=== PATIENT | male | born 1965 | race African-American/Black ===

== ENCOUNTER 2020-03-25 13:04 | Emergency (ER) | payer OTHER, SELFPAY ==
[2020-03-25 13:59] VITALS: PULSE 74; RESP 16; TEMP 37.2; O2SAT 97; BMI 41.1
--- NOTE | 2020-03-25 18:55 | ED.GENADULT ---
HPI - General Adult General Chief complaint: General Medical Stated complaint: anal discharge Time Seen by Provider: 03/25/20 18:43 Source: patient Mode of arrival: ambulatory Limitations: no limitations History of Present Illness HPI narrative: Patient presents to the ED for rectal discharge for 2 weeks. Patient denies any pain. Patient denies any fever, chills, or swelling at any site area. Patient denies any anal sex or placing any foreign body in his anus. Related Data Previous Rx's Medication Instructions Recorded cephalexin 500 mg PO Q6H #28 cap 03/25/20 doxycycline hyclate 100 mg PO BID #20 cap 03/25/20 Allergies Allergy/AdvReac Type Severity Reaction Status Date / Time pollen extracts [POLLEN] Allergy Mild RUNNY NOSE Unverified 12/13/19 16:21 DUST Allergy Mild SNIFFLES Uncoded 12/13/19 16:21 Review of Systems Review of Systems: Yes all other systems are reviewed and are negative Constitutional: Constitutional: Reports as per HPI and Reports no additional constitutional complaints Eyes: Eyes: Reports as per HPI and Reports no additional eye complaints ENT: Reports system reviewed and no additional complaints, except as documented and Reports as per HPI Cardiovascular: Cardiovascular: Reports as per HPI and Reports no additional cardiovascular complaints Respiratory: Respiratory: Reports as per HPI and Reports no additional respiratory complaints Gastrointestinal: Gastrointestinal: Reports as per HPI and Reports no additional gastrointestinal complaints Comments: Clear/yellow rectal discharge Genitourinary: Genitourinary: Reports no additional male genitourinary complaints and Reports as per HPI Musculoskeletal: Musculoskeletal: Reports no additional musculoskeletal complaints and Reports as per HPI Neurologic: Reports system reviewed and no additional complaints, except as documented and Reports as per HPI Psychiatric: Psychiatric: Reports no additional psychiatric complaints and Reports as per HPI [facility] Past Medical History Medical History Asthma Hypertension Social History Social History Smoking Status: Former smoker Use of substances other than those prescribed or required for medical reasons: No Any prior treatment program specific to substance use: No Advance Directives: No Advance Directives Information Provided: Yes Physical Exam Vital Signs: Vital Signs: Last Vital Signs Temp 98.9 F 03/25/20 13:59 Pulse 74 03/25/20 13:59 Resp 16 03/25/20 13:59 Pulse Ox 97 03/25/20 13:59 Body Mass Index 41.1 Const: General: cooperative, healthy appearing, comfortable, no acute distress, well developed, alert and awake Orientation/consciousness: patient oriented x3 HENMT: Head: Yes normal to inspection and Yes No palpable skull fracture present Eyes: General: appearance normal, both eyes and all related structures Neck: Neck: Yes normal visual inspection, Yes full ROM, Yes no lymphadenopathy, Yes no meningeal signs, Yes trachea midline, Yes supple and No tender Chest: Chest palpation & inspection: normal inspection of the chest and normal palpation of entire chest wall Resp: Effort & Inspection: normal respiratory effort and able to speak in complete sentences Auscultation: clear to auscultation bilaterally Cardio: Jugular venous distension: no JVD Heart sounds: S1 normal heart sound present and S2 normal heart sound present GI: Other: MARY: Rectal exam negative for any anal/rectal swelling or mass protruding. Positive for bilateral gluteus max is in a rash/possible stage 2 sacral ulcer. Finger placed in rectum negative for blood and negative for mass on palpation. Negative for any profuse discharge although patient does have yellow stains on pad. Inspection: Yes normal to inspection and No abdominal wall ecchymosis Palpation (GI): Soft to palpation, not firm, nontender, no guarding and not rigid : General: No CVA tenderness and Yes no CVA tenderness Back/Spine/Pelvis: Back: no CVA tenderness, No CVA tenderness and No back tenderness Skin: General skin exam: no rashes or lesions noted Neuro: General: patient oriented x3, no meningeal signs and CN's II-XI intact bilaterally Cranial nerves: Yes CN's II-XII intact bilaterally Extrem: General: Yes normal to inspection and Yes full ROM Psych: Appearance: grossly normal, well kempt and not disheveled Course Course Course Narrative: Unlikely patient has perirectal abscess. Once again surgical decubitus ulcer. Patient overweight. Will send for CT scans admission is no osteomyelitis or perirectal abscess due to patient stating discharge from rectum although very unlikely Reevaluation(s) Reevaluation #1: Patient labs came back normal. CT scan of the pelvis negative for any perirectal abscess, fistula, or osteomyelitis. Patient discharge with antibiotics due to mild superimposed cellulitis on sacral ulcer. Patient be referred to [facility]. Time: 21:21 Medical Decision Making Lab Data Result diagrams: 03/25/20 19:19 03/25/20 19:54 Labs: Lab Results 03/25/20 03/25/20 03/25/20 Range/Units 19:19 19:19 19:54 WBC 7.5 (4.8-10.8) X10*3/uL RBC 4.46 L (4.60-5.80) X10*6/uL Hgb 11.8 L (14.0-18.0) g/dl Hct 37.3 L (42-52) % MCV 83.6 (80-98) fL MCH 26.5 L (27.0-33.0) pg MCHC 31.6 (31.0-36.0) g/dl RDW 14.8 (11.0-16.0) % Plt Count 210 (160-400) X10*3/uL MPV 8.5 L (9.4-12.4) fL Immature Gran % (Auto) 1.1 H (0.0-0.4) % Neut % (Auto) 70.8 (45-73) % Lymph % (Auto) 18.3 L (20-40) % [place] % (Auto) 9.1 (2-11) % Eos % (Auto) 0.3 (0-4) % Baso % (Auto) 0.4 (0-2) % Lymph # (Auto) 1.4 (1.2-4.9) X10*3/uL [place] # (Auto) 0.7 (0.1-1.2) X10*3/uL Eos # (Auto) 0.0 (0.0-0.4) X10*3/uL Baso # (Auto) 0.0 (0.0-0.2) X10*3/uL Abs Immat Gran (auto) 0.08 H (0.00-0.03) X10*3/uL Absolute Neuts (auto) 5.3 (2.0-8.3) X10*3/uL Absolute Nucleated RBC 0.000 (0.0-0.012) X10*3/uL Nucleated RBC % (auto) 0.0 (0.0-0.2) /100WBC Sodium Cancelled 137 Potassium Cancelled 3.4 Chloride Cancelled 105 Carbon Dioxide Cancelled 22 Anion Gap Cancelled 13 BUN Cancelled 7 L Creatinine Cancelled 0.83 Estim Creat Clear Calc Cancelled 150.9 Estimated GFR Cancelled > 60 Random Glucose Cancelled 113 Calcium Cancelled 8.7 Discharge Plan Discharge Clinical Impression: Sacral decubitus ulcer Patient Disposition: Home, Self-Care Instructions: Cellulitis (ED) Additional Instructions: Return to the ED for rectal pain, pain in buttocks, fever, chills, nausea, vomiting, abdominal pain, blood in stool, or any other concerning symptoms. Prescriptions: New doxycycline hyclate 100 mg capsule 100 mg PO BID Qty: 20 RF: 0 cephalexin 500 mg capsule 500 mg PO Q6H Qty: 28 RF: 0 Referrals: Ginette West PA [Physician Service Writer] - 2 days (Bilateral gluteus catina stage II sacral ulcer. CT scan negative for any osteomyelitis or perirectal abscess. Patient started on antibiotics.) Stand Alone Forms: Work/School Release Interventions: ED Discharge Assessment Last Done: 03/25/20 21:56 Discharge Date/Time: 03/25/20 21:58 Print Language: Ecuadorean
[2020-03-25 19:23] LABS: MANUAL DIFF FLAG NO
[2020-03-25 19:29] LABS: Basophils Percent Auto 0.4 % (0-2); Eosinophils Percent Auto 0.3 % (0-4); Hematocrit 37.3 % (42-52); Hemoglobin 11.8 g/dl (14.0-18.0); Imm Gran Abs Auto 0.08 X10*3/uL (0.00-0.03); Imm Gran Pct Auto 1.1 % (0.0-0.4); Lymphocytes Absolute Auto 1.4 X10*3/uL (1.2-4.9); Lymphocytes Percent Auto 18.3 % (20-40); Mean Corpuscular HGB Conc 31.6 g/dl (31.0-36.0); Mean Corpuscular Hemoglobin 26.5 pg (27.0-33.0); Mean Corpuscular Volume 83.6 fL (80-98); Mean Platelet Volume 8.5 fL (9.4-12.4); Monocytes Absolute Auto 0.7 X10*3/uL (0.1-1.2); Monocytes Percent Auto 9.1 % (2-11); Neutrophils Absolute Auto 5.3 X10*3/uL (2.0-8.3); Neutrophils Percent Auto 70.8 % (45-73); Platelet Count 210 X10*3/uL (160-400); Red Blood Count 4.46 X10*6/uL (4.60-5.80); Red Cell Distribution Width 14.8 % (11.0-16.0); White Blood Count 7.5 X10*3/uL (4.8-10.8)
[2020-03-25 20:26] LABS: Anion Gap 13 (12-20); Blood Urea Nitrogen 7 mg/dL (9-16); Calcium 8.7 mg/dL (8.4-10.2); Carbon Dioxide 22 mmol/L (22-29); Chloride 105 mmol/L (96-108); Creatinine Clr Calc Pharmacy 150.9; Estimated Glomerular Filt Rate > 60; Glucose Random 113 mg/dL (60-115); Potassium 3.4 mmol/l (3.3-5.1); Sodium 137 mmol/L (135-145)
--- NOTE | 2020-03-25 20:33 | CT_ITS ---
EXAMINATION: CT PELVIS WITHOUT CONTRAST CLINICAL INFORMATION: 54-year-old male with rectal drainage. Question fistula versus perirectal abscess. Question osteomyelitis. COMPARISON: Abdominal ultrasound 01/31/2018 TECHNIQUE: Helical scanning was performed with submillimeter collimation through the pelvis. Sagittal and coronal multiplanar 2-D reconstructions were obtained. This CT examination was performed using dose optimization techniques as appropriate, variously including the following: *Automated exposure control *Adjustment of mA and/or kV according to patient size (this includes techniques or standardized protocols for targeted exams where dose is matched to indication/reason for exam; i.e. extremities or head) *Use of iterative reconstruction technique DLP: 1018 mGy-cm FINDINGS: Visualized loops of small bowel are normal in caliber. Visualized loops of colon demonstrate mild diverticulosis without CT evidence to suggest active diverticulitis. The appendix is normal in appearance. Tiny fat-containing umbilical hernia. Visualized portions of the inferior abdominal aorta are normal in caliber. The bladder is decompressed and therefore not accurately evaluated. The prostate gland is not enlarged. No pelvic abscess identified. Shotty bilateral inguinal lymph nodes. Mild degenerative changes of the visualized lower lumbar spine. 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 CT/CT pelvis wo con IMPRESSION: No pelvic abscess identified.
--- NOTE | 2020-03-25 21:58 | PC.NURSE ---
SEVERO MCCLAIN AND LUDWIG TORRES WENT TO ASSESSES BOTTOM AREA 2 ULCERS NOTED.
== END 2020-03-25 21:58 | disposition home or self-care (01) ==
PROVIDERS: Physician Assistant; Emergency Provider Emergency Medicine; PCP Internal Medicine
DX: L89.150 Pressure ulcer of sacral region, unstageable (principal); Z87.891 Personal history of nicotine dependence; Z79.899 Other long term (current) drug therapy
CPT/HCPCS: 36415; 72192; 80048; 85025; 99284

== ENCOUNTER 2020-04-03 08:00 | Outpatient (RCR) | payer OTHER, SELFPAY | END 2020-04-15 14:52 | disposition home or self-care (01) | LOC: HO.WCC 08:00 | PROVIDERS: Visit Provider Surgery | DX: L89.322 Pressure ulcer of left buttock, stage 2 (principal); L89.312 Pressure ulcer of right buttock, stage 2; F17.290 Nicotine dependence, other tobacco product, uncomplicated; I10 Essential (primary) hypertension; Z79.2 Long term (current) use of antibiotics; Z79.899 Other long term (current) drug therapy | CPT/HCPCS: 99203; 99212; 99213 ==

== ENCOUNTER 2020-04-03 16:48 | Outpatient (REF) | payer OTHER, SELFPAY | END 2020-04-03 16:49 | disposition home or self-care (01) | LOC: HO.LAB 16:48 | PROVIDERS: Visit Provider Internal Medicine | DX: Z20.828 Contact with and (suspected) exposure to other viral communicable diseases (principal) | CPT/HCPCS: 36415; C9803; U0003 ==

== ENCOUNTER 2020-05-22 09:08 | Outpatient (RCR) | payer OTHER, SELFPAY | END 2020-07-04 15:51 | disposition home or self-care (01) | LOC: HO.WCC 09:08 | PROVIDERS: Visit Provider Surgery | DX: B35.8 Other dermatophytoses (principal); I10 Essential (primary) hypertension; F17.290 Nicotine dependence, other tobacco product, uncomplicated | CPT/HCPCS: 99212; 99213 ==

== ENCOUNTER 2020-06-23 09:51 | Outpatient (REF) | payer OTHER, SELFPAY | END 2020-06-23 09:52 | disposition home or self-care (01) | LOC: HO.LAB 09:51 | PROVIDERS: Visit Provider Internal Medicine | DX: Z20.822 Contact with and (suspected) exposure to COVID-19 (principal) | CPT/HCPCS: 36415; C9803; U0003; U0005 ==

== ENCOUNTER 2020-12-04 12:33 | Emergency (ER) | payer OTHER, SELFPAY ==
--- NOTE | 2020-12-04 | ECG_ITS ---
Test Reason : CP Blood Pressure : / mmHG Vent. Rate : 049 BPM Atrial Rate : 049 BPM P-R Int : 162 ms QRS Dur : 112 ms QT Int : 460 ms P-R-T Axes : 030 013 037 degrees QTc Int : 415 ms Sinus bradycardia Abnormal ECG When compared with ECG of 09-JUL-2013 11:35, Vent. rate has decreased BY 42 BPM Referred By: Generic ED Physician Electronically Signed By:SHILPA BHAKTA
--- NOTE | ~2020-12-04 | XR_ITS ---
EXAMINATION: XR CHEST CLINICAL INFORMATION: Chest pain COMPARISON: Previous chest x-ray May 2009 TECHNIQUE: Frontal view of the chest was obtained. FINDINGS: No significant abnormality is noted involving the heart, lungs, mediastinum, bony thorax or soft tissues. XR/XR chest 1V IMPRESSION: Unremarkable examination.
[2020-12-04 12:41] VITALS: BP 149/82; PULSE 52; RESP 16; TEMP 37.2; O2SAT 97; BMI 38.5
[2020-12-04 13:13] LABS: MANUAL DIFF FLAG NO
[2020-12-04 13:16] LABS: Basophils Absolute Auto 0.1 X10*3/uL (0.0-0.2); Basophils Percent Auto 0.7 % (0-2); Eosinophils Absolute Auto 0.1 X10*3/uL (0.0-0.4); Eosinophils Percent Auto 1.8 % (0-4); Hematocrit 36.8 % (42-52); Hemoglobin 12.4 g/dl (14.0-18.0); Imm Gran Abs Auto 0.02 X10*3/uL (0.00-0.03); Imm Gran Pct Auto 0.3 % (0.0-0.4); Lymphocytes Absolute Auto 2.1 X10*3/uL (1.2-4.9); Lymphocytes Percent Auto 28.4 % (20-40); Mean Corpuscular HGB Conc 33.7 g/dl (31.0-36.0); Mean Corpuscular Hemoglobin 28.6 pg (27.0-33.0); Mean Corpuscular Volume 84.8 fL (80-98); Mean Platelet Volume 8.8 fL (9.4-12.4); Monocytes Absolute Auto 0.7 X10*3/uL (0.1-1.2); Monocytes Percent Auto 8.9 % (2-11); Neutrophils Absolute Auto 4.4 X10*3/uL (2.0-8.3); Neutrophils Percent Auto 59.9 % (45-73); Platelet Count 225 X10*3/uL (160-400); Red Blood Count 4.34 X10*6/uL (4.60-5.80); Red Cell Distribution Width 14.7 % (11.0-16.0); White Blood Count 7.3 X10*3/uL (4.8-10.8)
[2020-12-04 13:31] LABS: Anion Gap 13 (12-20); Blood Urea Nitrogen 6 mg/dL (9-16); Calcium 9.7 mg/dL (8.4-10.2); Carbon Dioxide 21 mmol/L (22-29); Chloride 110 mmol/L (96-108); Creatinine Clr Calc Pharmacy 159.4; Estimated Glomerular Filt Rate > 60; Glucose Random 81 mg/dL (60-115); Potassium 3.8 mmol/L (3.3-5.1); Sodium 140 mmol/L (135-145)
[2020-12-04 13:35] LABS: Troponin-I High Sensitivity < 3.5 ng/L (<3.5-35.0)
[2020-12-04 13:41] LABS: COVID-19 Test Negative (Negative)
--- NOTE | 2020-12-04 14:55 | ED_ITS ---
HPI - Chest Pain General Chief Complaint: Chest Pain Stated Complaint: SOB FEVER CHEST PAIN Time Seen by Provider: 12/04/20 14:55 Source: patient Mode of arrival: ambulatory Limitations: no limitations History of Present Illness MD complaint: chest pain (cough, runny nose, fevers) Onset (ago): day(s) (2) Timing of current episode: constant Prior episodes: Yes Onset: during rest Pain location: left chest Pain radiation: none Severity: mild Quality: tightness Relieving factors: nothing Exacerbating factors: nothing Context: recent illness Associated symptoms: dyspnea, fever and cough Treatment prior to arrival: none Related Data Home Medications Medication Instructions Recorded Confirmed aripiprazole 5 mg tablet (Abilify) 5 mg PO DAILY 04/08/20 08/04/20 bupropion HCl 300 mg 24 hr tablet, 300 mg PO QAM 04/08/20 08/04/20 extended release (Wellbutrin XL) loratadine 10 mg tablet 10 mg PO DAILY 04/08/20 08/04/20 quetiapine 300 mg tablet (Seroquel) 300 mg PO BEDTIME 04/08/20 08/04/20 sertraline 100 mg tablet (Zoloft) 200 mg PO DAILY tab 04/08/20 08/04/20 trazodone 100 mg tablet 200 mg PO BEDTIME 04/08/20 08/04/20 Previous Rx's Medication Instructions Recorded cyanocobalamin (vitamin B-12) 1,000 mcg PO DAILY #28 tab 04/08/20 1,000 mcg tablet (Vitamin B-12) folic acid 1 mg tablet 1 mg PO DAILY #28 tab 06/03/20 albuterol sulfate 90 mcg/actuation 2 puff PO Q4H #8.5 g 07/10/20 aerosol inhaler (ProAir HFA) ascorbate calcium (vitamin C) 500 500 mg PO DAILY #90 tab 09/23/20 mg tablet ferrous sulfate 325 mg (65 mg 325 mg PO DAILY #90 tab 09/23/20 iron) tablet (Feosol) pantoprazole 40 mg tablet,delayed 40 mg PO DAILY 90 Days #90 tab 09/23/20 release allopurinol 300 mg tablet 300 mg PO DAILY #28 tab 10/25/20 nifedipine 90 mg tablet,extended 90 mg PO DAILY #28 tab 10/25/20 release 24 hr Allergies Allergy/AdvReac Type Severity Reaction Status Date / Time pollen extracts [POLLEN] Allergy Mild RUNNY NOSE Verified 05/19/20 12:42 house dust Allergy Unknown Sniffles Verified 05/19/20 12:42 Review of Systems Review of Systems: Constitutional : No Weight loss, pos Fever, No Chills ENT/Mouth : No sore throat, No Rhinorrhea Eyes: No Eye Pain, No Swelling Cardiovascular : pos Chest Pain, pos SOB, no Dyspnea on Exertion, No Orthopnea, No Edema, No Palpitations Respiratory : pos Cough, No Sputum Gastrointestinal : no Nausea, No Vomiting, No Diarrhea, No abdominal Pain, No Hematochezia, No Melena Genitourinary : No Dysuria, No Urinary Frequency Musculoskeletal : No joint pain, No Myalgias, No Joint Swelling Skin : No Skin Lesions, No rash Neuro : No Weakness, No Numbness, No Dizziness, No Headache Psych : No Anxiety/Panic, No Depression Heme/Lymph: No Bruising, No Lymphadenopathy Endocrine : No Polyuria, No Polydipsia All other systems reviewed and are negative [facility] Past Medical History Attestation statement: The following information was validated with the patient. Medical History Anemia Anxiety and depression Asthma Degenerative disc disease Folic acid deficiency GERD (gastroesophageal reflux disease) Gout Hypertension Obesity Tubular adenoma of colon Surgical History H/O knee surgery Family History Family History (Updated 05/19/20 @ 12:44 by Juany Aguirre Marco) Mother Diabetes Hypertension Stroke Father Medical history unknown Sister Hypertension Diabetes Paternal Grandmother Myocardial infarction Daughter In good health Sister No problems noted. Brother No problems noted. Social History Social History Alcohol intake: current Alcohol intake frequency: holidays/special occasions only Alcohol type: beer Patient Tobacco Use Status: Former Tobacco user Smoked in Last 30 Days: No Use of substances other than those prescribed or required for medical reasons: No Substance Use Type: Marijuana Advance Directives: No Advance Directives Information Provided: No Physical Exam 2 Vital Signs: Vital Signs: Last Vital Signs Temp 98.9 F 12/04/20 12:41 Pulse 50 12/04/20 16:00 Resp 18 12/04/20 16:00 BP 146/84 H 12/04/20 16:00 Pulse Ox 98 12/04/20 16:00 Body Mass Index 38.5 Appearance: Alert. Oriented X3. No acute distress. Eyes: Pupils equal, round and reactive to light. ENT: Pharynx normal. Neck: Normal inspection. Neck supple. CVS: Normal heart rate and rhythm. Pulses normal. Respiratory: No respiratory distress. Breath sounds normal. Abdomen: Soft and nontender. Skin: Skin warm and dry. Normal skin color. Normal skin turgor. Extremities: No lower extremity edema. No calf ttp Neuro: Oriented X 3. No motor deficit. No sensory deficit. Course Course Course Narrative: negative EKG, neg trop/CXR, ddimer and COVID stable for DC feels much better MDM - Chest Pain MDM Narrative Medical decision making narrative: 55 yo male with 2 days of fever, cough runny nose and L sided chest pain - at this time will obtain labs, troponin x 1, ddimer COVID swab - denies sick contacts, he is vaccinated, dispo per results and findings. Lab Data Result diagrams: 12/04/20 13:08 12/04/20 13:08 Labs: Lab Results 12/04/20 12/04/20 12/04/20 Range/Units 13:08 13:08 13:08 WBC 7.3 (4.8-10.8) X10*3/uL RBC 4.34 L (4.60-5.80) X10*6/uL Hgb 12.4 L (14.0-18.0) g/dl Hct 36.8 L (42-52) % MCV 84.8 (80-98) fL MCH 28.6 (27.0-33.0) pg MCHC 33.7 (31.0-36.0) g/dl RDW 14.7 (11.0-16.0) % Plt Count 225 (160-400) X10*3/uL MPV 8.8 L (9.4-12.4) fL Immature Gran % (Auto) 0.3 (0.0-0.4) % Neut % (Auto) 59.9 (45-73) % Lymph % (Auto) 28.4 (20-40) % [place] % (Auto) 8.9 (2-11) % Eos % (Auto) 1.8 (0-4) % Baso % (Auto) 0.7 (0-2) % Lymph # (Auto) 2.1 (1.2-4.9) X10*3/uL [place] # (Auto) 0.7 (0.1-1.2) X10*3/uL Eos # (Auto) 0.1 (0.0-0.4) X10*3/uL Baso # (Auto) 0.1 (0.0-0.2) X10*3/uL Abs Immat Gran (auto) 0.02 (0.00-0.03) X10*3/uL Absolute Neuts (auto) 4.4 (2.0-8.3) X10*3/uL Absolute Nucleated RBC 0.000 (0.0-0.012) X10*3/uL Nucleated RBC % (auto) 0.0 (0.0-0.2) /100WBC D-Dimer NG/ML Sodium 140 (135-145) mmol/L Potassium 3.8 (3.3-5.1) mmol/L Chloride 110 H (96-108) mmol/L Carbon Dioxide 21 L (22-29) mmol/L Anion Gap 13 (12-20) BUN 6 L (9-16) mg/dL Creatinine 0.75 (0.5-1.4) mg/dL Estim Creat Clear Calc 159.4 Estimated GFR > 60 Random Glucose 81 (60-115) mg/dL Calcium 9.7 (8.4-10.2) mg/dL Troponin I High Sens < 3.5 (<3.5-35.0) ng/L COVID-19 ([place]) (Negative) COVID-19 Clin Com 12/04/20 12/04/20 Range/Units 13:08 15:58 WBC (4.8-10.8) X10*3/uL RBC (4.60-5.80) X10*6/uL Hgb (14.0-18.0) g/dl Hct (42-52) % MCV (80-98) fL MCH (27.0-33.0) pg MCHC (31.0-36.0) g/dl RDW (11.0-16.0) % Plt Count (160-400) X10*3/uL MPV (9.4-12.4) fL Immature Gran % (Auto) (0.0-0.4) % Neut % (Auto) (45-73) % Lymph % (Auto) (20-40) % [place] % (Auto) (2-11) % Eos % (Auto) (0-4) % Baso % (Auto) (0-2) % Lymph # (Auto) (1.2-4.9) X10*3/uL [place] # (Auto) (0.1-1.2) X10*3/uL Eos # (Auto) (0.0-0.4) X10*3/uL Baso # (Auto) (0.0-0.2) X10*3/uL Abs Immat Gran (auto) (0.00-0.03) X10*3/uL Absolute Neuts (auto) (2.0-8.3) X10*3/uL Absolute Nucleated RBC (0.0-0.012) X10*3/uL Nucleated RBC % (auto) (0.0-0.2) /100WBC D-Dimer < 200 NG/ML Sodium (135-145) mmol/L Potassium (3.3-5.1) mmol/L Chloride (96-108) mmol/L Carbon Dioxide (22-29) mmol/L Anion Gap (12-20) BUN (9-16) mg/dL Creatinine (0.5-1.4) mg/dL Estim Creat Clear Calc Estimated GFR Random Glucose (60-115) mg/dL Calcium (8.4-10.2) mg/dL Troponin I High Sens (<3.5-35.0) ng/L COVID-19 ([place]) Negative (Negative) COVID-19 Clin Com See Note ECG Data ECG #1: Attestation: I personally reviewed and interpreted this ECG as follows: ECG interpretation date: 12/04/20 ECG interpretation time: 15:07 Interpretation: Rate: 49 Rhythm: sinus bradycardia [place]: normal Normal P waves. Normal ALEXSANDRA. Normal QRS complex. ST T wave : normal no YARON qTC: normal prior studies: no acute ischemi The study has been interpreted contemporaneously by me. . Discharge Plan Discharge Clinical Impression: Atypical chest pain Patient Disposition: Home, Self-Care Instructions: Chest Pain (ED) Additional Instructions: return to ED for any worsening symptoms or concerns NEGATIVE COVID Prescriptions: No Action cyanocobalamin (vitamin B-12) [Vitamin B-12] 1,000 mcg tablet 1,000 mcg PO DAILY Qty: 28 RF: 11 folic acid 1 mg tablet 1 mg PO DAILY Qty: 28 RF: 11 albuterol sulfate [ProAir HFA] 90 mcg/actuation HFA aerosol inhaler 2 puff PO Q4H Qty: 8.5 RF: 0 pantoprazole 40 mg tablet,delayed release (DR/EC) 40 mg PO DAILY 90 Days Qty: 90 RF: 2 ascorbate calcium (vitamin C) 500 mg tablet 500 mg PO DAILY Qty: 90 RF: 2 ferrous sulfate [Feosol] 325 mg (65 mg iron) tablet 325 mg PO DAILY Qty: 90 RF: 2 allopurinol 300 mg tablet 300 mg PO DAILY Qty: 28 RF: 3 nifedipine 90 mg tablet extended release 24hr 90 mg PO DAILY Qty: 28 RF: 3 loratadine 10 mg tablet 10 mg PO DAILY RF: 0 aripiprazole [Abilify] 5 mg tablet 5 mg PO DAILY RF: 0 trazodone 100 mg tablet 200 mg PO BEDTIME RF: 0 quetiapine [Seroquel] 300 mg tablet 300 mg PO BEDTIME RF: 0 sertraline [Zoloft] 100 mg tablet 200 mg PO DAILY RF: 0 bupropion HCl [Wellbutrin XL] 300 mg tablet extended release 24 hr 300 mg PO QAM RF: 0 Referrals: Po,Joey Hampton MD [Primary Care Provider] - 2 days (if not better)
[2020-12-04 16:00] VITALS: BP 146/84; PULSE 50; RESP 18; O2SAT 98
[2020-12-04 17:02] LABS: D Dimer < 200 NG/ML
== END 2020-12-04 17:19 | disposition home or self-care (01) ==
PROVIDERS: Emergency Provider Emergency Medicine; PCP Internal Medicine
DX: R07.89 Other chest pain (principal); Z20.822 Contact with and (suspected) exposure to COVID-19
CPT/HCPCS: 36415; 71045; 80048; 84484; 85025; 85379; 87635; 93005; 99283; 99285

== ENCOUNTER 2021-04-12 12:29 | Emergency (ER) | payer OTHER, SELFPAY ==
--- NOTE | ~2021-04-12 | US_ITS ---
EXAMINATION: US SCROTUM CLINICAL INFORMATION: Left testicular pain and swelling. COMPARISON: CT pelvis 03/25/2020 TECHNIQUE: A sonogram of the scrotum was performed assessing orosco-scale appearance and color Doppler flow. Spectral Doppler analysis of the arterial and venous flow were performed in the testes bilaterally. FINDINGS: RIGHT: Right testicle measures 3.2 x 1.7 x 2.0 cm, volume 5.7 mL. No focal testicular parenchymal lesions are visualized. Spectral Doppler analysis of the arterial and venous flow is normal in the right testis. Right epididymal head is normal in size. A small cyst is noted within the head of the right epididymis measuring 4 mm in size. No right hydrocele is seen but a moderate varicocele is present. Right epididymal Doppler flow is normal. LEFT: Left testicle measures 3.0 x 1.9 x 1.8 cm, volume 5.5 mL. No focal testicular parenchymal lesions are visualized. Spectral Doppler analysis of the arterial and venous flow is normal in the left testis. Left epididymal head is normal in size. No left hydrocele is seen but a moderate-sized varicocele. Left epididymal Doppler flow is normal. Scrotal hernias are seen bilaterally which appear to contain fat. US/US scrotum doppler IMPRESSION: 1. The testes appear normal with no evidence of malignancy. 2. Bilateral varicoceles are present along with what appear to be bilateral inguinal hernias extending down into the scrotum. At the time of the prior 03/25/2020 study, no significant inguinal hernias were noted.
--- NOTE | ~2021-04-12 | US_ITS ---
EXAMINATION: US SCROTUM CLINICAL INFORMATION: Left testicular pain and swelling. COMPARISON: CT pelvis 03/25/2020 TECHNIQUE: A sonogram of the scrotum was performed assessing orosco-scale appearance and color Doppler flow. Spectral Doppler analysis of the arterial and venous flow were performed in the testes bilaterally. FINDINGS: RIGHT: Right testicle measures 3.2 x 1.7 x 2.0 cm, volume 5.7 mL. No focal testicular parenchymal lesions are visualized. Spectral Doppler analysis of the arterial and venous flow is normal in the right testis. Right epididymal head is normal in size. A small cyst is noted within the head of the right epididymis measuring 4 mm in size. No right hydrocele is seen but a moderate varicocele is present. Right epididymal Doppler flow is normal. LEFT: Left testicle measures 3.0 x 1.9 x 1.8 cm, volume 5.5 mL. No focal testicular parenchymal lesions are visualized. Spectral Doppler analysis of the arterial and venous flow is normal in the left testis. Left epididymal head is normal in size. No left hydrocele is seen but a moderate-sized varicocele. Left epididymal Doppler flow is normal. Scrotal hernias are seen bilaterally which appear to contain fat. US/US scrotum IMPRESSION: 1. The testes appear normal with no evidence of malignancy. 2. Bilateral varicoceles are present along with what appear to be bilateral inguinal hernias extending down into the scrotum. At the time of the prior 03/25/2020 study, no significant inguinal hernias were noted.
[2021-04-12 13:09] VITALS: BP 131/77; PULSE 57; RESP 19; TEMP 36.6; O2SAT 96; BMI 41.1
[2021-04-12 21:52] VITALS: BP 114/63; PULSE 74; RESP 16; TEMP 36.9; O2SAT 97
[2021-04-12] MEDS: Ibuprofen 600 MG TABLET PO (21:54)
[2021-04-13 00:52] VITALS: BP 137/71; PULSE 61; RESP 22; O2SAT 97
--- NOTE | 2021-04-13 00:54 | PC.NURSE ---
Pateint stating that he has burning in with urination.
[2021-04-13 01:09] LABS: Appearance Urine HAZY; Color Urine YELLOW; Glucose Urine UA NEG (NEG); Leukocyte Esterase Urine NEG (NEG); Nitrite Urine NEG (NEG); Specific Gravity - Urine >= 1.030 (1.005-1.025); Urine Blood NEG (NEG); Urine Ketones NEG (NEG); Urine Protein NEG (NEG-TRACE)
[2021-04-13 01:12] LABS: Bacteria Urine 2+ /LPF; Mucus Urine 2+ /LPF; Squamous Epithelial Cell Urine 2+ /LPF
[2021-04-13 04:00] VITALS: RESP 18
--- NOTE | 2021-04-13 04:40 | ED.MALEGU ---
HPI - Male Genitourinary General Chief complaint: Urogenital-Male Stated complaint: hernia Time Seen by Provider: 04/12/21 13:13 Source: patient Mode of arrival: ambulatory Limitations: no limitations History of Present Illness HPI Narrative: 55-year-old male who presents emergency department for evaluation of bilateral groin pain. 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 He states that he was taking a heavy tire off a tow truck when he developed severe pain in his groin area. He states he felt like something dropped. Since that time he has had a constant, bilateral groin pain which she describes as a burning and throbbing sensation. The pain is 8/10 at its worst. The patient had associated nausea and had 2 episodes of vomiting. He states that he had chills but no subjective fever. He denied frequency, urgency or dysuria. He states he has had no difficulty moving his bowels. He states that the left groin seems to her more than the right groin area. Related Data Home Medications Medication Instructions Recorded Confirmed aripiprazole 5 mg tablet (Abilify) 5 mg PO DAILY 04/08/20 08/04/20 bupropion HCl 300 mg 24 hr tablet, 300 mg PO QAM 04/08/20 08/04/20 extended release (Wellbutrin XL) loratadine 10 mg tablet 10 mg PO DAILY 04/08/20 08/04/20 quetiapine 300 mg tablet (Seroquel) 300 mg PO BEDTIME 04/08/20 08/04/20 sertraline 100 mg tablet (Zoloft) 200 mg PO DAILY tab 04/08/20 08/04/20 trazodone 100 mg tablet 200 mg PO BEDTIME 04/08/20 08/04/20 Previous Rx's Medication Instructions Recorded folic acid 1 mg tablet 1 mg PO DAILY #28 tab 06/03/20 albuterol sulfate 90 mcg/actuation 2 puff PO Q4H #8.5 g 07/10/20 aerosol inhaler (ProAir HFA) ascorbate calcium (vitamin C) 500 500 mg PO DAILY #90 tab 09/23/20 mg tablet ferrous sulfate 325 mg (65 mg 325 mg PO DAILY #90 tab 09/23/20 iron) tablet (Feosol) pantoprazole 40 mg tablet,delayed 40 mg PO DAILY 90 Days #90 tab 09/23/20 release allopurinol 300 mg tablet 300 mg PO DAILY #90 tab 02/10/21 nifedipine 90 mg tablet,extended 90 mg PO DAILY #90 tab 02/10/21 release 24 hr cyanocobalamin (vitamin B-12) 1,000 mcg PO DAILY #28 tab 03/22/21 1,000 mcg tablet (Vitamin B-12) acetaminophen 500 mg tablet 1,000 mg PO Q6H PRN #30 tab 04/13/21 ibuprofen 600 mg tablet 600 mg PO Q6H PRN #30 tab 04/13/21 oxycodone 5 mg tablet 5 mg PO Q4H PRN #14 tab 04/13/21 Allergies Allergy/AdvReac Type Severity Reaction Status Date / Time pollen extracts [POLLEN] Allergy Mild RUNNY NOSE Verified 05/19/20 12:42 house dust Allergy Unknown Sniffles Verified 05/19/20 12:42 Review of Systems Review of Systems: Yes all other systems are reviewed and are negative [facility] Past Medical History [facility] Narrative: Past surgical history: Cartilage surgeries on both knees, no abdominal surgeries. 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 He denies tobacco use. He occasionally drinks alcohol. He denies drug use. Medical History Anemia Anxiety and depression Asthma Degenerative disc disease Folic acid deficiency GERD (gastroesophageal reflux disease) Gout Hypertension Obesity Tubular adenoma of colon Surgical History H/O knee surgery Family History Family History Mother Diabetes Hypertension Stroke Father Medical history unknown Sister Hypertension Diabetes Paternal Grandmother Myocardial infarction Daughter In good health Sister No problems noted. Brother No problems noted. Social History Social History Alcohol intake: current Alcohol intake frequency: holidays/special occasions only Alcohol type: beer Patient Tobacco Use Status: Former Tobacco user Substance Use Type: Marijuana Advance Directives: No Advance Directives Information Provided: Yes Physical Exam Vital Signs: Vital Signs: Last Vital Signs Temp 98.4 F 04/12/21 21:52 Pulse 61 04/13/21 00:52 Resp 22 H 04/13/21 00:52 BP 137/71 04/13/21 00:52 Pulse Ox 97 04/13/21 00:52 BMI result Body Mass Index 41.1 Const: General: cooperative and no acute distress Orientation/consciousness: oriented to person and oriented to place Limitations: no limitations HENMT: Head: Yes normal to inspection, Yes normocephalic and Yes atraumatic Ears: external ears normal General nose exam: Normal external nose present Face and sinus: Yes normal facial exam Mouth: Normal oral and palatal mucosa present Throat: Yes posterior oropharynx normal Eyes: General: appearance normal, both eyes and all related structures Pupils: Equal, round and reactive pupils present Neck: Neck: Yes normal visual inspection, Yes no lymphadenopathy, Yes trachea midline and Yes supple Chest: Chest palpation & inspection: normal inspection of the chest and normal palpation of entire chest wall Resp: Effort & Inspection: normal respiratory effort and able to speak in complete sentences Auscultation: clear to auscultation bilaterally Cardio: Rate: regular rate Rhythm: regular rhythm Heart sounds: S1 normal heart sound present, S2 normal heart sound present and no murmurs GI: Inspection: Yes normal to inspection Palpation (GI): Soft to palpation, Tenderness to palpation present (GI) (Bilateral inguinal areas, fullness noted this area as well) and no guarding Auscultation: normal bowel sounds : General: Yes no CVA tenderness Male General Exam: Yes normal external exam Penis: normal penis Meatus: meatus normal Scrotum: scrotum normal and inguinal hernia (Bilateral) Testes: Testes normal Back/Spine/Pelvis: Back: no CVA tenderness Skin: General skin exam: no rashes or lesions noted Neuro: General: oriented to person and oriented to place Cranial nerves: Yes CN's II-XII intact bilaterally and Yes Equal, round and reactive pupils present Cognition (Neuro): normal cognition Motor exam (neuro): 5/5 motor strength present throughout Extrem: General: Yes normal to inspection Psych: Appearance: grossly normal Speech and movement: Normal speech and movement present Affect: normal affect Attitude: cooperative Thought process: Normal thought process present Thought content: Normal thought content present Course Course Course Narrative: 55-year-old male who presents emergency department for evaluation of bilateral groin pain left greater than right after lifting a heavy tire off a tow truck 2 days prior. Patient states he did have some nausea with 2 episodes of vomiting but since then been able to eat and drink, he has had normal bowel movements. The patient's examination did reveal a fullness in the groin area bilaterally and possible bilateral hernias. Urinalysis was negative. Doppler ultrasound revealed a normal testicular and epididymal exam. Patient does have bilateral fat hernias noted on ultrasound. I did discuss this with the patient. Patient was started on ibuprofen and Tylenol for pain and for pain not relieved by these 2 medications he was given a prescription for oxycodone. He will be referred to our on-call surgeon for further evaluation and treatment. He was given verbal and printed instructions on inguinal hernias. MDM - Male Genitourinary Lab Data Labs: Lab Results 04/13/21 Range/Units 01:04 Urine Color YELLOW Urine Appearance HAZY Urine pH 6.0 (5.0-8.0) Ur Specific [place] >= 1.030 H (1.005-1.025) Urine Protein NEG (NEG-TRACE) MG/DL Urine Glucose (UA) NEG (NEG) MG/DL Urine Ketones NEG (NEG) MG/DL Urine Blood NEG (NEG) Urine Nitrite NEG (NEG) Ur Leukocyte Esterase NEG (NEG) Urine RBC 1-4 (0) /HPF Urine WBC 1-4 (0-4) /HPF Ur Squamous Epith Cells 2+ /LPF Urine Bacteria 2+ /LPF Urine Mucus 2+ /LPF Discharge Plan Discharge Clinical Impression: Bilateral inguinal hernia Qualifiers: Obstruction and gangrene presence: without obstruction or gangrene Recurrence: non-recurrent Qualified Code(s): K40.20 - Bilateral inguinal hernia, without obstruction or gangrene, not specified as recurrent Patient Disposition: Home, Self-Care Instructions: Inguinal Hernia (ED) Additional Instructions: Your examination is consistent with inguinal hernias. The ultrasound revealed that you have fat in the hernias with no intestine at this time, this is reassuring. A fat inguinal hernia is usually treated with pain medications however sometimes these are operated on. Take ibuprofen 200 mg pills, 3 pills every 6 hours as needed for pain. Take Tylenol (acetaminophen) 500 mg pills, 2 pills every 4-6 hours as needed for pain. For pain not relieved by ibuprofen or Tylenol take oxycodone 5 mg pills, 1 pill every 4 hours as needed for pain. Do not drive or work while taking this medication since they can cause sleepiness. Oxycodone is a narcotic medication that can be addicting. If you are concerned about addiction you can ask the pharmacist for less pills or do not get this prescription filled. Follow-up with on-call surgeon, Dr. Lemons in 1-2 weeks for evaluation of your hernias.. Please return to the emergency department if your symptoms get worse or if you develop any symptoms that are concerning to you. Prescriptions: New ibuprofen 600 mg tablet 600 mg PO Q6H PRN (Reason: pain) Qty: 30 RF: 0 oxycodone 5 mg tablet 5 mg PO Q4H PRN (Reason: pain) Qty: 14 RF: 0 acetaminophen 500 mg tablet 1,000 mg PO Q6H PRN (Reason: fever or pain) Qty: 30 RF: 0 No Action folic acid 1 mg tablet 1 mg PO DAILY Qty: 28 RF: 11 albuterol sulfate [ProAir HFA] 90 mcg/actuation HFA aerosol inhaler 2 puff PO Q4H Qty: 8.5 RF: 0 pantoprazole 40 mg tablet,delayed release (DR/EC) 40 mg PO DAILY 90 Days Qty: 90 RF: 2 ascorbate calcium (vitamin C) 500 mg tablet 500 mg PO DAILY Qty: 90 RF: 2 ferrous sulfate [Feosol] 325 mg (65 mg iron) tablet 325 mg PO DAILY Qty: 90 RF: 2 allopurinol 300 mg tablet 300 mg PO DAILY Qty: 90 RF: 2 nifedipine 90 mg tablet extended release 24hr 90 mg PO DAILY Qty: 90 RF: 2 cyanocobalamin (vitamin B-12) [Vitamin B-12] 1,000 mcg tablet 1,000 mcg PO DAILY Qty: 28 RF: 11 loratadine 10 mg tablet 10 mg PO DAILY RF: 0 aripiprazole [Abilify] 5 mg tablet 5 mg PO DAILY RF: 0 trazodone 100 mg tablet 200 mg PO BEDTIME RF: 0 quetiapine [Seroquel] 300 mg tablet 300 mg PO BEDTIME RF: 0 sertraline [Zoloft] 100 mg tablet 200 mg PO DAILY RF: 0 bupropion HCl [Wellbutrin XL] 300 mg tablet extended release 24 hr 300 mg PO QAM RF: 0
== END 2021-04-13 05:21 | disposition home or self-care (01) ==
PROVIDERS: Emergency Provider Emergency Medicine Emergency Medical Services; PCP Internal Medicine
DX: K40.20 Bilateral inguinal hernia, without obstruction or gangrene, not specified as recurrent (principal); R10.30 Lower abdominal pain, unspecified
CPT/HCPCS: 76870; 81001; 93975; 99284

== ENCOUNTER → 2021-04-21 15:50 | Outpatient (BNVA) | payer OTHER, SELFPAY | PROVIDERS: PCP Internal Medicine; Referring Provider Internal Medicine; Visit Provider Surgery | DX: K40.20 Bilateral inguinal hernia, without obstruction or gangrene, not specified as recurrent (principal) | CPT/HCPCS: 99202 ==

== ENCOUNTER → 2021-05-29 14:32 | Outpatient (BNVA) | payer OTHER, SELFPAY | PROVIDERS: PCP Internal Medicine; Visit Provider Nurse Practitioner Family | DX: M54.50 Low back pain, unspecified (principal); M51.36 Other intervertebral disc degeneration, lumbar region; I10 Essential (primary) hypertension; E64.8 Sequelae of other nutritional deficiencies; F41.8 Other specified anxiety disorders; J30.89 Other allergic rhinitis; Z87.891 Personal history of nicotine dependence | CPT/HCPCS: 99202 ==

== ENCOUNTER 2021-06-08 12:47 | Outpatient (REF) | payer OTHER, SELFPAY ==
[2021-06-08 13:26] LABS: Hemoglobin 12.4 g/dl (14.0-18.0); Mean Corpuscular HGB Conc 32.6 g/dl (31.0-36.0); Mean Corpuscular Hemoglobin 28.1 pg (27.0-33.0); Mean Platelet Volume 8.8 fL (9.4-12.4); Platelet Count 238 X10*3/uL (160-400); Red Blood Count 4.42 X10*6/uL (4.60-5.80); Red Cell Distribution Width 14.6 % (11.0-16.0); White Blood Count 8.2 X10*3/uL (4.8-10.8)
[2021-06-08 14:09] LABS: Anion Gap 13 (12-20); Blood Urea Nitrogen 13 mg/dL (9-16); Calcium 9.3 mg/dL (8.4-10.2); Carbon Dioxide 21 mmol/L (22-29); Chloride 107 mmol/L (96-108); Cholesterol 135 mg/dL; Estimated Glomerular Filt Rate > 60; Glucose Fasting 121 mg/dL (60-99); HDL Cholesterol 63 mg/dL; LDL Cholesterol Calculated 49 mg/dl; Potassium 3.6 mmol/L (3.3-5.1); Sodium 137 mmol/L (135-145); Triglycerides 115 mg/dL
[2021-06-08 14:21] LABS: Prostate Specific Antigen Scr 0.18 ng/mL (<0.05-4.0)
== END 2021-06-08 12:48 | disposition home or self-care (01) ==
LOC: HO.LAB 12:47
PROVIDERS: Nurse Practitioner Family; PCP Internal Medicine; Visit Provider Surgery
DX: Z00.00 Encounter for general adult medical examination without abnormal findings (principal); E66.9 Obesity, unspecified; E78.00 Pure hypercholesterolemia, unspecified; Z12.5 Encounter for screening for malignant neoplasm of prostate
CPT/HCPCS: 36415; 80048; 80061; 84153; 85027

== ENCOUNTER 2021-06-09 08:33 | Outpatient (REF) | payer OTHER, SELFPAY ==
--- NOTE | ~2021-06-09 | CT_ITS ---
EXAMINATION: CT PELVIS WITH CONTRAST CLINICAL INFORMATION: Bilateral inguinal hernia COMPARISON: Previous pelvis CT February 2020 TECHNIQUE: Helical scanning was performed with submillimeter collimation through the pelvis with the use of oral contrast and during bolus intravenous injection of 85 mL of Omnipaque 350 intravenous contrast. Sagittal and coronal multiplanar 2-D reconstructions were obtained. This CT examination was performed using dose optimization techniques as appropriate, variously including the following: *Automated exposure control *Adjustment of mA and/or kV according to patient size (this includes techniques or standardized protocols for targeted exams where dose is matched to indication/reason for exam; i.e. extremities or head) *Use of iterative reconstruction technique DLP: 1585 mGy-cm FINDINGS: No inguinal hernia is seen. There is a small umbilical hernia containing fat. There is diverticulosis of the colon. The bladder is not optimally distended. The prostate gland does not appear enlarged. No ascites or adenopathy is seen in the pelvis. Vascular structures are unremarkable. There are degenerative changes of the lower lumbar spine. CT/CT pelvis w con IMPRESSION: No inguinal hernia seen. Small umbilical hernia containing fat. Mild diverticulosis of the colon.
[2021-06-09] MEDS: iohexoL 350 MG/ML 100 ML INFUS..BTL IV (11:18)
== END 2021-06-09 08:34 | disposition home or self-care (01) ==
LOC: HO.CT 08:33
PROVIDERS: PCP Internal Medicine; Visit Provider Surgery
DX: K40.20 Bilateral inguinal hernia, without obstruction or gangrene, not specified as recurrent (principal)
CPT/HCPCS: 72193; Q9967

== ENCOUNTER → 2021-06-23 08:51 | Outpatient (BNVA) | payer OTHER, SELFPAY | PROVIDERS: PCP Internal Medicine; Referring Provider Internal Medicine; Visit Provider Surgery | DX: K40.20 Bilateral inguinal hernia, without obstruction or gangrene, not specified as recurrent (principal) | CPT/HCPCS: 99212 ==

== ENCOUNTER 2023-05-30 09:31 | Outpatient (AMB) | payer OTHER, SELFPAY ==
--- NOTE | 2023-05-30 09:37 | MHC.PC.OV ---
Vital Signs 05/30/23 09:40 Height 6 ft 2 in Weight 367 lb 4 oz BMI 47.1 BP 114/70 Blood Pressure Location Lt brachial Position Sitting Pulse 79 Pulse Source Pulse Oximeter Pulse Oximetry (%) 98 Oxygen Delivery Method Room Air Intake Visit Reasons: Annual Exam Intake Note: Patient is here today for a physical. 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 Accompanied by: Self / Same As Patient Allergies pollen extracts [POLLEN] Allergy (Mild, Verified 05/30/23 09:39) RUNNY NOSE house dust Allergy (Unknown, Verified 05/30/23 09:39) Sniffles Medication List - Last Reconciled 05/30/23 by Joey Jaimes MD acetaminophen 1,000 mg (2 x 500 mg) PO Q6H PRN albuterol sulfate 90 mcg/actuation (ProAir HFA) 2 puffs PO Q4H allopurinol 300 mg PO DAILY aripiprazole (Abilify) 5 mg PO DAILY ascorbate calcium (vitamin C) 500 mg PO DAILY bupropion HCl (Wellbutrin XL) 300 mg PO QAM cyanocobalamin (vitamin B-12) (Vitamin B-12) 1,000 mcg PO DAILY ferrous sulfate (Feosol) 325 mg PO DAILY folic acid 1 mg PO DAILY loratadine 10 mg PO DAILY nifedipine ER 90 mg PO DAILY pantoprazole 40 mg PO DAILY 90 days quetiapine (Seroquel) 300 mg PO BEDTIME quetiapine (Seroquel) 50 mg PO DAILY sertraline (Zoloft) 200 mg PO DAILY trazodone 200 mg PO BEDTIME Tobacco use date assessed: 05/30/23 Dental Screening Dental Screen Date: 05/30/23 Did you have a dental visit in the last 12 months?: Yes Did you have a dental problem in the last 6 months where you did not have access to dental care?: No Was dental information given to patient?: No HPI Annual Exam HPI Details 57-year-old morbidly obese male with hypertension GERD asthma generalized anxiety disorder chronic low back pain with degenerative disc disease coming in for physical exam. Review of the notes patient was seen by the nurse practitioner in April 2022 for an annual physical exam [facility] Medical History (Updated 05/30/23 @ 10:10 by Joey Jaimes MD) Tubular adenoma of colon Screening for prostate cancer Screening for colon cancer Lumbosacral spondylosis with radiculopathy Myofascial pain Anxiety and depression Chronic low back pain Physical exam Sacral ulcer Anxiety and depression Degenerative disc disease Obesity Anemia GERD (gastroesophageal reflux disease) Gout Folic acid deficiency Asthma Hypertension Surgical History History of colonoscopy H/O knee surgery Family History Mother Diabetes Hypertension Stroke Father Medical history unknown Sister Hypertension Diabetes Paternal Grandmother Myocardial infarction Daughter In good health Sister No problems noted. Brother No problems noted. Social History (Updated 05/30/23 @ 09:58 by Joey Jaimes MD) Housing: Condominium Alcohol intake: current Alcohol intake frequency: a few times a week Alcohol type: beer Comment: 0nce a week 4 drinks Patient Tobacco Use Status: Former Tobacco user Years Smoked: quit 2004 4-5 cigarettes a day e-Cigarette/Vaping Use: Never Used Second Hand Smoke Exposure: Yes Substance Use Type: Marijuana service: No Current occupational status: employed Cognitive needs: No Hearing needs: No Vision needs: No Questionnaire PHQ-9 Over the last 2 weeks, how often have you been bothered by any of the following problems? 1. Little interest or pleasure in doing things: several days 2. Feeling down, depressed, or hopeless: several days 3. Trouble falling or staying asleep, or sleeping too much: several days 4. Feeling tired or having little energy: several days 5. Poor appetite or overeating: several days 6. Feeling bad about yourself - or that you are a failure or have let yourself or your family down: not at all 7. Trouble concentrating on things, such as reading the newspaper or watching television: not at all 8. Moving or speaking so slowly that other people could have noticed. Or the opposite - being so fidgety or restless that you have been moving around a lot more than usual: not at all 9. Thoughts that you would be better off or of hurting yourself in some way: several days Total score: 6 Depression Screening Interpretation: Positive Depression Screening Done: Yes Source: Developed by Drs. Gino Willard, Meli Newman, Timbo Lazcano and colleagues, with an educational camden from [employer]. Thrive Questionnaire Date Thrive assessed: 05/30/23 I am a: Patient What is your living situation today?: I have a steady place to live Within the past 12 months, did the food you bought not last and you didn't have the money to get more?: Never true Within the past 12 months, did you worry whether your food would run out before you got money to buy more?: Never true Do you have trouble paying for medicines?: No Do you have trouble getting transportation to medical appointments?: No Do you have trouble paying your heating and electricity bill?: No Do you have trouble taking care of your child, family member or friend?: No Do you have trouble with day-to-day activities such as bathing, preparing meals, shopping, managing finances, etc.?: No Are you currently unemployed and looking for a job?: No Are you interested in more education?: No Currently or been in a relationship where the following occur: no concerns reported THRIVE Score: 0 AUDIT C Alcohol Use Questionnaire (AUDIT-C) 1. How often do you have a drink containing alcohol?: 2-3 times a week 2. How many drinks containing alcohol do you have on a typical day when you are drinking?: 1 or 2 Total Score: 3 ARNULFO-7 AMB Questionnaire ARNULFO-7 Date ARNULFO - 7 assessed: 05/30/23 Feeling nervous, anxious, or on edge: 1 = Several days Not being able to stop or control worryin = Several days Worrying too much about different things: 1 = Several days Trouble relaxin = Several days Being so restless that it is hard to sit still: 1 = Several days Becoming easily annoyed or irritable: 1 = Several days Feeling afraid as if something awful might happen: 0 = Not at all Total ARNULFO-7 score (0-4 normal; 5-9 mild; 10-14 moderate; 15-21 severe): 6 Source: Developed by Drs. Gino Willard, Meli Newman, Timbo Lazcano and colleagues, with an educational camden from [employer]. Review of Systems Const Denies poor appetite and Denies weakness Eyes Denies no additional complaints ENT Reports Normal hearing present, Denies dizziness, Denies nasal congestion, Denies tinnitus and Denies sore throat Card Denies chest pain, Denies syncope, Denies rapid heart rate and Denies dyspnea Resp Denies cough and Denies dyspnea GI Denies change in stool character, Reports constipation, Denies diarrhea, Denies nausea and Denies vomiting Denies dysuria and Denies urinary frequency Neuro Reports Normal hearing present, Denies confusion, Denies dizziness, Denies syncope and Denies weakness Psych Denies confusion Physical exam (Primary Care) BMI result Body Mass Index 47.1 Tobacco/Smoking Status: Tobacco use Status Tobacco use date assessed 05/20/22 05/20/22 14:00 Patient Tobacco Use Status Former Tobacco user 05/20/22 14:00 Depression Screening Interpretation: Positive Thrive Assessment: Date of Thrive Assessment Date Thrive assessed 05/20/22 05/20/22 14:00 Currently or been in a relationship where the following occur: no concerns reported Const General: No confusion Orientation/consciousness: No confusion HENMT Head: Yes normocephalic Ears: external ears normal and TM's normal bilaterally Face and sinus: Yes normal facial exam Mouth: moist mucous membranes Throat: Yes tonsils normal Eyes Conjunctivae: conjunctivae normal Pupils: Equal, round and reactive pupils present and Pupil accommodation reflex normal Direct Ophthalmoscopy: normal light reflex Neck Neck: No lymphadenopathy Thyroid: Thyroid normal Chest Chest palpation & inspection: normal inspection of the chest Resp Effort & Inspection: normal respiratory effort and no audible wheezes Auscultation: clear to auscultation bilaterally, no crackles, no wheezes and lung sounds not diminished Cardio Rate: regular rate Rhythm: regular rhythm Peripheral pulses: radial pulses present and dorsalis pedis present GI Palpation (GI): no masses Auscultation: normal bowel sounds and normoactive bowel sounds Rectal Exam - Male: Yes deferred Skin General skin exam: no rashes or lesions noted Rashes: no rashes Neuro General: No confusion Cranial nerves: Yes Equal, round and reactive pupils present and Yes Normal hearing present Cognition (Neuro): normal cognition Gait exam (Neuro): Normal gait present Motor exam (neuro): 5/5 motor strength present throughout Deep tendon reflexes (DTR's): Right brachioradialis reflex intensity grade: 2+, Left brachioradialis reflex intensity grade: 2+, Right patellar reflex intensity grade: 2+ and Left patellar reflex intensity grade: 2+ Extrem General: No edema Assessment and Plan Assessment & Plan (1) Annual physical exam: Code(s): Z00.00 - Encounter for general adult medical examination without abnormal findings (2) Degenerative disc disease: Comment: Cervical and lumbar Plan: Keep active avoid lifting more than 10 lb (3) Obesity: Code(s): E66.9 - Obesity, unspecified Qualifiers: Body mass index: BMI 45.0-49.9 Obesity classification: adult class 3 (BMI >= 40) Obesity type: due to excess calories Serious obesity comorbidity presence: with serious comorbidity Qualified Code(s): E66.01 - Morbid (severe) obesity due to excess calories; Z68.42 - Body mass index [BMI] 45.0-49.9, adult; Z68.42 - Body mass index [BMI] 45.0-49.9, adult Plan: Diet and exercise (4) Anemia: Code(s): D64.9 - Anemia, unspecified Qualifiers: Anemia type: unspecified type Qualified Code(s): D64.9 - Anemia, unspecified Plan: Will need to follow-up on this (5) GERD (gastroesophageal reflux disease): Code(s): K21.9 - Gastro-esophageal reflux disease without esophagitis Qualifiers: Esophagitis presence: without esophagitis Qualified Code(s): K21.9 - Gastro-esophageal reflux disease without esophagitis Plan: Avoid the foods that causes that usually spicy foods, tomato products, juices, coffee, soda and foods that your sensitive to. After eating do not lie down, allow 3-4 hours before in lie down. And keep the head of bed above 30 degrees to avoid the acid from going up. (6) Asthma: Code(s): J45.909 - Unspecified asthma, uncomplicated Qualifiers: Asthma complication type: uncomplicated Asthma persistence: intermittent Asthma severity: mild Qualified Code(s): J45.20 - Mild intermittent asthma, uncomplicated Plan: Continue with the inhaler as needed (7) Hypertension: Code(s): I10 - Essential (primary) hypertension Qualifiers: Hypertension type: essential hypertension Qualified Code(s): I10 - Essential (primary) hypertension Plan: Continue with blood pressure medication. Decrease salt intake and exercise patient on nifedipine 90 mg once a day (8) Generalized anxiety disorder: Comment: CHD Q 2 months (05/2023) Code(s): F41.1 - Generalized anxiety disorder Plan: Continue with present medication (9) Tubular adenoma of colon: Comment: 03/2016 dr. Guerrero Code(s): D12.6 - Benign neoplasm of colon, unspecified (10) Onychomycosis: Code(s): B35.1 - Tinea unguium Orders: Orders Complete Blood Count Auto Diff Today D64.9 - Anemia, unspecified Reticulocyte Count Today D64.9 - Anemia, unspecified IRON PROFILE Today D64.9 - Anemia, unspecified Vitamin B12 and Folate Today D64.9 - Anemia, unspecified Comprehensive Met. Panel Today I10 - Essential (primary) hypertension Free T4 (Free Thyroxine) Today I10 - Essential (primary) hypertension Liver Panel 1 Month B35.1 - Tinea unguium, R79.89 - Other specified abnormal findings of blood chemistry Ferritin Today D64.9 - Anemia, unspecified Thyroid Stimulating Hormone Today I10 - Essential (primary) hypertension Prostate Specific Antigen Scr Today I10 - Essential (primary) hypertension Lipid Panel Today E78.00 - Pure hypercholesterolemia, unspecified, I10 - Essential (primary) hypertension Hemoglobin A1c Today I10 - Essential (primary) hypertension Uric Acid Today I10 - Essential (primary) hypertension Referrals Gastroenterology Referral D12.6 - Benign neoplasm of colon, unspecified Medications: New terbinafine HCl 250 mg PO DAILY 84 tabs 1RF 12 weeks B35.1 - Tinea unguium Coding Level of Care Code Est Pt Prev Care 40-64y(77840) Diagnoses Annual physical exam Z00.00 Degenerative disc disease Class 3 severe obesity due to excess calories with serious comorbidity and body mass index (BMI) of 45.0 to 49.9 in adult E66.01; Z68.42; Z68.42 Body mass index: BMI 45.0-49.9 Obesity classification: adult class 3 (BMI >= 40) Obesity type: due to excess calories Serious obesity comorbidity presence: with serious comorbidity Anemia, unspecified type D64.9 Anemia type: unspecified type Gastroesophageal reflux disease without esophagitis K21.9 Esophagitis presence: without esophagitis Mild intermittent asthma without complication J45.20 Asthma complication type: uncomplicated Asthma persistence: intermittent Asthma severity: mild Essential hypertension I10 Hypertension type: essential hypertension Generalized anxiety disorder F41.1 Tubular adenoma of colon D12.6 Onychomycosis B35.1
[2023-05-30 09:40] VITALS: BP 114/70; PULSE 79; O2SAT 98; BMI 47.1
== END 2023-05-30 10:19 | disposition home or self-care (01) ==
PROVIDERS: Visit Provider Internal Medicine
DX: Z00.00 Encounter for general adult medical examination without abnormal findings (principal); E66.01 Morbid (severe) obesity due to excess calories; Z68.42 Body mass index [BMI] 45.0-49.9, adult; D64.9 Anemia, unspecified; K21.9 Gastro-esophageal reflux disease without esophagitis; J45.20 Mild intermittent asthma, uncomplicated; I10 Essential (primary) hypertension; F41.1 Generalized anxiety disorder; D12.6 Benign neoplasm of colon, unspecified; B35.1 Tinea unguium
CPT/HCPCS: 99396

== ENCOUNTER 2023-06-01 11:28 | Outpatient (REF) | payer OTHER, SELFPAY ==
[2023-06-01 11:47] LABS: MANUAL DIFF FLAG NO
[2023-06-01 12:37] LABS: Basophils Absolute Auto 0.1 X10*3/uL (0.0-0.2); Basophils Percent Auto 0.6 % (0-2); Eosinophils Absolute Auto 0.1 X10*3/uL (0.0-0.4); Eosinophils Percent Auto 0.6 % (0-4); Hemoglobin 13.2 g/dl (14.0-18.0); Imm Gran Abs Auto 0.03 X10*3/uL (0.00-0.03); Imm Gran Pct Auto 0.4 % (0.0-0.4); Immature Retic Fraction 16.2 % (2.3-13.4); Lymphocytes Absolute Auto 1.8 X10*3/uL (1.2-4.9); Lymphocytes Percent Auto 22.6 % (20-40); Mean Corpuscular Hemoglobin 27.2 pg (27.0-33.0); Mean Corpuscular Volume 82.5 fL (80.0-98.0); Mean Platelet Volume 8.9 fL (9.4-12.4); Monocytes Absolute Auto 0.6 X10*3/uL (0.1-1.2); Monocytes Percent Auto 7.9 % (2-11); Neutrophils Absolute Auto 5.3 x10*3/uL (2.0-8.3); Neutrophils Percent Auto 67.9 % (45-73); Platelet Count 244 X10*3/uL (160-400); Red Blood Count 4.85 X10*6/uL (4.60-5.80); Red Cell Distribution Width 14.6 % (11.0-16.0); Retic HGB Equivalent 32.2 pg (30.0-35.0); Reticulocyte Percent 2.3 % (0.5-1.8); Reticulocytes Absolute 0.111 X10*6/uL (0.026-0.095); White Blood Count 7.8 X10*3/uL (4.8-10.8)
[2023-06-01 13:46] LABS: Alanine Aminotransferase 15 U/L (0-40); Albumin Level 4.1 g/dL (3.5-5.0); Alkaline Phosphatase 114 U/L (39-117); Anion Gap 11 (12-20); Aspartate Amino Transferase 16 U/L (5-37); Bilirubin Direct 0.1 mg/dL (0.0-0.5); Bilirubin Total 0.3 mg/dL (0.0-1.0); Blood Urea Nitrogen 15 mg/dL (9-16); Calcium 9.8 mg/dL (8.4-10.2); Carbon Dioxide 23 mmol/L (22-29); Chloride 107 mmol/L (96-108); Cholesterol 190 mg/dL (<200); Estimated Glomerular Filt Rate > 60; Ferritin 180 ng/mL (20-250); Free T4 (Free Thyroxine) 0.69 ng/dL (0.71-1.85); Glucose Random 102 mg/dL (60-115); HDL Cholesterol 60 mg/dL (>40); Iron 49 mcg/dL (45-160); LDL Cholesterol Calculated 114 mg/dL (<100); Percent Iron Saturation 19 % (15-50); Sodium 137 mmol/L (135-145); Thyroid Stimulating Hormone 3.81 uIU/mL (0.32-4.0); Total Iron Binding Capacity 254 mcg/dL (228-428); Total Protein 7.8 g/dL (6.5-8.0); Triglycerides 84 mg/dL (<150); Unsaturated Iron Binding 205 ug/dL; Uric Acid 10.6 mg/dL (3.4-7.0)
[2023-06-01 14:02] LABS: Folate 3.6 ng/mL (> or = 4.0); Prostate Specific Antigen Scr 0.13 ng/mL (<0.05-4.0); Vitamin B12 450 pg/mL (200-900)
[2023-06-01 14:04] LABS: Estimated Average Glucose 111 mg/dL; Hemoglobin A1c % 5.5 % (<6.0)
== END 2023-06-01 11:29 | disposition home or self-care (01) ==
LOC: HO.LAB 11:28
PROVIDERS: PCP Internal Medicine; Visit Provider Internal Medicine
DX: D64.9 Anemia, unspecified (principal); I10 Essential (primary) hypertension; R79.89 Other specified abnormal findings of blood chemistry; B35.1 Tinea unguium; E78.00 Pure hypercholesterolemia, unspecified; Z12.5 Encounter for screening for malignant neoplasm of prostate
CPT/HCPCS: 36415; 80053; 80061; 82248; 82607; 82728; 82746; 83036; 83540; 84153; 84439; 84443; 84550; 85025; 85045

== ENCOUNTER 2023-09-05 10:59 | Outpatient (AMB) | payer OTHER, SELFPAY ==
[2023-09-05 11:00] VITALS: BP 132/70; PULSE 56; O2SAT 96; BMI 46.7
--- NOTE | 2023-09-05 11:00 | A.OFFPC_ITS ---
Vital Signs 09/05/23 11:00 Height 6 ft 2 in Weight 364 lb 0.4 oz BMI 46.7 BP 132/70 Blood Pressure Location Rt brachial Position Sitting Pulse 56 Pulse Source Pulse Oximeter Pulse Oximetry (%) 96 Oxygen Delivery Method Room Air Intake Visit Reasons: obesity anemia Crude Unit Operator Required: No Allergies pollen extracts [POLLEN] Allergy (Mild, Verified 09/05/23 11:01) RUNNY NOSE house dust Allergy (Unknown, Verified 09/05/23 11:01) Sniffles Tobacco use date assessed: 09/05/23 Dental Screening Dental Screen Date: 05/30/23 HPI obesity anemia HPI Details 58-year-old morbidly obese male with deg enerative disc disease anemia GERD asthma hypertension generalized anxiety disorder last seen in 06/15/2023. Patient is here for follow-up. Patient was reminded about colonoscopy at that time. complains of having hematuria, 2 weeks ago, started having hematuria, no dysruria, no frequency. . Patient was concerned about hernia and review of the notes in [address] showing a mild umbilical hernia this was not evident on exam and will continue to monitor [facility] Medical History (Updated 09/05/23 @ 12:17 by Joey Jaimes MD) Tubular adenoma of colon Screening for prostate cancer Screening for colon cancer Lumbosacral spondylosis with radiculopathy Myofascial pain Anxiety and depression Chronic low back pain Physical exam Sacral ulcer Anxiety and depression Degenerative disc disease Obesity Anemia GERD (gastroesophageal reflux disease) Gout Folic acid deficiency Asthma Hypertension Surgical History History of colonoscopy H/O knee surgery Family History Mother Diabetes Hypertension Stroke Father Medical history unknown Sister Hypertension Diabetes Paternal Grandmother Myocardial infarction Daughter In good health Sister No problems noted. Brother No problems noted. Social History (Updated 05/30/23 @ 09:58 by Joey Jaimes MD) Housing: Condominium Alcohol intake: current Alcohol intake frequency: a few times a week Alcohol type: beer Comment: 0nce a week 4 drinks Patient Tobacco Use Status: Former Tobacco user Years Smoked: quit 2004 4-5 cigarettes a day e-Cigarette/Vaping Use: Never Used Second Hand Smoke Exposure: Yes Substance Use Type: Marijuana service: No Current occupational status: employed Cognitive needs: No Hearing needs: No Vision needs: No Questionnaire PHQ-9 Over the last 2 weeks, how often have you been bothered by any of the following problems? 1. Little interest or pleasure in doing things: several days 2. Feeling down, depressed, or hopeless: several days 3. Trouble falling or staying asleep, or sleeping too much: several days 4. Feeling tired or having little energy: several days 5. Poor appetite or overeating: several days 6. Feeling bad about yourself - or that you are a failure or have let yourself or your family down: not at all 7. Trouble concentrating on things, such as reading the newspaper or watching television: not at all 8. Moving or speaking so slowly that other people could have noticed. Or the opposite - being so fidgety or restless that you have been moving around a lot more than usual: not at all 9. Thoughts that you would be better off or of hurting yourself in some way: several days Total score: 6 Depression Screening Interpretation: Positive Depression Screening Done: Yes Source: Developed by Drs. Gino Willard, Meli Newman, Timbo Lazcano and colleagues, with an educational camden from [employer]. Thrive Questionnaire Date Thrive assessed: 05/30/23 AUDIT C Alcohol Use Questionnaire (AUDIT-C) 1. How often do you have a drink containing alcohol?: 2-3 times a week 2. How many drinks containing alcohol do you have on a typical day when you are drinking?: 1 or 2 Total Score: 3 ARNULFO-7 AMB Questionnaire ARNULFO-7 Date ARNULFO - 7 assessed: 05/30/23 Feeling nervous, anxious, or on edge: 1 = Several days Not being able to stop or control worryin = Several days Worrying too much about different things: 1 = Several days Trouble relaxin = Several days Being so restless that it is hard to sit still: 1 = Several days Becoming easily annoyed or irritable: 1 = Several days Feeling afraid as if something awful might happen: 0 = Not at all Total ARNULFO-7 score (0-4 normal; 5-9 mild; 10-14 moderate; 15-21 severe): 6 Source: Developed by Drs. Gino Willard, Meli Newman, Timbo Lazcano and colleagues, with an educational camden from [employer]. Physical exam (Primary Care) Vital Signs: Last Vital Signs Pulse 56 09/05/23 11:00 BP 132/70 09/05/23 11:00 Pulse Ox 96 09/05/23 11:00 Oxygen Delivery Method Room Air 09/05/23 11:00 BMI result Body Mass Index 46.7 Tobacco/Smoking Status: Tobacco use Status Tobacco use date assessed 09/05/23 09/05/23 11:01 Patient Tobacco Use Status Former Tobacco user 09/05/23 11:01 e-Cigarette/Vaping Use Never Used 09/05/23 11:01 PHQ-9: PHQ-9 Score PHQ-9: Total score 6 09/05/23 12:07 Depression Screening Interpretation: Positive Thrive Assessment: Date of Thrive Assessment Date Thrive assessed 05/30/23 09/05/23 11:01 Const General: alert; No acute distress Eyes Conjunctivae: conjunctivae normal Resp Auscultation: clear to auscultation bilaterally Cardio Rate: regular rate Rhythm: regular rhythm GI Inspection: Yes normal to inspection Extrem General: Yes normal to inspection and No edema Results AMB Urinalysis, Automated UA Leukoctes 0 Flora/uL Last Edit by PALOMO Buckley on 09/05/23 12:32 UA Nitrite Negative Last Edit by PALOMO Buckley on 09/05/23 12:32 UA Urobilinogen 0.2 mg/dL Last Edit by PALOMO Buckley on 09/05/23 12:32 UA Protein 0 mg/dL Last Edit by PALOMO Buckley on 09/05/23 12:32 UA pH 6.0 Last Edit by PALOMO Buckley on 09/05/23 12:32 UA Blood 0 Sunil/uL Last Edit by PALOMO Buckley on 09/05/23 12:32 UA Specific [place] 1.015 Last Edit by PALOMO Buckley on 09/05/23 12:32 UA Ketone Negative Last Edit by PALOMO Buckley on 09/05/23 12:32 UA Bilirubin 0 mg/dL Last Edit by PALOMO Buckley on 09/05/23 12:32 UA Glucose 0 mg/dL Last Edit by PALOMO Buckley on 09/05/23 12:32 Assessment and Plan Assessment & Plan (1) Gout: Code(s): M10.9 - Gout, unspecified Plan: Patient placed on urate lowering medication still with an elevated uric acid d iet and exercise (2) Obesity: Code(s): E66.9 - Obesity, unspecified Qualifiers: Body mass index: BMI 45.0-49.9 Obesity classification: adult class 3 (BMI >= 40) Obesity type: due to excess calories Serious obesity comorbidity presence: with serious comorbidity Qualified Code(s): E66.01 - Morbid (severe) obesity due to excess calories; Z68.42 - Body mass index [BMI] 45.0-49.9, adult; Z68.42 - Body mass index [BMI] 45.0-49.9, adult Plan: Diet and exercise (3) Anemia: Code(s): D64.9 - Anemia, unspecified Qualifiers: Anemia type: unspecified type Qualified Code(s): D64.9 - Anemia, unspecified Plan: Chronic and getting better. (4) GERD (gastroesophageal reflux disease): Code(s): K21.9 - Gastro-esophageal reflux disease without esophagitis Qualifiers: Esophagitis presence: without esophagitis Qualified Code(s): K21.9 - Gastro-esophageal reflux disease without esophagitis Plan: Avoid the foods that causes that usually spicy foods, tomato products, juices, coffee, soda and foods that your sensitive to. After eating do not lie down, allow 3-4 hours before in lie down. And keep the head of bed above 30 degrees to avoid the acid from going up. (5) Asthma: Code(s): J45.909 - Unspecified asthma, uncomplicated Qualifiers: Asthma complication type: uncomplicated Asthma persistence: intermittent Asthma severity: mild Qualified Code(s): J45.20 - Mild intermittent asthma, uncomplicated Plan: Continue with albuterol inhaler as needed (6) Hypertension: Code(s): I10 - Essential (primary) hypertension Qualifiers: Hypertension type: essential hypertension Qualified Code(s): I10 - Essential (primary) hypertension Plan: Continue with blood pressure medication. Decrease salt intake and exercise on nifedipine 90 mg once a day (7) Folic acid deficiency: Code(s): E53.8 - Deficiency of other specified B group vitamins Plan: Folic acid prescription sent in (8) Tubular adenoma of colon: Comment: 03/2016 dr. Metzger Code(s): D12.6 - Benign neoplasm of colon, unspecified Plan: PAtient is given the numbner of Dr. Metzger and advised to call (9) Hematuria: Code(s): R31.9 - Hematuria, unspecified Plan: Urinalysis requested and if positive Will do a CT scan Orders: Orders Uric Acid Today M10.9 - Gout, unspecified Vitamin B12 and Folate Today E53.8 - Deficiency of other specified B group vitamins Complete Blood Count Auto Diff Today E53.8 - Deficiency of other specified B group vitamins AMB Urinalysis Automated Today R31.9 - Hematuria, unspecified, Z13.9 - Encounter for screening, unspecified Coding Level of Care Code Est Pt Level 4 (08254) Diagnoses Gout M10.9 Class 3 severe obesity due to excess calories with serious comorbidity and body mass index (BMI) of 45.0 to 49.9 in adult E66.01; Z68.42; Z68.42 Body mass index: BMI 45.0-49.9 Obesity classification: adult class 3 (BMI >= 40) Obesity type: due to excess calories Serious obesity comorbidity presence: with serious comorbidity Anemia, unspecified type D64.9 Anemia type: unspecified type Gastroesophageal reflux disease without esophagitis K21.9 Esophagitis presence: without esophagitis Mild intermittent asthma without complication J45.20 Asthma complication type: uncomplicated Asthma persistence: intermittent Asthma severity: mild Essential hypertension I10 Hypertension type: essential hypertension Folic acid deficiency E53.8 Tubular adenoma of colon D12.6 Hematuria R31.9
== END 2023-09-05 12:23 | disposition home or self-care (01) ==
PROVIDERS: PCP Internal Medicine; Visit Provider Internal Medicine
DX: D64.9 Anemia, unspecified (principal); E66.01 Morbid (severe) obesity due to excess calories; Z68.42 Body mass index [BMI] 45.0-49.9, adult; R31.9 Hematuria, unspecified; M10.9 Gout, unspecified; K21.9 Gastro-esophageal reflux disease without esophagitis; J45.20 Mild intermittent asthma, uncomplicated; I10 Essential (primary) hypertension; E53.8 Deficiency of other specified B group vitamins; D12.6 Benign neoplasm of colon, unspecified
CPT/HCPCS: 81003; 99214

== ENCOUNTER 2023-11-03 10:46 | Emergency (ER) | payer OTHER, SELFPAY ==
--- NOTE | ~2023-11-03 | XR_ITS ---
EXAMINATION: BILATERAL ANKLES, BILATERAL FEET CLINICAL INFORMATION: No history of trauma with a traumatic swelling of both ankles and feet COMPARISON: None available. TECHNIQUE: 2 views each ankle, 3 views each foot FINDINGS: Right: There is moderate ankle swelling bilaterally. The ankle mortise appears stable. Some small osteophytes are present at the tips of the malleoli. No joint effusions or fractures. The foot is unremarkable. Left: There is moderate ankle swelling bilaterally. The ankle mortise appears stable. Some small osteophytes are present at the tips of the malleoli. No joint effusions or fractures. The foot is unremarkable. XR/XR ankle RT min 3V IMPRESSION: Bilateral ankle swelling with mild degenerative changes. No acute finding.
--- NOTE | ~2023-11-03 | XR_ITS ---
EXAMINATION: BILATERAL ANKLES, BILATERAL FEET CLINICAL INFORMATION: No history of trauma with a traumatic swelling of both ankles and feet COMPARISON: None available. TECHNIQUE: 2 views each ankle, 3 views each foot FINDINGS: Right: There is moderate ankle swelling bilaterally. The ankle mortise appears stable. Some small osteophytes are present at the tips of the malleoli. No joint effusions or fractures. The foot is unremarkable. Left: There is moderate ankle swelling bilaterally. The ankle mortise appears stable. Some small osteophytes are present at the tips of the malleoli. No joint effusions or fractures. The foot is unremarkable. XR/XR foot LT min 3V IMPRESSION: Bilateral ankle swelling with mild degenerative changes. No acute finding.
--- NOTE | ~2023-11-03 | XR_ITS ---
EXAMINATION: BILATERAL ANKLES, BILATERAL FEET CLINICAL INFORMATION: No history of trauma with a traumatic swelling of both ankles and feet COMPARISON: None available. TECHNIQUE: 2 views each ankle, 3 views each foot FINDINGS: Right: There is moderate ankle swelling bilaterally. The ankle mortise appears stable. Some small osteophytes are present at the tips of the malleoli. No joint effusions or fractures. The foot is unremarkable. Left: There is moderate ankle swelling bilaterally. The ankle mortise appears stable. Some small osteophytes are present at the tips of the malleoli. No joint effusions or fractures. The foot is unremarkable. XR/XR ankle LT min 3V IMPRESSION: Bilateral ankle swelling with mild degenerative changes. No acute finding.
--- NOTE | ~2023-11-03 | XR_ITS ---
EXAMINATION: BILATERAL ANKLES, BILATERAL FEET CLINICAL INFORMATION: No history of trauma with a traumatic swelling of both ankles and feet COMPARISON: None available. TECHNIQUE: 2 views each ankle, 3 views each foot FINDINGS: Right: There is moderate ankle swelling bilaterally. The ankle mortise appears stable. Some small osteophytes are present at the tips of the malleoli. No joint effusions or fractures. The foot is unremarkable. Left: There is moderate ankle swelling bilaterally. The ankle mortise appears stable. Some small osteophytes are present at the tips of the malleoli. No joint effusions or fractures. The foot is unremarkable. XR/XR foot RT min 3V IMPRESSION: Bilateral ankle swelling with mild degenerative changes. No acute finding.
[2023-11-03 11:13] VITALS: BP 151/88; PULSE 63; RESP 18; TEMP 36; O2SAT 97; BMI 45.4
--- NOTE | 2023-11-03 11:14 | ED_ITS ---
HPI - Extremity Injury (Lower) General Chief Complaint: Extremity Injury, Lower Stated Complaint: swelling of both feet Time Seen by Provider: 11/03/23 11:33 Source: patient Mode of arrival: ambulatory Limitations: no limitations History of Present Illness ED Provider: Beau Bland PA-C HPI Narrative: 58-year-old male with a history of depression, anxiety, gout, morbid obesity who presents to the ER for evaluation of swelling to his bilateral feet and ankles for the last 3 days. He denies any injury or trauma. He denies any history of chronic swelling of his legs. He denies any history of CHF. He reports that he noticed swelling to his feet and ankles 3 days ago, he elevated them yesterday with improvement in the swelling. He denies any swelling of his lower legs or upper legs. No calf pain. No shortness a breath or chest pain. He denies any excessive salt intake, weight gain. He states he has lost 30 lb recently. No history of any peripheral vascular disease. Pain is present with ambulation and palpation of the feet and ankles. The pain shoots up the legs when he ambulates. MD complaint: ankle injury and foot injury Type of Injury: unknown Place: home Severity: moderate Associated symptoms: ambulatory Other symptoms: none Related Data Home Medications ?Medication ?Instructions ?Recorded ?Confirmed aripiprazole 5 mg tablet (Abilify) 5 mg PO DAILY 04/08/20 05/30/23 bupropion HCl 300 mg 24 hr tablet, 300 mg PO QAM 04/08/20 05/30/23 extended release (Wellbutrin XL) loratadine 10 mg tablet 10 mg PO DAILY 04/08/20 05/30/23 quetiapine 300 mg tablet (Seroquel) 300 mg PO BEDTIME 04/08/20 05/30/23 sertraline 100 mg tablet (Zoloft) 200 mg PO DAILY 04/08/20 05/30/23 trazodone 100 mg tablet 200 mg PO BEDTIME 04/08/20 05/30/23 quetiapine 50 mg tablet (Seroquel) 50 mg PO DAILY 05/06/21 05/30/23 Previous Rx's ?Medication ?Instructions ?Recorded albuterol sulfate 90 mcg/actuation 2 puff PO Q4H #8.5 grams 07/10/20 aerosol inhaler (ProAir HFA) ascorbate calcium (vitamin C) 500 500 mg PO DAILY #90 tabs 09/23/20 mg tablet acetaminophen 500 mg tablet 1,000 mg (2 x 500 mg) PO Q6H PRN 04/13/21 fever or pain #30 tabs allopurinol 300 mg tablet 300 mg PO DAILY #90 tabs 03/09/23 nifedipine 90 mg tablet,extended 90 mg PO DAILY #90 tabs 03/09/23 release 24 hr cyanocobalamin (vitamin B-12) 1,000 mcg PO DAILY #90 tabs 06/28/23 1,000 mcg tablet (Vitamin B-12) ferrous sulfate 325 mg (65 mg 325 mg PO DAILY #90 tabs 06/28/23 iron) tablet (Feosol) pantoprazole 40 mg tablet,delayed 40 mg PO DAILY 90 days #90 tabs 06/28/23 release folic acid 1 mg tablet 1 mg PO DAILY #90 tabs 09/21/23 terbinafine HCl 250 mg tablet 250 mg PO DAILY 12 weeks #84 tabs 09/21/23 Allergies Allergy/AdvReac Type Severity Reaction Status Date / Time pollen extracts [POLLEN] Allergy Mild RUNNY NOSE Verified 11/03/23 11:15 house dust Allergy Unknown Sniffles Verified 11/03/23 11:15 Review of Systems 2 Review of Systems: Yes all other systems are reviewed and are negative [facility] Past Medical History Medical History (Updated 11/03/23 @ 13:47 by SEVERO Campbell) Tubular adenoma of colon Screening for prostate cancer Screening for colon cancer Lumbosacral spondylosis with radiculopathy Myofascial pain Anxiety and depression Chronic low back pain Physical exam Sacral ulcer Anxiety and depression Degenerative disc disease Obesity Anemia GERD (gastroesophageal reflux disease) Gout Folic acid deficiency Asthma Hypertension Surgical History History of colonoscopy H/O knee surgery Family History Family History Mother Diabetes Hypertension Stroke Father Medical history unknown Sister Hypertension Diabetes Paternal Grandmother Myocardial infarction Daughter In good health Sister No problems noted. Brother No problems noted. Social History Social History (Updated 05/30/23 @ 09:58 by Joey Jaimes MD) [facility] Alcohol intake: current Alcohol intake frequency: a few times a week Alcohol type: beer Comment: 0nce a week 4 drinks Patient Tobacco Use Status: Former Tobacco user Years Smoked: quit 2004 4-5 cigarettes a day e-Cigarette/Vaping Use: Never Used Second Hand Smoke Exposure: Yes Substance Use Type: Marijuana Advance Directives: No Advance Directives Information Provided: Yes service: No Current occupational status: employed Cognitive needs: No Hearing needs: No Vision needs: No Physical Exam 2 Vital Signs: Vital Signs: Last Vital Signs Temp 96.8 F 11/03/23 14:22 Pulse 63 11/03/23 14:22 Resp 18 11/03/23 14:22 BP 151/88 H 11/03/23 14:22 Pulse Ox 97 11/03/23 14:22 O2 Del Method Room Air 11/03/23 14:22 BMI result Body Mass Index 45.4 Appearance: Alert. Oriented X3. No acute distress. Head: normocephalic, atraumatic. Eyes: Pupils equal, round and reactive to light. ENT: Pharynx normal. No tonsillar swelling or exudate. Neck: Normal inspection. Neck supple. No JVD noted CVS: Normal heart rate and rhythm. Pulses normal. Respiratory: No respiratory distress. Breath sounds normal. Abdomen: Obese, Soft and nontender. +BS x4 Skin: Skin warm and dry. Normal skin color. Normal skin turgor. No rashes. Extremities: 2+ pitting edema of the feet and ankles bilaterally, minimal pretibial edema of the distal lower leg. No associated erythema or warmth to suggest cellulitis. No calf tenderness bilaterally. Neuro/psych: Oriented X 3. No motor deficit. No sensory deficit. CN II-XII intact. Normal speech and cognition. Course Course Course Narrative: This is a Rapid Medical Examination (RME) performed by Rachel Randhawa PA-C in triage. Full HPI, ROS, assessment and treatment plan per primary provider in the Main ED. 58 yo male hx of HTN, asthma GERD, gout, anxiety, depression here for eval of b/l foot/ankle swelling x2 days w/ assoc numbness/tingling in the feet. reports elevating his LEs yesterday which temporarily improved swelling. hx of gout, states this feels different. denies injury/ trauma. deneis cp, sob, palpitations. no recent travel or long car rides. + pedal edema b/l. no pitting edema. lungs clear. Plan: xrs, labs Medical Decision Making Medical Decision Making [facility] Narrative: 4-year-old male with a history of morbid obesity, depression, anxiety, history of gout who presents to the ER for evaluation of atraumatic bilateral feet and ankle swelling for the last 3 days. He did have improvement in the swelling with elevation yesterday. Exam revealing for pitting edema of the ankles and feet. No erythema or warmth to suggest cellulitis. No evidence of gout on examination. He has no calf tenderness, doubt DVT. His feet are warm and well perfused. His BNP today was normal. X-rays were unremarkable aside from soft tissue swelling. Discussed results with patient. Most likely venous insufficiency. Recommending compression stockings, elevation, salt restriction. Will hold off on diuretics for now. Recommend following with PCP. Return precautions were discussed. Stable for discharge home. Differential Diagnosis Differential Diagnoses: The differential diagnosis associated with the presentation includes Venous insufficiency, volume overload secondary to diastolic heart failure, anasarca, DVT less likely Lab Data [facility] Lab Attestation statement: I reviewed the patient's lab results. Mild leukocytosis, mild anemia, mild hyponatremia, likely related to volume overload 11/03/23 11:23 11/03/23 11:23 Labs: Lab Results 11/03/23 Range/Units 11:23 WBC 11.6 H (4.8-10.8) X10*3/uL RBC 4.54 L (4.60-5.80) X10*6/uL Hgb 12.9 L (14.0-18.0) g/dl Hct 37.6 L (42.0-52.0) % MCV 82.8 (80.0-98.0) fL MCH 28.4 (27.0-33.0) pg MCHC 34.3 (31.0-36.0) g/dl RDW 14.7 (11.0-16.0) % Plt Count 224 (160-400) X10*3/uL MPV 8.5 L (9.4-12.4) fL Immature Gran % (Auto) 0.5 H (0.0-0.4) % Neut % (Auto) 77.4 H (45-73) % Lymph % (Auto) 14.1 L (20-40) % [place] % (Auto) 7.5 (2-11) % Eos % (Auto) 0.2 (0-4) % Baso % (Auto) 0.3 (0-2) % Lymph # (Auto) 1.6 (1.2-4.9) X10*3/uL [place] # (Auto) 0.9 (0.1-1.2) X10*3/uL Eos # (Auto) 0.0 (0.0-0.4) X10*3/uL Baso # (Auto) 0.0 (0.0-0.2) X10*3/uL Abs Immat Gran (auto) 0.06 H (0.00-0.03) X10*3/uL Absolute Neuts (auto) 9.0 H (2.0-8.3) x10*3/uL Absolute Nucleated RBC 0.000 (0.0-0.012) X10*3/uL Nucleated RBC % (auto) 0.0 (0.0-0.2) /100WBC Sodium 134 L (135-145) mmol/L Potassium 3.7 (3.3-5.1) mmol/L Chloride 103 (96-108) mmol/L Carbon Dioxide 24 (22-29) mmol/L Anion Gap 11 L (12-20) BUN 9 (9-16) mg/dL Creatinine 0.95 (0.5-1.4) mg/dL Estim Creat Clear Calc 132.7 Estimated GFR > 60 Random Glucose 108 (60-115) mg/dL Calcium 10.3 H (8.4-10.2) mg/dL Magnesium 2.4 (1.6-2.6) mg/dL Total Bilirubin 0.6 (0.0-1.0) mg/dL AST 15 (5-37) U/L ALT 13 (0-40) U/L Alkaline Phosphatase 98 (39-117) U/L B-Natriuretic Peptide 32 (<100) pg/mL Total Protein 7.9 (6.5-8.0) g/dL Albumin 4.0 (3.5-5.0) g/dL Independent Interpretation I performed an independent interpretation of an: Plain X-Ray Interpretation: No acute fracture noted in the feet or ankles, agree with radiology read Radiology Impression Discussion of test interpretation with radiology: I have reviewed the radiologist's reading. Radiologist Impression: EXAMINATION: BILATERAL ANKLES, BILATERAL FEET CLINICAL INFORMATION: No history of trauma with a traumatic swelling of both ankles and feet COMPARISON: None available. TECHNIQUE: 2 views each ankle, 3 views each foot FINDINGS: Right: There is moderate ankle swelling bilaterally. The ankle mortise appears stable. Some small osteophytes are present at the tips of the malleoli. No joint effusions or fractures. The foot is unremarkable. Left: There is moderate ankle swelling bilaterally. The ankle mortise appears stable. Some small osteophytes are present at the tips of the malleoli. No joint effusions or fractures. The foot is unremarkable. XR/XR foot RT min 3V IMPRESSION: Bilateral ankle swelling with mild degenerative changes. No acute finding. External Record Review External record reviewed: Outpatient record, Prior outpatient labs and Prior outpatient radiology Tests considered The following testing was considered but not selected: Considered ultrasound of his bilateral lower extremities however low clinical suspicion for acute DVT Prescription Management I considered prescription management with: Pain Medication and Other (lasix) Chronic Conditions Patient?s care impacted by: Other (obesity) Critical Care Time Critical Care Time Critical Care Time: No Discharge Plan Discharge Clinical Impression: Pedal edema Patient Disposition: Home, Self-Care Instructions: Leg Edema (ED) Additional Instructions: Your x-rays and lab work today were reassuring. Recommend wearing compression stockings and elevating her legs whenever possible. Recommend eating a diet low in sodium, less than 2 g per day. Monitor your weight daily. Follow-up with primary care doctor. If you develop new or worsening symptoms call 911 or come back to the ER for further evaluation. Prescriptions: No Action albuterol sulfate [ProAir HFA] 90 mcg/actuation HFA aerosol inhaler 2 puff PO Q4H Qty: 8.5 0RF ascorbate calcium (vitamin C) 500 mg tablet 500 mg PO DAILY Qty: 90 2RF nifedipine 90 mg tablet extended release 24hr 90 mg PO DAILY Qty: 90 2RF allopurinol 300 mg tablet 300 mg PO DAILY Qty: 90 2RF ferrous sulfate [Feosol] 325 mg (65 mg iron) tablet 325 mg PO DAILY Qty: 90 2RF cyanocobalamin (vitamin B-12) [Vitamin B-12] 1,000 mcg tablet 1,000 mcg PO DAILY Qty: 90 1RF pantoprazole 40 mg tablet,delayed release (DR/EC) 40 mg PO DAILY 90 Days Qty: 90 1RF folic acid 1 mg tablet 1 mg PO DAILY Qty: 90 0RF terbinafine HCl 250 mg tablet 250 mg PO DAILY 84 Days Qty: 84 0RF acetaminophen 500 mg tablet 1,000 mg PO Q6H PRN (Reason: fever or pain) Qty: 30 0RF loratadine 10 mg tablet 10 mg PO DAILY aripiprazole [Abilify] 5 mg tablet 5 mg PO DAILY trazodone 100 mg tablet 200 mg PO BEDTIME quetiapine [Seroquel] 300 mg tablet 300 mg PO BEDTIME sertraline [Zoloft] 100 mg tablet 200 mg PO DAILY bupropion HCl [Wellbutrin XL] 300 mg tablet extended release 24 hr 300 mg PO QAM quetiapine [Seroquel] 50 mg tablet 50 mg PO DAILY Referrals: Theodore,Joey Hampton MD [Primary Care Provider] - Interventions: ED Discharge Assessment Last Done: 11/03/23 14:22 Discharge Date/Time: 11/03/23 14:22 Print Language: Tamazight
[2023-11-03 11:28] LABS: MANUAL DIFF FLAG NO
[2023-11-03 11:32] LABS: Basophils Percent Auto 0.3 % (0-2); Eosinophils Percent Auto 0.2 % (0-4); Hematocrit 37.6 % (42.0-52.0); Hemoglobin 12.9 g/dl (14.0-18.0); Imm Gran Abs Auto 0.06 X10*3/uL (0.00-0.03); Imm Gran Pct Auto 0.5 % (0.0-0.4); Lymphocytes Absolute Auto 1.6 X10*3/uL (1.2-4.9); Lymphocytes Percent Auto 14.1 % (20-40); Mean Corpuscular HGB Conc 34.3 g/dl (31.0-36.0); Mean Corpuscular Hemoglobin 28.4 pg (27.0-33.0); Mean Corpuscular Volume 82.8 fL (80.0-98.0); Mean Platelet Volume 8.5 fL (9.4-12.4); Monocytes Absolute Auto 0.9 X10*3/uL (0.1-1.2); Monocytes Percent Auto 7.5 % (2-11); Neutrophils Percent Auto 77.4 % (45-73); Platelet Count 224 X10*3/uL (160-400); Red Blood Count 4.54 X10*6/uL (4.60-5.80); Red Cell Distribution Width 14.7 % (11.0-16.0); White Blood Count 11.6 X10*3/uL (4.8-10.8)
[2023-11-03 11:47] LABS: Alanine Aminotransferase 13 U/L (0-40); Alkaline Phosphatase 98 U/L (39-117); Anion Gap 11 (12-20); Aspartate Amino Transferase 15 U/L (5-37); Bilirubin Total 0.6 mg/dL (0.0-1.0); Blood Urea Nitrogen 9 mg/dL (9-16); Calcium 10.3 mg/dL (8.4-10.2); Carbon Dioxide 24 mmol/L (22-29); Chloride 103 mmol/L (96-108); Creatinine Clr Calc Pharmacy 132.7; Estimated Glomerular Filt Rate > 60; Glucose Random 108 mg/dL (60-115); Magnesium 2.4 mg/dL (1.6-2.6); Potassium 3.7 mmol/L (3.3-5.1); Sodium 134 mmol/L (135-145); Total Protein 7.9 g/dL (6.5-8.0)
[2023-11-03 11:49] LABS: B Type Natriuretic Peptide 32 pg/mL (<100)
[2023-11-03 14:22] VITALS: BP 151/88; PULSE 63; RESP 18; TEMP 36; O2SAT 97
== END 2023-11-03 14:22 | disposition home or self-care (01) ==
PROVIDERS: Physician Assistant Medical; Emergency Provider Student in an Organized Health Care Education/Training Program; PCP Internal Medicine
DX: R60.0 Localized edema (principal); M25.572 Pain in left ankle and joints of left foot; M25.571 Pain in right ankle and joints of right foot; M79.672 Pain in left foot; M79.671 Pain in right foot; I10 Essential (primary) hypertension; Z87.891 Personal history of nicotine dependence
CPT/HCPCS: 36415; 73610; 73630; 80053; 83735; 83880; 85025; 99282; 99283

== ENCOUNTER 2023-11-09 08:03 | Outpatient (AMB) | payer OTHER, SELFPAY ==
[2023-11-09 08:04] VITALS: BP 126/68; PULSE 64; O2SAT 94; BMI 44.9
--- NOTE | 2023-11-09 08:04 | MHC.PC.OV ---
Vital Signs 11/09/23 08:04 Height 6 ft 2 in Weight 350 lb BMI 44.9 BP 126/68 Blood Pressure Location Lt brachial Position Sitting Pulse 64 Pulse Source Pulse Oximeter Pulse Oximetry (%) 94 Oxygen Delivery Method Room Air Intake Visit Reasons: [facility] 11/02 swelling of both feet Intake Note: Patient is here to follow-up after a visit the emergency department at [facility] on 11/03/23 Radiological Engineer Required: No Allergies pollen extracts [POLLEN] Allergy (Mild, Verified 11/09/23 08:04) RUNNY NOSE house dust Allergy (Unknown, Verified 11/09/23 08:04) Sniffles Medication List - Last Reconciled 11/09/23 by Kristie Abbasi PA-C acetaminophen 1,000 mg (2 x 500 mg) PO Q6H PRN albuterol sulfate 90 mcg/actuation (ProAir HFA) 2 puffs PO Q4H allopurinol 300 mg PO DAILY aripiprazole (Abilify) 5 mg PO DAILY ascorbate calcium (vitamin C) 500 mg PO DAILY bupropion HCl XL (Wellbutrin XL) 300 mg PO QAM cyanocobalamin (vitamin B-12) (Vitamin B-12) 1,000 mcg PO DAILY ferrous sulfate (Feosol) 325 mg PO DAILY folic acid 1 mg PO DAILY loratadine 10 mg PO DAILY nifedipine ER 90 mg PO DAILY pantoprazole 40 mg PO DAILY 90 days quetiapine (Seroquel) 300 mg PO BEDTIME quetiapine (Seroquel) 50 mg PO DAILY sertraline (Zoloft) 200 mg PO DAILY terbinafine HCl 250 mg PO DAILY 12 weeks trazodone 200 mg PO BEDTIME Tobacco use date assessed: 09/05/23 Dental Screening Dental Screen Date: 05/30/23 HPI [facility] 11/02 swelling of both feet HPI Details 58-year-old male with past medical history of hypertension, asthma, GERD, generalized anxiety disorder last seen by Dr. Jaimes August 2023 coming in for hospital follow up.? In review of the notes, patient presented to [facility] ED for swelling to bilateral feet and ankles.? X-ray and labs were unremarkable diagnosed with venous insufficiency and recommended conservative measures discharged home. Patient states his swelling goes up and down and he will have discomfort in the legs along with occasional numbness and tingling. He states the swelling is worse with prolonged walking and improves with compression and elevation. He has been walking and trying to increase daily activity as well. He also mentions he has been having occasional shortness of breath that improves with his inhaler. [facility] Medical History (Updated 11/09/23 @ 08:14 by Kristie Abbasi PA-C) Tubular adenoma of colon Screening for prostate cancer Screening for colon cancer Lumbosacral spondylosis with radiculopathy Myofascial pain Anxiety and depression Chronic low back pain Physical exam Sacral ulcer Anxiety and depression Degenerative disc disease Obesity Anemia GERD (gastroesophageal reflux disease) Gout Folic acid deficiency Asthma Hypertension Surgical History History of colonoscopy H/O knee surgery Family History Mother Diabetes Hypertension Stroke Father Medical history unknown Sister Hypertension Diabetes Paternal Grandmother Myocardial infarction Daughter In good health Sister No problems noted. Brother No problems noted. Social History (Updated 05/30/23 @ 09:58 by Joey Jaimes MD) [facility] Alcohol intake: current Alcohol intake frequency: a few times a week Alcohol type: beer Comment: 0nce a week 4 drinks Patient Tobacco Use Status: Former Tobacco user Years Smoked: quit 2004 4-5 cigarettes a day e-Cigarette/Vaping Use: Never Used Second Hand Smoke Exposure: Yes Substance Use Type: Marijuana service: No Current occupational status: employed Cognitive needs: No Hearing needs: No Vision needs: No Questionnaire Thrive Questionnaire Date Thrive assessed: 05/30/23 AUDIT C Alcohol Use Questionnaire (AUDIT-C) 1. How often do you have a drink containing alcohol?: 2-3 times a week 2. How many drinks containing alcohol do you have on a typical day when you are drinking?: 1 or 2 3. How often do you have six or more drinks on one occasion?: Never Total Score: 3 ARNULFO-7 AMB Questionnaire ARNULFO-7 Date ARNULFO - 7 assessed: 05/30/23 Feeling nervous, anxious, or on edge: 1 = Several days Not being able to stop or control worryin = Several days Worrying too much about different things: 1 = Several days Trouble relaxin = Several days Being so restless that it is hard to sit still: 1 = Several days Becoming easily annoyed or irritable: 1 = Several days Feeling afraid as if something awful might happen: 0 = Not at all Total ARNULFO-7 score (0-4 normal; 5-9 mild; 10-14 moderate; 15-21 severe): 6 Source: Developed by Drs. Gino Willard, Meli Newman, Timbo Lazcano and colleagues, with an educational camden from [employer]. Review of Systems Const Denies chills and Denies fever(s) Eyes Reports no additional complaints ENT Reports no additional complaints Card Denies chest pain, Denies edema, Denies lightheadedness and Reports dyspnea (occasional ) Resp Denies cough and Reports dyspnea (occasional ) GI Reports no additional complaints Reports no additional complaints Musc Reports no additional complaints and Denies abnormal gait Skin/Breast Reports system reviewed and no additional complaints, except as documented Neuro Denies abnormal gait Psych Reports no additional complaints Physical exam (Primary Care) Vital Signs: Last Vital Signs Pulse 64 11/09/23 08:04 BP 126/68 11/09/23 08:04 Pulse Ox 94 11/09/23 08:04 Oxygen Delivery Method Room Air 11/09/23 08:04 BMI result Body Mass Index 44.9 Tobacco/Smoking Status: Tobacco use Status Tobacco use date assessed 09/05/23 11/09/23 08:10 Patient Tobacco Use Status Former Tobacco user 11/09/23 08:10 e-Cigarette/Vaping Use Never Used 11/09/23 08:10 Thrive Assessment: Date of Thrive Assessment Date Thrive assessed 05/30/23 11/09/23 08:10 Const General: cooperative, healthy appearing, comfortable and no acute distress Orientation/consciousness: patient oriented x3 HENMT Head: Yes normocephalic Ears: hearing grossly normal bilaterally General nose exam: Normal external nose present Eyes General: appearance normal, both eyes and all related structures Conjunctivae: conjunctivae normal Neck Neck: Yes full ROM and Yes no lymphadenopathy Resp Effort & Inspection: normal respiratory effort Auscultation: no crackles, no rales, no rhonchi and wheezes left upper Cardio Rate: regular rate Rhythm: regular rhythm Skin General skin exam: no rashes or lesions noted Neuro General: patient oriented x3 Gait exam (Neuro): Normal gait present Extrem Other: bilateral non pitting edema of lower legs and feet. No overlying skin changes, warmth or calf tenderness. Does have mild tenderness to palpation over anterior aspect of lower legs. Pulses intact bilaterally. General: Yes normal to inspection, Yes full ROM and No edema Psych Affect: normal affect Attitude: cooperative Insight: Good insight present (Psych) Judgement: Good judgement present (Psych) Assessment and Plan Assessment & Plan (1) Venous insufficiency: Code(s): I87.2 - Venous insufficiency (chronic) (peripheral) Plan: Pedal edema has improved per patient however the swelling does increase in decreased throughout the day. We will continue with conservative measures such as compression stockings, elevation, and exercise for current symptoms as they seem to be helping. Follow up at next appointment or sooner if symptoms worsen. Patient was educated on red flag symptoms and when to present to the ER. Patient is agreeable to this plan. (2) Asthma: Code(s): J45.909 - Unspecified asthma, uncomplicated Qualifiers: Asthma severity: mild Asthma persistence: intermittent Asthma complication type: uncomplicated Qualified Code(s): J45.20 - Mild intermittent asthma, uncomplicated Plan: Patient had expiratory wheezing in left upper lobe on exam today. He states he uses inhaler less than once a week and denies any nighttime awakenings. Advised patient to use inhaler today as he appeared to have shortness of breath during the exam along with the wheezing. Advised patient if he continues to have shortness of breath or has to use his inhaler multiple times a week to follow up sooner than next appointment. Plan This note was constructed using voice recognition software. While every effort has been made to ensure accuracy and armature winder helper repair, still areas may have been included sometimes these areas may affect the content or meeting of the given symptoms. Total time spent caring for the patient today was 25 minutes. This includes time spent before the visit reviewing the chart, time spent during the visit, and time spent after the visit and documentation. Medications: Changed From albuterol sulfate 90 mcg/actuation (ProAir HFA) 2 puffs PO Q4H 8.5 grams 0RF To albuterol sulfate 90 mcg/actuation 2 puffs PO Q4H 8.5 grams 0RF Coding Level of Care Code Est Pt Level 4 (38151) Diagnoses Venous insufficiency I87.2 Mild intermittent asthma without complication J45.20 Asthma severity: mild Asthma persistence: intermittent Asthma complication type: uncomplicated
== END 2023-11-09 08:23 | disposition home or self-care (01) ==
PROVIDERS: PCP Internal Medicine
DX: I87.2 Venous insufficiency (chronic) (peripheral) (principal); J45.20 Mild intermittent asthma, uncomplicated
CPT/HCPCS: 99214

== ENCOUNTER → 2023-11-23 14:48 | Outpatient (RCR) | payer OTHER, SELFPAY ==
[2020-05-09 14:44] VITALS: BP 145/76; PULSE 78; RESP 18; TEMP 37.1; O2SAT 97; BMI 44.9
--- NOTE | 2020-05-09 15:26 | MHC.HEMONC ---
Pt here for Hem consult with Dr Knox. Clinical summary updated by nurse. Provider into see pt. Labs drawn. Follow up appointment made for 3 months and given to pt.
[2020-05-09 15:41] LABS: Baso%MD 0.6 %; Eos%MD 0.4 %; Hematocrit 37.2 % (42-52); Hemoglobin 12.1 g/dl (14.0-18.0); IG%MD 0.2 %; Lymph%MD 24.4 %; Mean Corpuscular HGB Conc 32.5 g/dl (31.0-36.0); Mean Corpuscular Hemoglobin 26.9 pg (27.0-33.0); Mean Corpuscular Volume 82.9 fL (80-98); Mean Platelet Volume 8.7 fL (9.4-12.4); Mono%MD 7.7 %; Neut%MD 66.7 %; Platelet Count 202 X10*3/uL (160-400); Red Blood Count 4.49 X10*6/uL (4.60-5.80); Red Cell Distribution Width 15.7 % (11.0-16.0); Reticulocyte Percent 2.2 % (0.5-1.8); Reticulocytes Absolute 0.099 X10*6/uL (0.026-0.095); White Blood Count 8.5 X10*3/uL (4.8-10.8)
[2020-05-09 16:05] LABS: Alanine Aminotransferase 28 U/L (0-40); Albumin Level 4.2 g/dL (3.5-5.0); Alkaline Phosphatase 87 U/L (39-117); Anion Gap 13 (12-20); Aspartate Amino Transferase 26 U/L (5-37); Bilirubin Total 0.4 mg/dL (0.0-1.0); Blood Urea Nitrogen 9 mg/dL (9-16); Calcium 9.3 mg/dL (8.4-10.2); Carbon Dioxide 22 mmol/L (22-29); Chloride 109 mmol/L (96-108); Creatinine Clr Calc Pharmacy 170.9; Estimated Glomerular Filt Rate > 60; Glucose Random 96 mg/dL (60-115); Iron 38 mcg/dL (45-160); Lactate Dehydrogenase 146 U/L (118-273); Percent Iron Saturation 14 % (15-50); Potassium 3.5 mmol/L (3.3-5.1); Sodium 140 mmol/L (135-145); Total Iron Binding Capacity 271 mcg/dL (228-428); Total Protein 7.6 g/dL (6.5-8.0); Unsaturated Iron Binding 233 ug/dL
[2020-05-09 16:26] LABS: Ferritin 357 ng/mL (20-250)
[2020-05-09 16:40] LABS: Folate 14.1 ng/mL (> or = 4.0); Vitamin B12 1341 pg/mL (200-900)
[2020-05-09 16:59] LABS: Basophils Abs Manual 0.1 X10*3/uL (0.0-0.3); Basophils Percent Manual 1 % (0-1); Eosinophils Absolute Manual 0.1 X10*3/UL (0.0-0.8); Eosinophils Percent Manual 1 % (0-4); Lymphocytes Absolute Manual 2.2 X10*3/uL (0.6-4.8); Lymphocytes Percent Manual 26 % (20-40); Monocytes Absolute Manual 0.4 X10*3/uL (0.0-1.2); Monocytes Percent Manual 5 % (2-11); Neutrophils Absolute Manual 5.7 X10*3/uL (2.2-7.9); Neutrophils Percent Manual 67 % (45-73); Platelet Estimate NORMAL (NORMAL); Platelet Morphology Comment NORMAL; RBC Morphology NORMAL
--- NOTE | 2020-05-09 17:10 | P.CNHO_ITS ---
Subjective - Subjective Chief complaint: Consult for anemia. Patient: new to practice Consult date: 05/09/20 Requesting Physician: Theodore. Primary Care Provider: Joey Jaimes MD Medical Summary: DIAGNOSIS: ANEMIA. HPI - Consult Narrative Reason for consult: Consult for anemia. Narrative: Paulo Albarran is a pleasant 54 year old gentleman, who has been noted to have mild normochromic normocytic Anemia. Review of labs in the computer revealed: 07/02/2019, hemoglobin: 13. 03/25/2020: WBC 7.5, Hgb 11.8, HCT 37.3, MCV 83.6, PLT 210. ROS: He tells me his energy level is low at times. He denies fever nor chills. Appetite is good. Weight is stable. No headache no dizziness. He denies chest pain or trouble breathing. No abdominal pain nausea vomiting heartburn indigestion. His bowels are working without any gross blood in it. He generally gets a colonoscopy every 5 years due to polyps. No urinary complaints. He does get joint pains at times. He has history of depression. Family history: Sister related to complications from diabetes. Mom has diabetes. Paternal grandmother had some sort of malignancy. Social history: He works in [employer]. He is not . He has 1 child. He denies smoking but he does vaping. He drinks occasionally. Review of Systems - Constitutional Reports system reviewed and no additional complaints, except as documented - Eyes Reports system reviewed and no additional complaints, except as documented - ENT Reports system reviewed and no additional complaints, except as documented - Cardiovascular Reports system reviewed and no additional complaints, except as documented - Respiratory Reports no additional respiratory complaints - Gastrointestinal Reports system reviewed and no additional complaints, except as documented - Genitourinary Genitourinary: Reports no additional male genitourinary complaints - Musculoskeletal Reports system reviewed and no additional complaints, except as documented - Integumentary/Breasts Skin/Breast: Reports no additional skin complaints - Neurologic Reports system reviewed and no additional complaints, except as documented - Psychiatric Reports system reviewed and no additional complaints, except as documented - Endocrine Reports no additional endocrine complaints - Hematologic/Lymphatic Reports system reviewed and no additional complaints, except as documented - Allergic/Immunologic Reports system reviewed and no additional complaints, except as documented Oncology Screenings - ECOG Performance Status ECOG Performance Status: 0 PMFSH Medical History: Medical History (Last Reviewed 05/09/20 @ 14:48 by Adali West RN) Anemia Anxiety and depression Asthma Degenerative disc disease Folic acid deficiency GERD (gastroesophageal reflux disease) Gout Hypertension Obesity Tubular adenoma of colon Family History: Family History (Last Updated 05/19/20 @ 12:44 by Juany Aguirre [facility]) Mother Diabetes Hypertension Stroke Father Medical history unknown Sister Hypertension Diabetes Paternal Grandmother Myocardial infarction Daughter In good health Sister No problems noted. Brother No problems noted. Surgical History: Surgical History (Last Reviewed 05/09/20 @ 14:48 by Adali West RN) H/O knee surgery Social History: Social History (Last Updated 05/23/20 @ 08:43 by Archana Pizano CMA) Alcohol History: Alcohol intake: current Alcohol History Details: Alcohol intake frequency: a few times a month Alcohol type: beer Substance Use History: Substance Use Type: Marijuana Home Medications and Allergies Home Medications Medication Instructions Recorded Confirmed Type acetaminophen 500 mg tablet 500 mg PO Q6H PRN 04/08/20 05/23/20 History albuterol sulfate 90 mcg/actuation 2 puff INHALATION Q4-6H PRN 04/08/20 05/23/20 History aerosol inhaler aripiprazole 5 mg tablet 5 mg PO DAILY 04/08/20 05/23/20 History bupropion HCl 300 mg 24 hr tablet, 300 mg PO QAM 04/08/20 05/23/20 History extended release folic acid 1 mg tablet 1 mg PO DAILY 04/08/20 05/23/20 History loratadine 10 mg tablet 10 mg PO DAILY 04/08/20 05/23/20 History quetiapine 300 mg tablet 300 mg PO BEDTIME 04/08/20 05/23/20 History sertraline 100 mg tablet 200 mg PO DAILY tab 04/08/20 05/23/20 History trazodone 100 mg tablet 200 mg PO BEDTIME 04/08/20 05/23/20 History Allergies Allergy/AdvReac Type Severity Reaction Status Date / Time pollen extracts [POLLEN] Allergy Mild RUNNY NOSE Verified 05/19/20 12:42 house dust Allergy Unknown Sniffles Verified 05/19/20 12:42 Physical Exam Vital signs: Vital Signs Temp 98.8 F 05/09/20 14:44 Pulse 78 05/09/20 14:44 Resp 18 05/09/20 14:44 BP 145/76 H 05/09/20 14:44 Pulse Ox 97 05/09/20 14:44 Intake & Output 05/08/20 05/09/20 05/09/20 18:59 06:59 18:59 Other: Weight 158.8 kg Weight in Grams [id number] Weight 158.8 kg - Constitutional Present: no acute distress - Routine HEENT Exam Head: Present: normal inspection ENT: Present: mucous membranes moist - Routine Neck Exam Present: supple - Routine Respiratory Exam Present: CTAB - Routine Cardiovascular Exam Cardiovascular: Present: RRR, S1, S2 - Routine Abdominal Exam Present: soft, nontender - Routine Rectal Exam Patient deferred: digital exam - Routine Extremities Exam Present: nontender - Routine Back/Spine/Pelvis Exam Back/Spine: Present: full ROM - Routine Skin Exam Present: intact - Routine Neurological Exam Present: alert, oriented X3 - Detailed Neurological Exam: Coma Scale Eye Opening: Spontaneous (4) - Routine Psychiatric Exam Present: normal affect Hem/Onc Consult Result - Labs CBC & Chem 7: 05/09/20 15:28 05/09/20 15:28 Labs: Short CBC 05/09/20 Range/Units 15:28 WBC 8.5 (4.8-10.8) X10*3/uL Hgb 12.1 L (14.0-18.0) g/dl Hct 37.2 L (42-52) % Plt Count 202 (160-400) X10*3/uL BMP 05/09/20 15:28 Sodium 140 Potassium 3.5 Chloride 109 H Carbon Dioxide 22 BUN 9 Creatinine 0.77 Calcium 9.3 D Liver Function 05/09/20 Range/Units 15:28 Total Bilirubin 0.4 (0.0-1.0) mg/dL AST 26 (5-37) U/L ALT 28 (0-40) U/L Alkaline Phosphatase 87 (39-117) U/L Albumin 4.2 (3.5-5.0) g/dL Assessment and Plan (1) Anemia Status: Acute Qualifiers: Anemia type: unspecified type Qualified Code(s): D64.9 - Anemia, unspecified This is a pleasant 54-year-old gentleman, with a history of normochromic normocytic Anemia, that has been slowly worsening over the past year or so. He does not feel too fatigued. His hemoglobin is reasonable around 12 g. Most likely he has anemia of chronic disease. Iron studies are suggestive of that. DIFFERENTIAL DIAGNOSIS: 2. IRON DEFICIENCY ANEMIA: IRON PROFILE: 38/TO 71//357. SO CONSISTENT WITH ACD. 3. B12/FOLATE DEFICIENCY: B12 level is 1341, folate is 14.1. 4. HEMOLYTIC ANEMIA: Retic count: 2.2. LDH: 146. 5. MYELO INFILTRATIVE DISORDER: MDS versus lymphoma versus multiple myeloma. PLAN: Will proceed with further evaluation. I checked iron profile, as detailed above. B12 folate level are normal. Hemolytic screen: Retic, 2.2, LDH normal, haptoglobin pending. Will check LDH(146) and an SIEP: No abnormal bands. The plan is to follow his blood count over time. If it continues to drop will proceed with a bone marrow exam for further evaluation. He will return in 3 months for a follow-up visit. Thank you, CC: Dr. Jaimes.
[2020-05-10 13:51] LABS: Haptoglobin 149 mg/dL (43-212)
[2020-05-10 14:17] LABS: IgA 545 mg/dL (47-310); IgG 1219 mg/dL (600-1640); IgM 55 mg/dL (50-300)
== END | disposition home or self-care (01) ==
LOC: HO.ONC 05-09 14:30
PROVIDERS: PCP Internal Medicine; Referring Provider Internal Medicine; Visit Provider Internal Medicine Medical Oncology
DX: D64.9 Anemia, unspecified (principal)
CPT/HCPCS: 36415; 80053; 82607; 82728; 82746; 82784; 83010; 83540; 83615; 85007; 85027; 85045; 86334; 99204

== ENCOUNTER 2024-01-23 11:01 | Outpatient (AMB) | payer OTHER, SELFPAY ==
[2024-01-23 11:05] VITALS: BP 140/72; PULSE 66; O2SAT 95; BMI 45.4
--- NOTE | 2024-01-23 11:05 | MHC.PC.OV ---
Vital Signs 01/23/24 11:05 Height 6 ft 2 in Weight 354 lb BMI 45.4 BP 140/72 H Blood Pressure Location Lt brachial Position Sitting Pulse 66 Pulse Source Pulse Oximeter Pulse Oximetry (%) 95 Oxygen Delivery Method Room Air Intake Visit Reasons: Hematuria, Gout, HTN Digital Product Manager Required: No Allergies pollen extracts [POLLEN] Allergy (Mild, Verified 01/23/24 11:09) RUNNY NOSE house dust Allergy (Unknown, Verified 01/23/24 11:09) Sniffles Tobacco use date assessed: 09/05/23 Dental Screening Dental Screen Date: 05/30/23 HPI Hematuria, Gout, HTN HPI Details 58-year-old morbidly obese male with peripheral vascular disease asthma GERD hypertension generalized anxiety disorder last seen in 11/15/2023. Patient had colonoscopy done in 2016 having tubular adenoma and was advised to see the site supervising technical operator again.. Patient did see Gastroenterology October 06 2023 and planned colonoscopy January. had NAVARRETE and chills 2 days ago , better. swelling is better now so will monitor. [facility] Medical History (Updated 01/23/24 @ 11:29 by Joey Jaimes MD) Tubular adenoma of colon Screening for prostate cancer Screening for colon cancer Lumbosacral spondylosis with radiculopathy Myofascial pain Anxiety and depression Chronic low back pain Physical exam Sacral ulcer Anxiety and depression Degenerative disc disease Obesity Anemia GERD (gastroesophageal reflux disease) Gout Folic acid deficiency Asthma Hypertension Surgical History History of colonoscopy H/O knee surgery Family History Mother Diabetes Hypertension Stroke Father Medical history unknown Sister Hypertension Diabetes Paternal Grandmother Myocardial infarction Daughter In good health Sister No problems noted. Brother No problems noted. Social History (Updated 05/30/23 @ 09:58 by Joey Jaimes MD) Housing: Condominium Alcohol intake: current Alcohol intake frequency: a few times a week Alcohol type: beer Comment: 0nce a week 4 drinks Patient Tobacco Use Status: Former Tobacco user Years Smoked: quit 2004 4-5 cigarettes a day e-Cigarette/Vaping Use: Never Used Second Hand Smoke Exposure: Yes Substance Use Type: Marijuana service: No Current occupational status: employed Cognitive needs: No Hearing needs: No Vision needs: No Questionnaire Thrive Questionnaire Date Thrive assessed: 05/30/23 AUDIT C Alcohol Use Questionnaire (AUDIT-C) 1. How often do you have a drink containing alcohol?: 2-3 times a week 2. How many drinks containing alcohol do you have on a typical day when you are drinking?: 1 or 2 3. How often do you have six or more drinks on one occasion?: Never Total Score: 3 ARNULFO-7 AMB Questionnaire ARNULFO-7 Date ARNULFO - 7 assessed: 05/30/23 Source: Developed by Drs. Gino Willard, Meli Nweman, Timbo Lazcano and colleagues, with an educational camden from [employer]. Physical exam (Primary Care) Vital Signs: Last Vital Signs Pulse 66 01/23/24 11:05 BP 140/72 H 01/23/24 11:05 Pulse Ox 95 01/23/24 11:05 Oxygen Delivery Method Room Air 01/23/24 11:05 BMI result Body Mass Index 45.4 Tobacco/Smoking Status: Tobacco use Status Tobacco use date assessed 09/05/23 01/23/24 11:06 Patient Tobacco Use Status Former Tobacco user 01/23/24 11:06 e-Cigarette/Vaping Use Never Used 01/23/24 11:06 Thrive Assessment: Date of Thrive Assessment Date Thrive assessed 05/30/23 01/23/24 11:06 Const General: alert; No acute distress Eyes Conjunctivae: conjunctivae normal Resp Auscultation: clear to auscultation bilaterally Cardio Rate: regular rate Rhythm: regular rhythm GI Inspection: Yes normal to inspection Extrem General: Yes normal to inspection and No edema Office Procedures Flu Questionnaire Does the patient have a severe egg allergy?: No Does the patient have severe life threatening allergies?: No Does the patient have a fever or illness today?: No Has the patient ever had Guillain-Mapleton Syndrome?: No Has the patient ever had any past reaction to a flu shot?: No Immunizations Fluarix Triv [id number] (PF) 45 mcg (15 mcg x 3)/0.5 mL IM syringe Performing Provider: Joey Jaimes MD [facility] Administered by: PALOMO Buckley on 01/23/24 11:38 Dose Route Admin Location Dispensed Lot Number Expiration Date NDC Gear Cutter 0.5 mL IM Left Deltoid 0.5 mL [id number] 09/24/24 [id number] [employer] VIS Given Date VIS Provided VIS Publication Date 01/23/24 Single Vaccine 20 Eligibility Eligibility Date Funding Source Not VFC Eligible 01/23/24 Private Coding Level of Care Code Est Pt Level 4 (08138) Diagnoses Peripheral vascular disease I73.9 Essential hypertension I10 Hypertension type: essential hypertension Gastroesophageal reflux disease without esophagitis K21.9 Esophagitis presence: without esophagitis Anemia, unspecified type D64.9 Anemia type: unspecified type Class 3 severe obesity due to excess calories with serious comorbidity and body mass index (BMI) of 45.0 to 49.9 in adult E66.01; Z68.42; Z68.42 Body mass index: BMI 45.0-49.9 Obesity classification: adult class 3 (BMI >= 40) Obesity type: due to excess calories Serious obesity comorbidity presence: with serious comorbidity Generalized anxiety disorder F41.1 Assessment & Plan Assessment & Plan (1) Peripheral vascular disease: Code(s): I73.9 - Peripheral vascular disease, unspecified Category: Medical Plan: When sitting down elevate the legs, exercise, and support stockings did discussed with the patient that he has a blood pressure medication can cause leg swelling that is the nifedipine.. But the patient's states feeling better now so will continue to monitor. (2) Hypertension: Code(s): I10 - Essential (primary) hypertension Category: Medical Qualifiers: Hypertension type: essential hypertension Qualified Code(s): I10 - Essential (primary) hypertension Plan: Continue with blood pressure medication. Decrease salt intake and exercise presently on nifedipine 90 mg once a day only. Concern about the leg swelling and discussed about changing and monitoring. Leg swelling is better now so no changes in medication (3) GERD (gastroesophageal reflux disease): Code(s): K21.9 - Gastro-esophageal reflux disease without esophagitis Category: Medical Qualifiers: Esophagitis presence: without esophagitis Qualified Code(s): K21.9 - Gastro-esophageal reflux disease without esophagitis Plan: Avoid the foods that causes that usually spicy foods, tomato products, juices, coffee, soda and foods that your sensitive to. After eating do not lie down, allow 3-4 hours before in lie down. And keep the head of bed above 30 degrees to avoid the acid from going up. On pantoprazole (4) Anemia: Code(s): D64.9 - Anemia, unspecified Category: Medical Qualifiers: Anemia type: unspecified type Qualified Code(s): D64.9 - Anemia, unspecified Plan: Chronic and stable continue to monitor (5) Obesity: Code(s): E66.9 - Obesity, unspecified Category: Medical Qualifiers: Body mass index: BMI 45.0-49.9 Obesity classification: adult class 3 (BMI >= 40) Obesity type: due to excess calories Serious obesity comorbidity presence: with serious comorbidity Qualified Code(s): E66.01 - Morbid (severe) obesity due to excess calories; Z68.42 - Body mass index [BMI] 45.0-49.9, adult; Z68.42 - Body mass index [BMI] 45.0-49.9, adult Plan: Diet and exercise (6) Generalized anxiety disorder: Comment: CHD Q 2 months (05/2023) Code(s): F41.1 - Generalized anxiety disorder Category: Medical Plan: Continue with counseling and therapy Orders: Orders Ferritin Today D64.9 - Anemia, unspecified IRON PROFILE Today D64.9 - Anemia, unspecified Thyroid Stimulating Hormone Today D64.9 - Anemia, unspecified Free T4 (Free Thyroxine) Today D64.9 - Anemia, unspecified Prostate Specific Antigen Scr Today D64.9 - Anemia, unspecified Hemoglobin A1c Today D64.9 - Anemia, unspecified Complete Blood Count Auto Diff Today D64.9 - Anemia, unspecified Lipid Panel Today D64.9 - Anemia, unspecified, E78.00 - Pure hypercholesterolemia, unspecified Reticulocyte Count Today D64.9 - Anemia, unspecified Vitamin B12 and Folate Today D64.9 - Anemia, unspecified Comprehensive Met. Panel Today D64.9 - Anemia, unspecified Influenza [id number] Immunization Today Z23 - Encounter for immunization Medications: New Fluarix Triv [id number] (PF) (flu vacc [id number] 6mos up(PF)) 0.5 mL IM ONCE 0.5 mL 0RF NS Z23 - Encounter for immunization
== END 2024-01-23 11:45 | disposition home or self-care (01) ==
PROVIDERS: PCP Internal Medicine; Visit Provider Internal Medicine
DX: I73.9 Peripheral vascular disease, unspecified (principal); I10 Essential (primary) hypertension; E66.01 Morbid (severe) obesity due to excess calories; Z68.42 Body mass index [BMI] 45.0-49.9, adult; K21.9 Gastro-esophageal reflux disease without esophagitis; D64.9 Anemia, unspecified; F41.1 Generalized anxiety disorder

== ENCOUNTER → 2024-01-23 11:01 | Outpatient (BNVA) | payer OTHER, SELFPAY | PROVIDERS: PCP Internal Medicine; Visit Provider Internal Medicine | DX: Z23 Encounter for immunization (principal); I73.9 Peripheral vascular disease, unspecified; I10 Essential (primary) hypertension; K21.9 Gastro-esophageal reflux disease without esophagitis; D64.9 Anemia, unspecified; E66.01 Morbid (severe) obesity due to excess calories; Z68.42 Body mass index [BMI] 45.0-49.9, adult; F41.1 Generalized anxiety disorder; Z71.3 Dietary counseling and surveillance | CPT/HCPCS: 90471; 90656; 99212 ==

== ENCOUNTER 2024-02-06 08:20 | Day surgery (SDC) | payer OTHER, SELFPAY ==
[2024-02-02 13:32] VITALS: BMI 45.4
--- NOTE | 2024-02-03 09:37 | P.CONAN_ITS ---
Documented by User: Ana Bryant NP 02/03/24 09:37 HPI - Anesthesia Eval Consult details Narrative: 58yo M for Colonoscopy BMI: 45% PMFSH Active Problems Active Problems: All Active Problems Peripheral vascular disease (Acute) Venous insufficiency (Acute) Hematuria (Acute) Onychomycosis (Acute) Generalized anxiety disorder (Acute) Annual physical exam (Acute) Cervical spondylosis without myelopathy (Acute) Folic acid deficiency (Acute) Tubular adenoma of colon (Acute) Gout (Acute) Degenerative disc disease (Acute) Obesity (Acute) Anemia (Acute) GERD (gastroesophageal reflux disease) (Acute) Asthma (Acute) Hypertension (Acute) Past Medical History Medical History (Updated 02/02/24 @ 13:30 by Cassi Levy RN) Lumbosacral spondylosis with radiculopathy Myofascial pain Anxiety and depression Chronic low back pain Sacral ulcer Degenerative disc disease Obesity Anemia GERD (gastroesophageal reflux disease) Gout Tubular adenoma of colon Folic acid deficiency Asthma Hypertension Family History Family History Mother Diabetes Hypertension Stroke Father Medical history unknown Sister Hypertension Diabetes Paternal Grandmother Myocardial infarction Daughter In good health Sister No problems noted. Brother No problems noted. Surgical History Surgical History History of colonoscopy H/O knee surgery Social History Social History (Updated 05/30/23 @ 09:58 by Joey Jaimes MD) Housing: [facility] Alcohol intake: current Alcohol intake frequency: holidays/special occasions only Alcohol type: beer Comment: 0nce a week 4 drinks Patient Tobacco Use Status: Former Tobacco user Years Smoked: quit 2004 4-5 cigarettes a day e-Cigarette/Vaping Use: Never Used Second Hand Smoke Exposure: Yes Use of substances other than those prescribed or required for medical reasons: Yes Substance Use Type: Marijuana Are you DNR?: No Advance Directives: No Advance Directives Information Provided: Yes Recently lost weight without trying: No Nutrition Risks: No Nutritional Risk Poor oral hygiene: No service: No Current occupational status: employed Cognitive needs: No Hearing needs: No Vision needs: No Meds Allergies Allergy/AdvReac Type Severity Reaction Status Date / Time pollen extracts [POLLEN] Allergy Mild RUNNY NOSE Verified 01/23/24 11:09 house dust Allergy Unknown Sniffles Verified 01/23/24 11:09 Home Medications ?Medication ?Instructions ?Recorded ?Confirmed ?Last Taken ?Type aripiprazole 5 mg tablet (Abilify) 5 mg PO DAILY 04/08/20 02/02/24 Unknown History bupropion HCl 300 mg 24 hr tablet, 300 mg PO QAM 04/08/20 02/02/24 Unknown History extended release (Wellbutrin XL) loratadine 10 mg tablet 10 mg PO DAILY 04/08/20 02/02/24 Unknown History quetiapine 300 mg tablet (Seroquel) 300 mg PO BEDTIME 04/08/20 02/02/24 Unknown History sertraline 100 mg tablet (Zoloft) 200 mg PO DAILY 04/08/20 02/02/24 Unknown History trazodone 100 mg tablet 200 mg PO BEDTIME 04/08/20 02/02/24 Unknown History quetiapine 50 mg tablet (Seroquel) 50 mg PO DAILY 05/06/21 02/02/24 Unknown History Exam Height,Weight and Vital Signs: Height 6 ft 2 in Weight 160.572 kg Assessment and Plan Assessment Anesthesia Assessment: Chart Reviewed Documented by User: Betty Mario MD 02/06/24 08:51 [facility] Past Medical History Medical History (Updated 02/02/24 @ 13:30 by Cassi Levy RN) Lumbosacral spondylosis with radiculopathy Myofascial pain Anxiety and depression Chronic low back pain Sacral ulcer Degenerative disc disease Obesity Anemia GERD (gastroesophageal reflux disease) Gout Tubular adenoma of colon Folic acid deficiency Asthma Hypertension Family History Family History Mother Diabetes Hypertension Stroke Father Medical history unknown Sister Hypertension Diabetes Paternal Grandmother Myocardial infarction Daughter In good health Sister No problems noted. Brother No problems noted. Family history of problems with anesthesia: No Surgical History Surgical History History of colonoscopy H/O knee surgery History of Problems with Anesthesia: No Social History Social History (Updated 05/30/23 @ 09:58 by Joey Jaimes MD) [facility] Alcohol intake: current Alcohol intake frequency: holidays/special occasions only Alcohol type: beer Comment: 0nce a week 4 drinks Patient Tobacco Use Status: Former Tobacco user Years Smoked: quit 2004 4-5 cigarettes a day e-Cigarette/Vaping Use: Never Used Second Hand Smoke Exposure: Yes Use of substances other than those prescribed or required for medical reasons: Yes Substance Use Type: Marijuana Are you DNR?: No Advance Directives: No Advance Directives Information Provided: Yes Recently lost weight without trying: No Nutrition Risks: No Nutritional Risk Poor oral hygiene: No service: No Current occupational status: employed Cognitive needs: No Hearing needs: No Vision needs: No Meds Allergies Allergy/AdvReac Type Severity Reaction Status Date / Time pollen extracts [POLLEN] Allergy Mild RUNNY NOSE Verified 01/23/24 11:09 house dust Allergy Unknown Sniffles Verified 01/23/24 11:09 Home Medications ?Medication ?Instructions ?Recorded ?Confirmed ?Last Taken ?Type aripiprazole 5 mg tablet (Abilify) 5 mg PO DAILY 04/08/20 02/02/24 Unknown History bupropion HCl 300 mg 24 hr tablet, 300 mg PO QAM 04/08/20 02/02/24 Unknown History extended release (Wellbutrin XL) loratadine 10 mg tablet 10 mg PO DAILY 04/08/20 02/02/24 Unknown History quetiapine 300 mg tablet (Seroquel) 300 mg PO BEDTIME 04/08/20 02/02/24 Unknown History sertraline 100 mg tablet (Zoloft) 200 mg PO DAILY 04/08/20 02/02/24 Unknown History trazodone 100 mg tablet 200 mg PO BEDTIME 04/08/20 02/02/24 Unknown History quetiapine 50 mg tablet (Seroquel) 50 mg PO DAILY 05/06/21 02/02/24 Unknown History Exam Airway Mallampati Class: II TM Dist: >3cm Neck ROM: Full Assessment and Plan Assessment Anesthesia Assessment: Anesthesia Plan Discussed Final Anesthetic Review Family History of Problems with Anesthesia: No History of Problems with Anesthesia: No NPO: Yes ASA Class: III Final Preanesthetic Review: No Changes in Pt Med Stat, Meds/Allgs Chart Reviewed, Consent Obtained/Reviewed and Anes Risks/Benef Reviewed Patient Risk: Intermediate Procedure Risk: Low Anesthetic Plan Anesthetic Plan: TIVA Disposition: Standard PACU
[2024-02-06 08:30] VITALS: BMI 44.5
[2024-02-06 08:41] VITALS: BP 136/76; PULSE 49; RESP 16; TEMP 36.3; O2SAT 95
[2024-02-06] MEDS: Lactated Ringers 1,000 ML 100 ML IVCONT (08:50)
[2024-02-06 10:10] VITALS: BP 103/61; PULSE 54; RESP 16; TEMP 36.6; O2SAT 97
--- NOTE | 2024-02-06 10:15 | PM.OP ---
Brief Operative Note Date of Service: 02/06/24 Pre-op diagnosis: Screening Post-op diagnosis: other (Colon polyps) Procedure: Colonoscopy to the cecum and TI with cold snare polypectomy with placement of 2 Resolution clips at 60cm, and multiple hot snare polypectomies in transverse colon Surgeon: Gino Metzger MD Anesthesia: MAC Was an Rebeamer used for this Procedure?: No Estimated blood loss (mL): 2.0 Pathology: other (A. Polyp at 60cm B. Transverse colon polyps) Condition: stable Disposition: PACU
[2024-02-06 10:26] VITALS: BP 110/67; PULSE 52; RESP 16; TEMP 36.3; O2SAT 97
--- NOTE | 2024-02-06 10:36 | OP_ITS ---
DATE OF SERVICE: 02/06/2024 SURGEON: Gino Metzger MD INDICATIONS: The patient presents for evaluation of personal history of tubular adenoma of the colon and need for colorectal cancer screening. Full consent has been obtained from him for this, including risks of bleeding and perforation. PREOPERATIVE DIAGNOSIS: POSTOPERATIVE DIAGNOSIS: PROCEDURE PERFORMED: Colonoscopy to the cecum and terminal ileum with cold snare polypectomy with placement of 2 resolution clips on polyp at 60 cm, and multiple hot snare polypectomies in transverse colon. ESTIMATED BLOOD LOSS: COMPLICATIONS: ANESTHESIA: Monitored anesthesia care. ASSISTANTS: SPECIMENS: PREOPERATIVE DIAGNOSES: Colorectal cancer screening and personal history of tubular adenoma of the colon. POSTOPERATIVE DIAGNOSES: Colorectal cancer screening and personal history of tubular adenoma of the colon, multiple colon polyps, diverticulosis, and internal hemorrhoids. DESCRIPTION OF PROCEDURE: The patient was placed in the left lateral decubitus position. The digital rectal exam revealed no abnormalities. The Olympus video pediatric colonoscope was entered into the rectum and advanced easily to the cecum. Once in the cecum, I did identify normal-appearing cecal pouch with appendiceal orifice and a normal-appearing ileocecal valve. The terminal ileum was cannulated and appeared normal. The scope was withdrawn back in the colon. The entire cecum and ileocecal valve appeared normal. The scope was slowly withdrawn assessing all mucosal surfaces carefully. Preparation was excellent. In the transverse colon were multiple polyps ranging in size from 5 or 6 mm to 1.2 cm. These were all removed by hot snare polypectomy and all recovered by suction. All the polypectomy sites appeared clean, without any sign of residual polyp nor bleeding. There were at least 6 polyps removed. At 60 cm was a flat 5 mm polyp, which was removed by cold snare polypectomy and recovered by suction. The polypectomy site appeared clean, without any sign of residual polyp. However, there was some evidence of residual clot and therefore, I placed 2 resolution clips onto the polypectomy site with good deployment and good hemostasis. I did not visualize any other polyps, colitis, or angiodysplasia. There was a mild amount of sigmoid diverticulosis. In the rectum, scope was retroflexed visualizing internal hemorrhoids, but no other pathology. The rectal mucosa appeared normal. Scope was straightened and withdrawn from the patient. He tolerated the procedure well and was returned to the recovery area in stable condition. IMPRESSION: 1. Multiple colon polyps. 2. Diverticulosis. 3. Internal hemorrhoids. PLAN: The results of the pathology will be checked. Given the multiple number of polyps found today, I would recommend a repeat colonoscopy within 3 years for further screening. He was advised not to use any aspirin nor NSAIDs for at least 1 week. MD GIL Chavarria/ANALY / [phone]
== END 2024-02-06 11:22 | disposition home or self-care (01) ==
PROVIDERS: PCP Internal Medicine; Visit Provider Internal Medicine
PROC: 0DJD8ZZ Inspection of Lower Intestinal Tract, Via Natural or Artificial Opening Endoscopic (ICD-10-PCS; CPT 45378; principal; 2024-02-06 09:20)
DX: Z12.11 Encounter for screening for malignant neoplasm of colon (principal); Z86.0101 Personal history of adenomatous and serrated colon polyps; D12.3 Benign neoplasm of transverse colon; D12.4 Benign neoplasm of descending colon; K57.30 Diverticulosis of large intestine without perforation or abscess without bleeding; K64.8 Other hemorrhoids; I10 Essential (primary) hypertension; M10.9 Gout, unspecified; F32.A Depression, unspecified; J45.909 Unspecified asthma, uncomplicated; Z79.82 Long term (current) use of aspirin; Z79.899 Other long term (current) drug therapy; Z87.891 Personal history of nicotine dependence
CPT/HCPCS: 45385; 88305; J1596; J2003; J2250; J2704

== ENCOUNTER 2024-05-05 11:36 | Emergency (ER) | payer OTHER, SELFPAY ==
--- NOTE | ~2024-05-05 | XR_ITS ---
CLINICAL HISTORY: weakness, swelling 2 view chest x-ray Comparison: CR - XR CHEST 1V - 12/04/20 13:17 EDT Findings: The lungs are clear. Heart size is normal. No acute fracture. IMPRESSION: 1. No acute findings. This document has been electronically signed by: Ami Obrien MD on 05/05/2024 12:58:50
[2024-05-05 11:42] VITALS: BP 172/79; PULSE 82; RESP 18; TEMP 36.4; O2SAT 95; BMI 41.1
--- NOTE | 2024-05-05 11:43 | ED.GENADULT ---
HPI - General Adult General Chief complaint: Extremity Problem Stated complaint: feet swelling Time Seen by Provider: 05/05/24 15:37 Source: patient Mode of arrival: ambulatory Limitations: no limitations History of Present Illness ED Provider: Tara Mtz APRN HPI narrative: 58-year-old male with a history of depression, anxiety, gout, morbid obesity,chronic venous insufficiency who presents to the ER for evaluation of swelling to his bilateral feet and ankles for the last few weeks. This happens to him intermittently. He denies any injury or trauma. He denies any history of CHF. He reports that he noticed swelling to his feet and ankles and he has elevated them yesterday with improvement in the swelling. He denies any swelling of his lower legs or upper legs. No calf pain. No shortness a breath or chest pain. He denies any excessive salt intake, weight gain, recent travel. No redness, warmth, numbness, tingling associated with this. Does not use compression stockings. Related Data Home Medications ?Medication ?Instructions ?Recorded ?Confirmed aripiprazole 5 mg tablet (Abilify) 5 mg PO DAILY 04/08/20 02/02/24 bupropion HCl 300 mg 24 hr tablet, 300 mg PO QAM 04/08/20 02/02/24 extended release (Wellbutrin XL) loratadine 10 mg tablet 10 mg PO DAILY 04/08/20 02/02/24 quetiapine 300 mg tablet (Seroquel) 300 mg PO BEDTIME 04/08/20 02/02/24 sertraline 100 mg tablet (Zoloft) 200 mg PO DAILY 04/08/20 02/02/24 trazodone 100 mg tablet 200 mg PO BEDTIME 04/08/20 02/02/24 quetiapine 50 mg tablet (Seroquel) 50 mg PO DAILY 05/06/21 02/02/24 Previous Rx's ?Medication ?Instructions ?Recorded ascorbate calcium (vitamin C) 500 500 mg PO DAILY #90 tabs 09/23/20 mg tablet acetaminophen 500 mg tablet 1,000 mg (2 x 500 mg) PO Q6H PRN 04/13/21 fever or pain #30 tabs albuterol sulfate 90 mcg/actuation 2 puff PO Q4H #8.5 grams 11/09/23 aerosol inhaler pantoprazole 40 mg tablet,delayed 40 mg PO DAILY 90 days #90 tabs 12/13/23 release cyanocobalamin (vitamin B-12) 1,000 mcg PO DAILY #90 tabs 03/07/24 1,000 mcg tablet (Vitamin B-12) ferrous sulfate 325 mg (65 mg 325 mg PO DAILY #90 tabs 03/07/24 iron) tablet (Feosol) folic acid 1 mg tablet 1 mg PO DAILY #90 tabs 03/07/24 terbinafine HCl 250 mg tablet 250 mg PO DAILY 12 weeks #84 tabs 03/07/24 allopurinol 300 mg tablet 300 mg PO DAILY #90 tabs 04/30/24 nifedipine 90 mg tablet,extended 90 mg PO DAILY #90 tabs 04/30/24 release 24 hr amlodipine 10 mg tablet 10 mg PO DAILY #30 tabs 05/05/24 Allergies Allergy/AdvReac Type Severity Reaction Status Date / Time pollen extracts [POLLEN] Allergy Mild RUNNY NOSE Verified 05/05/24 11:44 house dust Allergy Unknown Sniffles Verified 05/05/24 11:44 Review of Systems Review of Systems: Yes all other systems are reviewed and are negative Constitutional: Constitutional: Reports no additional constitutional complaints, Denies body ache(s), Denies chills, Denies fever(s), Denies headache(s) and Denies weakness Eyes: Eyes: Reports no additional eye complaints and Denies change in vision ENT: Reports system reviewed and no additional complaints, except as documented, Denies dizziness, Denies headache(s), Denies nasal congestion, Denies nasal discharge and Denies neck pain Cardiovascular: Cardiovascular: Reports no additional cardiovascular complaints, Denies chest pain, Reports leg edema and Denies dyspnea Respiratory: Respiratory: Reports no additional respiratory complaints, Denies cough and Denies dyspnea Gastrointestinal: Gastrointestinal: Reports no additional gastrointestinal complaints, Denies abdominal pain, Denies diarrhea, Denies nausea and Denies vomiting Genitourinary: Genitourinary: Denies urinary incontinence Musculoskeletal: Musculoskeletal: Reports no additional musculoskeletal complaints, Denies back pain, Denies arthralgias, Denies joint swelling, Denies neck pain, Denies numbness and Denies tingling Integumentary/Breasts: Skin/Breast: Reports system reviewed and no additional complaints, except as docu and Denies rash Neurologic: Reports system reviewed and no additional complaints, except as documented, Denies Abnormal speech present, Denies dizziness, Denies headache(s), Denies numbness, Denies tingling and Denies weakness PMFSH Past Medical History Attestation statement: The following information was validated with the patient. Source: old records reviewed and nursing notes reviewed Medical History Lumbosacral spondylosis with radiculopathy Myofascial pain Anxiety and depression Chronic low back pain Sacral ulcer Degenerative disc disease Obesity Anemia GERD (gastroesophageal reflux disease) Gout Tubular adenoma of colon Folic acid deficiency Asthma Hypertension Surgical History History of colonoscopy H/O knee surgery Family History Family History Mother Diabetes Hypertension Stroke Father Medical history unknown Sister Hypertension Diabetes Paternal Grandmother Myocardial infarction Daughter In good health Sister No problems noted. Brother No problems noted. Social History Social History Housing: Condominium Alcohol intake: current Alcohol intake frequency: holidays/special occasions only Alcohol type: beer Comment: 0nce a week 4 drinks Patient Tobacco Use Status: Former Tobacco user Years Smoked: quit 2005 4-5 cigarettes a day e-Cigarette/Vaping Use: Never Used Second Hand Smoke Exposure: Yes Substance Use Type: Marijuana Advance Directives: No Advance Directives Information Provided: No service: No Current occupational status: employed Cognitive needs: No Hearing needs: No Vision needs: No Physical Exam ED Vital Signs: Vital Signs - 24 hr 05/05/24 11:42 05/05/24 14:00 Temperature 97.5 F 98.9 F Pulse Rate 82 91 Respiratory Rate 18 16 Blood Pressure 172/79 H 155/92 H Pulse Oximetry 95 98 Oxygen Delivery Method Room Air Room Air BMI result Body Mass Index 41.1 Const General: cooperative, healthy appearing, comfortable and no acute distress Orientation/consciousness: patient oriented x3 Limitations: no limitations HENMT Head: Yes normal to inspection Ears: hearing grossly normal bilaterally General nose exam: Normal external nose present Face and sinus: Yes normal facial exam Mouth: Normal oral and palatal mucosa present Throat: Yes posterior oropharynx normal Eyes General: appearance normal, both eyes and all related structures Pupils: Equal, round and reactive pupils present Neck Neck: Yes normal visual inspection Chest Chest palpation & inspection: normal inspection of the chest Resp Effort & Inspection: normal respiratory effort Auscultation: clear to auscultation bilaterally Cardio Rate: regular rate Rhythm: regular rhythm Peripheral pulses: Peripheral pulses 2+ throughout GI Inspection: Yes normal to inspection Palpation (GI): Soft to palpation and nontender Auscultation: normal bowel sounds Back/Spine/Pelvis Thoracic/Lumbar Spine: thoracic and lumbar spine normal to inspection Skin General skin exam: no rashes or lesions noted Neuro General: patient oriented x3, no focal motor deficits and normal sensation to monofilament Cranial nerves: Yes Equal, round and reactive pupils present Cognition (Neuro): normal cognition Speech: No Abnormal speech present Gait exam (Neuro): Normal gait present Motor exam (neuro): 5/5 motor strength present throughout Extrem Other: 2+ DP/PT pulses Normal sensation General: Yes normal to inspection, Yes no calf tenderness and Yes edema (non pitting around feet/ankles, none in calves) Course Course Course Narrative: RME performed by Vandana Hope PA-C. Patient is a 58 year old assigned male at presenting to the emergency department with bilateral feet swelling. Patient states that both of his feet are consistently swollen and he has been told numerous times to come back here for it despite being seen here for it multiple times. Detailed physical exam and review of systems are deferred to the process improvement analyst. EKG, labs, and swabs ordered. Patient placed back in the waiting room pending room availability and results. Medical Decision Making Medical Decision Making MDM Narrative: 58-year-old male with a history of depression, anxiety, gout, morbid obesity,chronic venous insufficiency who presents to the ER for evaluation of swelling to his bilateral feet and ankles for the last few weeks. This happens to him intermittently.? He denies any injury or trauma.? He denies any history of CHF.? He reports that he noticed swelling to his feet and ankles and he has elevated them yesterday with improvement in the swelling.? He denies any swelling of his lower legs or upper legs.? No calf pain.? No shortness a breath or chest pain.? He denies any excessive salt intake, weight gain, recent travel. No redness, warmth, numbness, tingling associated with this. Does not use compression stockings.? On exam there is swelling which is nonpitting to the ankle/feet with no warmth/erythema or open wounds. +CMS. No calf pain or swelling. C/w with chronic venous insufficiency. Low suspicion for DVT d/t the chronicity of symptoms. No evidence of cellulitis. Reviewed labs, CXR, EKG from triage-all normal. Recommended elevation, compression stockings. He is on nifedipine which can cause leg swelling. Offered to switch to [facility] and have him f/u with PCP this week. He agreed Differential Diagnosis Differential Diagnoses: The differential diagnosis associated with the presentation includes see above Admission/Observation Consideration of admission/observation: Escalation of care including admission/observation considered Lab Data MDM Lab Attestation statement: I reviewed the patient's lab results. 05/05/24 12:02 05/05/24 12:02 Labs: Lab Results 05/05/24 Range/Units 12:02 WBC 6.1 (4.8-10.8) X10*3/uL RBC 4.34 L (4.60-5.80) X10*6/uL Hgb 11.6 L (14.0-18.0) g/dl Hct 34.7 L (42.0-52.0) % MCV 80.0 (80.0-98.0) fL MCH 26.7 L (27.0-33.0) pg MCHC 33.4 (31.0-36.0) g/dl RDW 14.9 (11.0-16.0) % Plt Count 191 (160-400) X10*3/uL MPV 8.4 L (9.4-12.4) fL Immature Gran % (Auto) 0.7 H (0.0-0.4) % Neut % (Auto) 67.2 (45-73) % Lymph % (Auto) 22.7 (20-40) % Garvin % (Auto) 7.7 (2-11) % Eos % (Auto) 1.0 (0-4) % Baso % (Auto) 0.7 (0-2) % Lymph # (Auto) 1.4 (1.2-4.9) X10*3/uL Garvin # (Auto) 0.5 (0.1-1.2) X10*3/uL Eos # (Auto) 0.1 (0.0-0.4) X10*3/uL Baso # (Auto) 0.0 (0.0-0.2) X10*3/uL Abs Immat Gran (auto) 0.04 H (0.00-0.03) X10*3/uL Absolute Neuts (auto) 4.1 (2.0-8.3) x10*3/uL Absolute Nucleated RBC 0.000 (0.0-0.012) X10*3/uL Nucleated RBC % (auto) 0.0 (0.0-0.2) /100WBC Sodium 140 (135-145) mmol/L Potassium 3.6 (3.3-5.1) mmol/L Chloride 107 (96-108) mmol/L Carbon Dioxide 23 (22-29) mmol/L Anion Gap 14 (12-20) BUN 8 L (9-16) mg/dL Creatinine 0.80 (0.5-1.4) mg/dL Estim Creat Clear Calc 149.1 Estimated GFR > 60 Random Glucose 87 (60-115) mg/dL Calcium 8.9 D (8.4-10.2) mg/dL Magnesium 1.9 (1.6-2.6) mg/dL Total Bilirubin 0.9 (0.0-1.0) mg/dL AST 32 (5-37) U/L ALT 16 (0-40) U/L Alkaline Phosphatase 99 (39-117) U/L Troponin I High Sens 5.8 (<3.5-35.0) ng/L B-Natriuretic Peptide 50 (<100) pg/mL Total Protein 7.5 (6.5-8.0) g/dL Albumin 3.8 (3.5-5.0) g/dL Independent Interpretation I performed an independent interpretation of an: EKG and Plain X-Ray Interpretation: I independently viewed the x-ray and agree with the radiology report I independently viewed the EKG which shows normal sinus rhythm with a rate of 71, normal [place], normal QRS Radiology Impression Discussion of test interpretation with radiology: I have reviewed the radiologist's reading. Radiologist Impression: [address] [address] XRay Report Signed Patient: Paulo Albarran MR#: [id number] : 1965 Acct:[id number] Age/Sex: 58 / M ADM Date: 05/05/24 Loc: HO.ED Attending Dr: Ordering Physician: Vandana Hope Date of Service: 05/05/24 Procedure(s): XR chest 2V Accession Number(s): [id number] cc: Vandana Hope; Po,Joey Hampton MD~ CLINICAL HISTORY: weakness, swelling 2 view chest x-ray Comparison: CR - XR CHEST 1V - 12/04/20 13:17 EDT Findings: The lungs are clear. Heart size is normal. No acute fracture. IMPRESSION: 1. No acute findings. This document has been electronically signed by: Ami Obrien MD on 05/05/2024 12:58:50 Discharge Plan Discharge Clinical Impression: Chronic venous insufficiency Patient Disposition: Home, Self-Care Instructions: Venous Insufficiency (DC) Additional Instructions: Limit salt in the diet By compression stockings and rhythm daily Elevate the legs Stop nifedipine (procardia). Start amlodipine Follow-up with your primary care doctor for blood pressure recheck this week Prescriptions: New amlodipine 10 mg tablet 10 mg PO DAILY Qty: 30 0RF No Action ascorbate calcium (vitamin C) 500 mg tablet 500 mg PO DAILY Qty: 90 2RF pantoprazole 40 mg tablet,delayed release (DR/EC) 40 mg PO DAILY 90 Days Qty: 90 2RF ferrous sulfate [Feosol] 325 mg (65 mg iron) tablet 325 mg PO DAILY Qty: 90 0RF folic acid 1 mg tablet 1 mg PO DAILY Qty: 90 0RF terbinafine HCl 250 mg tablet 250 mg PO DAILY 84 Days Qty: 84 0RF cyanocobalamin (vitamin B-12) [Vitamin B-12] 1,000 mcg tablet 1,000 mcg PO DAILY Qty: 90 0RF allopurinol 300 mg tablet 300 mg PO DAILY Qty: 90 0RF nifedipine 90 mg tablet extended release 24hr 90 mg PO DAILY Qty: 90 0RF acetaminophen 500 mg tablet 1,000 mg PO Q6H PRN (Reason: fever or pain) Qty: 30 0RF loratadine 10 mg tablet 10 mg PO DAILY aripiprazole [Abilify] 5 mg tablet 5 mg PO DAILY trazodone 100 mg tablet 200 mg PO BEDTIME quetiapine [Seroquel] 300 mg tablet 300 mg PO BEDTIME sertraline [Zoloft] 100 mg tablet 200 mg PO DAILY bupropion HCl [Wellbutrin XL] 300 mg tablet extended release 24 hr 300 mg PO QAM quetiapine [Seroquel] 50 mg tablet 50 mg PO DAILY albuterol sulfate 90 mcg/actuation HFA aerosol inhaler 2 puff PO Q4H Qty: 8.5 0RF Referrals: Po,Joey Hampton MD [Primary Care Provider] - 1 week Print Language: Yakut
--- NOTE | 2024-05-05 11:44 | ECG_ITS ---
Test Reason : EDEMA/WEAKNESS Blood Pressure : */* mmHG Vent. Rate : 71 BPM Atrial Rate : 71 BPM P-R Int : 184 ms QRS Dur : 100 ms QT Int : 424 ms P-R-T Axes : 35 3 22 degrees QTcB Int : 460 ms Normal sinus rhythm Normal ECG When compared with ECG of 04-Dec-2020 12:35, Nonspecific T wave abnormality, worse in Anterior leads Referred By: Vandana Hope Electronically Signed By: Mainor Montgomery
[2024-05-05 12:14] LABS: MANUAL DIFF FLAG NO
[2024-05-05 12:15] LABS: Basophils Percent Auto 0.7 % (0-2); Eosinophils Absolute Auto 0.1 X10*3/uL (0.0-0.4); Hematocrit 34.7 % (42.0-52.0); Hemoglobin 11.6 g/dl (14.0-18.0); Imm Gran Abs Auto 0.04 X10*3/uL (0.00-0.03); Imm Gran Pct Auto 0.7 % (0.0-0.4); Lymphocytes Absolute Auto 1.4 X10*3/uL (1.2-4.9); Lymphocytes Percent Auto 22.7 % (20-40); Mean Corpuscular HGB Conc 33.4 g/dl (31.0-36.0); Mean Corpuscular Hemoglobin 26.7 pg (27.0-33.0); Mean Platelet Volume 8.4 fL (9.4-12.4); Monocytes Absolute Auto 0.5 X10*3/uL (0.1-1.2); Monocytes Percent Auto 7.7 % (2-11); Neutrophils Absolute Auto 4.1 x10*3/uL (2.0-8.3); Neutrophils Percent Auto 67.2 % (45-73); Platelet Count 191 X10*3/uL (160-400); Red Blood Count 4.34 X10*6/uL (4.60-5.80); Red Cell Distribution Width 14.9 % (11.0-16.0); White Blood Count 6.1 X10*3/uL (4.8-10.8)
[2024-05-05 12:29] LABS: Alanine Aminotransferase 16 U/L (0-40); Albumin Level 3.8 g/dL (3.5-5.0); Alkaline Phosphatase 99 U/L (39-117); Anion Gap 14 (12-20); Aspartate Amino Transferase 32 U/L (5-37); Bilirubin Total 0.9 mg/dL (0.0-1.0); Blood Urea Nitrogen 8 mg/dL (9-16); Calcium 8.9 mg/dL (8.4-10.2); Carbon Dioxide 23 mmol/L (22-29); Chloride 107 mmol/L (96-108); Creatinine Clr Calc Pharmacy 149.1; Estimated Glomerular Filt Rate > 60; Glucose Random 87 mg/dL (60-115); Magnesium 1.9 mg/dL (1.6-2.6); Potassium 3.6 mmol/L (3.3-5.1); Sodium 140 mmol/L (135-145); Total Protein 7.5 g/dL (6.5-8.0)
[2024-05-05 12:34] LABS: B Type Natriuretic Peptide 50 pg/mL (<100)
[2024-05-05 12:38] LABS: Troponin-I High Sensitivity 5.8 ng/L (<3.5-35.0)
[2024-05-05 14:00] VITALS: BP 155/92; PULSE 91; RESP 16; TEMP 37.2; O2SAT 98
[2024-05-05 15:59] VITALS: BP 156/99; PULSE 87; RESP 14; O2SAT 98
[2024-05-05 16:03] VITALS: BP 156/99; PULSE 87; RESP 14; TEMP -17.7; TEMP 0; O2SAT 98
== END 2024-05-05 16:04 | disposition home or self-care (01) ==
PROVIDERS: Physician Assistant Medical; Emergency Provider Emergency Medicine; PCP Internal Medicine
DX: I87.2 Venous insufficiency (chronic) (peripheral) (principal); M79.89 Other specified soft tissue disorders; I10 Essential (primary) hypertension; J45.909 Unspecified asthma, uncomplicated; E66.9 Obesity, unspecified; Z68.41 Body mass index [BMI] 40.0-44.9, adult; Z79.899 Other long term (current) drug therapy
CPT/HCPCS: 36415; 71046; 80053; 83735; 83880; 84484; 85025; 93005; 99284

== ENCOUNTER → 2024-05-05 11:44 | Outpatient (BNV) | payer OTHER, SELFPAY | PROVIDERS: PCP Internal Medicine; Visit Provider Radiology Diagnostic Radiology | DX: R53.1 Weakness (principal); R22.43 Localized swelling, mass and lump, lower limb, bilateral | CPT/HCPCS: 71046 ==

== ENCOUNTER → 2024-05-05 11:44 | Outpatient (BNV) | payer OTHER, SELFPAY | PROVIDERS: Emergency Provider Emergency Medicine; PCP Internal Medicine; Visit Provider Internal Medicine Cardiovascular Disease | DX: R60.9 Edema, unspecified (principal); R53.1 Weakness | CPT/HCPCS: 93010 ==

== ENCOUNTER 2024-05-17 09:29 | Outpatient (AMB) | payer OTHER, SELFPAY ==
[2024-05-17 09:33] VITALS: BP 160/92; PULSE 44; TEMP 36.2; O2SAT 98; BMI 43.6
--- NOTE | 2024-05-17 09:33 | MHC.PC.OV ---
Vital Signs 05/17/24 09:33 05/17/24 09:52 Height 6 ft 2 in Weight 339 lb 4 oz BMI 43.6 BP 160/92 H 132/82 Blood Pressure Location Lt brachial Lt brachial Position Sitting Sitting Pulse 44 L 56 Pulse Source Pulse Oximeter Pulse Oximeter Temp 97.1 F Temp Source Temporal Artery Scan Pulse Oximetry (%) 98 Oxygen Delivery Method Room Air Intake [place] [facility] [place] [employer] Riveter Required: No Accompanied by: Self / Same As Patient Allergies pollen extracts [POLLEN] Allergy (Mild, Verified 05/05/24 11:44) RUNNY NOSE house dust Allergy (Unknown, Verified 05/05/24 11:44) Sniffles Medication List - Last Reconciled 05/17/24 by Kristie Abbasi PA-C acetaminophen 1,000 mg (2 x 500 mg) PO Q6H PRN albuterol sulfate 90 mcg/actuation 2 puffs PO Q4H allopurinol 300 mg PO DAILY aripiprazole (Abilify) 5 mg PO DAILY ascorbate calcium (vitamin C) 500 mg PO DAILY bupropion HCl XL (Wellbutrin XL) 300 mg PO QAM cyanocobalamin (vitamin B-12) (Vitamin B-12) 1,000 mcg PO DAILY ferrous sulfate (Feosol) 325 mg PO DAILY folic acid 1 mg PO DAILY loratadine 10 mg PO DAILY pantoprazole 40 mg PO DAILY 90 days quetiapine (Seroquel) 300 mg PO BEDTIME quetiapine (Seroquel) 50 mg PO DAILY sertraline (Zoloft) 200 mg PO DAILY terbinafine HCl 250 mg PO DAILY 12 weeks trazodone 200 mg PO BEDTIME Tobacco use date assessed: 09/05/23 Dental Screening Dental Screen Date: 05/30/23 [place] [facility] [place] HPI Details 58-year-old male with past medical history of peripheral vascular disease, asthma, GERD, hypertension, generalized anxiety disorder last seen 12/[address] Jaimes coming in for hospital discharge follow up.?In review of the notes, patient was seen in [facility] [place] for bilateral feet and ankle swelling workup was reassuring advised compression stockings, nifedipine was discontinued and amlodipine was started. Today he has been using compression stockings and elevating the legs with good relief. He has noticed the swelling has gone down but is still present. He has no other concerns today denies any shortness of breath or chest pain. [facility] Medical History Lumbosacral spondylosis with radiculopathy Myofascial pain Anxiety and depression Chronic low back pain Sacral ulcer Degenerative disc disease Obesity Anemia GERD (gastroesophageal reflux disease) Gout Tubular adenoma of colon Folic acid deficiency Asthma Hypertension Surgical History History of colonoscopy H/O knee surgery Family History Mother Diabetes Hypertension Stroke Father Medical history unknown Sister Hypertension Diabetes Paternal Grandmother Myocardial infarction Daughter In good health Sister No problems noted. Brother No problems noted. [facility] Alcohol intake: current Alcohol intake frequency: holidays/special occasions only Alcohol type: beer Comment: 0nce a week 4 drinks Patient Tobacco Use Status: Former Tobacco user Years Smoked: quit 2004 4-5 cigarettes a day e-Cigarette/Vaping Use: Never Used Second Hand Smoke Exposure: Yes Substance Use Type: Marijuana service: No Current occupational status: employed Cognitive needs: No Hearing needs: No Vision needs: No Questionnaire PHQ-9 Over the last 2 weeks, how often have you been bothered by any of the following problems? 1. Little interest or pleasure in doing things: several days 2. Feeling down, depressed, or hopeless: several days 3. Trouble falling or staying asleep, or sleeping too much: several days 4. Feeling tired or having little energy: several days 5. Poor appetite or overeating: several days 6. Feeling bad about yourself - or that you are a failure or have let yourself or your family down: not at all 7. Trouble concentrating on things, such as reading the newspaper or watching television: not at all 8. Moving or speaking so slowly that other people could have noticed. Or the opposite - being so fidgety or restless that you have been moving around a lot more than usual: not at all 9. Thoughts that you would be better off or of hurting yourself in some way: several days Total score: 6 Source: Developed by Drs. Gino Willard, Meli Newman, Timbo Lazcano and colleagues, with an educational camden from [employer]. Thrive Questionnaire Date Thrive assessed: 05/17/24 I am a: Patient What is your living situation today?: I have a steady place to live Within the past 12 months, did the food you bought not last and you didn't have the money to get more?: Never true Within the past 12 months, did you worry whether your food would run out before you got money to buy more?: Never true Do you have trouble paying for medicines?: No Do you have trouble getting transportation to medical appointments?: No Do you have trouble paying your heating and electricity bill?: No Do you have trouble taking care of your child, family member or friend?: No Do you have trouble with day-to-day activities such as bathing, preparing meals, shopping, managing finances, etc.?: No Are you currently unemployed and looking for a job?: No Are you interested in more education?: No Please select the resources that you would like help with: None Currently or been in a relationship where the following occur: No concerns reported THRIVE Score: 0 AUDIT C Alcohol Use Questionnaire (AUDIT-C) 1. How often do you have a drink containing alcohol?: Monthly or less 2. How many drinks containing alcohol do you have on a typical day when you are drinking?: 1 or 2 3. How often do you have six or more drinks on one occasion?: Never Total Score: 1 ARNULFO-7 AMB Questionnaire ARNULFO-7 Date ARNULFO - 7 assessed: 05/17/24 Feeling nervous, anxious, or on edge: 3 = Nearly every day Not being able to stop or control worryin = More than half the days Worrying too much about different things: 3 = Nearly every day Trouble relaxin = More than half the days Being so restless that it is hard to sit still: 3 = Nearly every day Becoming easily annoyed or irritable: 2 = More than half the days Feeling afraid as if something awful might happen: 3 = Nearly every day Total ARNULFO-7 score (0-4 normal; 5-9 mild; 10-14 moderate; 15-21 severe): 18 Source: Developed by Drs. Gino Willard, Meli Newman, Timbo Lazcano and colleagues, with an educational camden from [employer]. ARNULFO-7 Assessment Billing ARNULFO-7 Assessment Tool: ARNULFO-7 Assessment 79183 Review of Systems Const Denies body aches, Denies chills, Denies fever(s), Denies headache(s) and Denies poor appetite Eyes Reports no additional complaints ENT Denies dizziness and Denies headache(s) Card Denies chest pain, Denies lightheadedness and Denies dyspnea Resp Denies cough and Denies dyspnea GI Denies abdominal pain, Denies nausea and Denies vomiting Reports no additional complaints Musc Reports no additional complaints and Denies abnormal gait Skin/Breast Reports system reviewed and no additional complaints, except as documented Neuro Denies abnormal gait, Denies dizziness and Denies headache(s) Psych Reports no additional complaints Physical exam (Primary Care) Vital Signs: Last Vital Signs Temp 97.1 F 05/17/24 09:33 Pulse 44 L 05/17/24 09:33 BP 160/92 H 05/17/24 09:33 Pulse Ox 98 05/17/24 09:33 Oxygen Delivery Method Room Air 05/17/24 09:33 BMI result Body Mass Index 43.6 Tobacco/Smoking Status: Tobacco use Status Tobacco use date assessed 09/05/23 05/17/24 09:39 Patient Tobacco Use Status Former Tobacco user 05/17/24 09:39 e-Cigarette/Vaping Use Never Used 05/17/24 09:39 PHQ-9: PHQ-9 Score PHQ-9: Total score 6 05/17/24 09:39 Thrive Assessment: Date of Thrive Assessment Date Thrive assessed 05/17/24 05/17/24 09:39 Currently or been in a relationship where the following occur: No concerns reported Const General: cooperative, healthy appearing, comfortable and no acute distress Orientation/consciousness: patient oriented x3 HENMT Head: Yes normocephalic Ears: hearing grossly normal bilaterally General nose exam: Normal external nose present Eyes General: appearance normal, both eyes and all related structures Conjunctivae: conjunctivae normal Neck Neck: Yes full ROM and Yes no lymphadenopathy Resp Effort & Inspection: normal respiratory effort Auscultation: clear to auscultation bilaterally, no crackles, no rales, no rhonchi and no wheezes Cardio Rate: regular rate Rhythm: regular rhythm Skin General skin exam: no rashes or lesions noted Neuro General: patient oriented x3 Gait exam (Neuro): Normal gait present Extrem General: Yes normal to inspection, Yes full ROM and No edema Psych Affect: normal affect Attitude: cooperative Insight: Good insight present (Psych) Judgement: Good judgement present (Psych) Coding Level of Care Code Est Pt Level 3 (90065) Diagnoses Peripheral vascular disease I73.9 Gastroesophageal reflux disease without esophagitis K21.9 Esophagitis presence: without esophagitis Mild intermittent asthma without complication J45.20 Asthma severity: mild Asthma persistence: intermittent Asthma complication type: uncomplicated Essential hypertension I10 Hypertension type: essential hypertension Additional Codes ARNULFO-7 Assessment Billing - ARNULFO-7 Assessment Tool: ARNULFO-7 Assessment 46315 ([id number]) Assessment & Plan Assessment & Plan (1) Peripheral vascular disease: Code(s): I73.9 - Peripheral vascular disease, unspecified Category: Medical Plan: Patient diagnosed with peripheral vascular disease advised to use compression stockings, elevate the legs and exercise as tolerated (2) GERD (gastroesophageal reflux disease): Code(s): K21.9 - Gastro-esophageal reflux disease without esophagitis Category: Medical Qualifiers: Esophagitis presence: without esophagitis Qualified Code(s): K21.9 - Gastro-esophageal reflux disease without esophagitis Plan: Avoid trigger foods such as citrus, tomato products, soda, caffeine, spicy foods and other foods that may be irritating to your stomach. Avoid laying flat 3-4 hours after eating and elevate the head of the bed 30 degrees to prevent acid from moving into the esophagus. (3) Asthma: Code(s): J45.909 - Unspecified asthma, uncomplicated Category: Medical Qualifiers: Asthma severity: mild Asthma persistence: intermittent Asthma complication type: uncomplicated Qualified Code(s): J45.20 - Mild intermittent asthma, uncomplicated Plan: Asthma currently controlled on present medications. Continue on albuterol as needed. Avoid triggers such as allergies. (4) Hypertension: Code(s): I10 - Essential (primary) hypertension Category: Medical Qualifiers: Hypertension type: essential hypertension Qualified Code(s): I10 - Essential (primary) hypertension Plan: Continue on current blood pressure medication. Avoid salt intake and encourage healthy diet and regular exercise. Nifedipine recently changed to amlodipine 10 mg however given patient continues to have leg swelling recommend switching off of a calcium channel cayetano. Advised patient to discontinue nifedipine and amlodipine and start on losartan 25 mg and follow up at next visit with Dr. Jaimes in May This note was constructed using voice recognition software. While every effort has been made to ensure accuracy and residential mortgage manager, still areas may have been included sometimes these areas may affect the content or meeting of the given symptoms. Total time spent caring for the patient today was 20 minutes. This includes time spent before the visit reviewing the chart, time spent during the visit, and time spent after the visit and documentation. Medications: Discontinued amlodipine Discontinued Reason: Patient no longer taking 10 mg PO DAILY 30 tabs 0RF nifedipine ER Discontinued Reason: Patient no longer taking 90 mg PO DAILY 90 tabs 0RF
[2024-05-17 09:52] VITALS: BP 132/82; PULSE 56
--- OUTSIDE RECORDS SUMMARY | 2024-05-17 10:16 | XMS_ITS | Clinical Summary ---
Author Organization Unknown Care Team Providers Care Vrt Mechanic Name Role Phone FRANNIE MATOS, PAMELA Unavailable Unavailable BETY RITTER, LETY Unavailable Unavailable Payers Payer Name Policy Type Policy Number Effective Date Expira tion Date [facility] [place] [id number] MEDICAID [facility] [id number] MEDICARE - [facility] [place] - [facility] [id number] Problems Condition Name Condition Details Condition Category Status Onset Date Resolution Date Last Treatment Date Treating Clinician Comments ALCOHOL DEPENDENCE, UNCOMPLICATE D Active 09-21 00:00: 00 DEPRESSION, UNSPECIFIED Active 2018-03 0 00:00: 00 OTHER INTERVERTEBR AL DISC DEGENERATION , THORACIC REGION Active 12-01 00:00: 00 ESSENTIAL (PRIMARY) HYPERTENSION Active 03-28 00:00: 00 SLEEP APNEA, UNSPECIFIED Active 03-28 00:00: 00 Allergies, Adverse Reactions, Alerts Allergy Name Allergy Type Status Severity Reaction(s) Onset Date Inactive Date Treating Clinician Comments NKA Propensity to adverse reactions Active 2022-11 10:58:3 2 Medications Ordered Medication Name Filled Medication Name Start Date Stop Date Current Medication? Ordering Clinician Indication Dosage Frequency Signature (SIG) Comments Components Abilify 5 mg tablet 05-31 00:00: 00 Yes [id number] 5 mg DAILY 5 mg TANGELA Y (route: oral) Med Classific ation: Central Nervous System Agents acetaminoph en 500 mg capsule 05-31 00:00: 00 12-01 23:59 :00 No [id number] 500 mg EVERY 6 HOURS 500 mg EVERY 6 HOURS (route: oral) Med Classific ation: Analgesic , Anti-infl ammatory or Antipyret ic allopurinol 300 mg tablet 05-31 00:00: 00 Yes [id number] 300 mg DAILY 300 mg DAILY (route: oral) Med Classific ation: Gout and Hyperuric emia Therapy folic acid 1 mg tablet 05-31 00:00: 00 Yes [id number] 1 mg DAILY 1 mg TANGELA Y (route: oral) Med Classific ation: Electroly te Balance-N utritiona l Products nifedipine ER 90 mg tablet,exte nded release 24 hr 05-31 00:00: 00 Yes [id number] 90 mg DAILY 90 mg DAILY (route: oral) Med Classific ation: Cardiovas cular Therapy Agents Protonix 40 mg tablet,agustin yed release 05-31 00:00: 00 12-01 23:59 :00 No [id number] 40 mg DAILY 40 mg DAILY (route: oral) Med Classific ation: Gastroint estinal Therapy Agents quetiapine 50 mg tablet 05-31 00:00: 00 Yes [id number] 50 mg EVERY AM 50 mg EVERY AM (route: oral) Med Classific ation: Central Nervous System Agents quetiapine 300 mg tablet 05-31 00:00: 00 Yes [id number] 300 mg BEDTIME 300 mg BEDTIME (route: oral) Med Classific ation: Central Nervous System Agents trazodone 100 mg tablet 05-31 00:00: 00 12-01 23:59 :00 No [id number] 100 mg BEDTIME 100 mg BEDTIME (route: oral) Med Classific ation: Central Nervous System Agents Vitamin B-12 1,000 mcg tablet 05-31 00:00: 00 Yes [id number] 1000 mcg DAILY 1000 mcg DAILY (route: oral) Med Classific ation: Electroly te Balance-N utritiona l Products Wellbutrin XL 300 mg 24 hr tablet, extended release 05-31 00:00: 00 Yes [id number] 300 mg DAILY 300 mg DAILY (route: oral) Med Classific ation: Central Nervous System Agents Zoloft 100 mg tablet 05-31 00:00: 00 05-25 23:59 :00 No [id number] 100 mg BEDTIME 100 mg BEDTIME (route: oral) Med Classific ation: Central Nervous System Agents cephalexin 500 mg capsule 2019-03 00:00: 00 04-06 23:59 :00 No [id number] 500 mg EVERY 6 HOURS 500 mg EVERY 6 HOURS (route: oral) Med Classific ation: Anti-Infe ctive Agents doxycycline hyclate 100 mg capsule 2019-03 00:00: 00 04-06 23:59 :00 No [id number] 10 mg 2 TIMES DAILY 10 mg 2 TIMES DAILY (route: oral) Med Classific ation: Anti-Infe ctive Agents miconazole nitrate 2 % topical cream 04-03 00:00: 00 Yes [id number] Per instruc tions DAILY Per instructio ns DAILY (route: topical) Med Classific ation: Dermatolo gical ferrous sulfate 325 mg (65 mg iron) tablet 05-26 00:00: 00 Yes [id number] 325 mg DAILY 325 mg DAILY (route: oral) Med Classific ation: Electroly te Balance-N utritiona l Products Vitamin C 500 mg tablet 05-26 00:00: 00 12-01 23:59 :00 No [id number] 500 mg DAILY 500 mg DAILY (route: oral) Med Classific ation: Electroly te Balance-N utritiona l Products acetaminoph en 500 mg capsule 12-02 00:00: 00 Yes 500 mg EVERY 6 HOURS 500 mg EVERY 6 HOURS (route: oral) Med Classific ation: Analgesic , Anti-infl ammatory or Antipyret ic pantoprazol e 40 mg tablet,agustin yed release 12-02 00:00: 00 Yes 1 tablet EVERY AM 1 tablet EVERY AM (route: oral) Med Classific ation: Gastroint estinal Therapy Agents trazodone 100 mg tablet 12-02 00:00: 00 Yes 200 mg BEDTIME 200 mg BEDTIME (route: oral) Med Classific ation: Central Nervous System Agents Zoloft 100 mg tablet 05-30 00:00: 00 Yes 2 tablet EVERY AM 2 tablet EVERY AM (route: oral) Med Classific ation: Central Nervous System Agents terbinafine HCl 250 mg tablet 11-26 00:00: 00 Yes 1 tablet DAILY 1 tablet DAILY (route: oral) Med Classific ation: Anti-Infe ctive Agents Vital Signs Vital Name Observation Time Observation Value Commen ts Temperature 2024-04-05 12:33:00.000 97.5 [degF] Plan of Treatment Planned Activity Planned Date Details Comments Future Scheduled Test SKILLED NU RSE TO EVALUATE PATIENT, IDENTIFY PRIMARY AND CO-MORBID CONDITIONS CODED PER CODING GUIDELINES, AND DEVELOP PATIENT SPECIFIC PLAN OF CARE THAT INCLUDES PATIENT GOAL FOR HOME HEALTH. [code = SKILLED NURSE TO EVALUATE PATIENT, IDENTIFY PRIMARY AND CO-MORBID CONDITIONS CODED PER CODING GUIDELINES, AND DEVELOP PATIENT SPECIFIC PLAN OF CARE THAT INCLUDES PATIENT GOAL FOR HOME HEALTH.] Future Scheduled Test SKILLED NU RSE TO O/A OF PATIENTS MENTAL/BEHAVIORAL STATUS, ASSESS VITAL SIGNS NEEDED OR REQUESTED, ALLOW 2 PRNS FOR MEDICATION MANAGEMENT. [code = SKILLED NURSE TO O/A OF PATIENTS MENTAL/BEHAVIORAL STATUS, ASSESS VITAL SIGNS NEEDED OR REQUESTED, ALLOW 2 PRNS FOR MEDICATION MANAGEMENT.] Future Scheduled Test SKILLED NU RSE WILL MAINTAIN SITUATIONAL AWARENESS FOR SAFETY AND WILL NOTIFY CLINICAL SANITATION WORKER HOSING MACHINERY AND PHYSICIAN/PROVIDER WITH ANY CHANGE IN CONDITION. [code = SKILLED NURSE WILL MAINTAIN SITUATIONAL AWARENESS FOR SAFETY AND WILL NOTIFY CLINICAL SANITATION WORKER HOSING MACHINERY AND PHYSICIAN/PROVIDER WITH ANY CHANGE IN CONDITION.] Future Scheduled Test SKILLED NU RSE TO PRE-POUR MEDICATION PER MEDICATION LIST WEEKLY. [code = SKILLED NURSE TO PRE-POUR MEDICATION PER MEDICATION LIST WEEKLY.] Future Scheduled Test SKILLED NU RSE FOR O/A AND SKILLED TEACHING RELATED TO MANAGEMENT OF DEPRESSIVE SYMPTOMS AND/OR DEPRESSION. SN TO REPORT SIGNIFICANT CHANGE IN DEPRESSIVE SYMPTOMS TO CLINICAL PROVIDER FOR EARLY INTERVENTION. [code = SKILLED NURSE FOR O/A AND SKILLED TEACHING RELATED TO MANAGEMENT OF DEPRESSIVE SYMPTOMS AND/OR DEPRESSION. SN TO REPORT SIGNIFICANT CHANGE IN DEPRESSIVE SYMPTOMS TO CLINICAL PROVIDER FOR EARLY INTERVENTION.] Future Scheduled Test SKILLED NU RSE TO ASSESS PATIENTS PSYCHOSOCIAL STATUS TO IDENTIFY POTENTIAL ISSUES THAT MAY COMPLICATE THE PROVISION OF THE PLAN OF CARE INCLUDING THE PATIENTS ABILITY TO ACCESS COMMUNITY RESOURCES AND PSYCHOSOCIAL SUPPORT SERVICES. [code = SKILLED NURSE TO ASSESS PATIENTS PSYCHOSOCIAL STATUS TO IDENTIFY POTENTIAL ISSUES THAT MAY COMPLICATE THE PROVISION OF THE PLAN OF CARE INCLUDING THE PATIENTS ABILITY TO ACCESS COMMUNITY RESOURCES AND PSYCHOSOCIAL SUPPORT SERVICES.] Future Scheduled Test SKILLED NU RSE MAY PICKUP AND TRANSPORT MEDICATIONS [code = SKILLED NURSE MAY PICKUP AND TRANSPORT MEDICATIONS] Goal 2023-01-27 Patient Goal - T O KEEP MY MEDS STRAIGHT AND TAKE EVERY DOSE Goal 2023-03-31 Patient Goal - T O KEEP MY MEDS STRAIGHT AND TAKE EVERY DOSE Goal 2023-05-26 Patient Goal - T O KEEP MY MEDS STRAIGHT AND TAKE EVERY DOSE Goal 2023-07-29 Patient Goal - T O KEEP MY MEDS STRAIGHT AND TAKE EVERY DOSE Goal 2023-09-23 Patient Goal - T O KEEP MY MEDS STRAIGHT AND TAKE EVERY DOSE Goal 2023-11-24 Patient Goal - T O KEEP MY MEDS STRAIGHT AND TAKE EVERY DOSE Goal 2024-01-23 Patient Goal - T O KEEP MY MEDS STRAIGHT AND TAKE EVERY DOSE Goal 2024-03-22 Patient Goal - T O KEEP MY MEDS STRAIGHT AND TAKE EVERY DOSE Goal Patient Goal - T O KEEP MY MEDS STRAIGHT AND TAKE EVERY DOSE Goal Provider Goal - A PLAN OF CARE WILL BE ESTABLISHED THAT MEETS PATIENT'S ALF NEEDS AND INCLUDES PATIENT GOAL FOR HOME HEALTH. Goal Provider Goal - ALTERED MENTAL/BEHAVIORAL STATUS WILL BE IDENTIFIED PROMPTLY AND INTERVENTION INITIATED QUICKLY TO MINIMIZE ASSOCIATED RISKS THROUGHOUT CERTIFICATION PERIOD. Goal Provider Goal - PATIENT WILL REMAIN SAFE IN THE COMMUNITY AND WILL BE FREE OF DANGER TO SELF AND OTHERS THROUGHOUT THE CERTIFICATION PERIOD. Goal Provider Goal - PATIENT WILL COMPLY WITH MEDICATION WHEN SKILLED NURSE PRE-POURS MEDICATION THROUGHOUT CERTIFICATION PERIOD. Goal Provider Goal - PATIENT WILL REMAIN SAFE WITHOUT DECOMPENSATION IN DEPRESSIVE CONDITION, WHILE MAINTAINING OPTIMAL LEVEL OF MENTAL HEALTH AND WELL BEING THROUGHOUT CERTIFICATION PERIOD. Goal Provider Goal - PSYCHOSOCIAL NEEDS WILL BE IDENTIFIED AND PLAN IMPLEMENTED TO MINIMIZE RISK THROUGHOUT CERTIFICATION PERIOD. Goal Provider Goal - SKILLED NURSE PICKED UP AND TRANSPORTED MEDICATIONS FOR SAFETY. Encounters Start Date/Time End Date/Time Encounter Type Admission Type Attending [facility] Care Department Encounter ID Discharge Date Discharge Status Discharge Condition Discharge Reason Percent Goals Met 2022-12-02 00:00:00 2024-05-24 00:00:00 Outpatient RECERTIFIC ATION LETY [facility] [id number] 22.22
--- OUTSIDE RECORDS SUMMARY | 2024-05-17 10:16 | XMS_ITS ---
Author Organization [facility] Address [address] [place] [id number] Care Team Providers Care Sales Representative Adding Machines Name Role Phone Joey Jaimes MD Primary Care Provider Gino Moss [phone] ALLERGIES No Known Allergies REASON FOR VISIT Patient presents today for a colon screening MEDICATIONS Medication SIG (Take, Route, Frequency, Duration) Notes Start Date End Date Status Folic Acid 1 MG Oral for 28 Ac tive Terbinafine HCl 250 MG Oral for 28 Active NIFEdipine ER Osmotic Release 90 MG Oral for 28 Active Pantoprazole Sodium 40 MG Oral for 28 PRN Active Allopurinol 300 MG Oral for 28 Active FeroSul 325 (65 Fe) MG Oral for 28 Active Vitamin B-12 1000 MCG Oral for 28 Active Aspirin 325 MG Orally as needed PRN Active Zoloft Active Wellbutrin Active traZODone HCl Active Procardia Active Claritin Active PROBLEMS Problem Type ICD Code Onset Dates Problem Status W/U Status Risk SNOMED Code Notes Problem Encounter for other preprocedural examination (Z01.818) Active confirmed Pre-procedure evaluation check (977279591) VITAL SIGNS BMI 45.70 kg/m2 10/06/2023 Blood pressure systolic 00 mm Hg 10/06/19 24 Blood pressure diastolic 00 mm Hg 024 Height 74 in 10/06/2023 Weight 356 lbs 10/06/2023 Encounters Encounter Location Date Provider Diagnosis [facility] [address] [place] [phone] 10/06/2023 Gino Metzger Encounter for screen ing for malignant neoplasm of colon Z12.11 ; Encounter for other preprocedural examination Z01.818 and History of adenomatous polyp of colon Z86.010 ASSESSMENTS Encounter Date Diagnosis Assessment Notes Treatment Notes Treatment Clinical Notes 10/06/2023 Encounter for screening for malignant neoplasm of colon (ICD-10 - Z12.11) Stop Iron and aspirin for 1 week before the colonoscopy 10/06/2023 Encounter for other preprocedural examination (ICD-10 - Z01.818) 10/06/2023 History of adenomatous polyp of colon (ICD-10 - Z86.010) PLAN OF TREATMENT Treatment Notes Assessment Notes Encounter for screening for malignant neoplasm of colon Stop Iron and aspirin for 1 week before the colonoscopy Future Test Test Name Order Date COLONOSCOPY 10/06/2023 Next Appt Details Follow Up: prn, Reason: Progress Notes * Examination Category Sub-Category Detail Notes General Examination GENERAL APPEARANCE: in no ac lila distress, well developed, well nourished HEAD: EYES: EARS: NOSE: THROAT: NECK/THYROID: neck supple, full ra nge of motion, no cervical lymphadenopathy HEART: Normal S1, S2l LUNGS: clear to auscultatio n bilaterally ABDOMEN: normal, bowel sounds present, soft, nontender, nondistended NEUROLOGIC: A & O x 3 SKIN: EXTREMITIES: no edema LYMPH NODES: ORAL CAVITY: mucosa moist
--- OUTSIDE RECORDS SUMMARY | 2024-05-17 10:16 | XMS_ITS ---
Author Organization [facility] Address [address] [place] [address] Care Team Providers Care Chip Bin Conveyor Tender Name Role Phone Joey Jaimes MD Primary Care Provider Gino Moss [phone] REASON FOR VISIT screening,hx polyps PROBLEMS Problem Type ICD Code Onset Dates Problem Status W/U Status Risk SNOMED Code Notes Problem Diverticulosis of large intestine without perforation or abscess without bleeding (K57.30) Active confirmed Diverticul ar disease of colon (195458040) Encounters Encounter Location Date Provider Diagnosis [facility] Outpatient [address] [place] [phone] 02/06/2024 Gino Metzger Colon cancer scree sp Z12.11 ; Colon polyps K63.5 ; Diverticulosis of large intestine without perforation or abscess without bleeding K57.30 and Other hemorrhoids K64.8 ASSESSMENTS Encounter Date Diagnosis Assessment Notes Treatment Notes Treatment Clinical Notes 02/06/2024 Colon cancer screening (ICD-10 - Z12.11) 02/06/2024 Colon polyps (ICD-10 - K63.5) 02/06/2024 Diverticulosis of large intestine without perforation or abscess without bleeding (ICD-10 - K57.30) 02/06/2024 Other hemorrhoids (ICD-10 - K64.8) PLAN OF TREATMENT No Information
--- OUTSIDE RECORDS SUMMARY | 2024-05-17 10:16 | XMS_ITS | Patient Health Record ---
Author Organization [facility] Address [address] [place] [address] Care Team Providers Care Senior Librarian Name Role Phone Joey Jaimes MD Primary Care Provider Gino Moss [phone] ALLERGIES No Known Allergies RESULTS Component Value Reference Range Notes Pathology (Not yet reviewed by provider) Interpretation: Performing Lab:[facility], [address] [place] [phone] Notes/Report: REASON FOR REFERRAL No Information MEDICATIONS Medication SIG (Take, Route, Frequency, Duration) Notes Start Date End Date Status Pantoprazole Sodium 40 MG Oral for 28 PRN Active Allopurinol 300 MG Oral for 28 Active FeroSul 325 (65 Fe) MG Oral for 28 Active Dulcolax (colon prep) 5 MG take at 3:00 p.m and 7:00p.m. Orally two tablets twice a day for one day for 1 day 10/08/2023 Active Zoloft Active Folic Acid 1 MG Oral for 28 Ac tive Wellbutrin Active Terbinafine HCl 250 MG Oral for 28 Active Vitamin B-12 1000 MCG Oral for 28 Active MiraLax (colon prep) 17 GM/SCOOP 1 238Gm bottle mixed with Gatorade or Crystal Light Orally begin at 5:00 p.m. the day before the procedure for 1 day 10/08/2023 Active NIFEdipine ER Osmotic Release 90 MG Oral for 28 Active traZODone HCl Active Aspirin 325 MG Orally as needed PRN Active Procardia Active Claritin Active SOCIAL HISTORY Sex Assigned At : Social History Observation Description Sex Assigned At Unknown PROBLEMS Problem Type ICD Code Onset Dates Problem Status W/U Status Risk SNOMED Code Notes Problem Long-term use of aspirin therapy (Z79.82) Active confirmed 842381508 Problem Encounter for screening for malignant neoplasm of colon (Z12.11) Active confirmed 088105189 Problem Encounter for screening for malignant neoplasm of rectum (Z12.12) Active confirmed Screening for malignant neoplasm of rectum (142577166) Problem History of adenomatous polyp of colon (Z86.010) Active confirmed 178115860 Problem Encounter for other preprocedural examination (Z01.818) Active confirmed Pre-procedure evaluation check (201816196) Problem Diverticulosis of large intestine without perforation or abscess without bleeding (K57.30) Active confirmed Diverticul ar disease of colon (381185747) VITAL SIGNS Blood pressure diastolic 00 mm Hg 10/06/2023 Height 74 in 10/06/2023 Blood pressure systolic 00 mm Hg 10/06/2023 Weight 356 lbs 10/06/2023 BMI 45.70 kg/m2 10/06/2023 Encounters Encounter Location Date Provider Diagnosis [facility] [place] [address] [place] [phone] 02/06/2024 Gino Metzger Colon cancer screeni ng Z12.11 ; Colon polyps K63.5 ; Diverticulosis of large intestine without perforation or abscess without bleeding K57.30 and Other hemorrhoids K64.8 [facility] [address] [facility] [address] [place] [phone] 10/06/2023 Gino Metzger Encounter for screen ing for malignant neoplasm of colon Z12.11 ; Encounter for other preprocedural examination Z01.818 and History of adenomatous polyp of colon Z86.010 [facility] [address] [facility] [address] [place] [phone] 10/06/2023 Gino Metzger ASSESSMENTS Encounter Date Diagnosis Assessment Notes Treatment Notes Treatment Clinical Notes 02/06/2024 Colon cancer screening (ICD-10 - Z12.11) 02/06/2024 Colon polyps (ICD-10 - K63.5) 10/06/2023 Encounter for screening for malignant neoplasm of colon (ICD-10 - Z12.11) Stop Iron and aspirin for 1 week before the colonoscopy 10/06/2023 Encounter for other preprocedural examination (ICD-10 - Z01.818) 02/06/2024 Diverticulosis of large intestine without perforation or abscess without bleeding (ICD-10 - K57.30) 10/06/2023 History of adenomatous polyp of colon (ICD-10 - Z86.010) 02/06/2024 Other hemorrhoids (ICD-10 - K64.8) PLAN OF TREATMENT Pending Test Test Name Order Date Pathology 02/06/2024 Future Test Test Name Order Date COLONOSCOPY 12/10/2015 COLONOSCOPY 10/06/2023 Insurance Providers Payer Name Payer Address Payer Phone Subscriber Number Group Number Insured Name Patient Relationship to Insured Coverage Start Date Coverage End Date [facility] [address] Attn Claims SEVERO Martínez [id number] SUZANNE MONTES Self - patient is the insured MEDICAL (GENERAL) HISTORY Medical History History ICD Code 2-16-2010 and 2005 colonosco pies--tubular adenomas removed, diverticulosis, internal hemorrhoids Asthma Depression Denies AR,DM,CVA,renal disease Back pain HTN History of sleep apnea--no longer needs CPAP--he had a F/U sleep study Degenerative spine disease Colonoscopy in 2017 with small tubular a denomas Gout Surgical History Surgery Date(Month/Year) knee surgery torn vy--both Knees
--- OUTSIDE RECORDS SUMMARY | 2024-05-17 10:16 | XMS_ITS ---
Author Organization [facility] Address [address] [place] [phone] Care Team Providers Care Media Services Specialist Name Role Phone Joey Jaimes MD Primary Care Provider Gino Moss [phone] REASON FOR VISIT bowel prep MEDICATIONS Medication SIG (Take, Route, Frequency, Duration) Notes Start Date End Date Status Dulcolax (colon prep) 5 MG take at 3:00 p.m and 7:00p.m. Orally two tablets twice a day for one day for 1 day 10/08/2023 Active MiraLax (colon prep) 17 GM/SCOOP 1 238Gm bottle mixed with Gatorade or Crystal Light Orally begin at 5:00 p.m. the day before the procedure for 1 day 10/08/2023 Active Encounters Encounter Location Date Provider Diagnosis [facility] [address] [phone] 10/06/2023 Gino Metzger PLAN OF TREATMENT Medication Medication Name Sig Start Date Stop Date Notes Dulcolax (colon prep) 5 MG take at 3:00 p.m and 7:00p.m. Orally two tablets twice a day for one day for 1 day 10/08/2023 MiraLax (colon prep) 17 GM/SCOOP 1 238Gm bottle mixed with Gatorade or Crystal Light Orally begin at 5:00 p.m. the day before the procedure for 1 day 10/08/2023
== END 2024-05-17 09:59 | disposition home or self-care (01) ==
PROVIDERS: PCP Internal Medicine
DX: I73.9 Peripheral vascular disease, unspecified (principal); K21.9 Gastro-esophageal reflux disease without esophagitis; J45.20 Mild intermittent asthma, uncomplicated; I10 Essential (primary) hypertension

== ENCOUNTER → 2024-05-17 09:29 | Outpatient (BNVA) | payer OTHER, SELFPAY | PROVIDERS: PCP Internal Medicine | DX: I73.9 Peripheral vascular disease, unspecified (principal); K21.9 Gastro-esophageal reflux disease without esophagitis; J45.20 Mild intermittent asthma, uncomplicated; I10 Essential (primary) hypertension | CPT/HCPCS: 96127; 99212 ==

== ENCOUNTER 2024-07-23 06:49 | Emergency (ER) | payer OTHER, SELFPAY ==
--- NOTE | ~2024-07-23 | CT_ITS ---
EXAMINATION: CT PELVIS WITH CONTRAST CLINICAL INFORMATION: Rectal discharge, macerated rectal area. COMPARISON: None available. TECHNIQUE: Helical scanning was performed with submillimeter collimation through the pelvis with the use of oral contrast and during bolus intravenous injection of 100 mL of Omnipaque 350 intravenous contrast. Sagittal and coronal multiplanar 2-D reconstructions were obtained. This CT examination was performed using dose optimization techniques as appropriate, variously including the following: *Automated exposure control *Adjustment of mA and/or kV according to patient size (this includes techniques or standardized protocols for targeted exams where dose is matched to indication/reason for exam; i.e. extremities or head) *Use of iterative reconstruction technique FINDINGS: Mild subcutaneous fatty infiltrative changes present surrounding the anus and anal verge, extending into the ischio anal fat regions, without evidence of sinus or fistulous tract, or drainable fluid collection. Mild thickening of the skin in the gluteal crease, findings suggesting cellulitis no underlying fluid collection. Mild subcutaneous fatty infiltrative changes in this region. Skin thickening and inflammation in the region of the perineum, with mild irregular appearance, without underlying fluid collection. Findings suggest cellulitis. The pelvic girdle musculature has a normal CT appearance. No abscess or abnormal fluid collection. No hematoma. There are mildly prominent inguinal lymph nodes measuring up to 1.8 cm in short axis, presumably reactive given the process in the perianal region. The urinary bladder is normal in appearance. The prostate and seminal vesicles are normal. The imaged bowel structures demonstrate no abnormalities. The appendix is normal. No perirectal fat abnormalities. The rectum itself has a normal appearance. There is minimal atheromatous calcification of the arterial vasculature. There is no aneurysm detected. Osseous structures demonstrate mild degenerative changes in the SI joints and hip joints. More significant degenerative change in the lower lumbar spine, particularly at L5-S1 where there are irregular endplate changes present. No suspicious lytic or blastic bone lesions. CT/CT pelvis w IV con IMPRESSION: 1. Mild subcutaneous fatty infiltrative changes present surrounding the anus and anal verge, extending into the ischio anal fatty regions, and throughout the perineal region without evidence of drainable fluid collection, abscess, or sinus tract. 2. Mild thickening of the skin in the gluteal crease, findings suggesting cellulitis. No underlying fluid collection. 3. Inguinal lymphadenopathy, presumably reactive given inflammatory process in the perianal region. Electronically signed by: Guslhan Garcia MD 07/23/2024 09:38 AM EDT
[2024-07-23 06:55] VITALS: BP 149/70; PULSE 59; RESP 18; TEMP 36.2; O2SAT 98; BMI 42.3
--- OUTSIDE RECORDS SUMMARY | 2024-07-23 07:21 | XMS_ITS | Clinical Summary ---
Author Organization Unknown Care Team Providers Care Final Cleaner Name Role Phone FRANNIE MATOS, PAMELA Unavailable Unavailable BETY RITTER, LETY Unavailable Unavailable Payers Payer Name Policy Type Policy Number Effective Date Expira tion Date [facility] [id number] MED[facility]ID [facility] [id number] MEDICARE - [facility] [place] [facility] [id number] Problems Condition Name Condition Details Condition Category [...] 5 mg tablet 05-31 00:00: 00 Yes [id number] 5 mg DAILY 5 mg TANGELA Y (route: oral) Med Classific ation: Central Nervous System Agents acetaminoph en 500 mg capsule 05-31 00:00: 00 12-01 23:59 :00 No [id number] 500 mg EVERY 6 HOURS 500 mg EVERY 6 HOURS (route: oral) Med Classific ation: Analgesic , Anti-infl ammatory or Antipyret ic allopurinol 300 mg tablet 05-31 00:00: 00 Yes [id number] 300 mg DAILY 300 mg DAILY (route: oral) Med Classific ation: Gout and Hyperuric emia Therapy folic acid 1 mg tablet 05-31 00:00: 00 Yes [id number] 1 mg DAILY 1 mg TANGELA Y (route: oral) Med Classific ation: Electroly te Balance-N utritiona l Products nifedipine ER 90 mg tablet,exte nded release 24 hr 05-31 00:00: 00 05-23 23:59 :00 No [id number] 90 mg DAILY 90 mg DAILY (route: oral) Med Classific ation: Cardiovas cular Therapy Agents Protonix 40 mg tablet,agustin yed release 05-31 00:00: 00 12-01 23:59 :00 No [id number] 40 mg DAILY 40 mg DAILY (route: oral) Med Classific ation: Gastroint estinal Therapy Agents quetiapine 50 mg tablet 05-31 00:00: 00 Yes [id number] 50 mg EVERY AM 50 mg EVERY AM (route: oral) Med Classific ation: Central Nervous System Agents quetiapine 300 mg tablet 05-31 00:00: 00 Yes [id number] 300 mg BEDTIME 300 mg BEDTIME (route: oral) Med Classific ation: Central Nervous System Agents trazodone 100 mg tablet 05-31 00:00: 00 12-01 23:59 :00 No [id number] 100 mg BEDTIME 100 mg BEDTIME (route: oral) Med Classific ation: Central Nervous System Agents Vitamin B-12 1,000 mcg tablet 05-31 00:00: 00 Yes [id number] 1000 mcg DAILY 1000 mcg DAILY (route: oral) Med Classific ation: Electroly te Balance-N utritiona l Products Wellbutrin XL 300 mg 24 hr tablet, extended release 05-31 00:00: 00 Yes [id number] 300 mg DAILY 300 mg DAILY (route: oral) Med Classific ation: Central Nervous System Agents Zoloft 100 mg tablet 05-31 00:00: 00 05-25 23:59 :00 No [id number] 100 mg BEDTIME 100 mg BEDTIME (route: oral) Med Classific ation: Central Nervous System Agents cephalexin 500 mg capsule 2019-03 00:00: 00 04-06 23:59 :00 No [id number] 500 mg EVERY 6 HOURS 500 mg EVERY 6 HOURS (route: oral) Med Classific ation: Anti-Infe ctive Agents doxycycline hyclate 100 mg capsule 2019-03 00:00: 00 04-06 23:59 :00 No [id number] 10 mg 2 TIMES DAILY 10 mg 2 TIMES DAILY (route: oral) Med Classific ation: Anti-Infe ctive Agents miconazole nitrate 2 % topical cream 04-03 00:00: 00 Yes [id number] Per instruc tions DAILY Per instructio ns DAILY (route: topical) Med Classific ation: Dermatolo gical ferrous sulfate 325 mg (65 mg iron) tablet 05-26 00:00: 00 Yes [id number] 325 mg DAILY 325 mg DAILY (route: oral) Med Classific ation: Electroly te Balance-N utritiona l Products Vitamin C 500 mg tablet 05-26 00:00: 00 12-01 23:59 :00 No [id number] 500 mg DAILY 500 mg DAILY (route: [...] oral) Med Classific ation: Anti-Infe ctive Agents losartan 50 mg tablet 05-25 00:00: 00 Yes 1 tablet EVERY AM 1 tablet EVERY AM (route: oral) Med Classific ation: Cardiovas cular Therapy Agents Plan of Treatment Planned Activity Planned Date [...] AWARENESS FOR SAFETY AND WILL NOTIFY CLINICAL DECISION SUPPORT ANALYST AND PHYSICIAN/PROVIDER WITH ANY CHANGE IN CONDITION. [code = SKILLED NURSE WILL MAINTAIN SITUATIONAL AWARENESS FOR SAFETY AND WILL NOTIFY CLINICAL DECISION SUPPORT ANALYST AND PHYSICIAN/PROVIDER WITH ANY CHANGE IN CONDITION.] [...] INTERVENTION.] Future Scheduled Test SKILLED NU RSE FOR O/A AND SKILLED TEACHING OF COPING SKILLS TO MANAGE ANXIETY AND MAINTAIN SAFETY. [code = SKILLED NURSE FOR O/A AND SKILLED TEACHING OF COPING SKILLS TO MANAGE ANXIETY AND MAINTAIN SAFETY.] Future Scheduled Test SKILLED NU RSE TO [...] SERVICES.] Future Scheduled Test SKILLED NU RSE FOR O/A OF CLIENT'S CURRENT DEGREE OF HOPELESSNESS AND PROVIDE THERAPEUTIC INTERVENTIONS AND TEACHING DESIGNED TO ENHANCE THE CLIENT'S WELL BEING. [code = SKILLED NURSE FOR O/A OF CLIENT'S CURRENT DEGREE OF HOPELESSNESS AND PROVIDE THERAPEUTIC INTERVENTIONS AND TEACHING DESIGNED TO ENHANCE THE CLIENT'S WELL BEING.] Future Scheduled Test SKILLED NU RSE MAY PICKUP AND TRANSPORT MEDICATIONS [code = SKILLED NURSE MAY PICKUP AND TRANSPORT MEDICATIONS] Goal Patient Goal - T O KEEP MY MEDS STRAIGHT AND TAKE EVERY DOSE Goal 2023-01-27 Patient Goal - T O [...] MEDS STRAIGHT AND TAKE EVERY DOSE Goal 2024-05-24 Patient Goal - T O KEEP MY MEDS STRAIGHT AND TAKE EVERY DOSE Goal 2024-07-19 Patient Goal - T O KEEP MY MEDS STRAIGHT AND TAKE EVERY DOSE Goal Provider Goal - A PLAN OF CARE WILL BE ESTABLISHED THAT MEETS PATIENT'S SNF NEEDS AND INCLUDES PATIENT GOAL FOR HOME [...] PERIOD. Goal Provider Goal - PATIENT WILL BE ABLE TO PERFORM DAILY FUNCTIONS AND HAVE OPTIMAL IMPROVEMENT IN LEVEL OF ANXIETY THROUGHOUT CERTIFICATION PERIOD. Goal Provider Goal - PSYCHOSOCIAL NEEDS WILL BE IDENTIFIED AND PLAN IMPLEMENTED TO MINIMIZE RISK THROUGHOUT CERTIFICATION PERIOD. Goal Provider Goal - PATIENT WILL VERBALIZE OWN ASSOCIATION OF FEELINGS OF HOPELESSNESS, AND 3 THERAPEUTIC TECHNIQUES TO DECREASE THESE FEELINGS BY THE END OF THIS CERTIFICATION. Goal Provider Goal - SKILLED NURSE PICKED UP AND TRANSPORTED MEDICATIONS FOR SAFETY. Encounters Start Date/Time End Date/Time Encounter Type Admission Type Attending [facility] Department Encounter ID Discharge Date Discharge Status Discharge Condition Discharge Reason Percent Goals Met 2022-12-02 00:00:00 2024-07-23 00:00:00 Outpatient RECERTIFIC ATLETY KAY [facility] [id number] 6.67
--- OUTSIDE RECORDS SUMMARY | 2024-07-23 07:22 | XMS_ITS | Clinical Summary ---
Author Organization Unknown Care Team Providers Care Waterproofing Mixer Name Role Phone FRANNIE MATOS, PAMELA Unavailable Unavailable BETY RITTER, LETY Unavailable Unavailable Payers Payer Name Policy Type Policy Number Effective Date Expira tion Date [facility] [id number] MEDICAID [facility] [id number] MEDICARE - [facility] [place] [facility] [id number] Problems Condition Name Condition Details Condition Category [...] 5 mg tablet 05-31 00:00: 00 Yes [id number] 5 mg DAILY 5 mg TANGELA Y (route: oral) Med Classific ation: Central Nervous System Agents acetaminoph en 500 mg capsule 05-31 00:00: 00 12-01 23:59 :00 No [id number] 500 mg EVERY 6 HOURS 500 mg EVERY 6 HOURS (route: oral) Med Classific ation: Analgesic , Anti-infl ammatory or Antipyret ic allopurinol 300 mg tablet 05-31 00:00: 00 Yes [id number] 300 mg DAILY 300 mg DAILY (route: oral) Med Classific ation: Gout and Hyperuric emia Therapy folic acid 1 mg tablet 05-31 00:00: 00 Yes [id number] 1 mg DAILY 1 mg TANGELA Y (route: oral) Med Classific ation: Electroly te Balance-N utritiona l Products nifedipine ER 90 mg tablet,exte nded release 24 hr 05-31 00:00: 00 05-23 23:59 :00 No [id number] 90 mg DAILY 90 mg DAILY (route: oral) Med Classific ation: Cardiovas cular Therapy Agents Protonix 40 mg tablet,agustin yed release 05-31 00:00: 00 12-01 23:59 :00 No [id number] 40 mg DAILY 40 mg DAILY (route: oral) Med Classific ation: Gastroint estinal Therapy Agents quetiapine 50 mg tablet 05-31 00:00: 00 Yes [id number] 50 mg EVERY AM 50 mg EVERY AM (route: oral) Med Classific ation: Central Nervous System Agents quetiapine 300 mg tablet 05-31 00:00: 00 Yes [id number] 300 mg BEDTIME 300 mg BEDTIME (route: oral) Med Classific ation: Central Nervous System Agents trazodone 100 mg tablet 05-31 00:00: 00 12-01 23:59 :00 No [id number] 100 mg BEDTIME 100 mg BEDTIME (route: oral) Med Classific ation: Central Nervous System Agents Vitamin B-12 1,000 mcg tablet 05-31 00:00: 00 Yes [id number] 1000 mcg DAILY 1000 mcg DAILY (route: oral) Med Classific ation: Electroly te Balance-N utritiona l Products Wellbutrin XL 300 mg 24 hr tablet, extended release 05-31 00:00: 00 Yes [id number] 300 mg DAILY 300 mg DAILY (route: oral) Med Classific ation: Central Nervous System Agents Zoloft 100 mg tablet 05-31 00:00: 00 05-25 23:59 :00 No [id number] 100 mg BEDTIME 100 mg BEDTIME (route: oral) Med Classific ation: Central Nervous System Agents cephalexin 500 mg capsule 2019-03 00:00: 00 04-06 23:59 :00 No [id number] 500 mg EVERY 6 HOURS 500 mg EVERY 6 HOURS (route: oral) Med Classific ation: Anti-Infe ctive Agents doxycycline hyclate 100 mg capsule 2019-03 00:00: 00 04-06 23:59 :00 No [id number] 10 mg 2 TIMES DAILY 10 mg 2 TIMES DAILY (route: oral) Med Classific ation: Anti-Infe ctive Agents miconazole nitrate 2 % topical cream 04-03 00:00: 00 Yes [id number] Per instruc tions DAILY Per instructio ns DAILY (route: topical) Med Classific ation: Dermatolo gical ferrous sulfate 325 mg (65 mg iron) tablet 05-26 00:00: 00 Yes [id number] 325 mg DAILY 325 mg DAILY (route: oral) Med Classific ation: Electroly te Balance-N utritiona l Products Vitamin C 500 mg tablet 05-26 00:00: 00 12-01 23:59 :00 No [id number] 500 mg DAILY 500 mg DAILY (route: [...] AWARENESS FOR SAFETY AND WILL NOTIFY CLINICAL BANKING MANAGEMENT CONSULTING MANAGER AND PHYSICIAN/PROVIDER WITH ANY CHANGE IN CONDITION. [code = SKILLED NURSE WILL MAINTAIN SITUATIONAL AWARENESS FOR SAFETY AND WILL NOTIFY CLINICAL BANKING MANAGEMENT CONSULTING MANAGER AND PHYSICIAN/PROVIDER WITH ANY CHANGE IN CONDITION.] [...] CARE WILL BE ESTABLISHED THAT MEETS PATIENT'S [facility] NEEDS AND INCLUDES PATIENT GOAL FOR HOME [...] End Date/Time Encounter Type Admission Type Attending [facility] Department Encounter ID Discharge Date Discharge Status Discharge Condition Discharge Reason Percent Goals Met 2022-12-02 00:00:00 2024-07-23 00:00:00 Outpatient RECERTIFIC ATLETY KAY [facility] [id number] 6.67
[2024-07-23 07:26] LABS: MANUAL DIFF FLAG NO
[2024-07-23 07:27] LABS: Basophils Percent Auto 0.5 % (0-2); Hematocrit 34.2 % (42.0-52.0); Hemoglobin 11.4 g/dl (14.0-18.0); Imm Gran Abs Auto 0.02 X10*3/uL (0.00-0.03); Imm Gran Pct Auto 0.3 % (0.0-0.4); Lymphocytes Absolute Auto 1.8 X10*3/uL (1.2-4.9); Lymphocytes Percent Auto 24.6 % (20-40); Mean Corpuscular HGB Conc 33.3 g/dl (31.0-36.0); Mean Corpuscular Hemoglobin 26.4 pg (27.0-33.0); Mean Corpuscular Volume 79.2 fL (80.0-98.0); Mean Platelet Volume 8.5 fL (9.4-12.4); Monocytes Absolute Auto 0.7 X10*3/uL (0.1-1.2); Monocytes Percent Auto 9.2 % (2-11); Neutrophils Absolute Auto 4.9 x10*3/uL (2.0-8.3); Neutrophils Percent Auto 65.4 % (45-73); Platelet Count 204 X10*3/uL (160-400); Red Blood Count 4.32 X10*6/uL (4.60-5.80); Red Cell Distribution Width 14.7 % (11.0-16.0); White Blood Count 7.4 X10*3/uL (4.8-10.8)
[2024-07-23 07:47] LABS: Alanine Aminotransferase 7 U/L (0-40); Albumin Level 3.6 g/dL (3.5-5.0); Alkaline Phosphatase 91 U/L (39-117); Anion Gap 11 (12-20); Aspartate Amino Transferase 15 U/L (5-37); Bilirubin Total 0.4 mg/dL (0.0-1.0); Blood Urea Nitrogen 7 mg/dL (9-16); Calcium 9.1 mg/dL (8.4-10.2); Carbon Dioxide 25 mmol/L (22-29); Chloride 106 mmol/L (96-108); Creatinine Clr Calc Pharmacy 136.1; Estimated Glomerular Filt Rate > 60; Glucose Random 115 mg/dL (60-115); Potassium 3.1 mmol/L (3.3-5.1); Sodium 139 mmol/L (135-145); Total Protein 6.8 g/dL (6.5-8.0)
[2024-07-23 08:00] VITALS: BP 127/60; PULSE 50; RESP 16; TEMP 36.7; O2SAT 96
[2024-07-23] MEDS: Potassium Chloride Packet 20 MEQ PACKET 60 MEQ PO (08:51)
[2024-07-23 08:53] LABS: OBS1 NEGATIVE (NEGATIVE)
[2024-07-23 08:54] LABS: OBS Int Ctl Valid YES
[2024-07-23] MEDS: 0.9 % Sodium Chloride 1,000 ML 999 ML IV (08:57)
[2024-07-23 09:11] LABS: Lipase 9 U/L (8-78); Magnesium 2.1 mg/dL (1.6-2.6)
[2024-07-23] MEDS: iohexoL 350 MG/ML 100 ML INFUS..BTL IV (09:18)
--- NOTE | 2024-07-23 09:21 | ED_ITS ---
HPI - General Adult General Chief complaint: General Medical Stated complaint: inflamed lower extremity Time Seen by Provider: 07/23/24 08:04 Source: patient, RN notes reviewed and old records reviewed History of Present Illness ED Provider: Maya Sargent PA-C HPI narrative: 59-year-old male with a past medical history anxiety, depression, obesity, anemia, GERD, gout, asthma, HTN, presenting to the ED complaining of rectal pain, inflammation, and discharge of clear liquid x few days. Reports intermittent rectal bleeding and constipation. Last normal BM yesterday. States constantly leaking, has to change his depends frequently. Reports pain with BM's. Denies abdominal pain, nausea, vomiting, diarrhea, melena, dysuria/hematuria, difficulty urinating Related Data Home Medications ?Medication ?Instructions ?Recorded ?Confirmed aripiprazole 5 mg tablet (Abilify) 5 mg PO DAILY 04/08/20 05/17/24 bupropion HCl 300 mg 24 hr tablet, 300 mg PO QAM 04/08/20 05/17/24 extended release (Wellbutrin XL) loratadine 10 mg tablet 10 mg PO DAILY 04/08/20 05/17/24 quetiapine 300 mg tablet (Seroquel) 300 mg PO BEDTIME 04/08/20 05/17/24 sertraline 100 mg tablet (Zoloft) 200 mg PO DAILY 04/08/20 05/17/24 trazodone 100 mg tablet 200 mg PO BEDTIME 04/08/20 05/17/24 quetiapine 50 mg tablet (Seroquel) 50 mg PO DAILY 05/06/21 05/17/24 Previous Rx's ?Medication ?Instructions ?Recorded ascorbate calcium (vitamin C) 500 500 mg PO DAILY #90 tabs 09/23/20 mg tablet acetaminophen 500 mg tablet 1,000 mg (2 x 500 mg) PO Q6H PRN 04/13/21 fever or pain #30 tabs albuterol sulfate 90 mcg/actuation 2 puff PO Q4H #8.5 grams 11/09/23 aerosol inhaler pantoprazole 40 mg tablet,delayed 40 mg PO DAILY 90 days #90 tabs 12/13/23 release cyanocobalamin (vitamin B-12) 1,000 mcg PO DAILY #90 tabs 05/29/24 1,000 mcg tablet (Vitamin B-12) ferrous sulfate 325 mg (65 mg 325 mg PO DAILY #90 tabs 05/29/24 iron) tablet (Feosol) folic acid 1 mg tablet 1 mg PO DAILY #90 tabs 05/29/24 terbinafine HCl 250 mg tablet 250 mg PO DAILY 12 weeks #84 tabs 06/18/24 losartan 25 mg tablet 25 mg PO DAILY #90 tabs 06/27/24 allopurinol 300 mg tablet 300 mg PO DAILY #90 tabs 07/19/24 cephalexin 500 mg capsule 500 mg PO QID 7 days #28 caps 07/23/24 doxycycline hyclate 100 mg tablet 100 mg PO BID 7 days #14 tabs 07/23/24 menthol 0.44 %-zinc oxide 20.6 % 1 appl topical BID PRN wound 07/23/24 topical ointment (Calmoseptine) healing #113 grams Allergies Allergy/AdvReac Type Severity Reaction Status Date / Time pollen extracts [POLLEN] Allergy Mild RUNNY NOSE Verified 07/23/24 06:56 house dust Allergy Unknown Sniffles Verified 07/23/24 06:56 Review of Systems 2 Review of Systems: Yes all other systems are reviewed and are negative Constitutional: Constitutional: Reports as per [facility] Past Medical History Attestation statement: The following information was validated with the patient. Source: old records reviewed Medical History Lumbosacral spondylosis with radiculopathy Myofascial pain Anxiety and depression Chronic low back pain Sacral ulcer Degenerative disc disease Obesity Anemia GERD (gastroesophageal reflux disease) Gout Tubular adenoma of colon Folic acid deficiency Asthma Hypertension Surgical History History of colonoscopy H/O knee surgery Family History Family History Mother Diabetes Hypertension Stroke Father Medical history unknown Sister Hypertension Diabetes Paternal Grandmother Myocardial infarction Daughter In good health Sister No problems noted. Brother No problems noted. Social History Social History Housing: Condominium Alcohol intake: former Comment: 0nce a week 4 drinks Patient Tobacco Use Status: Former Tobacco user Years Smoked: quit 2004 4-5 cigarettes a day e-Cigarette/Vaping Use: Never Used Second Hand Smoke Exposure: Yes Substance Use Type: Marijuana service: No Current occupational status: employed Cognitive needs: No Hearing needs: No Vision needs: No Physical Exam ED Vital Signs: Vital Signs - 24 hr 07/23/24 06:55 07/23/24 08:00 07/23/24 10:00 Temperature 97.1 F 98.0 F 97.5 F Pulse Rate 59 50 47 L Respiratory Rate 18 16 15 Blood Pressure 149/70 H 127/60 155/89 H Pulse Oximetry 98 96 97 Oxygen Delivery Method Room Air Room Air Room Air 07/23/24 13:28 Temperature 97.5 F Pulse Rate 47 L Respiratory Rate 15 Blood Pressure 155/89 H Pulse Oximetry 97 Oxygen Delivery Method Room Air BMI result Body Mass Index 42.3 Const General: cooperative, healthy appearing and no acute distress Orientation/consciousness: patient oriented x3 Limitations: no limitations HENMT Head: Yes normal to inspection and Yes atraumatic Ears: hearing grossly normal bilaterally General nose exam: Normal external nose present Face and sinus: Yes normal facial exam Eyes General: appearance normal, both eyes and all related structures EOM: EOMs intact bilaterally Neck Neck: Yes normal visual inspection and Yes no meningeal signs Resp Effort & Inspection: normal respiratory effort and no respiratory distress Cardio Rate: regular rate GI Other: Please refer to image above. Macerated rectal area with +ttp, +drainage, +pain on MARY. No appreciable fluctuance/induration. Inspection: Yes normal to inspection Palpation (GI): Soft to palpation, nontender, no guarding and not rigid Skin Rashes: no rashes Wounds: no wounds Neuro General: patient oriented x3, tone normal and no meningeal signs Cranial nerves: Yes CN's II-XII intact bilaterally Gait exam (Neuro): Normal gait present Extrem General: Yes normal to inspection Course Course Course Narrative: -[id number]--no leukocytosis. H&H at patient's baseline. Potassium mildly low at 3.1 > p.o. repletion ordered -occult stool negative CT pelvis w IV con IMPRESSION: 1. Mild subcutaneous fatty infiltrative changes present surrounding the anus and anal verge, extending into the ischio anal fatty regions, and throughout the perineal region without evidence of drainable fluid collection, abscess, or sinus tract. 2. Mild thickening of the skin in the gluteal crease, findings suggesting cellulitis. No underlying fluid collection. 3. Inguinal lymphadenopathy, presumably reactive given inflammatory process in the perianal region. > will consult General surgery, Dr. Carter [phone]--Dr. Carter in a procedure, still have not heard back -[id number]--Dr. Carter evaluated patient in the ED. No concern Milan's gangrene at this time. Concern for topical skin infection, does not believe patient requires admission at this time. Recommended Calmoseptine topical lotion and follow up in his office in 1 week. Results discussed with patient including worrisome signs and symptoms and strict return precautions, and when to return to the emergency department. They verbalized understanding and feel safe for discharge at this time. Medications Administered Discontinued Medications Generic Name Dose Route Start Last Admin Trade Name Freq PRN Reason Stop Dose Admin Sodium Chloride 1,000 mls @ 999 mls/hr 07/23/24 09:00 07/23/24 10:33 Ns IV 07/23/24 10:00 Infused .Q1H1M DONALDO Infusion Vancomycin HCl 2,000 mg in 500 mls @ 250 mls/hr 07/23/24 09:50 07/23/24 12:37 Vancomycin/Ns IV 07/23/24 11:49 Infused ONCE ONE Infusion Metronidazole 500 mg in 100 mls @ 100 mls/hr 07/23/24 09:50 07/23/24 12:12 Flagyl IV 07/23/24 10:49 Infused ONCE ONE Infusion Cefepime HCl 2 gm in 50 mls @ 100 mls/hr 07/23/24 09:50 07/23/24 11:06 Maxipime IV 07/23/24 10:19 Infused ONCE ONE Infusion Iohexol 100 ml 07/23/24 09:17 07/23/24 09:18 Iohexol 350 Mg/Ml 100 Ml Infus..Btl IV 07/23/24 09:18 85 ml ONCE ONE Administration Potassium Chloride 60 meq 07/23/24 08:48 07/23/24 08:51 Potassium Chloride Packet 20 Meq Packet PO 07/23/24 08:49 60 meq ONCE ONE Administration Medical Decision Making Medical Decision Making MDM Narrative: 59-year-old male with a past medical history anxiety, depression, obesity, anemia, GERD, gout, asthma, HTN, presenting to the ED complaining of rectal pain, inflammation, and discharge of clear liquid x few days. On exam vital signs stable, NAD, nontoxic appearing, abdomen is soft and nontender. On rectal exam macerated skin/area noted with friability and drainage. +ttp. Pain with MARY. No appreciable fluctuance/induration. Concern for cellulitis vs deeper infection vs ?Fistula. No evidence of Milan's gangrene at this time Plan: Labs, UA, pelvic CT Please refer to course for remaining clinical decision making, interpretation of labs/imaging results, and discussions with consultants and/or family members. Differential Diagnosis Differential Diagnoses: The differential diagnosis associated with the presentation includes As above Admission/Observation Consideration of admission/observation: Escalation of care including admission/observation considered Consult Healthcare Provider Management of the patient was discussed with: Hospitalist and Management Consulting Lab Data MDM Lab Attestation statement: I reviewed the patient's lab results. 07/23/24 07:22 07/23/24 07:22 Labs: Lab Results 07/23/24 07/23/24 07/23/24 Range/Units 07:22 08:47 10:00 WBC 7.4 (4.8-10.8) X10*3/uL RBC 4.32 L (4.60-5.80) X10*6/uL Hgb 11.4 L (14.0-18.0) g/dl Hct 34.2 L (42.0-52.0) % MCV 79.2 L (80.0-98.0) fL MCH 26.4 L (27.0-33.0) pg MCHC 33.3 (31.0-36.0) g/dl RDW 14.7 (11.0-16.0) % Plt Count 204 (160-400) X10*3/uL MPV 8.5 L (9.4-12.4) fL Immature Gran % (Auto) 0.3 (0.0-0.4) % Neut % (Auto) 65.4 (45-73) % Lymph % (Auto) 24.6 (20-40) % [place] % (Auto) 9.2 (2-11) % Eos % (Auto) 0.0 (0-4) % Baso % (Auto) 0.5 (0-2) % Lymph # (Auto) 1.8 (1.2-4.9) X10*3/uL [place] # (Auto) 0.7 (0.1-1.2) X10*3/uL Eos # (Auto) 0.0 (0.0-0.4) X10*3/uL Baso # (Auto) 0.0 (0.0-0.2) X10*3/uL Abs Immat Gran (auto) 0.02 (0.00-0.03) X10*3/uL Absolute Neuts (auto) 4.9 (2.0-8.3) x10*3/uL Absolute Nucleated RBC 0.000 (0.0-0.012) X10*3/uL Nucleated RBC % (auto) 0.0 (0.0-0.2) /100WBC Sodium 139 (135-145) mmol/L Potassium 3.1 L (3.3-5.1) mmol/L Chloride 106 (96-108) mmol/L Carbon Dioxide 25 (22-29) mmol/L Anion Gap 11 L (12-20) BUN 7 L (9-16) mg/dL Creatinine 0.88 (0.5-1.4) mg/dL Estim Creat Clear Calc 136.1 Estimated GFR > 60 Random Glucose 115 (60-115) mg/dL Lactic Acid 0.6 (0.5-2.0) mmol/L Calcium 9.1 (8.4-10.2) mg/dL Magnesium 2.1 (1.6-2.6) mg/dL Total Bilirubin 0.4 (0.0-1.0) mg/dL AST 15 (5-37) U/L ALT 7 (0-40) U/L Alkaline Phosphatase 91 (39-117) U/L Total Protein 6.8 (6.5-8.0) g/dL Albumin 3.6 (3.5-5.0) g/dL Lipase 9 (8-78) U/L Urine Color Urine Appearance Urine pH (5.0-9.0) Ur Specific [place] (1.005-1.025) Urine Protein (Neg-Trace) mg/dL Urine Glucose (UA) (Negative) mg/dL Urine Ketones (Negative) mg/dL Urine Blood (Negative) Urine Nitrite (Negative) Ur Leukocyte Esterase (Negative) Stool Occult Blood NEGATIVE (NEGATIVE) 07/23/24 Range/Units 10:25 WBC (4.8-10.8) X10*3/uL RBC (4.60-5.80) X10*6/uL Hgb (14.0-18.0) g/dl Hct (42.0-52.0) % MCV (80.0-98.0) fL MCH (27.0-33.0) pg MCHC (31.0-36.0) g/dl RDW (11.0-16.0) % Plt Count (160-400) X10*3/uL MPV (9.4-12.4) fL Immature Gran % (Auto) (0.0-0.4) % Neut % (Auto) (45-73) % Lymph % (Auto) (20-40) % [place] % (Auto) (2-11) % Eos % (Auto) (0-4) % Baso % (Auto) (0-2) % Lymph # (Auto) (1.2-4.9) X10*3/uL [place] # (Auto) (0.1-1.2) X10*3/uL Eos # (Auto) (0.0-0.4) X10*3/uL Baso # (Auto) (0.0-0.2) X10*3/uL Abs Immat Gran (auto) (0.00-0.03) X10*3/uL Absolute Neuts (auto) (2.0-8.3) x10*3/uL Absolute Nucleated RBC (0.0-0.012) X10*3/uL Nucleated RBC % (auto) (0.0-0.2) /100WBC Sodium (135-145) mmol/L Potassium (3.3-5.1) mmol/L Chloride (96-108) mmol/L Carbon Dioxide (22-29) mmol/L Anion Gap (12-20) BUN (9-16) mg/dL Creatinine (0.5-1.4) mg/dL Estim Creat Clear Calc Estimated GFR Random Glucose (60-115) mg/dL Lactic Acid (0.5-2.0) mmol/L Calcium (8.4-10.2) mg/dL Magnesium (1.6-2.6) mg/dL Total Bilirubin (0.0-1.0) mg/dL AST (5-37) U/L ALT (0-40) U/L Alkaline Phosphatase (39-117) U/L Total Protein (6.5-8.0) g/dL Albumin (3.5-5.0) g/dL Lipase (8-78) U/L Urine Color Yellow Urine Appearance Clear Urine pH 6.5 (5.0-9.0) Ur Specific [place] 1.025 (1.005-1.025) Urine Protein Negative (Neg-Trace) mg/dL Urine Glucose (UA) Negative (Negative) mg/dL Urine Ketones Negative (Negative) mg/dL Urine Blood Negative (Negative) Urine Nitrite Negative (Negative) Ur Leukocyte Esterase Negative (Negative) Stool Occult Blood (NEGATIVE) Independent Interpretation I performed an independent interpretation of an: CT Scan Radiology Impression Discussion of test interpretation with radiology: I have reviewed the radiologist's reading. External Record Review External record reviewed: Inpatient record, Office record, Outpatient record, Prior outpatient labs, Prior outpatient radiology, Primary care record and Outside ED record Tests considered The following testing was considered but not selected: As above Prescription Management I considered prescription management with: Pain Medication and Antibiotic Chronic Conditions Patient?s care impacted by: Hypertension and Other (Asthma) Social Determinants Patient?s care significantly limited by Social Determinants of Health including: Other Social Determinant of Health Discharge Plan Discharge Clinical Impression: Cellulitis of buttock, Skin breakdown Patient Disposition: Home, Self-Care Instructions: Cellulitis (DC) Additional Instructions: You have cellulitis of your rectal area Keep area dry and clean Warm baths at home may help Apply topical Calmoseptine ointment twice daily as prescribed In addition take Keflex and doxycycline until completion, these are oral antibiotics, take with food If her symptoms persist or worsen you have difficulty or inability to have bowel movement or urinate or have fever return to the ED YOU NEED TO FOLLOW UP IN THE GENERAL SURGERY OFFICE IN 1 WEEK Prescriptions: New cephalexin 500 mg capsule 500 mg PO QID 7 Days Qty: 28 0RF doxycycline hyclate 100 mg tablet 100 mg PO BID 7 Days Qty: 14 0RF menthol-zinc oxide [Calmoseptine] 0.44-20.6 % ointment 1 appl topical BID PRN (Reason: wound healing) Qty: 113 0RF No Action ascorbate calcium (vitamin C) 500 mg tablet 500 mg PO DAILY Qty: 90 2RF pantoprazole 40 mg tablet,delayed release (DR/EC) 40 mg PO DAILY 90 Days Qty: 90 2RF ferrous sulfate [Feosol] 325 mg (65 mg iron) tablet 325 mg PO DAILY Qty: 90 0RF folic acid 1 mg tablet 1 mg PO DAILY Qty: 90 3RF cyanocobalamin (vitamin B-12) [Vitamin B-12] 1,000 mcg tablet 1,000 mcg PO DAILY Qty: 90 1RF terbinafine HCl 250 mg tablet 250 mg PO DAILY 84 Days Qty: 84 0RF losartan 25 mg tablet 25 mg PO DAILY Qty: 90 0RF allopurinol 300 mg tablet 300 mg PO DAILY Qty: 90 0RF acetaminophen 500 mg tablet 1,000 mg PO Q6H PRN (Reason: fever or pain) Qty: 30 0RF loratadine 10 mg tablet 10 mg PO DAILY aripiprazole [Abilify] 5 mg tablet 5 mg PO DAILY trazodone 100 mg tablet 200 mg PO BEDTIME quetiapine [Seroquel] 300 mg tablet 300 mg PO BEDTIME sertraline [Zoloft] 100 mg tablet 200 mg PO DAILY bupropion HCl [Wellbutrin XL] 300 mg tablet extended release 24 hr 300 mg PO QAM quetiapine [Seroquel] 50 mg tablet 50 mg PO DAILY albuterol sulfate 90 mcg/actuation HFA aerosol inhaler 2 puff PO Q4H Qty: 8.5 0RF Referrals: Maury Carter MD [Physician] - 1 week Interventions: ED Discharge Assessment Last Done: 07/23/24 13:28 Discharge Date/Time: 07/23/24 13:29 Print Language: Vietnamese
[2024-07-23 10:00] VITALS: BP 155/89; PULSE 47; RESP 15; TEMP 36.4; O2SAT 97
[2024-07-23] MEDS: cefEPime HCl/D5W 2 GM/50 ML PIGGYBACK IV (10:22)
[2024-07-23] MEDS: vancomycin/NS 2,000 MG/500 ML PLAST..BAG 250 MG IV (10:23)
[2024-07-23 10:29] LABS: Lactic Acid 0.6 mmol/L (0.5-2.0)
[2024-07-23 10:32] LABS: Appearance Urine Clear; Color Urine Yellow; Glucose Urine UA Negative (Negative); Leukocyte Esterase Urine Negative (Negative); Nitrite Urine Negative (Negative); PH 6.5 (5.0-9.0); Specific Gravity - Urine 1.025 (1.005-1.025); Urine Blood Negative (Negative); Urine Ketones Negative (Negative); Urine Protein Negative (Neg-Trace)
[2024-07-23] MEDS: metroNIDAZOLE/NS 500 MG/100 ML PIGGYBACK 100 MG IV (10:45)
--- NOTE | 2024-07-23 12:58 | P.CONGS_ITS ---
History of Present Illness Consult details Consult date: 07/23/24 Narrative: 59-year-old male patient presenting with complaints of rectal pain, irritation and clear discharge for several days. He reports wearing a depends undergarment because of the profuse discharge noted. His bowels have been normal but he notes constant leakage following the bowel movement. He denies nausea, vomiting, diarrhea, bloody stool, difficulty urinating, fever or chills. He presents to the emergency department and was found to have marked irritation of the perianal skin suggestive of a cellulitis. Laboratories revealed normal WBC. CT of the pelvis reveals evidence of fatty infiltrative changes in the perianal skin extending into the ischiorectal space with no evidence of a drainable abscess collection. No subcutaneous air is noted as well. Surgical consultation was requested for possible Milan's gangrene. Review of Systems 2 Review of Systems: Yes all other systems are reviewed and are negative Genitourinary: Genitourinary: Reports as per HPI Integumentary/Breasts: Skin/Breast: Reports changing lesions, Reports skin pain, Reports skin swelling and Reports sores PMFSH Past Medical History Medical History Lumbosacral spondylosis with radiculopathy Myofascial pain Anxiety and depression Chronic low back pain Sacral ulcer Degenerative disc disease Obesity Anemia GERD (gastroesophageal reflux disease) Gout Tubular adenoma of colon Folic acid deficiency Asthma Hypertension Family History Family History Mother Diabetes Hypertension Stroke Father Medical history unknown Sister Hypertension Diabetes Paternal Grandmother Myocardial infarction Daughter In good health Sister No problems noted. Brother No problems noted. Surgical History Surgical History History of colonoscopy H/O knee surgery Social History Social History Housing: Condominium Alcohol intake: former Comment: 0nce a week 4 drinks Patient Tobacco Use Status: Former Tobacco user Years Smoked: quit 2004 4-5 cigarettes a day Smoked in Last 30 Days: No e-Cigarette/Vaping Use: Never Used Second Hand Smoke Exposure: Yes Use of substances other than those prescribed or required for medical reasons: Yes Substance Use Type: Marijuana Advance Directives: No Advance Directives Information Provided: Yes Do you have a plan to hurt others: No Plan service: No Current occupational status: employed Cognitive needs: No Hearing needs: No Vision needs: No Meds Allergies Allergy/AdvReac Type Severity Reaction Status Date / Time pollen extracts [POLLEN] Allergy Mild RUNNY NOSE Verified 07/23/24 06:56 house dust Allergy Unknown Sniffles Verified 07/23/24 06:56 Home Medications ?Medication ?Instructions ?Recorded ?Confirmed ?Last Taken ?Type aripiprazole 5 mg tablet (Abilify) 5 mg PO DAILY 04/08/20 05/17/24 Unknown History bupropion HCl 300 mg 24 hr tablet, 300 mg PO QAM 04/08/20 05/17/24 Unknown History extended release (Wellbutrin XL) loratadine 10 mg tablet 10 mg PO DAILY 04/08/20 05/17/24 Unknown History quetiapine 300 mg tablet (Seroquel) 300 mg PO BEDTIME 04/08/20 05/17/24 Unknown History sertraline 100 mg tablet (Zoloft) 200 mg PO DAILY 04/08/20 05/17/24 Unknown History trazodone 100 mg tablet 200 mg PO BEDTIME 04/08/20 05/17/24 Unknown History quetiapine 50 mg tablet (Seroquel) 50 mg PO DAILY 05/06/21 05/17/24 Unknown History Physical Exam 2 Vital Signs: Vital Signs: Last Vital Signs Temp 97.5 F 07/23/24 10:00 Pulse 47 L 07/23/24 10:00 Resp 15 07/23/24 10:00 BP 155/89 H 07/23/24 10:00 Pulse Ox 97 07/23/24 10:00 O2 Del Method Room Air 07/23/24 10:00 BMI result Body Mass Index 42.3 Const: General: cooperative and no acute distress Nutritional Appearance: w ell nourished Orientation/consciousness: patient oriented x3 Limitations: no limitations HEENT: Head: Yes normocephalic and Yes atraumatic Ears: hearing grossly normal bilaterally Resp: Effort & Inspection: normal respiratory effort, no audible wheezes, no cough and no respiratory distress Cardio: Jugular venous distension: no JVD GI: Inspection: Yes normal to inspection Back/Spine/Pelvis: Other: Perianal skin with evidence of skin excoriation suggestive of pruritus ani. No underlying fluctuance, skin necrosis, subcu emphysema is noted. Skin: Other: Warm, dry, no rash Neuro: General: patient oriented x3 Extrem: General: Yes no clubbing, cyanosis or edema Results Labs 07/23/24 07:22 07/23/24 07:22 Labs: Abnormal lab results 07/23/24 Range/Units 07:22 RBC 4.32 L (4.60-5.80) X10*6/uL Hgb 11.4 L (14.0-18.0) g/dl Hct 34.2 L (42.0-52.0) % MCV 79.2 L (80.0-98.0) fL MCH 26.4 L (27.0-33.0) pg MPV 8.5 L (9.4-12.4) fL Potassium 3.1 L (3.3-5.1) mmol/L Anion Gap 11 L (12-20) BUN 7 L (9-16) mg/dL Short CBC 07/23/24 Range/Units 07:22 WBC 7.4 (4.8-10.8) X10*3/uL Hgb 11.4 L (14.0-18.0) g/dl Hct 34.2 L (42.0-52.0) % Plt Count 204 (160-400) X10*3/uL BMP 07/23/24 07:22 Sodium 139 Potassium 3.1 L Chloride 106 Carbon Dioxide 25 BUN 7 L Creatinine 0.88 Calcium 9.1 Liver Function 07/23/24 Range/Units 07:22 Total Bilirubin 0.4 (0.0-1.0) mg/dL AST 15 (5-37) U/L ALT 7 (0-40) U/L Alkaline Phosphatase 91 (39-117) U/L Albumin 3.6 (3.5-5.0) g/dL Urine 07/23/24 Range/Units 10:25 Urine Color Yellow Urine Appearance Clear Urine pH 6.5 (5.0-9.0) Ur Specific [place] 1.025 (1.005-1.025) Urine Protein Negative (Neg-Trace) mg/dL Urine Glucose (UA) Negative (Negative) mg/dL All other labs normal. Assessment and Plan (1) Pruritus ani: Status: Acute Plan 59-year-old male patient presenting with a severe skin inflammation in the perianal skin suggestive of pruritus ani. There was no evidence of an abscess or necrotic skin to suggest Milan's gangrene. I recommended applying Calmoseptine to the affected skin. He should soak the skin at least 3 times daily in a warm tub or shower and then dried the skin off completely. He should then applied the cream to the affected skin. He should follow up my office in approximately 1 week. Procedures Date of Service Date of Service: 07/23/24
[2024-07-23 13:28] VITALS: BP 155/89; PULSE 47; RESP 15; TEMP 36.4; O2SAT 97
== END 2024-07-23 13:29 | disposition home or self-care (01) ==
PROVIDERS: Physician Assistant; Emergency Provider Emergency Medicine Emergency Medical Services; PCP Internal Medicine
DX: L29.0 Pruritus ani (principal); L03.317 Cellulitis of buttock; R60.0 Localized edema; R10.2 Pelvic and perineal pain; R11.0 Nausea; Z79.899 Other long term (current) drug therapy
CPT/HCPCS: 36415; 72193; 80053; 81003; 82272; 83605; 83690; 83735; 85025; 87040; 96361; 96365; 96367; 96375; 99284; J0692; J1836; J3370; Q9967

== ENCOUNTER → 2024-07-23 07:17 | Outpatient (BNV) | payer OTHER, SELFPAY | PROVIDERS: Emergency Provider Emergency Medicine Emergency Medical Services; PCP Internal Medicine; Visit Provider Surgery | DX: L29.0 Pruritus ani (principal) | CPT/HCPCS: 99283 ==

== ENCOUNTER → 2024-07-23 08:47 | Outpatient (BNV) | payer OTHER, SELFPAY | PROVIDERS: Emergency Provider Emergency Medicine Emergency Medical Services; PCP Internal Medicine; Visit Provider Radiology Diagnostic Radiology | DX: R59.0 Localized enlarged lymph nodes (principal) | CPT/HCPCS: 72193 ==

== ENCOUNTER 2024-08-05 11:04 | Inpatient (IN) | payer OTHER, SELFPAY ==
[2024-08-05 11:09] VITALS: BP 118/83; PULSE 79; RESP 18; TEMP 36.7; O2SAT 98; BMI 42.2
--- NOTE | 2024-08-05 11:11 | ED_ITS ---
HPI - General Adult General Chief complaint: General Medical Stated complaint: infection Time Seen by Provider: 08/05/24 11:36 Source: patient, RN notes reviewed and old records reviewed Mode of arrival: ambulatory Limitations: no limitations History of Present Illness ED Provider: Sherry NUNEZ narrative: 59-year-old male past medical history significant for morbid obesity, anxiety, depression, GERD, gout, asthma, hypertension presents for evaluation of a rash to his buttocks and groin. patient was seen here for a perirectal rash about 2 weeks ago on 07/23/2024 he had a workup that included labs in his CT scan which was consistent with cellulitis. He was discharged with cephalexin, doxycycline and Calmoseptine patient reports he has been compliant with the medications but his rash is now worsened that is now involving the scrotum which was not the case 2 weeks ago the rash is draining clear fluid he reports subjective fevers and chills but never took his temperature the patient reports that he is not a diabetic Related Data Home Medications ?Medication ?Instructions ?Recorded ?Confirmed aripiprazole 5 mg tablet (Abilify) 5 mg PO DAILY 04/08/20 05/17/24 bupropion HCl 300 mg 24 hr tablet, 300 mg PO QAM 04/08/20 05/17/24 extended release (Wellbutrin XL) loratadine 10 mg tablet 10 mg PO DAILY 04/08/20 05/17/24 quetiapine 300 mg tablet (Seroquel) 300 mg PO BEDTIME 04/08/20 05/17/24 sertraline 100 mg tablet (Zoloft) 200 mg PO DAILY 04/08/20 05/17/24 trazodone 100 mg tablet 200 mg PO BEDTIME 04/08/20 05/17/24 quetiapine 50 mg tablet (Seroquel) 50 mg PO DAILY 05/06/21 05/17/24 Previous Rx's ?Medication ?Instructions ?Recorded ascorbate calcium (vitamin C) 500 500 mg PO DAILY #90 tabs 09/23/20 mg tablet acetaminophen 500 mg tablet 1,000 mg (2 x 500 mg) PO Q6H PRN 04/13/21 fever or pain #30 tabs albuterol sulfate 90 mcg/actuation 2 puff PO Q4H #8.5 grams 11/09/23 aerosol inhaler pantoprazole 40 mg tablet,delayed 40 mg PO DAILY 90 days #90 tabs 12/13/23 release cyanocobalamin (vitamin B-12) 1,000 mcg PO DAILY #90 tabs 05/29/24 1,000 mcg tablet (Vitamin B-12) ferrous sulfate 325 mg (65 mg 325 mg PO DAILY #90 tabs 05/29/24 iron) tablet (Feosol) folic acid 1 mg tablet 1 mg PO DAILY #90 tabs 05/29/24 terbinafine HCl 250 mg tablet 250 mg PO DAILY 12 weeks #84 tabs 06/18/24 losartan 25 mg tablet 25 mg PO DAILY #90 tabs 06/27/24 allopurinol 300 mg tablet 300 mg PO DAILY #90 tabs 07/19/24 cephalexin 500 mg capsule 500 mg PO QID 7 days #28 caps 07/23/24 doxycycline hyclate 100 mg tablet 100 mg PO BID 7 days #14 tabs 07/23/24 menthol 0.44 %-zinc oxide 20.6 % 1 appl topical BID PRN wound 07/23/24 topical ointment (Calmoseptine) healing #113 grams Allergies Allergy/AdvReac Type Severity Reaction Status Date / Time pollen extracts [POLLEN] Allergy Mild RUNNY NOSE Verified 08/05/24 11:11 house dust Allergy Unknown Sniffles Verified 08/05/24 11:11 Review of Systems 2 Constitutional: Constitutional: Reports body ache(s), Reports chills, Reports fever(s) and Denies headache(s) Eyes: Eyes: Denies blurry vision ENT: Denies vertigo, Denies dizziness and Denies headache(s) Cardiovascular: Cardiovascular: Denies chest pain and Denies dyspnea Respiratory: Respiratory: Denies cough and Denies dyspnea Gastrointestinal: Gastrointestinal: Denies abdominal pain, Denies nausea and Denies vomiting Musculoskeletal: Musculoskeletal: Denies back pain Integumentary/Breasts: Skin/Breast: Reports pruritus, Reports erythema, Reports rash, Reports skin pain, Reports skin ulcer, Reports sores and Reports wounds Neurologic: Denies vertigo, Denies dizziness and Denies headache(s) Psychiatric: Psychiatric: Denies anxiety PMFSH Past Medical History Medical History Lumbosacral spondylosis with radiculopathy Myofascial pain Anxiety and depression Chronic low back pain Sacral ulcer Degenerative disc disease Obesity Anemia GERD (gastroesophageal reflux disease) Gout Tubular adenoma of colon Folic acid deficiency Asthma Hypertension Surgical History History of colonoscopy H/O knee surgery Family History Family History Mother Diabetes Hypertension Stroke Father Medical history unknown Sister Hypertension Diabetes Paternal Grandmother Myocardial infarction Daughter In good health Sister No problems noted. Brother No problems noted. Social History Social History Housing: [facility] Alcohol intake: former Comment: 0nce a week 4 drinks Patient Tobacco Use Status: Former Tobacco user Years Smoked: quit 2004 4-5 cigarettes a day e-Cigarette/Vaping Use: Never Used Second Hand Smoke Exposure: Yes Substance Use Type: Marijuana Advance Directives: No Advance Directives Information Provided: No Do you have a plan to hurt others: No Plan service: No Current occupational status: employed Cognitive needs: No Hearing needs: No Vision needs: No Physical Exam ED Vital Signs: Vital Signs - 24 hr 08/05/24 11:09 Temperature 98.1 F Pulse Rate 79 Respiratory Rate 18 Blood Pressure 118/83 Pulse Oximetry 98 Oxygen Delivery Method Room Air BMI result Body Mass Index 42.2 Const General: healthy appearing, comfortable, no acute distress, alert and awake Nutritional Appearance: well nourished Orientation/consciousness: patient oriented x3 HENMT Head: Yes normocephalic and Yes atraumatic Throat: Yes posterior oropharynx normal Eyes Eyelids: Yes eyelids normal Conjunctivae: conjunctivae normal Sclerae: sclerae normal Corneas: corneas normal Pupils: Equal, round and reactive pupils present EOM: EOMs intact bilaterally Neck Neck: Yes full ROM Resp Effort & Inspection: normal respiratory effort, able to speak in complete sentences, no audible wheezes and not labored Auscultation: clear to auscultation bilaterally Cardio Rate: regular rate Rhythm: regular rhythm GI Inspection: No distended Palpation (GI): Soft to palpation, not firm, nontender, no guarding and not rigid Skin Other: patient has erythema with skin breakdown to the perirectal and perineum area. The scrotum has significant beefy red erythema with some induration. No obvious abscess. General skin exam: elasticity normal Neuro General: patient oriented x3 Cranial nerves: Yes Equal, round and reactive pupils present and Yes Bilaterally intact EOM present Cognition (Neuro): normal cognition Extrem Other: Moving all extremities well without any obvious deformities Course Course Course Narrative: RME performed by Vandana Hope PA-C. Patient is a 59 year old assigned male at presenting to the emergency department with concerns of a worsening groin infection. Patient states he has a known groin infection for which he is taking antibiotics but it isn't getting better and he is having fevers at home. Detailed physical exam and review of systems are deferred to the sustainability executive director. Labs ordered. Patient placed back in the waiting room pending room availability and results. Medical Decision Making Medical Decision Making [facility] Narrative: 59-year-old male past medical history as above presents for evaluation of a rash to his perianal and scrotal region. He was seen here 2 weeks ago and diagnosed with cellulitis. He reports being compliant with his medications, however he states that he still has some antibiotics left and he was only given a 1 week course, so I am unsure how compliant he has been. His vital signs are within normal limits, he is afebrile, he has no leukocytosis. His inflammatory markers are significantly elevated with an ESR of 37 in his CRP of 4.94. Given that he has failed outpatient treatment of antibiotics and antifungal, we will discuss with the hospitalist for admission due to perineal and scrotal cellulitis Differential Diagnosis Differential Diagnoses: The differential diagnosis associated with the presentation includes cellulitis Dermatitis Tinea corporis Milan's gangrene less likely Admission/Observation Consideration of admission/observation: Escalation of care including admission/observation considered there was no evidence of sepsis, however the patient has failed outpatient treatment of cellulitis Lab Data [facility] Lab Attestation statement: I reviewed the patient's lab results. no leukocytosis. The patient has a mild microcytic anemia which is consistent with his recent labs going back to 2020. Carbon dioxide level was low at 18 and BUN is slightly elevated 25 with a normal creatinine of 1.14. Elevated inflammatory markers as above 08/05/24 11:24 08/05/24 11:24 Labs: Lab Results 08/05/24 08/05/24 Range/Units 11:24 11:35 WBC 9.5 (4.8-10.8) X10*3/uL RBC 4.84 (4.60-5.80) X10*6/uL Hgb 12.5 L (14.0-18.0) g/dl Hct 37.5 L (42.0-52.0) % MCV 77.5 L (80.0-98.0) fL MCH 25.8 L (27.0-33.0) pg MCHC 33.3 (31.0-36.0) g/dl RDW 15.0 (11.0-16.0) % Plt Count 232 (160-400) X10*3/uL MPV 8.6 L (9.4-12.4) fL Immature Gran % (Auto) 0.3 (0.0-0.4) % Neut % (Auto) 69.0 (45-73) % Lymph % (Auto) 21.0 (20-40) % [place] % (Auto) 9.0 (2-11) % Eos % (Auto) 0.0 (0-4) % Baso % (Auto) 0.7 (0-2) % Lymph # (Auto) 2.0 (1.2-4.9) X10*3/uL [place] # (Auto) 0.9 (0.1-1.2) X10*3/uL Eos # (Auto) 0.0 (0.0-0.4) X10*3/uL Baso # (Auto) 0.1 (0.0-0.2) X10*3/uL Abs Immat Gran (auto) 0.03 (0.00-0.03) X10*3/uL Absolute Neuts (auto) 6.5 (2.0-8.3) x10*3/uL Absolute Nucleated RBC 0.000 (0.0-0.012) X10*3/uL Nucleated RBC % (auto) 0.0 (0.0-0.2) /100WBC ESR 37 H (0-15) MM/HR Sodium 136 (135-145) mmol/L Potassium 3.7 (3.3-5.1) mmol/L Chloride 107 (96-108) mmol/L Carbon Dioxide 18 L (22-29) mmol/L Anion Gap 15 (12-20) BUN 25 H (9-16) mg/dL Creatinine 1.14 (0.5-1.4) mg/dL Estim Creat Clear Calc 104.8 Estimated GFR > 60 Random Glucose 93 (60-115) mg/dL Lactic Acid 1.4 (0.5-2.0) mmol/L Calcium 9.2 (8.4-10.2) mg/dL Magnesium 2.2 (1.6-2.6) mg/dL Total Bilirubin 0.4 (0.0-1.0) mg/dL AST 16 (5-37) U/L ALT 9 (0-40) U/L Alkaline Phosphatase 101 (39-117) U/L C-Reactive Protein 4.94 H (< or = 0.50) mg/dL Total Protein 7.1 (6.5-8.0) g/dL Albumin 3.7 (3.5-5.0) g/dL Urine Color Yellow Urine Appearance Clear Urine pH 5.5 (5.0-9.0) Ur Specific [place] 1.010 (1.005-1.025) Urine Protein Negative (Neg-Trace) mg/dL Urine Glucose (UA) Negative (Negative) mg/dL Urine Ketones Negative (Negative) mg/dL Urine Blood Negative (Negative) Urine Nitrite Negative (Negative) Ur Leukocyte Esterase Negative (Negative) Discharge Plan Discharge Clinical Impression: Cellulitis of scrotum, Cellulitis of perineum Patient Disposition: Admitted As Inpatient Prescriptions: No Action ascorbate calcium (vitamin C) 500 mg tablet 500 mg PO DAILY Qty: 90 2RF pantoprazole 40 mg tablet,delayed release (DR/EC) 40 mg PO DAILY 90 Days Qty: 90 2RF ferrous sulfate [Feosol] 325 mg (65 mg iron) tablet 325 mg PO DAILY Qty: 90 0RF folic acid 1 mg tablet 1 mg PO DAILY Qty: 90 3RF cyanocobalamin (vitamin B-12) [Vitamin B-12] 1,000 mcg tablet 1,000 mcg PO DAILY Qty: 90 1RF terbinafine HCl 250 mg tablet 250 mg PO DAILY 84 Days Qty: 84 0RF losartan 25 mg tablet 25 mg PO DAILY Qty: 90 0RF allopurinol 300 mg tablet 300 mg PO DAILY Qty: 90 0RF acetaminophen 500 mg tablet 1,000 mg PO Q6H PRN (Reason: fever or pain) Qty: 30 0RF cephalexin 500 mg capsule 500 mg PO QID 7 Days Qty: 28 0RF doxycycline hyclate 100 mg tablet 100 mg PO BID 7 Days Qty: 14 0RF menthol-zinc oxide [Calmoseptine] 0.44-20.6 % ointment 1 appl topical BID PRN (Reason: wound healing) Qty: 113 0RF loratadine 10 mg tablet 10 mg PO DAILY aripiprazole [Abilify] 5 mg tablet 5 mg PO DAILY trazodone 100 mg tablet 200 mg PO BEDTIME quetiapine [Seroquel] 300 mg tablet 300 mg PO BEDTIME sertraline [Zoloft] 100 mg tablet 200 mg PO DAILY bupropion HCl [Wellbutrin XL] 300 mg tablet extended release 24 hr 300 mg PO QAM quetiapine [Seroquel] 50 mg tablet 50 mg PO DAILY albuterol sulfate 90 mcg/actuation HFA aerosol inhaler 2 puff PO Q4H Qty: 8.5 0RF Print Language: Serbian
--- OUTSIDE RECORDS SUMMARY | 2024-08-05 11:33 | XMS_ITS | Clinical Summary ---
Author Organization Unknown Care Team Providers Care Mash Grinder Name Role Phone FRANNIE MATOS, PAMELA Unavailable Unavailable BETY RITTER, LETY Unavailable Unavailable Payers Payer Name Policy Type Policy Number Effective Date Expira tion Date [facility] [id number] MEDICAID [facility] [id number] MEDICARE - [facility] [id number] Problems Condition Name Condition Details Condition Category [...] 5 mg tablet 05-31 00:00: 00 Yes [id number] 5 mg DAILY 5 mg TANGELA Y (route: oral) Med Classific ation: Central Nervous System Agents acetaminoph en 500 mg capsule 05-31 00:00: 00 12-01 23:59 :00 No [id number] 500 mg EVERY 6 HOURS 500 mg EVERY 6 HOURS (route: oral) Med Classific ation: Analgesic , Anti-infl ammatory or Antipyret ic allopurinol 300 mg tablet 05-31 00:00: 00 Yes [id number] 300 mg DAILY 300 mg DAILY (route: oral) Med Classific ation: Gout and Hyperuric emia Therapy folic acid 1 mg tablet 05-31 00:00: 00 Yes [id number] 1 mg DAILY 1 mg TANGELA Y (route: oral) Med Classific ation: Electroly te Balance-N utritiona l Products nifedipine ER 90 mg tablet,exte nded release 24 hr 05-31 00:00: 00 05-23 23:59 :00 No [id number] 90 mg DAILY 90 mg DAILY (route: oral) Med Classific ation: Cardiovas cular Therapy Agents Protonix 40 mg tablet,agustin yed release 05-31 00:00: 00 12-01 23:59 :00 No [id number] 40 mg DAILY 40 mg DAILY (route: oral) Med Classific ation: Gastroint estinal Therapy Agents quetiapine 50 mg tablet 05-31 00:00: 00 Yes [id number] 50 mg EVERY AM 50 mg EVERY AM (route: oral) Med Classific ation: Central Nervous System Agents quetiapine 300 mg tablet 05-31 00:00: 00 Yes [id number] 300 mg BEDTIME 300 mg BEDTIME (route: oral) Med Classific ation: Central Nervous System Agents trazodone 100 mg tablet 05-31 00:00: 00 12-01 23:59 :00 No [id number] 100 mg BEDTIME 100 mg BEDTIME (route: oral) Med Classific ation: Central Nervous System Agents Vitamin B-12 1,000 mcg tablet 05-31 00:00: 00 Yes [id number] 1000 mcg DAILY 1000 mcg DAILY (route: oral) Med Classific ation: Electroly te Balance-N utritiona l Products Wellbutrin XL 300 mg 24 hr tablet, extended release 05-31 00:00: 00 Yes [id number] 300 mg DAILY 300 mg DAILY (route: oral) Med Classific ation: Central Nervous System Agents Zoloft 100 mg tablet 05-31 00:00: 00 05-25 23:59 :00 No [id number] 100 mg BEDTIME 100 mg BEDTIME (route: oral) Med Classific ation: Central Nervous System Agents cephalexin 500 mg capsule 2019-03 00:00: 00 04-06 23:59 :00 No [id number] 500 mg EVERY 6 HOURS 500 mg EVERY 6 HOURS (route: oral) Med Classific ation: Anti-Infe ctive Agents doxycycline hyclate 100 mg capsule 2019-03 00:00: 00 04-06 23:59 :00 No [id number] 10 mg 2 TIMES DAILY 10 mg 2 TIMES DAILY (route: oral) Med Classific ation: Anti-Infe ctive Agents miconazole nitrate 2 % topical cream 04-03 00:00: 00 Yes [id number] Per instruc tions DAILY Per instructio ns DAILY (route: topical) Med Classific ation: Dermatolo gical ferrous sulfate 325 mg (65 mg iron) tablet 05-26 00:00: 00 Yes [id number] 325 mg DAILY 325 mg DAILY (route: oral) Med Classific ation: Electroly te Balance-N utritiona l Products Vitamin C 500 mg tablet 05-26 00:00: 00 12-01 23:59 :00 No [id number] 500 mg DAILY 500 mg DAILY (route: [...] WEEKLY.] Future Scheduled Test SKILLED NU RSE TO O/A OF PATIENTS MENTAL/BEHAVIORAL STATUS, ASSESS VITAL SIGNS NEEDED OR REQUESTED, ALLOW 2 PRNS FOR MEDICATION MANAGEMENT. [code = SKILLED NURSE TO O/A OF PATIENTS MENTAL/BEHAVIORAL STATUS, ASSESS VITAL SIGNS NEEDED OR REQUESTED, ALLOW 2 PRNS FOR MEDICATION MANAGEMENT.] Future Scheduled Test SKILLED NU RSE MAY PICKUP AND TRANSPORT MEDICATIONS [code = SKILLED NURSE MAY PICKUP AND TRANSPORT MEDICATIONS] Future Scheduled Test SKILLED NU RSE FOR O/A OF GENERAL HEALTH STATUS OF PAIN, CARDIAC, RESPIRATORY, GASTROINTESTINAL, GENITOURINARY, SKIN, NEUROLOGIC, ENDOCRINE SYSTEMS TO IDENTIFY CHANGES ASSOCIATED WITH EXACERBATION FOR EARLY INTERVENTION OF COMPLICATIONS WEEKLY. [code = SKILLED NURSE FOR O/A OF GENERAL HEALTH STATUS OF PAIN, CARDIAC, RESPIRATORY, GASTROINTESTINAL, GENITOURINARY, SKIN, NEUROLOGIC, ENDOCRINE SYSTEMS TO IDENTIFY CHANGES ASSOCIATED WITH EXACERBATION FOR EARLY INTERVENTION OF COMPLICATIONS WEEKLY.] Future Scheduled Test SKILLED NU RSE [...] Future Scheduled Test SKILLED NU RSE TO REVIEW PATIENT MEDICATIONS. INSTRUCT PATIENT/CAREGIVER ON MONITORING OF EFFECTIVENESS, ADVERSE DRUG REACTIONS, SIDE EFFECTS OF ALL MEDICATIONS (PRESCRIPTION/-OTC), AND HOW AND WHEN TO REPORT PROBLEMS. [code = SKILLED NURSE TO REVIEW PATIENT MEDICATIONS. INSTRUCT PATIENT/CAREGIVER ON MONITORING OF EFFECTIVENESS, ADVERSE DRUG REACTIONS, SIDE EFFECTS OF ALL MEDICATIONS (PRESCRIPTION/-OTC), AND HOW AND WHEN TO REPORT PROBLEMS.] Future Scheduled Test SKILLED NU RSE FOR O/A OF CLIENT'S SOCIAL ISOLATION AND PROVIDE ASSISTANCE TO CLIENT IN DEVELOPMENT OF PLANNED ACTIVITIES [code = SKILLED NURSE FOR O/A OF CLIENT'S SOCIAL ISOLATION AND PROVIDE ASSISTANCE TO CLIENT IN DEVELOPMENT OF PLANNED ACTIVITIES] Future Scheduled Test SKILLED NU RSE TO [...] SERVICES.] Future Scheduled Test SKILLED NU RSE WILL MAINTAIN SITUATIONAL AWARENESS FOR SAFETY AND WILL NOTIFY CLINICAL LABORER [employer] AND PHYSICIAN/PROVIDER WITH ANY CHANGE IN CONDITION. [code = SKILLED NURSE WILL MAINTAIN SITUATIONAL AWARENESS FOR SAFETY AND WILL NOTIFY CLINICAL LABORER [employer] AND PHYSICIAN/PROVIDER WITH ANY CHANGE IN CONDITION.] Goal 2023-01-27 Patient Goal - T O [...] CARE WILL BE ESTABLISHED THAT MEETS PATIENT'S HALFWAY NEEDS AND INCLUDES PATIENT GOAL FOR HOME HEALTH. Goal Provider Goal - PATIENT WILL COMPLY WITH MEDICATION WHEN SKILLED NURSE PRE-POURS MEDICATION THROUGHOUT CERTIFICATION PERIOD. Goal Provider Goal - ALTERED MENTAL/BEHAVIORAL STATUS WILL BE IDENTIFIED PROMPTLY AND INTERVENTION INITIATED QUICKLY TO MINIMIZE ASSOCIATED RISKS THROUGHOUT CERTIFICATION PERIOD. Goal Provider Goal - SKILLED NURSE PICKED UP AND TRANSPORTED MEDICATIONS FOR SAFETY. Goal Provider Goal - CHANGE IN GENERAL HEALTH STATUS WILL BE IDENTIFIED AND REPORTED TO PHYSICIAN FOR PROMPT INTERVENTION TO MINIMIZE ASSOCIATED RISKS THROUGHOUT CERTIFICATION PERIOD. Goal Provider Goal - PATIENT WILL REMAIN SAFE WITHOUT DECOMPENSATION IN DEPRESSIVE CONDITION, WHILE MAINTAINING OPTIMAL LEVEL OF MENTAL HEALTH AND WELL BEING THROUGHOUT CERTIFICATION PERIOD. Goal Provider Goal - PATIENT/CAREGIVER WILL VERBALIZE UNDERSTANDING OF EDUCATION PROVIDED ON MEDICATIONS BY THE END OF THE CERTIFICATION PERIOD. Goal Provider Goal - PATIENT WILL DEMONSTRATE AN INCREASED INTEREST IN SOCIALIZATION AND ACTIVITIES BY THE END OF THE CERTIFICATION PERIOD. Goal Provider Goal - PSYCHOSOCIAL NEEDS WILL BE IDENTIFIED AND PLAN IMPLEMENTED TO MINIMIZE RISK THROUGHOUT CERTIFICATION PERIOD. Goal Provider Goal - PATIENT WILL REMAIN SAFE IN THE COMMUNITY AND WILL BE FREE OF DANGER TO SELF AND OTHERS THROUGHOUT THE CERTIFICATION PERIOD. Progress Notes Progress Notes <paragraph>[Visit Date: 2024 by LETY ALBERT RN]:</paragraph><paragraph>SUZANNE IS DOING WELL. HE IS TAKING [employer]IVERS ED CLASSES TO GET HIS LICENSE AND IS KEEPI G HIS APARTMENT RELATIVELY CLEAN. COMPLIANT WITH MEDS.</paragraph> Encounters Start Date/Time End Date/Time Encounter Type Admission Type Attending [facility] Care [facility] Care Department Encounter ID Discharge Date Discharge Status Discharge Condition Discharge Reason Percent Goals Met 2024-07-24 00:00:00 2024-09-21 00:00:00 Outpatient RECERTIFIC ATLETY KAY [facility] [id number] 4.00
[2024-08-05 11:35] LABS: MANUAL DIFF FLAG NO
[2024-08-05 11:36] LABS: Basophils Absolute Auto 0.1 X10*3/uL (0.0-0.2); Basophils Percent Auto 0.7 % (0-2); Hematocrit 37.5 % (42.0-52.0); Hemoglobin 12.5 g/dl (14.0-18.0); Imm Gran Abs Auto 0.03 X10*3/uL (0.00-0.03); Imm Gran Pct Auto 0.3 % (0.0-0.4); Mean Corpuscular HGB Conc 33.3 g/dl (31.0-36.0); Mean Corpuscular Hemoglobin 25.8 pg (27.0-33.0); Mean Corpuscular Volume 77.5 fL (80.0-98.0); Mean Platelet Volume 8.6 fL (9.4-12.4); Monocytes Absolute Auto 0.9 X10*3/uL (0.1-1.2); Neutrophils Absolute Auto 6.5 x10*3/uL (2.0-8.3); Platelet Count 232 X10*3/uL (160-400); Red Blood Count 4.84 X10*6/uL (4.60-5.80); White Blood Count 9.5 X10*3/uL (4.8-10.8)
[2024-08-05 11:50] LABS: Lactic Acid 1.4 mmol/L (0.5-2.0)
[2024-08-05 11:54] LABS: Appearance Urine Clear; Color Urine Yellow; Glucose Urine UA Negative (Negative); Leukocyte Esterase Urine Negative (Negative); Nitrite Urine Negative (Negative); PH 5.5 (5.0-9.0); Urine Blood Negative (Negative); Urine Ketones Negative (Negative); Urine Protein Negative (Neg-Trace)
[2024-08-05 11:54] LABS: Alanine Aminotransferase 9 U/L (0-40); Albumin Level 3.7 g/dL (3.5-5.0); Alkaline Phosphatase 101 U/L (39-117); Anion Gap 15 (12-20); Aspartate Amino Transferase 16 U/L (5-37); Bilirubin Total 0.4 mg/dL (0.0-1.0); Blood Urea Nitrogen 25 mg/dL (9-16); C Reactive Protein 4.94 mg/dL (< or = 0.50); Calcium 9.2 mg/dL (8.4-10.2); Carbon Dioxide 18 mmol/L (22-29); Chloride 107 mmol/L (96-108); Creatinine Clr Calc Pharmacy 104.8; Estimated Glomerular Filt Rate > 60; Glucose Random 93 mg/dL (60-115); Magnesium 2.2 mg/dL (1.6-2.6); Potassium 3.7 mmol/L (3.3-5.1); Sodium 136 mmol/L (135-145); Total Protein 7.1 g/dL (6.5-8.0)
[2024-08-05 12:16] LABS: Erythrocyte Sedimentation Rate 37 MM/HR (0-15)
[2024-08-05] MEDS: Nystatin Powder 15 GM BOTTLE 1 APPL TOPICAL (12:19)
[2024-08-05] MEDS: Piperacillin Sodium/Tazobactam 4.5 GM in 0.9 % Sodium Chloride 100 ML IV (12:20)
[2024-08-05] MEDS: 0.9 % Sodium Chloride 1,000 ML 999 ML IV (12:20)
[2024-08-05] MEDS: vancomycin/NS 2,000 MG/500 ML PLAST..BAG 250 MG IV (12:20)
--- NOTE | 2024-08-05 12:42 | P.HPHOSP_ITS ---
History of Present Illness Date of Service: 08/05/24 Chief Complaint: fever 59M PMH pruritus ani, peripheral vascular disease, morbid obesity, mood disorder, hypertension presented with fevers at home. Patient has had several months of pruritic rash perianal area but reports worsening over the last several days. He has been treated with topical antifungals and antibiotics with no improvement. He wears depends but not for incontinence just to catch drainage from rash. On day of presentation started complaining of subjective fevers at home. Denies chest pain, nausea, vomiting, abdominal pain, shortness of breath, worsening edema. Review of Systems 2 Review of Systems: Yes all other systems are reviewed and are negative [facility] Medical History Lumbosacral spondylosis with radiculopathy Myofascial pain Anxiety and depression Chronic low back pain Sacral ulcer Degenerative disc disease Obesity Anemia GERD (gastroesophageal reflux disease) Gout Tubular adenoma of colon Folic acid deficiency Asthma Hypertension Family History Mother Diabetes Hypertension Stroke Father Medical history unknown Sister Hypertension Diabetes Paternal Grandmother Myocardial infarction Daughter In good health Sister No problems noted. Brother No problems noted. Surgical History History of colonoscopy H/O knee surgery Social History Housing: [facility] Alcohol intake: former Comment: 0nce a week 4 drinks Patient Tobacco Use Status: Former Tobacco user Years Smoked: quit 2004 4-5 cigarettes a day e-Cigarette/Vaping Use: Never Used Second Hand Smoke Exposure: Yes Substance Use Type: Marijuana Advance Directives: No Advance Directives Information Provided: No Do you have a plan to hurt others: No Plan service: No Current occupational status: employed Cognitive needs: No Hearing needs: No Vision needs: No Meds Allergies Allergy/AdvReac Type Severity Reaction Status Date / Time pollen extracts [POLLEN] Allergy Mild RUNNY NOSE Verified 08/05/24 11:11 house dust Allergy Unknown Sniffles Verified 08/05/24 11:11 Active Medications: Current Medications Acetaminophen (Acetaminophen 325 Mg Tablet) 650 mg PO Q6H PRN PRN Reason: Pain, Mild 1-3,fever,headache Calcium Carbonate (Calcium Carbonate 750 Mg Tab.Chew) 750 mg PO Q4H PRN PRN Reason: Heartburn Vancomycin HCl (Vancomycin/Ns) 2,000 mg in 500 mls @ 250 mls/hr IV ONCE ONE Stop: 08/05/24 13:53 Last Admin: 08/05/24 12:20 Dose: 250 mls/hr Sodium Chloride (Ns) 1,000 mls @ 999 mls/hr IV .Q1H1M [facility] Stop: 08/05/24 13:00 Last Admin: 08/05/24 12:20 Dose: 999 mls/hr Magnesium Hydroxide (Milk Of Magnesia 30 Ml Oral.Susp) 30 ml PO DAILY PRN PRN Reason: Constipation Melatonin (Melatonin 3 Mg Tablet) 6 mg PO BEDTIME PRN PRN Reason: Insomnia Sodium Chloride (0.9 % Sodium Chloride Flush 3 Ml Syringe) 3 ml IVFLUSH QSHIFT [facility] Home Medications ?Medication ?Instructions ?Recorded ?Confirmed ?Last Taken ?Type aripiprazole 5 mg tablet (Abilify) 5 mg PO DAILY 04/08/20 05/17/24 Unknown History bupropion HCl 300 mg 24 hr tablet, 300 mg PO QAM 04/08/20 05/17/24 Unknown History extended release (Wellbutrin XL) loratadine 10 mg tablet 10 mg PO DAILY 04/08/20 05/17/24 Unknown History quetiapine 300 mg tablet (Seroquel) 300 mg PO BEDTIME 04/08/20 05/17/24 Unknown History sertraline 100 mg tablet (Zoloft) 200 mg PO DAILY 04/08/20 05/17/24 Unknown History trazodone 100 mg tablet 200 mg PO BEDTIME 04/08/20 05/17/24 Unknown History quetiapine 50 mg tablet (Seroquel) 50 mg PO DAILY 05/06/21 05/17/24 Unknown History Physical Exam 2 Vital Signs and Narrative: Vital Signs: Last Vital Signs Temp 98.1 F 08/05/24 11:09 Pulse 79 08/05/24 11:09 Resp 18 08/05/24 11:09 BP 118/83 08/05/24 11:09 Pulse Ox 98 08/05/24 11:09 O2 Del Method Room Air 08/05/24 11:09 BMI result Body Mass Index 42.2 General: AO X 3, no acute distress Resp: CTA bilateral, no accessory muscles used CVS: S1,S2,RRR GI: soft, non tender, non distended Neuro: motor grossly intact, alert Psych: appropriate affect, appropriate insight Perianal rash as pictured in ED note Results Labs 08/05/24 11:24 08/05/24 11:24 Labs: Laboratory Results - last 24 hr 08/05/24 08/05/24 11:24 11:35 MCV 77.5 L MCH 25.8 L MCHC 33.3 RDW 15.0 Plt Count 232 MPV 8.6 L Immature Gran % (Auto) 0.3 Neut % (Auto) 69.0 Lymph % (Auto) 21.0 [place] % (Auto) 9.0 Eos % (Auto) 0.0 Baso % (Auto) 0.7 Lymph # (Auto) 2.0 [place] # (Auto) 0.9 Eos # (Auto) 0.0 Baso # (Auto) 0.1 Abs Immat Gran (auto) 0.03 Absolute Neuts (auto) 6.5 Absolute Nucleated RBC 0.000 Nucleated RBC % (auto) 0.0 ESR 37 H Anion Gap 15 Estim Creat Clear Calc 104.8 Estimated GFR > 60 Random Glucose 93 Lactic Acid 1.4 Calcium 9.2 Magnesium 2.2 Total Bilirubin 0.4 AST 16 ALT 9 Alkaline Phosphatase 101 C-Reactive Protein 4.94 H Total Protein 7.1 Albumin 3.7 Urine Color Yellow Urine Appearance Clear Urine pH 5.5 Ur Specific [place] 1.010 Urine Protein Negative Urine Glucose (UA) Negative Urine Ketones Negative Urine Blood Negative Urine Nitrite Negative Ur Leukocyte Esterase Negative Assessment and Plan (1) Hypertension: Qualifiers: Hypertension type: essential hypertension Qualified Code(s): I10 - Essential (primary) hypertension Status: Acute Plan 59M PMH pruritus ani, peripheral vascular disease, morbid obesity, mood disorder, hypertension presented with fevers at home Pruritus ani with superimposed cellulitis Topical barrier cream and antifungal. IV vancomycin and Zosyn, follow up culture wound care morbid obesity weight loss mood disorder continue antipsychotics htn losartan dvt prophylaxis - lovenox full code Patient has cellulitis in a high-risk area therefore expected to require at least 2 midnights inpatient to received IV antibiotics to prevent progression to [place]'s Quality Stroke Does the patient have a stroke diagnosis?: No VTE Prior VTE?: No VTE Risk Level:: Medical - moderate - high VTE Device Contraindication: Treatment Not Indicated VTE Drug Contraindication: N/A - Med Ordered
[2024-08-05 12:52] VITALS: BP 109/60; PULSE 67; RESP 18; TEMP 36.4; O2SAT 98
--- NOTE | 2024-08-05 12:57 | PHA.PROG ---
Admission Date/Time: August 05, 2024 12:32 Indication: other (skin) Weight in k kg Adjusted body weight in K.92 [place] body weight in K.2 Obesity Dosing Indication % IBW:42.2 Serum Creatinine - Last 168 Hours 08/05/24 11:24 Creatinine 1.14 Estimated CrCl and GFR - Last 168 Hours 08/05/24 11:24 Estim Creat Clear Calc 104.8 Estimated GFR > 60 Vancomycin Loading Dose: 2000 mg Current Vancomycin Dosing Regimen:1250 q12 Vancomycin Monitoring using AUC goal of 400 - 600 range with trough as surrogate marker:544 Date and Time for next Vancomycin Level to be drawn:08/06 @2100 Pharmacist Comments on Vancomycin Plan: appropriate load given in ED. May need to adjust dosing down after first trough. Vancomycin dosing will take advantage of [employer] as a clinical decision support tool that uses Bayesian modeling to calculate individual patient's pharmacokinetic parameters and forecast the patient's drug concentration time course with the target goal AUC 24 range of 400 - 600 mg/L/hr.
--- NOTE | 2024-08-05 14:25 | PHA.MEDREC ---
Addendum entered by Stefanie Chin RPh 08/05/24 14:35: reviewed by [facility]. Original Note: Pharmacy Consult ? Medication Reconciliation Pharmacy has completed the medication reconciliation. Spoke with patient. He was only able to confirm OTC tylenol and claritin, both as needed. He said he has a VNA that sets up reminders for his blister pack medications from [facility]. He did not have a phone number for his VNA. Used claim history to confirm medications. Patient reports he still has anitbiotics at home and takes them as prescribed (filled 07/23 x7 DS). Patient said he's been using the calmoseptine ointment at home but unable to see on claims. He reports taking his morning medications today only.
[2024-08-05] MEDS: Zinc Oxide 20% Ointment 28.35 GM TUBE 1 APPL TOPICAL (14:52)
[2024-08-05 14:59] VITALS: BP 114/57; PULSE 56; RESP 16; TEMP 36.5; O2SAT 98
[2024-08-05] MEDS: Piperacillin Sodium/Tazobactam 3.375 GM in 0.9 % Sodium Chloride 50 ML IV (17:14)
[2024-08-05 17:15] VITALS: BP 154/80; PULSE 51; RESP 18; TEMP 36.5; O2SAT 98
[2024-08-05 20:00] VITALS: BP 130/64; PULSE 61; RESP 16; TEMP 36.8; O2SAT 97
[2024-08-05] MEDS: traZODone HCL 100 MG TABLET 200 MG PO (21:01)
[2024-08-05] MEDS: QUEtiapine Fumarate 300 MG TABLET PO (21:01)
[2024-08-05] MEDS: Nystatin Cream 15 GM TUBE 1 APPL TOPICAL (21:02)
[2024-08-05] MEDS: Acetaminophen 325 MG TABLET 650 MG PO (21:08)
[2024-08-05] MEDS: vancomycin HCL 1,250 MG in 0.9 % Sodium Chloride 250 ML 166.67 MG IV (23:15)
[2024-08-05] MEDS: 0.9 % Sodium Chloride Flush 3 ML SYRINGE IVFLUSH (23:17)
[2024-08-06] MEDS: Piperacillin Sodium/Tazobactam 3.375 GM in 0.9 % Sodium Chloride 50 ML IV ×4 (00:45→17:07)
[2024-08-06 03:45] VITALS: BP 113/67; PULSE 51; RESP 18; TEMP 36.7; O2SAT 98
[2024-08-06] MEDS: Omeprazole 20 MG CAPSULE.DR PO (06:00)
[2024-08-06 06:48] LABS: Hematocrit 33.1 % (42.0-52.0); Mean Corpuscular HGB Conc 33.2 g/dl (31.0-36.0); Mean Corpuscular Hemoglobin 25.9 pg (27.0-33.0); Mean Corpuscular Volume 78.1 fL (80.0-98.0); Platelet Count 199 X10*3/uL (160-400); Red Blood Count 4.24 X10*6/uL (4.60-5.80); Red Cell Distribution Width 15.2 % (11.0-16.0); White Blood Count 6.5 X10*3/uL (4.8-10.8)
[2024-08-06 06:59] LABS: Anion Gap 12 (12-20); Blood Urea Nitrogen 16 mg/dL (9-16); Calcium 8.8 mg/dL (8.4-10.2); Carbon Dioxide 23 mmol/L (22-29); Chloride 108 mmol/L (96-108); Creatinine Clr Calc Pharmacy 153.2; Estimated Glomerular Filt Rate > 60; Glucose Random 105 mg/dL (60-115); Potassium 3.3 mmol/L (3.3-5.1); Sodium 140 mmol/L (135-145)
[2024-08-06 07:20] VITALS: BP 125/59; PULSE 61; RESP 17; TEMP 36.8; O2SAT 98
[2024-08-06] MEDS: Nystatin Cream 15 GM TUBE 1 APPL TOPICAL ×2 (08:20→21:07)
[2024-08-06] MEDS: 0.9 % Sodium Chloride Flush 3 ML SYRINGE IVFLUSH ×3 (08:20→22:31)
[2024-08-06] MEDS: Enoxaparin Sodium 40 MG/0.4 ML SYRINGE SUBCUT (08:21)
[2024-08-06] MEDS: Cyanocobalamin (Vitamin B-12) 1,000 MCG TABLET 1000 MCG PO (08:22)
[2024-08-06] MEDS: ARIPiprazole 5 MG TABLET PO (08:22)
[2024-08-06] MEDS: allopurinoL 300 MG TABLET PO (08:22)
[2024-08-06] MEDS: QUEtiapine Fumarate 50 MG TABLET PO (08:22)
[2024-08-06] MEDS: Folic Acid 1 MG TABLET PO (08:22)
[2024-08-06] MEDS: Sertraline HCL 100 MG TABLET 200 MG PO (08:22)
[2024-08-06] MEDS: buPROPion HCl XL 300 MG TAB.ER.24H PO (08:22)
[2024-08-06] MEDS: Losartan Potassium 25 MG TABLET PO (08:22)
--- NOTE | 2024-08-06 08:42 | P.PNIM_ITS ---
Subjective Subjective Date of Service: 08/06/24 Interval History: still with pain, irritation Physical Exam 2 Vital Signs: Vital Signs: Last Vital Signs Temp 98.2 F 08/06/24 07:20 Pulse 61 08/06/24 07:20 Resp 17 08/06/24 07:20 BP 125/59 L 08/06/24 07:20 Pulse Ox 98 08/06/24 07:20 O2 Del Method Room Air 08/06/24 07:20 BMI result Body Mass Index 42.2 General: AO X 3, no acute distress Resp: CTA bilateral, no accessory muscles used CVS: S1,S2,RRR GI: soft, non tender, non distended Neuro: motor grossly intact, alert Psych: appropriate affect, appropriate insight Perianal rash as pictured in ED note Objective Data Active Medications Acetaminophen (Acetaminophen 325 Mg Tablet) 650 mg PO Q6H PRN PRN Reason: Pain, Mild 1-3,fever,headache Last Admin: 08/05/24 21:08 Dose: 650 mg Documented By: TIMUR Allopurinol (Allopurinol 300 Mg Tablet) 300 mg PO DAILY [facility] Last Admin: 08/06/24 08:22 Dose: 300 mg Documented By: SHANNON Aripiprazole (Aripiprazole 5 Mg Tablet) 5 mg PO DAILY [facility] Last Admin: 08/06/24 08:22 Dose: 5 mg Documented By: SHANNON Bupropion HCl (Bupropion Hcl Xl 300 Mg Tab.Er.24h) 300 mg PO DAILY [facility] Last Admin: 08/06/24 08:22 Dose: 300 mg Documented By: SHANNON Calcium Carbonate (Calcium Carbonate 750 Mg Tab.Chew) 750 mg PO Q4H PRN PRN Reason: Heartburn Cyanocobalamin (Cyanocobalamin (Vitamin B-12) 1,000 Mcg Tablet) 1,000 mcg PO DAILY [facility] Last Admin: 08/06/24 08:22 Dose: 1,000 mcg Documented By: SHANNON Enoxaparin Sodium (Enoxaparin Sodium 40 Mg/0.4 Ml Syringe) 40 mg SUBCUT Q24H [facility] Last Admin: 08/06/24 08:21 Dose: 40 mg Documented By: SHANNON Folic Acid (Folic Acid 1 Mg Tablet) 1 mg PO DAILY [facility] Last Admin: 08/06/24 08:22 Dose: 1 mg Documented By: SHANNON Piperacillin Sod/Tazobactam (Sod 3.375 gm/ Sodium Chloride) 50 mls @ 100 mls/hr IV Q6H [facility] Last Infusion: 08/06/24 06:31 Dose: Infused Documented By: TIMUR Vancomycin HCl 1,250 mg/ (Sodium Chloride) 250 mls @ 166.667 mls/hr IV Q12H [facility] Last Infusion: 08/06/24 00:45 Dose: Infused Documented By: TIMUR Loratadine (Loratadine 10 Mg Tablet) 10 mg PO DAILY PRN PRN Reason: Allergy Symptoms Losartan Potassium (Losartan Potassium 25 Mg Tablet) 25 mg PO DAILY [facility]; Protocol Last Admin: 08/06/24 08:22 Dose: 25 mg Documented By: SHANNON Magnesium Hydroxide (Milk Of Magnesia 30 Ml Oral.Susp) 30 ml PO DAILY PRN PRN Reason: Constipation Melatonin (Melatonin 3 Mg Tablet) 6 mg PO BEDTIME PRN PRN Reason: Insomnia Non-Formulary Medication (Terbinafine Hcl) 250 mg PO DAILY [facility] Nystatin (Nystatin Cream 15 Gm Tube) 1 appl TOPICAL BID [facility]; Protocol Last Admin: 08/06/24 08:20 Dose: 1 appl Documented By: SHANNON Omeprazole (Omeprazole 20 Mg Capsule.Dr) 20 mg PO DAILY@0630 [facility] Last Admin: 08/06/24 06:00 Dose: 20 mg Documented By: TIMUR Pharmacy Consult (Consult Rx Vancomycin Dosing) 1 each MISCELLANE DAILY PRN PRN Reason: Consult order Quetiapine Fumarate (Quetiapine Fumarate 300 Mg Tablet) 300 mg PO BEDTIME [facility] Last Admin: 08/05/24 21:01 Dose: 300 mg Documented By: TIMUR Quetiapine Fumarate (Quetiapine Fumarate 50 Mg Tablet) 50 mg PO DAILY [facility] Last Admin: 08/06/24 08:22 Dose: 50 mg Documented By: SHANNON Sertraline HCl (Sertraline Hcl 100 Mg Tablet) 200 mg PO DAILY [facility] Last Admin: 08/06/24 08:22 Dose: 200 mg Documented By: SHANNON Sodium Chloride (0.9 % Sodium Chloride Flush 3 Ml Syringe) 3 ml IVFLUSH QSHIFT [facility] Last Admin: 08/06/24 08:20 Dose: 3 ml Documented By: SHANNON Trazodone HCl (Trazodone Hcl 100 Mg Tablet) 200 mg PO BEDTIME DONAL[facility] Last Admin: 08/05/24 21:01 Dose: 200 mg Documented By: TIMUR Zinc Oxide (Zinc Oxide 20% Ointment 28.35 Gm Tube) 1 appl TOPICAL TID DONALDO; Protocol Last Admin: 08/05/24 21:11 Dose: Not Given Documented By: TIMUR Non-Admin Reason: not available Labs 08/06/24 05:27 08/06/24 05:27 Labs: Laboratory Results - last 24 hr 08/05/24 08/05/24 08/06/24 11:24 11:35 05:27 MCV 77.5 L 78.1 L MCH 25.8 L 25.9 L MCHC 33.3 33.2 RDW 15.0 15.2 Plt Count 232 199 MPV 8.6 L 9.0 L Immature Gran % (Auto) 0.3 Neut % (Auto) 69.0 Lymph % (Auto) 21.0 [place] % (Auto) 9.0 Eos % (Auto) 0.0 Baso % (Auto) 0.7 Lymph # (Auto) 2.0 [place] # (Auto) 0.9 Eos # (Auto) 0.0 Baso # (Auto) 0.1 Abs Immat Gran (auto) 0.03 Absolute Neuts (auto) 6.5 Absolute Nucleated RBC 0.000 0.000 Nucleated RBC % (auto) 0.0 0.0 ESR 37 H Anion Gap 15 12 Estim Creat Clear Calc 104.8 153.2 Estimated GFR > 60 > 60 Random Glucose 93 105 Lactic Acid 1.4 Calcium 9.2 8.8 Magnesium 2.2 Total Bilirubin 0.4 AST 16 ALT 9 Alkaline Phosphatase 101 C-Reactive Protein 4.94 H Total Protein 7.1 Albumin 3.7 Urine Color Yellow Urine Appearance Clear Urine pH 5.5 Ur Specific [place] 1.010 Urine Protein Negative Urine Glucose (UA) Negative Urine Ketones Negative Urine Blood Negative Urine Nitrite Negative Ur Leukocyte Esterase Negative Assessment and Plan (1) Pruritus ani: Status: Acute Plan 59M PMH pruritus ani, peripheral vascular disease, morbid obesity, mood disorder, hypertension presented with fevers at home Pruritus ani with superimposed cellulitis Topical barrier cream and antifungal. continue IV vancomycin and Zosyn, follow up culture wound care morbid obesity weight loss mood disorder continue antipsychotics htn losartan dvt prophylaxis - lovenox full code reason for continued hospitalization:iv abx, wound care Quality Stroke Does the patient have a stroke diagnosis?: No VTE Prior VTE?: No VTE Risk Level:: Medical - moderate - high VTE Device Contraindication: Treatment Not Indicated VTE Drug Contraindication: N/A - Med Ordered
[2024-08-06] MEDS: Zinc Oxide 20% Ointment 28.35 GM TUBE 1 APPL TOPICAL ×3 (09:26→21:07)
[2024-08-06] MEDS: Potassium Chloride ER 20 MEQ TAB.ER.PRT 40 MEQ PO (09:26)
--- NOTE | 2024-08-06 09:48 | MHC.CM.PN ---
PT LIVES ALONE LIVES IN A [facility]D MANAGED HOME PT HAS OWN TRANSPORTATION WHEN DCD
[2024-08-06] MEDS: Acetaminophen 325 MG TABLET 650 MG PO (10:33)
[2024-08-06] MEDS: vancomycin HCL 1,250 MG in 0.9 % Sodium Chloride 250 ML 166.67 MG IV ×2 (10:34→22:26)
--- NOTE | 2024-08-06 13:18 | MHC.CM.PN ---
PT LIVES ALONE HAS CHORE SERIXE 8 HRS A WEEK AND HOMEMAKER 3 HRS A WEEK PT IS ALSOMACTIVE W/KRISTAN PT RESIDEN [facility]D APT HE WILL ARRANGE FOR HIS OWN RIDE HOME
--- NOTE | 2024-08-06 14:23 | MHC.CM.PN ---
per rounds pt is not imminent going forward with guardianship
[2024-08-06 16:00] VITALS: BP 116/65; PULSE 67; RESP 18; TEMP 36.4; O2SAT 98
--- NOTE | 2024-08-06 16:10 | HO.WOUND ---
Wound Consult: Initial 59yr old? admitted to [facility] on 08/05/24 - See progress notes and H&P for detailed history.? Wound consult placed for Buttock, and Perineal area.? Patient agreeable to assessment and photo documentation.? Patient chart reviewed - patient was seen in ED recently for similar symptoms to buttock perineal area. The skin was assessed - this appears to be MASD - the patient denies incontinence however he reports he wears a brief / diaper at home as well as he was noted to be in one during my assessment. He was questioned about incontinence level and he denies but reports he wears a brief incase he does not make it to the bathroom. Although it remains unclear after skin assessment I suspect the are is MASD (Moisture Associated Skin Damage ) - Incontinence Associated Dermatitis. Buttock on admission Etiology: ??MASD-IAD Present on Admission - overall appears improving Wound Bed: red pink moist tissue with mirrored edges, scattered areas open partial tissue loss Drainage / Odor: none noted Edges: ? mirrored and attached Verito wound: intact ? No Induration, Fluctuance or Warmth noted Pain: pain reported at time of my assessment and with palpation Goals of Treatment: ? Continue with Zinc or TRiad to topical treatment - discontinue brief while inpatient. Recommendations: 1. Turn and Reposition every 2 hours and as needed for patient comfort.? Use pillows or wedges to support off loading positions. 2. Off Load all bony prominences with use of pillows and heel boots if needed.? Apply Preventative foams where needed. ? 3. Monitor for incontinence and moisture control, use barrier creams when needed for prevention and treatment. 4. Provide adequate and supplemental nutrition.? 5. Order low air loss mattress. 6. When applicable maintain blood glucose levels per Providers order. Buttock, Perineal and Scrotum - Off Load Pressure with Q2 hr turns and use of pillows - Cleanse with PH balance spray or wipes, pat dry. ?Apply thin layer of barrier cream to affected area.? Apply twice daily and Reapply thin layer PRN after each episode of incontinence. Re-consult wound care Nurse for wound deterioration or wound changes.
[2024-08-06 20:00] VITALS: BP 132/58; PULSE 55; RESP 18; TEMP 36.6; O2SAT 98
[2024-08-06] MEDS: QUEtiapine Fumarate 300 MG TABLET PO (21:06)
[2024-08-06] MEDS: traZODone HCL 100 MG TABLET 200 MG PO (21:06)
[2024-08-06 21:16] LABS: Vancomycin Random 14.2 mcg/mL (15-20)
--- NOTE | 2024-08-07 | ECG_ITS ---
Test Reason : bradycardia Blood Pressure : */* mmHG Vent. Rate : 41 BPM Atrial Rate : 41 BPM P-R Int : 166 ms QRS Dur : 104 ms QT Int : 500 ms P-R-T Axes : 10 17 25 degrees QTcB Int : 412 ms Marked sinus bradycardia with sinus arrhythmia Abnormal ECG When compared with ECG of 05-May-2024 11:57, Vent. rate has decreased by 30 bpm Nonspecific T wave abnormality no longer evident in Anterior leads Referred By: Jose Castillo Electronically Signed By: RAYNA LOVELL MD
[2024-08-07] MEDS: Piperacillin Sodium/Tazobactam 3.375 GM in 0.9 % Sodium Chloride 50 ML IV ×2 (00:03→05:35)
[2024-08-07 02:58] VITALS: BP 126/60; PULSE 51; RESP 16; TEMP 36.2; O2SAT 94
[2024-08-07] MEDS: Omeprazole 20 MG CAPSULE.DR PO (05:23)
[2024-08-07 06:13] LABS: Creatinine Clr Calc Pharmacy 151.2; Estimated Glomerular Filt Rate > 60
[2024-08-07 07:51] VITALS: BP 130/70; PULSE 49; TEMP 36.1; O2SAT 93
--- NOTE | 2024-08-07 09:09 | PM.DS ---
DS: Providers Provider Date of Service: 08/07/24 Date of admission: 08/05/24 12:32 Date of discharge: 08/07/24 Primary care physician: Joey Jaimes MD Consults: 08/05/24 12:40 Consult to Wound Care Routine Reason for consultation: perianal irritation, draining lesions DS: Diagnosis Discharge Diagnosis (1) Pruritus ani: Status: Acute DS: Summary Hospital Course Hospital Course: from initial hpi: 59M PMH pruritus ani, peripheral vascular disease, morbid obesity, mood disorder, hypertension presented with fevers at home. Patient has had several months of pruritic rash perianal area but reports worsening over the last several days. He has been treated with topical antifungals and antibiotics with no improvement. He wears depends but not for incontinence just to catch drainage from rash. On day of presentation started complaining of subjective fevers at home. Denies chest pain, nausea, vomiting, abdominal pain, shortness of breath, worsening edema. hospital course: Patient was admitted for pruritus ani with superimposed cellulitis. Was treated with topical barrier cream and antifungal as well as IV vancomycin and Zosyn. Cultures were negative. Was seen by wound care who felt this was primarily moisture associated skin damage and recommended cleaning with pH balanced wipes and barrier cream and avoiding depends. Skin erythema improved and patient will be discharged home on 5 more days of doxycycline and Keflex and continue wound care at home. For morbid obesity weight loss recommended. For mood disorder was continued antipsychotics. For hypertension was continued on losartan. Time Attestation Discharge Coordination Time (in mins): 34 Quality: Safe Use of Opioids Does Pt have an Active Cancer Diagnosis on the Problem List?: No Quality: Stroke Does the patient have a stroke diagnosis?: No Physical Exam Vital Signs: Vital Signs: Last Vital Signs Temp 97.0 F 08/07/24 07:51 Pulse 49 L 08/07/24 07:51 Resp 16 08/07/24 02:58 BP 130/70 08/07/24 07:51 Pulse Ox 93 08/07/24 07:51 O2 Del Method Room Air 08/07/24 07:51 BMI result Body Mass Index 42.2 General: AO X 3, no acute distress Resp: CTA bilateral, no accessory muscles used CVS: S1,S2,RRR GI: soft, non tender, non distended Neuro: motor grossly intact, alert Psych: appropriate affect, appropriate insight Perianal rash as pictured in ED note DS: Data Data Completed and Pending Labs on day of discharge: Laboratory Results - last 24 hr 08/06/24 08/07/24 20:54 05:16 Creatinine 0.79 Estim Creat Clear Calc 151.2 Estimated GFR > 60 Random Vancomycin 14.2 L Preliminary micro results at discharge 08/05/24 11:34 Blood Culture - Preliminary Blood - Venous No growth after 24 hours. 08/05/24 11:24 Blood Culture - Preliminary Blood - Venous No growth after 24 hours. Discharge Plan Discharge Anticipated Discharge Date/Time: 08/07/24 08:34 Patient Disposition: Home, Self-Care Discharge Diagnosis: cellulitis, MASD Referrals: Po,Joey Hampton MD [Primary Care Provider] - 1 Week Discharge Medications: New zinc oxide 20 % Ointment 1 appl topical TID Qty: 500 0RF Protocol: Apply to: Apply to: perirectal area Continued pantoprazole 40 mg tablet,delayed release (DR/EC) 40 mg PO DAILY 90 Days Qty: 90 2RF ferrous sulfate [Feosol] 325 mg (65 mg iron) tablet 325 mg PO DAILY Qty: 90 0RF folic acid 1 mg tablet 1 mg PO DAILY Qty: 90 3RF cyanocobalamin (vitamin B-12) [Vitamin B-12] 1,000 mcg tablet 1,000 mcg PO DAILY Qty: 90 1RF terbinafine HCl 250 mg tablet 250 mg PO DAILY 84 Days Qty: 84 0RF losartan 25 mg tablet 25 mg PO DAILY Qty: 90 0RF allopurinol 300 mg tablet 300 mg PO DAILY Qty: 90 0RF acetaminophen 500 mg tablet 1,000 mg PO Q6H PRN (Reason: fever or pain) Qty: 30 0RF cephalexin 500 mg capsule 500 mg PO QID 7 Days Qty: 10 0RF doxycycline hyclate 100 mg tablet 100 mg PO BID 7 Days Qty: 10 0RF loratadine 10 mg tablet 10 mg PO DAILY PRN (Reason: Allergy Symptoms) aripiprazole [Abilify] 5 mg tablet 5 mg PO DAILY trazodone 100 mg tablet 200 mg PO BEDTIME quetiapine [Seroquel] 300 mg tablet 300 mg PO BEDTIME sertraline [Zoloft] 100 mg tablet 200 mg PO DAILY bupropion HCl [Wellbutrin XL] 300 mg tablet extended release 24 hr 300 mg PO DAILY quetiapine [Seroquel] 50 mg tablet 50 mg PO DAILY albuterol sulfate 90 mcg/actuation HFA aerosol inhaler 2 puff PO Q4H Qty: 8.5 0RF Discontinued menthol-zinc oxide [Calmoseptine] 0.44-20.6 % ointment 1 appl topical BID PRN (Reason: wound healing) Qty: 113 0RF Discharge Orders: Discharge Order (Routine); Ordered 08/07/24 Ordered By: Jose Castillo Diet: Advance to usual diet Activity on Discharge: As tolerated Stand Alone Forms: Patient Portal Discharge page Print Language: [place] Care Plan Goals: manage moisutre associated skin damage Health Concerns: MASD Plan of Treatment: 5 days keflex and doxy Buttock, Perineal and Scrotum - Off Load Pressure with Q2 hr turns and use of pillows - Cleanse with PH balance spray or wipes, pat dry. ?Apply thin layer of zinc oxide to affected area.? Apply twice daily and Reapply thin layer PRN after each episode of incontinence. Assessment: see above
--- NOTE | 2024-08-07 09:30 | PC.NURSE ---
HR 42. DR. TUTTLE NOTIFIED. EKG OBTAINED.
--- NOTE | 2024-08-07 09:34 | MHC.CM.PN ---
pt dcd today home with asa and adelaida
[2024-08-07] MEDS: QUEtiapine Fumarate 50 MG TABLET PO (09:40)
[2024-08-07] MEDS: Losartan Potassium 25 MG TABLET PO (09:40)
[2024-08-07] MEDS: Cyanocobalamin (Vitamin B-12) 1,000 MCG TABLET 1000 MCG PO (09:40)
[2024-08-07] MEDS: buPROPion HCl XL 300 MG TAB.ER.24H PO (09:40)
[2024-08-07] MEDS: Folic Acid 1 MG TABLET PO (09:40)
[2024-08-07] MEDS: Enoxaparin Sodium 40 MG/0.4 ML SYRINGE SUBCUT (09:40)
[2024-08-07] MEDS: Sertraline HCL 100 MG TABLET 200 MG PO (09:40)
[2024-08-07] MEDS: ARIPiprazole 5 MG TABLET PO (09:40)
[2024-08-07] MEDS: 0.9 % Sodium Chloride Flush 3 ML SYRINGE IVFLUSH (09:41)
[2024-08-07] MEDS: allopurinoL 300 MG TABLET PO (09:41)
[2024-08-07] MEDS: Zinc Oxide 20% Ointment 28.35 GM TUBE 1 APPL TOPICAL (09:41)
[2024-08-07] MEDS: Nystatin Cream 15 GM TUBE 1 APPL TOPICAL (09:42)
== END 2024-08-07 12:37 | disposition home health service (06) | DRG 607 ==
LOC: HO.ED 12:31 → HO.EDOVER 12:35 → HO.S3 16:44
PROVIDERS: Physician Assistant Medical; Admitting Provider Internal Medicine; Emergency Provider Emergency Medicine Emergency Medical Services; PCP Internal Medicine; Visit Provider Internal Medicine
DX: L24.A9 Irritant contact dermatitis due friction or contact with other specified body fluids (principal); L03.315 Cellulitis of perineum; Z68.41 Body mass index [BMI] 40.0-44.9, adult; N49.2 Inflammatory disorders of scrotum; F39 Unspecified mood [affective] disorder; I10 Essential (primary) hypertension; E66.01 Morbid (severe) obesity due to excess calories; T36.96XA Underdosing of unspecified systemic antibiotic, initial encounter; Z71.3 Dietary counseling and surveillance; Z87.891 Personal history of nicotine dependence; L29.0 Pruritus ani; Z79.899 Other long term (current) drug therapy
CPT/HCPCS: 36415; 80048; 80053; 80202; 81003; 82565; 83605; 83735; 85025; 85027; 85652; 86140; 87040; 93005; 99285; J1650; J2543; J3370; J3371

== ENCOUNTER 2024-08-05 12:32 | Outpatient (BNV) | payer OTHER, SELFPAY | END 2024-08-07 08:36 | PROVIDERS: Admitting Provider Internal Medicine; Emergency Provider Emergency Medicine Emergency Medical Services; PCP Internal Medicine; Visit Provider Internal Medicine Cardiovascular Disease | DX: R00.1 Bradycardia, unspecified (principal) | CPT/HCPCS: 93010 ==

== ENCOUNTER → 2024-08-05 12:32 | Outpatient (BNV) | payer OTHER, SELFPAY | PROVIDERS: Admitting Provider Internal Medicine; Emergency Provider Emergency Medicine Emergency Medical Services; PCP Internal Medicine; Visit Provider Internal Medicine | DX: L29.0 Pruritus ani (principal) | CPT/HCPCS: 99222; 99231; 99239 ==

== ENCOUNTER 2024-08-14 13:13 | Outpatient (AMB) | payer OTHER, SELFPAY ==
--- NOTE | 2024-08-14 13:19 | MHC.PC.OV ---
Vital Signs 08/14/24 13:22 Height 6 ft 2 in Weight 319 lb BMI 41.0 BP 140/78 H Blood Pressure Location Lt brachial Position Sitting Respiration 16 Pulse 66 Pulse Source Pulse Oximeter Temp 97.1 F Temp Source Temporal Artery Scan Pulse Oximetry (%) 95 Oxygen Delivery Method Room Air Intake Visit Reasons: [facility] 08/07/24 Director Of Pediatric Rehabilitation Required: No Accompanied by: Self / Same As Patient Allergies pollen extracts [POLLEN] Allergy (Mild, Verified 08/14/24 13:30) RUNNY NOSE house dust Allergy (Unknown, Verified 08/14/24 13:30) Sniffles Medication List - Last Reconciled 08/14/24 by Pro Miramontes PA-C acetaminophen 1,000 mg (2 x 500 mg) PO Q6H PRN albuterol sulfate 90 mcg/actuation 2 puffs PO Q4H allopurinol 300 mg PO DAILY aripiprazole (Abilify) 5 mg PO DAILY bupropion HCl XL (Wellbutrin XL) 300 mg PO DAILY cephalexin 500 mg PO QID 7 days cyanocobalamin (vitamin B-12) (Vitamin B-12) 1,000 mcg PO DAILY doxycycline hyclate 100 mg PO BID 7 days ferrous sulfate (Feosol) 325 mg PO DAILY folic acid 1 mg PO DAILY loratadine 10 mg PO DAILY PRN losartan 25 mg PO DAILY pantoprazole 40 mg PO DAILY 90 days quetiapine (Seroquel) 300 mg PO BEDTIME quetiapine (Seroquel) 50 mg PO DAILY sertraline (Zoloft) 200 mg PO DAILY terbinafine HCl 250 mg PO DAILY 12 weeks trazodone 200 mg PO BEDTIME zinc oxide 20% 1 appl See Protocol topical TID Tobacco use date assessed: 08/14/24 Dental Screening Dental Screen Date: 08/14/24 Did you have a dental visit in the last 12 months?: No Did you have a dental problem in the last 6 months where you did not have access to dental care?: No Was dental information given to patient?: Patient has dentist HPI [facility] 08/07/24 HPI Details Patient is a 59-year-old male here today for hospital discharge follow-up. He was seeing at the [facility] for several month history of a pruritic rash around his anus. He was treated with topical antifungals and antibiotics with no improvement. His rash got worse what prompted hospital evaluation. He was found to have superimposed cellulitis and was treated with IV vancomycin and Zosyn. Cultures were taken which were negative. He was seen by special education curriculum specialist who felt his rash is primarily moisture associated skin damage in commended cleaning with PH balance wipes and barrier creams. During his hospitalization he clinically improved and was discharged home with 5 more days of doxycycline and Keflex. Currently doing much better, has been working full-time. Continues to wear depends and using barrier creams. He reports his scrotum and perineal area feels a lot better though at times still itchy TCM TCM Information Date of Discharge 08/09/24 Discharged From [facility] Interactive Contact Date (Reference documentation from this date) 08/14/24 [facility] Medical History Lumbosacral spondylosis with radiculopathy Myofascial pain Anxiety and depression Chronic low back pain Sacral ulcer Degenerative disc disease Obesity Anemia GERD (gastroesophageal reflux disease) Gout Tubular adenoma of colon Folic acid deficiency Asthma Hypertension Surgical History History of colonoscopy H/O knee surgery Family History Mother Diabetes Hypertension Stroke Father Medical history unknown Sister Hypertension Diabetes Paternal Grandmother Myocardial infarction Daughter In good health Sister No problems noted. Brother No problems noted. Social History Household Members: None Housing: Apartment Do you presently have visiting nurse or other home services: Yes Alcohol intake: former Comment: 0nce a week 4 drinks Patient Tobacco Use Status: Former Tobacco user Years Smoked: quit 2004 4-5 cigarettes a day e-Cigarette/Vaping Use: Currently Using Second Hand Smoke Exposure: No Substance Use Type: Marijuana service: No Current occupational status: employed Cognitive needs: No Hearing needs: No Vision needs: No Questionnaire Thrive Questionnaire Date Thrive assessed: 08/06/24 ARNULFO-7 AMB Questionnaire ARNULFO-7 Date ARNULFO - 7 assessed: 05/17/24 Source: Developed by Drs. Gino Willard, Meli Newman, Timbo Lazcano and colleagues, with an educational camden from [employer]. Review of Systems Const Denies headache(s) Eyes Denies loss of vision ENT Denies vertigo, Denies dizziness, Denies headache(s) and Denies sore throat Card Denies chest pain, Denies leg edema and Denies lightheadedness Resp Denies cough, Denies hemoptysis and Denies wheezing GI Denies abdominal pain, Denies melena, Denies constipation, Denies diarrhea and Denies vomiting Denies dysuria, Denies urinary frequency and Denies urinary urgency Musc Denies arthralgias, Denies joint swelling, Denies numbness and Denies tingling Neuro Denies Abnormal speech present, Denies behavioral changes, Denies vertigo, Denies dizziness, Denies headache(s), Denies loss of vision, Denies memory loss, Denies numbness and Denies tingling Psych Denies anxiety, Denies behavioral changes, Denies depression, Denies memory loss and Denies panic attacks Manoj/Lymph Denies easy bleeding and Denies easy bruising Aller/Immun Denies wheezing Physical exam (Primary Care) Vital Signs: Last Vital Signs Temp 97.1 F 08/14/24 13:22 Pulse 66 08/14/24 13:22 Resp 16 08/14/24 13:22 BP 140/78 H 08/14/24 13:22 Pulse Ox 95 08/14/24 13:22 Oxygen Delivery Method Room Air 08/14/24 13:22 BMI result Body Mass Index 41.0 Tobacco/Smoking Status: Tobacco use Status Tobacco use date assessed 08/14/24 08/14/24 13:22 Patient Tobacco Use Status Former Tobacco user 08/14/24 13:20 e-Cigarette/Vaping Use Currently Using 08/14/24 13:20 Thrive Assessment: Date of Thrive Assessment Date Thrive assessed 08/06/24 08/14/24 13:20 Const Other: MORBIDLY OBESE General: no acute distress, alert and awake Nutritional Appearance: well nourished Orientation/consciousness: oriented to person, oriented to place and oriented to time HENMT Ears: TM's normal bilaterally General nose exam: Normal nasal mucous membranes and turbinates present Eyes Conjunctivae: conjunctivae normal Sclerae: sclerae normal Pupils: Equal, round and reactive pupils present Neck Neck: Yes no lymphadenopathy and Yes no JVD Thyroid: Thyroid normal Carotids: no bruits Resp Effort & Inspection: normal respiratory effort and not tachypneic Auscultation: no crackles, no rales, no rhonchi and no wheezes Cardio Rate: regular rate Rhythm: regular rhythm Heart sounds: no murmurs and normal S1 and S2 GI Palpation (GI): Soft to palpation, nontender, no hepatomegaly and no splenomegaly Auscultation: normal bowel sounds Skin General skin exam: no rashes or lesions noted and dry skin Neuro General: oriented to person, oriented to place and oriented to time Cranial nerves: Yes Equal, round and reactive pupils present Speech: No Abnormal speech present Gait exam (Neuro): Normal gait present Motor exam (neuro): no tremor noted Extrem Right upper extremity: full ROM Left upper extremity: full ROM Right lower extremity: full ROM; no edema Left lower extremity: full ROM; no edema Psych Mental Status: mental status grossly normal Speech and movement: Normal speech and movement present Affect: normal affect Attitude: cooperative Thought process: Normal thought process present Coding Level of Care Code Est Pt Level 3 (09868) Diagnoses Hospital discharge follow-up Z09 Cellulitis of scrotum N49.2 Assessment & Plan Assessment & Plan (1) Hospital discharge follow-up: Code(s): Z09 - Encounter for follow-up examination after completed treatment for conditions other than malignant neoplasm Category: Medical Plan: As per HPI (2) Cellulitis of scrotum: Code(s): N49.2 - Inflammatory disorders of scrotum Category: Medical Plan: Scrotal and perineal cellulitis seems to have resolved, still using barrier creams. Recommendations from special education curriculum specialist was NOT to wear depends and relayed message juanjose Albert
[2024-08-14 13:22] VITALS: BP 140/78; PULSE 66; RESP 16; TEMP 36.2; O2SAT 95; BMI 41.0
--- OUTSIDE RECORDS SUMMARY | 2024-08-14 14:21 | XMS_ITS | Clinical Summary ---
Author Organization Unknown Care Team Providers Care Supervisor [employer] Name Role Phone FRANNIE MATOS, PAMELA Unavailable Unavailable BETY RITTER, LETY Unavailable Unavailable Payers Payer Name Policy Type Policy Number Effective Date Expira tion Date [facility] [id number] MEDICAID [facility] [id number] MEDICARE - [facility] [id number] Problems Condition Name Condition Details Condition Category [...] 5 mg tablet 05-31 00:00: 00 Yes [id number] 5 mg DAILY 5 mg TANGELA Y (route: oral) Med Classific ation: Central Nervous System Agents acetaminoph en 500 mg capsule 05-31 00:00: 00 12-01 23:59 :00 No [id number] 500 mg EVERY 6 HOURS 500 mg EVERY 6 HOURS (route: oral) Med Classific ation: Analgesic , Anti-infl ammatory or Antipyret ic allopurinol 300 mg tablet 05-31 00:00: 00 Yes [id number] 300 mg DAILY 300 mg DAILY (route: oral) Med Classific ation: Gout and Hyperuric emia Therapy folic acid 1 mg tablet 05-31 00:00: 00 Yes [id number] 1 mg DAILY 1 mg TANGELA Y (route: oral) Med Classific ation: Electroly te Balance-N utritiona l Products nifedipine ER 90 mg tablet,exte nded release 24 hr 05-31 00:00: 00 05-23 23:59 :00 No [id number] 90 mg DAILY 90 mg DAILY (route: oral) Med Classific ation: Cardiovas cular Therapy Agents Protonix 40 mg tablet,agustin yed release 05-31 00:00: 00 12-01 23:59 :00 No [id number] 40 mg DAILY 40 mg DAILY (route: oral) Med Classific ation: Gastroint estinal Therapy Agents quetiapine 50 mg tablet 05-31 00:00: 00 Yes [id number] 50 mg EVERY AM 50 mg EVERY AM (route: oral) Med Classific ation: Central Nervous System Agents quetiapine 300 mg tablet 05-31 00:00: 00 Yes [id number] 300 mg BEDTIME 300 mg BEDTIME (route: oral) Med Classific ation: Central Nervous System Agents trazodone 100 mg tablet 05-31 00:00: 00 12-01 23:59 :00 No [id number] 100 mg BEDTIME 100 mg BEDTIME (route: oral) Med Classific ation: Central Nervous System Agents Vitamin B-12 1,000 mcg tablet 05-31 00:00: 00 Yes [id number] 1000 mcg DAILY 1000 mcg DAILY (route: oral) Med Classific ation: Electroly te Balance-N utritiona l Products Wellbutrin XL 300 mg 24 hr tablet, extended release 05-31 00:00: 00 Yes [id number] 300 mg DAILY 300 mg DAILY (route: oral) Med Classific ation: Central Nervous System Agents Zoloft 100 mg tablet 05-31 00:00: 00 05-25 23:59 :00 No [id number] 100 mg BEDTIME 100 mg BEDTIME (route: oral) Med Classific ation: Central Nervous System Agents cephalexin 500 mg capsule 2019-03 00:00: 00 04-06 23:59 :00 No [id number] 500 mg EVERY 6 HOURS 500 mg EVERY 6 HOURS (route: oral) Med Classific ation: Anti-Infe ctive Agents doxycycline hyclate 100 mg capsule 2019-03 00:00: 00 04-06 23:59 :00 No [id number] 10 mg 2 TIMES DAILY 10 mg 2 TIMES DAILY (route: oral) Med Classific ation: Anti-Infe ctive Agents miconazole nitrate 2 % topical cream 04-03 00:00: 00 Yes [id number] Per instruc tions DAILY Per instructio ns DAILY (route: topical) Med Classific ation: Dermatolo gical ferrous sulfate 325 mg (65 mg iron) tablet 05-26 00:00: 00 Yes [id number] 325 mg DAILY 325 mg DAILY (route: oral) Med Classific ation: Electroly te Balance-N utritiona l Products Vitamin C 500 mg tablet 05-26 00:00: 00 12-01 23:59 :00 No [id number] 500 mg DAILY 500 mg DAILY (route: [...] Anti-Infe ctive Agents losartan 50 mg tablet 2 00:00: 00 Yes 1 tablet EVERY AM 1 tablet EVERY AM (route: oral) Med Classific ation: Cardiovas cular Therapy Agents cephalexin 500 mg capsule 08-07 00:00: 00 Yes 1 capsule 4 TIMES DAILY 1 capsule 4 TIMES DAILY (route: oral) Med Classific ation: Anti-Infe ctive Agents doxycycline hyclate 100 mg capsule 08-07 00:00: 00 Yes 1 capsule 2 TIMES DAILY 1 capsule 2 TIMES DAILY (route: oral) Med Classific ation: Anti-Infe ctive Agents Plan of Treatment Planned Activity Planned [...] AWARENESS FOR SAFETY AND WILL NOTIFY CLINICAL FINANCE ADMINISTRATOR AND PHYSICIAN/PROVIDER WITH ANY CHANGE IN CONDITION. [code = SKILLED NURSE WILL MAINTAIN SITUATIONAL AWARENESS FOR SAFETY AND WILL NOTIFY CLINICAL FINANCE ADMINISTRATOR AND PHYSICIAN/PROVIDER WITH ANY CHANGE IN CONDITION.] [...] CARE WILL BE ESTABLISHED THAT MEETS PATIENT'S RESIDENTIAL NEEDS AND INCLUDES PATIENT GOAL FOR HOME [...] Notes <paragraph>[Visit Date: 2024 by LETY ALBERT RN]:</paragraph><paragraph>RESUMPTION OF CARE VISIT FOR 59 YEAR OLD MALE. SZUANNE SPENT SEVERAL DAYS (08/05 - 08/07) AT [facility] WITH PRURITIS ANI. HE ADMITS HAVING TROUBLE WITH 4 TIMES A DAY CEPHALEXIN, ONLY REMEMBERING 3 TIMES MOST DAYS. TEACHING REGARDING USING HIS CELLPHONE AN ALARM, USING ZINC MOISTURE BARRIER CREAM SPARINGLY, BUT ALSO ABOUT KEEPING AREA DRY, USING FLOOR MANAGER AFTER SHOWERING, FREQUENT UNDERWEAR CHANGE, ETC. HE VERBALIZED UNDERSTANDING BUT WAS OBVIOUSLY VERY EMBARRASSED. 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 HIS HOMEMAKER AIDE WORKS WELL WITH HIM AND GETS PLACE CLEANED UP EACH WEEK, DOES LAUNDRY, SHOPPING, COOKING. HE SEEMS HAPPIER OTHER THAN HIS PRESENT PHYSICAL ISSUES. HE ADMITS TO HAVING CRAVINGS FOR ALCOHOL WITH OCCASIONAL INDULGENCE, FOR THE MOST PART HAPPY WITH PRESENT CONTROL AND SUCCESS WITH SUBSTANTIALLY LOWERING HIS NEED/USE. SN 1W8 FOR ASSESSMENT OF MOOD, COPING, SOBRIETY, MED PREFILL, MED COMPLIANCE, HOME SAFETY, POC.</paragraph> Encounters Start Date/Time End Date/Time Encounter Type Admission Type Attending [facility] Care Department Encounter ID Discharge Date Discharge Status Discharge Condition Discharge Reason Percent Goals Met 2024-07-24 00:00:00 2024-09-21 00:00:00 Outpatient RECERTIFIC [facility] [id number] 4.00
== END 2024-08-14 13:40 | disposition home or self-care (01) ==
LOC: HO.HMCH 13:14
PROVIDERS: PCP Internal Medicine; Visit Provider Physician Assistant
DX: Z09 Encounter for follow-up examination after completed treatment for conditions other than malignant neoplasm (principal); N49.2 Inflammatory disorders of scrotum

== ENCOUNTER → 2024-08-14 13:13 | Outpatient (BNVA) | payer OTHER, SELFPAY | PROVIDERS: PCP Internal Medicine; Visit Provider Physician Assistant | DX: N49.2 Inflammatory disorders of scrotum (principal); Z09 Encounter for follow-up examination after completed treatment for conditions other than malignant neoplasm | CPT/HCPCS: 99212 ==

== ENCOUNTER 2025-01-21 14:48 | Emergency (ER) | payer OTHER, SELFPAY ==
--- NOTE | ~2025-01-21 | XR_ITS ---
EXAMINATION: XR KNEE, RIGHT CLINICAL INFORMATION: pain, swelling COMPARISON: October 03, 2018. TECHNIQUE: AP oblique and lateral views of the right knee. FINDINGS: Joint space narrowing involving the patellofemoral, medial lateral compartments with associated small marginal osteophyte formation. There is chondrocalcinosis in the menisci. There is a well-corticated calcification to the superior aspect of the medial femoral condyle. There is suprapatellar bursa joint effusion, moderate to large volume. No acute cortical disruption or malalignment. No lytic or blastic lesions. XR/XR knee RT 4V IMPRESSION: Tricompartmental osteoarthrosis without acute fracture or dislocation. Suprapatellar bursa joint effusion. Probable CPPD. Electronically signed by: Lester Escobedo MD 01/21/2025 03:30 PM EDT
--- NOTE | ~2025-01-21 | US_ITS ---
EXAMINATION: US TRIPLEX LOWER EXTREMITY, RIGHT CLINICAL INFORMATION: Pain and swelling COMPARISON: X-ray 01/21/2025 TECHNIQUE: Color-flow triplex imaging with spectral analysis and compression Doppler were performed on the right lower extremity. FINDINGS: Respiratory variation, normal compression and augmented flow are noted throughout the right lower extremity. The visualized common femoral vein, superficial femoral vein, profunda femoral vein, popliteal vein and midcalf peroneal and posterior tibial venous segments show no evidence of deep venous thrombosis. There is a prominent fluid along the anterior aspect of the knee, presumably representing a joint effusion seen on the x-ray. Nonspecific lymph node measuring 0.9 cm in short axis. (3.5 x 2.2 cm the other planes).. US/US venous duplex LE RT IMPRESSION: No evidence of deep venous thrombosis involving the right lower extremity. Visualized fluid along the anterior aspect of the knee, presumably representing the joint effusion seen on the x-ray. Clinically correlate. Electronically signed by: Josué Fisher MD 01/21/2025 04:33 PM EDT
[2025-01-21 15:07] VITALS: BP 138/62; PULSE 65; RESP 16; TEMP 36.3; O2SAT 93; BMI 32.1
--- NOTE | 2025-01-21 15:07 | ED.GENADULT ---
HPI - General Adult General Chief complaint: Extremity Problem Stated complaint: Knee Leg Pain Time Seen by Provider: 01/21/25 18:43 Source: patient Mode of arrival: ambulatory Limitations: no limitations History of Present Illness ED Provider: HPI narrative: Patient is presenting with atraumatic right knee pain and swelling when lower extremity swelling, states woke up with a spasm at home and has noted the swelling. Related Data Home Medications ?Medication ?Instructions ?Recorded ?Confirmed aripiprazole 5 mg tablet (Abilify) 5 mg PO DAILY 04/08/20 01/21/25 bupropion HCl 300 mg 24 hr tablet, 300 mg PO DAILY 04/08/20 01/21/25 extended release (Wellbutrin XL) loratadine 10 mg tablet 10 mg PO DAILY PRN Allergy Symptoms 04/08/20 01/21/25 quetiapine 300 mg tablet (Seroquel) 300 mg PO BEDTIME 04/08/20 01/21/25 sertraline 100 mg tablet (Zoloft) 200 mg PO DAILY 04/08/20 01/21/25 trazodone 100 mg tablet 200 mg PO BEDTIME 04/08/20 01/21/25 quetiapine 50 mg tablet (Seroquel) 50 mg PO DAILY 05/06/21 01/21/25 pantoprazole 40 mg tablet,delayed 40 mg PO DAILY@0630 01/21/25 01/21/25 release Previous Rx's ?Medication ?Instructions ?Recorded acetaminophen 500 mg tablet 1,000 mg (2 x 500 mg) PO Q6H PRN 04/13/21 fever or pain #30 tabs albuterol sulfate 90 mcg/actuation 2 puff PO Q4H #8.5 grams 11/09/23 aerosol inhaler zinc oxide 20 % topical ointment 1 appl topical TID #500 grams 08/07/24 cyanocobalamin (vitamin B-12) 1,000 mcg PO DAILY #90 tabs 11/07/24 1,000 mcg tablet (Vitamin B-12) ferrous sulfate 325 mg (65 mg 325 mg PO DAILY #90 tabs 11/07/24 iron) tablet (Feosol) losartan 25 mg tablet 25 mg PO DAILY #90 tabs 12/04/24 terbinafine HCl 250 mg tablet 250 mg PO DAILY 12 weeks #84 tabs 12/05/24 allopurinol 300 mg tablet 300 mg PO DAILY #90 tabs 01/01/25 Allergies Allergy/AdvReac Type Severity Reaction Status Date / Time pollen extracts (POLLEN) Allergy Mild RUNNY NOSE Verified 01/21/25 15:07 house dust Allergy Unknown Sniffles Verified 01/21/25 15:07 Review of Systems Constitutional: Constitutional: Reports as per [facility] Past Medical History Medical History Lumbosacral spondylosis with radiculopathy Myofascial pain Anxiety and depression Chronic low back pain Sacral ulcer Degenerative disc disease Obesity Anemia GERD (gastroesophageal reflux disease) Gout Tubular adenoma of colon Folic acid deficiency Asthma Hypertension Surgical History History of colonoscopy H/O knee surgery Family History Family History Mother Diabetes Hypertension Stroke Father Medical history unknown Sister Hypertension Diabetes Paternal Grandmother Myocardial infarction Daughter In good health Sister No problems noted. Brother No problems noted. Social History Social History Household Members: None Housing: Apartment Do you presently have visiting nurse or other home services: Yes Alcohol intake: former Comment: 0nce a week 4 drinks Patient Tobacco Use Status: Former Tobacco user Years Smoked: quit 2005 4-5 cigarettes a day Smoked in Last 30 Days: No e-Cigarette/Vaping Use: Currently Using Second Hand Smoke Exposure: No Use of substances other than those prescribed or required for medical reasons: No Substance Use Type: Marijuana Advance Directives: No Advance Directives Information Provided: No service: No Current occupational status: employed Cognitive needs: No Hearing needs: No Vision needs: No Physical Exam ED Exam Exam: Alert and oriented x4 Right knee examination grade 4 effusion, no erythema, no warmth, proximal distal compartments are soft Vital Signs: Vital Signs - 24 hr 01/21/25 15:07 01/21/25 19:18 01/21/25 20:00 Temperature 97.4 F 98.2 F Pulse Rate 65 56 50 Respiratory Rate 16 16 16 Blood Pressure 138/62 132/74 Pulse Oximetry 93 99 98 Oxygen Delivery Method Room Air Room Air Room Air BMI result Body Mass Index 32.1 Course Course Course Narrative: Rapid medical examination performed in triage by Vandana Hope PA-C. Patient is a 59 year old assigned male at presenting to the emergency department with right knee / lower leg pain. Patient states that he woke up last night and his right knee / lower leg locked and has been painful ever since. Detailed physical exam and review of systems are deferred to the mental health clinician. Imaging ordered. Patient placed back in the waiting room pending room availability and results. Medications Administered Discontinued Medications Generic Name Dose Route Start Last Admin Trade Name Lisa PRN Reason Stop Dose Admin Lidocaine HCl 10 ml 01/21/25 18:56 01/21/25 20:00 Lidocaine Hcl 1 % 20 Ml Vial INFILTRATI 01/21/25 18:57 10 ml ONCE ONE Administration Methylprednisolone Acetate 40 mg 01/21/25 18:56 01/21/25 20:00 Methylprednisolone Acetate 40 Mg Vial INTRAARTIC 01/21/25 18:57 40 mg ONCE ONE Administration Procedures Joint Aspiration/Injection Joint Asp./Inject. 1: Time Out Performed: Yes Side of body: right Joint Aspirated: knee Ultrasound Guidance: No Skin Prep: Chlorhexidine Local Anesthetic: lidocaine 1% Amount of anesthesia used (mL): 10 Needle Size Used: 18G Fluid Obtained: clear Total fluid obtained (mL): 90 Medication Injected, if any: Methylprednisolone (40mg) Amount of medication injected (mL): 1 Patient Tolerated Procedure: well Complications: none Medical Decision Making Medical Decision Making MDM Narrative: 7:02 PM 01/21/2025 (Dr. Sherman Phelps): Patient with likely pseudogout based on x-rays, no fevers, no trauma, did not feel further blood work is indicated had an ultrasound with negative DVT, x-ray with a 3 day changes and chondrocalcinosis, offered the patient aspiration and injection with lidocaine and Depo-Medrol to which he agreed. 7:52 PM 01/21/2025 (Dr. Sherman Phelps): 90 cc of nonpurulent material aspirated from the knee, injected with lidocaine and Depo-Medrol patient tolerated procedure well, there was no indication for sending aspirate for culture or cell count as this is a fairly normal-appearing joint fluid Differential Diagnosis Differential Diagnoses: The differential diagnosis associated with the presentation includes (Arthritic changes, gout, pseudogout, septic joint, DVT, fracture) Admission/Observation Consideration of admission/observation: Escalation of care including admission/observation considered Independent Interpretation I performed an independent interpretation of an: Plain X-Ray (Arthritic changes and chondrocalcinosis) Radiology Impression Discussion of test interpretation with radiology: I have reviewed the radiologist's reading. Radiologist Impression: Negative study for DVT Discharge Plan Discharge Clinical Impression: Effusion of knee joint right Patient Disposition: Home, Self-Care Instructions: Joint Aspiration (DC) Additional Instructions: Joint aspiration done in the emergency department, 90 mL of normal-appearing joint fluid removed, injected with lidocaine and steroid Ice the knee down with a big bag of ice for 20 minutes every day, follow up with the PCP, read the handout on joint aspiration and if you have any worsening issues concerns come back to the ER Your x-ray showed arthritis and possibly changes consistent with pseudogout, the aspirate did not appear to be infected or appear to be something that is caused by gout, you had an ultrasound study that was negative for DVT Prescriptions: No Action cyanocobalamin (vitamin B-12) [Vitamin B-12] 1,000 mcg tablet 1,000 mcg PO DAILY Qty: 90 1RF ferrous sulfate [Feosol] 325 mg (65 mg iron) tablet 325 mg PO DAILY Qty: 90 0RF losartan 25 mg tablet 25 mg PO DAILY Qty: 90 0RF terbinafine HCl 250 mg tablet 250 mg PO DAILY 84 Days Qty: 84 0RF allopurinol 300 mg tablet 300 mg PO DAILY Qty: 90 0RF acetaminophen 500 mg tablet 1,000 mg PO Q6H PRN (Reason: fever or pain) Qty: 30 0RF zinc oxide 20 % Ointment 1 appl topical TID Qty: 500 0RF Protocol: Apply to: Apply to: perirectal area pantoprazole 40 mg tablet,delayed release (DR/EC) 40 mg PO DAILY@0630 loratadine 10 mg tablet 10 mg PO DAILY PRN (Reason: Allergy Symptoms) aripiprazole [Abilify] 5 mg tablet 5 mg PO DAILY trazodone 100 mg tablet 200 mg PO BEDTIME quetiapine [Seroquel] 300 mg tablet 300 mg PO BEDTIME sertraline [Zoloft] 100 mg tablet 200 mg PO DAILY bupropion HCl [Wellbutrin XL] 300 mg tablet extended release 24 hr 300 mg PO DAILY quetiapine [Seroquel] 50 mg tablet 50 mg PO DAILY albuterol sulfate 90 mcg/actuation HFA aerosol inhaler 2 puff PO Q4H Qty: 8.5 0RF Print Language: Maltese
[2025-01-21 19:18] VITALS: PULSE 56; RESP 16; TEMP 36.8; O2SAT 99
--- NOTE | 2025-01-21 19:42 | PHA.MEDREC ---
Addendum entered by Guzman Shanks PharmD 01/21/25 19:47: reviewed Original Note: Pharmacy Consult ? Medication Reconciliation Pharmacy has completed the medication reconciliation. Patient was able to confirm med list. Patient states he is no longer taking Folic acid 1 mg. Patient last had his medications yesterday
[2025-01-21 20:00] VITALS: BP 132/74; PULSE 50; RESP 16; O2SAT 98
[2025-01-21] MEDS: Lidocaine HCl 1 % 20 ML VIAL 10 ML INFILTRATI (20:00)
[2025-01-21 20:55] VITALS: BP 132/74; PULSE 50; RESP 16; TEMP 37.1; O2SAT 98
== END 2025-01-22 01:41 | disposition home or self-care (01) ==
PROVIDERS: Emergency Provider Emergency Medicine; PCP Internal Medicine
DX: R60.0 Localized edema (principal); M25.561 Pain in right knee; Z79.899 Other long term (current) drug therapy
CPT/HCPCS: 73564; 93971; 99284; J1010; J2003

== ENCOUNTER → 2025-01-21 15:10 | Outpatient (BNV) | payer OTHER, SELFPAY | PROVIDERS: PCP Internal Medicine; Visit Provider Radiology Diagnostic Radiology | DX: M79.604 Pain in right leg (principal); R22.41 Localized swelling, mass and lump, right lower limb; M17.11 Unilateral primary osteoarthritis, right knee; M25.461 Effusion, right knee | CPT/HCPCS: 73564; 93971 ==

== ENCOUNTER 2025-01-23 13:05 | Outpatient (AMB) | payer OTHER, SELFPAY ==
--- OUTSIDE RECORDS SUMMARY | 2025-01-18 20:00 | XMS_ITS | Clinical Summary ---
Author Organization Unknown Care Team Providers Care Senior Director Name Role Phone FRANNIE MATOS, PAMELA Unavailable Unavailable BETY RITTER, LETY Unavailable Unavailable Payers Payer Name Policy Type Policy Number Effective Date Expira tion Date [facility] [place] [id number] MEDICAID [facility] [id number] MEDICARE - [facility] [id number] Problems Condition Name Condition Details Condition Category [...] Abilify 5 mg tablet 05-31 00:00: 00 01-19 23:59 :00 No [id number] 5 mg DAILY 5 mg DAILY (route: oral) Med Classific ation: Central Nervous System Agents acetaminoph en 500 mg capsule 05-31 00:00: 00 12-01 23:59 :00 No [id number] 500 mg EVERY 6 HOURS 500 mg EVERY 6 HOURS (route: oral) Med Classific ation: Analgesic , Anti-infl ammatory or Antipyret ic allopurinol 300 mg tablet 05-31 00:00: 00 01-19 23:59 :00 No [id number] 300 mg DAILY 300 mg DAILY (route: oral) Med Classific ation: Gout and Hyperuric emia Therapy folic acid 1 mg tablet 05-31 00:00: 00 01-19 23:59 :00 No [id number] 1 mg DAILY 1 mg DAILY (route: oral) Med Classific ation: Electroly te Balance-N utritiona l Products nifedipine ER 90 mg tablet,exte nded release 24 hr 05-31 00:00: 00 05-23 23:59 :00 No [id number] 90 mg DAILY 90 mg DAILY (route: oral) Med Classific ation: Cardiovas cular Therapy Agents Protonix 40 mg tablet,agustin yed release 05-31 00:00: 00 12-01 23:59 :00 No [id number] 40 mg DAILY 40 mg DAILY (route: oral) Med Classific ation: Gastroint estinal Therapy Agents quetiapine 50 mg tablet 05-31 00:00: 00 01-19 23:59 :00 No [id number] 50 mg EVERY AM 50 mg EVERY AM (route: oral) Med Classific ation: Central Nervous System Agents quetiapine 300 mg tablet 05-31 00:00: 00 01-19 23:59 :00 No [id number] 300 mg BEDTIME 300 mg BEDTIME (route: oral) Med Classific ation: Central Nervous System Agents trazodone 100 mg tablet 05-31 00:00: 00 12-01 23:59 :00 No [id number] 100 mg BEDTIME 100 mg BEDTIME (route: oral) Med Classific ation: Central Nervous System Agents Vitamin B-12 1,000 mcg tablet 05-31 00:00: 00 01-19 23:59 :00 No [id number] 1000 mcg DAILY 1000 mcg DAILY (route: oral) Med Classific ation: Electroly te Balance-N utritiona l Products Wellbutrin XL 300 mg 24 hr tablet, extended release 05-31 00:00: 00 01-19 23:59 :00 No [id number] 300 mg DAILY 300 mg DAILY (route: oral) Med Classific ation: Central Nervous System Agents Zoloft 100 mg tablet 05-31 00:00: 00 05-25 23:59 :00 No [id number] 100 mg BEDTIME 100 mg BEDTIME (route: oral) Med Classific ation: Central Nervous System Agents cephalexin 500 mg capsule 2019-03 00:00: 00 04-06 23:59 :00 No [id number] 500 mg EVERY 6 HOURS 500 mg EVERY 6 HOURS (route: oral) Med Classific ation: Anti-Infe ctive Agents doxycycline hyclate 100 mg capsule 2019-03 00:00: 00 04-06 23:59 :00 No [id number] 10 mg 2 TIMES DAILY 10 mg 2 TIMES DAILY (route: oral) Med Classific ation: Anti-Infe ctive Agents miconazole nitrate 2 % topical cream 04-03 00:00: 00 Yes [id number] Per instruc tions DAILY Per instructio ns DAILY (route: topical) Med Classific ation: Dermatolo gical ferrous sulfate 325 mg (65 mg iron) tablet 05-26 00:00: 00 01-19 23:59 :00 No [id number] 325 mg DAILY 325 mg DAILY (route: oral) Med Classific ation: Electroly te Balance-N utritiona l Products Vitamin C 500 mg tablet 05-26 00:00: 00 12-01 23:59 :00 No [id number] 500 mg DAILY 500 mg DAILY (route: oral) Med Classific ation: Electroly te Balance-N utritiona l Products acetaminoph en 500 mg capsule 12-02 00:00: 00 01-19 23:59 :00 No [id number] 500 mg EVERY 6 HOURS 500 mg EVERY 6 HOURS (route: oral) Med Classific ation: Analgesic , Anti-infl ammatory or Antipyret ic pantoprazol e 40 mg tablet,agustin yed release 12-02 00:00: 00 01-19 23:59 :00 No [id number] 1 tablet EVERY AM 1 tablet EVERY AM (route: oral) Med Classific ation: Gastroint estinal Therapy Agents trazodone 100 mg tablet 9-07 00:00: 00 01-19 23:59 :00 No [id number] 200 mg BEDTIME 200 mg BEDTIME (route: oral) Med Classific ation: Central Nervous System Agents Zoloft 100 mg tablet 3-05 00:00: 00 01-19 23:59 :00 No [id number] 2 tablet EVERY AM 2 tablet EVERY AM (route: oral) Med Classific ation: Central Nervous System Agents terbinafine HCl 250 mg tablet 9-01 00:00: 00 01-19 23:59 :00 No [id number] 1 tablet DAILY 1 tablet DAILY (route: oral) Med Classific ation: Anti-Infe ctive Agents losartan 50 mg tablet 2-28 00:00: 00 Yes [id number] 1 tablet EVERY AM 1 tablet EVERY AM (route: oral) Med Classific ation: Cardiovas cular Therapy Agents cephalexin 500 mg capsule - 00:00: 00 01-19 23:59 :00 No [id number] 1 capsule 4 TIMES DAILY 1 capsule 4 TIMES DAILY (route: oral) Med Classific ation: Anti-Infe ctive Agents doxycycline hyclate 100 mg capsule 08-07 00:00: 00 01-19 23:59 :00 No [id number] 1 capsule 2 TIMES DAILY 1 capsule 2 TIMES DAILY (route: oral) Med Classific ation: Anti-Infe ctive Agents Abilify 5 mg tablet 2024-03 00:00: 00 Yes [id number] 5 mg EVERY AM 5 mg EVER Y AM (route: oral) Med Classific ation: Central Nervous System Agents acetaminoph en 500 mg capsule 2024-03 0- 00:00: 00 Yes [id number] 2 capsule EVERY 8 HOURS 2 capsule EVERY 8 HOURS (route: oral) Med Classific ation: Analgesic , Anti-infl ammatory or Antipyret ic allopurinol 300 mg tablet 2024-03 0- 00:00: 00 Yes [id number] 300 mg EVERY AM 300 mg EVERY AM (route: oral) Med Classific ation: Gout and Hyperuric emia Therapy ferrous sulfate 325 mg (65 mg iron) tablet 2024-03 00:00: 00 Yes [id number] 325 mg EVERY AM 325 mg EVERY AM (route: oral) Med Classific ation: Electroly te Balance-N utritiona l Products folic acid 1 mg tablet 2024-03 00:00: 00 Yes [id number] 1 mg EVERY AM 1 mg EVER Y AM (route: oral) Med Classific ation: Electroly te Balance-N utritiona l Products losartan 50 mg tablet 2024-03 00:00: 00 Yes [id number] 1 tablet EVERY AM 1 tablet EVERY AM (route: oral) Med Classific ation: Cardiovas cular Therapy Agents miconazole nitrate 2 % topical cream 2024-03 00:00: 00 Yes [id number] Per instruc tions DAILY Per instructio ns DAILY (route: topical) Med Classific ation: Dermatolo gical pantoprazol e 40 mg tablet,agustin yed release 2024-03 00:00: 00 Yes [id number] 1 tablet EVERY AM 1 tablet EVERY AM (route: oral) Med Classific ation: Gastroint estinal Therapy Agents quetiapine 300 mg tablet 2024-03 00:00: 00 Yes [id number] 300 mg BEDTIME 300 mg BEDTIME (route: oral) Med Classific ation: Central Nervous System Agents quetiapine 50 mg tablet 2024-03 00:00: 00 Yes [id number] 50 mg EVERY AM 50 mg EVERY AM (route: oral) Med Classific ation: Central Nervous System Agents terbinafine HCl 250 mg tablet 2024-03 00:00: 00 Yes [id number] 1 tablet EVERY AM 1 tablet EVERY AM (route: oral) Med Classific ation: Anti-Infe ctive Agents trazodone 100 mg tablet 2024-03 00:00: 00 Yes [id number] 2 tablet BEDTIME 2 tablet BEDTIME (route: oral) Med Classific ation: Central Nervous System Agents Vitamin B-12 1,000 mcg tablet 2024-03 00:00: 00 Yes [id number] 1000 mcg EVERY AM 1000 mcg EVERY AM (route: oral) Med Classific ation: Electroly te Balance-N utritiona l Products Wellbutrin XL 300 mg 24 hr tablet, extended release 2024-03 00:00: 00 Yes [id number] 300 mg EVERY AM 300 mg EVERY AM (route: oral) Med Classific ation: Central Nervous System Agents Zoloft 100 mg tablet 2024-03 00:00: 00 Yes [id number] 2 tablet EVERY AM 2 tablet EVERY AM (route: oral) Med Classific ation: Central Nervous System Agents Plan of Treatment Planned Activity Planned [...] MENTAL/BEHAVIORAL STATUS, ASSESS VITAL SIGNS NEEDED OR REQUESTED., ALLOW 2 PRNS FOR MEDICATION MANAGEMENT. [code = SKILLED NURSE TO O/A OF PATIENTS MENTAL/BEHAVIORAL STATUS, ASSESS VITAL SIGNS NEEDED OR REQUESTED., ALLOW 2 PRNS FOR MEDICATION MANAGEMENT.] Future Scheduled Test SKILLED NU RSE FOR O/A OF ALTERED THOUGHT PROCESS AND/OR DISRUPTION IN COGNITIVE OPERATIONS AND ACTIVITIES [code = SKILLED NURSE FOR O/A OF ALTERED THOUGHT PROCESS AND/OR DISRUPTION IN COGNITIVE OPERATIONS AND ACTIVITIES] Future Scheduled Test SKILLED NU RSE FOR [...] SAFETY.] Future Scheduled Test SKILLED NU RSE FOR [...] BEING.] Future Scheduled Test SKILLED NU RSE TO ASSESS PATIENT S PSYCHOSOCIAL STATUS TO IDENTIFY POTENTIAL ISSUES THAT MAY COMPLICATE THE PROVISION OF THE PLAN OF CARE INCLUDING THE PATIENT S ABILITY TO ACCESS COMMUNITY RESOURCES AND PSYCHOSOCIAL SUPPORT SERVICES. [code = SKILLED NURSE TO ASSESS PATIENT S PSYCHOSOCIAL STATUS TO IDENTIFY POTENTIAL ISSUES THAT MAY COMPLICATE THE PROVISION OF THE PLAN OF CARE INCLUDING THE PATIENT S ABILITY TO ACCESS COMMUNITY RESOURCES AND PSYCHOSOCIAL SUPPORT SERVICES.] Future Scheduled Test SKILLED NU RSE WILL MAINTAIN SITUATIONAL AWARENESS FOR SAFETY AND WILL NOTIFY CLINICAL CHILDREN'S COUNSELOR AND PHYSICIAN/PROVIDER WITH ANY CHANGE IN CONDITION. [code = SKILLED NURSE WILL MAINTAIN SITUATIONAL AWARENESS FOR SAFETY AND WILL NOTIFY CLINICAL CHILDREN'S COUNSELOR AND PHYSICIAN/PROVIDER WITH ANY CHANGE IN CONDITION.] [...] MEDS STRAIGHT AND TAKE EVERY DOSE Goal 2024-09-20 Patient Goal - T O KEEP MY MEDS STRAIGHT AND TAKE EVERY DOSE Goal 2024-11-19 Patient Goal - T O KEEP MY MEDS STRAIGHT AND TAKE EVERY DOSE Goal 2025-01-17 Patient Goal - T O KEEP MY [...] DAILY FUNCTIONS AND HAVE OPTIMAL IMPROVEMENT IN THOUGHT PROCESS THROUGHOUT CERTIFICATION PERIOD. Goal Provider Goal - CHANGE IN GENERAL [...] OF THIS CERTIFICATION. Goal Provider Goal - PSYCHOSOCIAL NEEDS WILL BE IDENTIFIED AND PLAN IMPLEMENTED TO MINIMIZE RISK THROUGHOUT CERTIFICATION PERIOD. Goal Provider Goal - PATIENT WILL REMAIN SAFE IN THE COMMUNITY AND WILL BE FREE OF DANGER TO SELF AND OTHERS THROUGHOUT THE CERTIFICATION PERIOD. Encounters Start Date/Time End Date/Time Encounter Type Admission Type Attending [facility] Care Department Encounter ID Discharge Date Discharge Status Discharge Condition Discharge Reason Percent Goals Met 2024-11-21 00:00:00 2025-01-19 00:00:00 Outpatient RECERTIFIC ATION BETYJASSII [facility] [id number] 16.67
--- NOTE | 2025-01-23 13:13 | A.OFFVIS_ITS ---
Vital Signs 01/23/25 13:15 Height 6 ft 2 in Weight 250 lb BMI 32.1 Intake Visit Reasons: ingrown nail Intake Note: Paulo is a 59 year old male who presents to the office today for a new patient visit referred by his PCP Dr. Jaimes for an ingrown nail. Pt states the ingrown is located on the medial border of bilateral halluxs. he mentions this has been going on for over a year and he has not tried any treatment at this time Allergies pollen extracts (POLLEN) Allergy (Mild, Verified 01/21/25 15:07) RUNNY NOSE house dust Allergy (Unknown, Verified 01/21/25 15:07) Sniffles HPI Comments Details: The patient is a 59-year-old male with a PMH as seen below presenting with painful ingrown toenails to B/L hallucal nails, primarily affecting the right big toe. The issue has been ongoing, with the patient experiencing pain and occasional bleeding from the nails, which have fallen off at times. Attempts to manage the condition by cutting the nails have been unsuccessful, leading to recurrent ingrown toenails. The patient also reports numbness and tingling in the toes, which may be related to his known degenerative spine disease. He denies any recent pedal injuries. Denies any purulence from the ingrown nails. He denies any other pedal concerns. [facility] Medical History (Updated 01/26/25 @ 12:48 by Ilda Guzman DPM) Cellulitis of great toe of right foot Pes planus Nail disorder Tinea unguium Nail dystrophy Pain of right great toe Ingrowing nail, right great toe Lumbosacral spondylosis with radiculopathy Myofascial pain Anxiety and depression Chronic low back pain Sacral ulcer Degenerative disc disease Obesity Anemia GERD (gastroesophageal reflux disease) Gout Tubular adenoma of colon Folic acid deficiency Asthma Hypertension Surgical History History of colonoscopy H/O knee surgery Family History Mother Diabetes Hypertension Stroke Father Medical history unknown Sister Hypertension Diabetes Paternal Grandmother Myocardial infarction Daughter In good health Sister No problems noted. Brother No problems noted. Social History Household Members: None Housing: Apartment Do you presently have visiting nurse or other home services: Yes Alcohol intake: former Comment: 0nce a week 4 drinks Patient Tobacco Use Status: Former Tobacco user Years Smoked: quit 2004 4-5 cigarettes a day e-Cigarette/Vaping Use: Currently Using Second Hand Smoke Exposure: No Substance Use Type: Marijuana service: No Current occupational status: employed Cognitive needs: No Hearing needs: No Vision needs: No Review of Systems Const Details: - Musculoskeletal: Reports pain to B/L hallucal nails due to ingrown toenails. - Neurological: Reports numbness and tingling in the toes. All systems reviewed & are unremarkable except as noted in HPI and below Physical Exam Vital Signs: BMI result Body Mass Index 32.1 Extrem Other: B/L LE Focused Physical Exam: Derm: Increased incurvation noted to the medial borders of the the hallucal nails with mild edema noted consistent with an ingrown toenail. No erythema, purulence, or drainage noted. Toenails x10 noted to be thickened and discolored. No open lesions, abrasions, or wounds noted. Xerosis of skin noted. Vasc: DP mildly palpable. PT nonpalpable. CFT < 3 secs. Temp gradient warm to warm. Pedal hair diminished. Neuro: Protective sensations grossly diminished. MSK: Pain on palpation to the medial hallucal nail borders, worse to the right. No crepitus or fluctuance noted. ROM of the forefoot, hindfoot, and ankles WNL. Pes planus foot type noted. Nonantalgic gait noted. Office Procedures AMB Debridement/Avulsion Podia Details: Procedure: Right hallux medial border partial nail avulsion with matrixectomy Cleansed the right hallux with an alcohol swab and injected 9 cc of 1% lidocaine plain in a hallux block fashion. Next, a tourniquet was applied and the right hallux/nail was cleansed with betadine. Next, attention was drawn to the medial border of the right hallucal nail where a freer was used to free up the nail from the nail bed. Next, an pitcairn islander anvil was used to trim the medial nail tarun rder and a hemostat was used to remove the offending nail border. A currette was used to inspect and remove any remaining spicules. Next, a 4 phenol swabs were applied to the medial nail border for 30 seconds each. An alcohol swab was applied to the medial border and once dried, triple antibiotic ointment, a bandaid, 2x2 gauze, and coban was applied to the right hallux. After care instructions were provided. [id number] Nail matrixectomy Procedure code (CPT) selection complete Office Meds lidocaine HCl 10 mg/mL (1 %) injection solution Performing Provider: Ilda Guzman DPM Performing Location: [facility] Administered by: Ilda Guzman DPM on 01/26/25 12:40 Dose Route Admin Location Dispensed Lot Number Expiration Date [facility] [employer]ocal Music Instructor 9 mL subcut 9 mL [id number] HOSPIRA/PFI ZER Total Dispensed Waste 9 mL 0 % Triple Antibiotic 3.5 mg-400 unit-5,000 unit topical ointment packet Performing Provider: Ilda Guzman DPM Performing Location: [facility] Administered by: Ilda Guzman DPM on 01/26/25 12:40 Dose Route Admin Location Dispensed Lot Number Expiration Date [facility] [employer] Instructor 1 appl topical 1 appl [id number] [employer] povidone-iodine 10 % topical swab Performing Provider: Ilda Guzman DPM Performing Location: [facility] Administered by: Ilda Guzman DPM on 01/26/25 12:40 Dose Route Admin Location Dispensed Lot Number Expiration Date [facility] [employer] Instructor 2 appl topical 2 appl [id number] [employer] [place]. ethyl chloride 100 % topical spray Performing Provider: Ilda Guzman DPM Performing Location: [facility] Administered by: Ilda Guzman DPM on 01/26/25 12:40 Dose Route Admin Location Dispensed Lot Number Expiration Date [facility] V[employer] Music Instructor 1 appl topical 116 mL [id number] [employer]. phenol 89 % topical swab Performing Provider: Ilda Guzman DPM Performing Location: [facility] Administered by: Ilda Guzman DPM on 01/26/25 12:40 Dose Route Admin Location Dispensed Lot Number Expiration Date [facility] [employer]ocal Music Instructor 4 appl topical 4 appl [id number] [employer] [facility] Assessment & Plan Assessment & Plan (1) Ingrowing nail, right great toe: Code(s): L60.0 - Ingrowing nail Category: Medical (2) Pes planus: Code(s): M21.40 - Flat foot [pes planus] (acquired), unspecified foot Category: Medical Qualifiers: Laterality: bilateral Qualified Code(s): M21.41 - Flat foot [pes planus] (acquired), right foot; M21.42 - Flat foot [pes planus] (acquired), left foot (3) Nail disorder: Code(s): L60.9 - Nail disorder, unspecified Category: Medical (4) Tinea unguium: Code(s): B35.1 - Tinea unguium Category: Medical (5) Nail dystrophy: Code(s): L60.3 - Nail dystrophy Category: Medical (6) Pain of right great toe: Code(s): M79.674 - Pain in right toe(s) Category: Medical (7) Cellulitis of great toe of right foot: Code(s): L03.031 - Cellulitis of right toe Category: Medical Plan Patient was informed and verbally consented to the use of an ambient scribe for clinic note documentation during this visit. I discussed with the patient the procedure of a partial nail avulsion with chemical matrixectomy to address the recurrent ingrown toenail on the right hallux. The patient was informed about the aftercare protocol, including keeping the bandage on for 24 hours and then soaking the foot in epsom salt and warm water and applying Neosporin with a bandaid for the next 2 weeks. I advised the patient to return in two weeks for a follow-up to ensure proper healing and to perform the procedure on the left hallucal nail. - Performed a partial nail avulsion with chemical matrixectomy to the right hallux medial border to prevent recurrence of the ingrown toenail. - Instructed the patient about the aftercare protocol, including keeping the bandage on for 24 hours and then soaking the foot in epsom salt and warm water and applying Neosporin with a bandaid for the next 2 weeks. - Advised patient to avoid tight shoes to prevent irritation and potential recurrence of ingrown toenails. - Patient is to avoid barefoot walking and to wear supportive shoegear. RTC in 2 weeks. Orders: Orders AMB Debridement/Avulsion Podiatry 01/23/25 B35.1 - Tinea unguium, L60.0 - Ingrowing nail, L60.3 - Nail dystrophy, L60.9 - Nail disorder, unspecified, M21.40 - Flat foot [pes planus] (acquired), unspecified foot, M79.674 - Pain in right toe(s) Coding Level of Care Code New Pt Level 4 (80875) Diagnoses Ingrowing nail, right great toe L60.0 Pes planus of both feet M21.41; M21.42 Laterality: bilateral Nail disorder L60.9 Tinea unguium B35.1 Nail dystrophy L60.3 Pain of right great toe M79.674 Cellulitis of great toe of right foot L03.031 CPT Codes Skin Debridement - CPT: 20670 Nail matrixectomy ([id number]) Time Spent (min) 75 Comment 25 min for procedure
[2025-01-23 13:15] VITALS: BMI 32.1
== END 2025-01-23 14:19 | disposition home or self-care (01) ==
LOC: HO.HPODS 13:05
PROVIDERS: PCP Internal Medicine; Visit Provider Student in an Organized Health Care Education/Training Program
DX: L60.0 Ingrowing nail (principal); M21.41 Flat foot [pes planus] (acquired), right foot; M21.42 Flat foot [pes planus] (acquired), left foot; L60.9 Nail disorder, unspecified; B35.1 Tinea unguium; L60.3 Nail dystrophy; M79.674 Pain in right toe(s); L03.031 Cellulitis of right toe; M21.40 Flat foot [pes planus] (acquired), unspecified foot
CPT/HCPCS: 11750; 99204

== ENCOUNTER → 2025-01-23 13:05 | Outpatient (BNVA) | payer OTHER, SELFPAY | PROVIDERS: PCP Internal Medicine; Visit Provider Student in an Organized Health Care Education/Training Program | DX: L60.0 Ingrowing nail (principal); M21.41 Flat foot [pes planus] (acquired), right foot; M21.42 Flat foot [pes planus] (acquired), left foot; L60.9 Nail disorder, unspecified; B35.1 Tinea unguium; L60.3 Nail dystrophy; M79.674 Pain in right toe(s); L03.031 Cellulitis of right toe | CPT/HCPCS: 11750; 99202; J2003 ==

== ENCOUNTER 2025-01-28 15:26 | Outpatient (AMB) | payer OTHER, SELFPAY ==
[2025-01-28 15:28] VITALS: BP 140/86; PULSE 56; TEMP 36.3; O2SAT 96; BMI 43.3
--- NOTE | 2025-01-28 15:28 | MHC.PC.OV ---
Vital Signs 01/28/25 15:28 Height 6 ft 2 in Weight 337 lb BMI 43.3 BP 140/86 H Blood Pressure Location Lt brachial Position Sitting Pulse 56 Pulse Source Pulse Oximeter Temp 97.3 F Temp Source Temporal Artery Scan Pulse Oximetry (%) 96 Oxygen Delivery Method Room Air Intake Visit Reasons: Pain and swollen feet Allergies pollen extracts (POLLEN) Allergy (Mild, Verified 01/28/25 15:33) RUNNY NOSE house dust Allergy (Unknown, Verified 01/28/25 15:33) Sniffles Medication List - Last Reconciled 01/28/25 by Joey Jaimes MD acetaminophen 1,000 mg (2 x 500 mg) PO Q6H PRN albuterol sulfate 90 mcg/actuation 2 puffs PO Q4H allopurinol 300 mg PO DAILY aripiprazole (Abilify) 5 mg PO DAILY bupropion HCl XL (Wellbutrin XL) 300 mg PO DAILY cyanocobalamin (vitamin B-12) (Vitamin B-12) 1,000 mcg PO DAILY diclofenac sodium 1% (Voltaren Arthritis Pain) 4 grams topical QID ferrous sulfate (Feosol) 325 mg PO DAILY loratadine 10 mg PO DAILY PRN losartan 25 mg PO DAILY pantoprazole 40 mg PO DAILY@0630 quetiapine (Seroquel) 300 mg PO BEDTIME quetiapine (Seroquel) 50 mg PO DAILY sertraline (Zoloft) 200 mg PO DAILY terbinafine HCl 250 mg PO DAILY 12 weeks trazodone 200 mg PO BEDTIME zinc oxide 20% 1 appl See Protocol topical TID Tobacco use date assessed: 01/28/25 Dental Screening Dental Screen Date: 01/28/25 Did you have a dental visit in the last 12 months?: No Did you have a dental problem in the last 6 months where you did not have access to dental care?: No Was dental information given to patient?: Patient has dentist [facility] Medical History Cellulitis of great toe of right foot Pes planus Nail disorder Tinea unguium Nail dystrophy Pain of right great toe Ingrowing nail, right great toe Lumbosacral spondylosis with radiculopathy Myofascial pain Anxiety and depression Chronic low back pain Sacral ulcer Degenerative disc disease Obesity Anemia GERD (gastroesophageal reflux disease) Gout Tubular adenoma of colon Folic acid deficiency Asthma Hypertension Surgical History History of colonoscopy H/O knee surgery Family History Mother Diabetes Hypertension Stroke Father Medical history unknown Sister Hypertension Diabetes Paternal Grandmother Myocardial infarction Daughter In good health Sister No problems noted. Brother No problems noted. Social History Household Members: None Housing: Apartment Do you presently have visiting nurse or other home services: Yes Alcohol intake: former Comment: 0nce a week 4 drinks Patient Tobacco Use Status: Former Tobacco user Years Smoked: quit 2004 4-5 cigarettes a day e-Cigarette/Vaping Use: Currently Using Second Hand Smoke Exposure: No Substance Use Type: Marijuana service: No Current occupational status: employed Cognitive needs: No Hearing needs: No Vision needs: No Questionnaire PHQ-9 Over the last 2 weeks, how often have you been bothered by any of the following problems? 1. Little interest or pleasure in doing things: several days 2. Feeling down, depressed, or hopeless: more than half the days 3. Trouble falling or staying asleep, or sleeping too much: not at all 4. Feeling tired or having little energy: more than half the days 5. Poor appetite or overeating: not at all 6. Feeling bad about yourself - or that you are a failure or have let yourself or your family down: several days 7. Trouble concentrating on things, such as reading the newspaper or watching television: several days 8. Moving or speaking so slowly that other people could have noticed. Or the opposite - being so fidgety or restless that you have been moving around a lot more than usual: not at all 9. Thoughts that you would be better off or of hurting yourself in some way: several days Total score: 8 Source: Developed by Drs. Gino Willard, Meli Newman, Timbo Lazcano and colleagues, with an educational camden from [employer]. Thrive Questionnaire Date Thrive assessed: 08/06/24 I am a: Patient What is your living situation today?: I have a steady place to live Within the past 12 months, did the food you bought not last and you didn't have the money to get more?: I choose not to answer this question Within the past 12 months, did you worry whether your food would run out before you got money to buy more?: Sometimes True Do you have trouble paying for medicines?: No Do you have trouble getting transportation to medical appointments?: Yes Do you have trouble paying your heating and electricity bill?: I choose not to answer this question Do you have trouble taking care of your child, family member or friend?: No Do you have trouble with day-to-day activities such as bathing, preparing meals, shopping, managing finances, etc.?: No Are you currently unemployed and looking for a job?: I choose not to answer this question Are you interested in more education?: I choose not to answer this question Please select the resources that you would like help with: Care for elder or disabled, Job search/training and None Currently or been in a relationship where the following occur: No concerns reported THRIVE Score: 2 AUDIT C Alcohol Use Questionnaire (AUDIT-C) 1. How often do you have a drink containing alcohol?: Monthly or less 2. How many drinks containing alcohol do you have on a typical day when you are drinking?: 3 or 4 3. How often do you have six or more drinks on one occasion?: Never Total Score: 2 ARNULFO-7 AMB Questionnaire ARNULFO-7 Date ARNULFO - 7 assessed: 05/17/24 Feeling nervous, anxious, or on edge: 1 = Several days Not being able to stop or control worryin = Several days Worrying too much about different things: 1 = Several days Trouble relaxin = Several days Being so restless that it is hard to sit still: 1 = Several days Becoming easily annoyed or irritable: 1 = Several days Feeling afraid as if something awful might happen: 0 = Not at all Total ARNULFO-7 score (0-4 normal; 5-9 mild; 10-14 moderate; 15-21 severe): 6 Source: Developed by Drs. Gino Willard, Meli Newman, Timbo Lazcano and colleagues, with an educational camden from [employer]. Physical exam (Primary Care) Vital Signs: Last Vital Signs Temp 97.3 F 01/28/25 15:28 Pulse 56 01/28/25 15:28 BP 140/86 H 01/28/25 15:28 Pulse Ox 96 01/28/25 15:28 Oxygen Delivery Method Room Air 01/28/25 15:28 BMI result Body Mass Index 43.3 Tobacco/Smoking Status: Tobacco use Status Tobacco use date assessed 01/28/25 01/28/25 15:33 Patient Tobacco Use Status Former Tobacco user 01/28/25 15:33 e-Cigarette/Vaping Use Currently Using 01/28/25 15:33 PHQ-9: PHQ-9 Score PHQ-9: Total score 8 01/28/25 15:51 Thrive Assessment: Date of Thrive Assessment Date Thrive assessed 08/06/24 01/28/25 15:33 Currently or been in a relationship where the following occur: No concerns reported Const General: alert; No acute distress Eyes Conjunctivae: conjunctivae normal Resp Auscultation: clear to auscultation bilaterally Cardio Rate: regular rate Rhythm: regular rhythm GI Inspection: Yes normal to inspection Extrem General: Yes normal to inspection and No edema Office Procedures Flu Questionnaire Does the patient have a severe egg allergy?: No Does the patient have severe life threatening allergies?: No Does the patient have a fever or illness today?: No Has the patient ever had Guillain-[place] Syndrome?: No Has the patient ever had any past reaction to a flu shot?: No Immunizations Fluarix [id number] (PF) 45 mcg (15 mcg x 3)/0.5 mL IM syringe Performing Provider: Joey Jaimes MD [facility] Administered by: Emilia Nascimento CMA on 01/28/25 15:52 Dose Route Admin Location Dispensed Lot Number Expiration Date [facility] [employer] 0.5 mL IM Left Deltoid 0.5 mL [id number] 09/24/25 [id number] [employer] VIS Given Date VIS Provided VIS Publication Date 01/28/25 Single Vaccine 24 Eligibility Eligibility Date Funding Source Not [facility] Eligible 01/28/25 Private Coding Level of Care Code Est Pt Level 4 (18099) Complex EM visit Add On G2211 Diagnoses Essential hypertension I10 Hypertension type: essential hypertension Peripheral vascular disease I73.9 Class 3 severe obesity due to excess calories with serious comorbidity and body mass index (BMI) of 45.0 to 49.9 in adult E66.01; Z68.42; Z68.42 Body mass index: BMI 45.0-49.9 Obesity classification: adult class 3 (BMI >= 40) Obesity type: due to excess calories Serious obesity comorbidity presence: with serious comorbidity Gastroesophageal reflux disease without esophagitis K21.9 Esophagitis presence: without esophagitis Anemia, unspecified type D64.9 Anemia type: unspecified type Ingrown nail L60.0 Osteoarthritis of right knee M17.11 Left lateral epicondylitis M77.12 Morbid obesity due to excess calories E66.01 Assessment & Plan Assessment & Plan (1) Hypertension: Code(s): I10 - Essential (primary) hypertension Category: Medical Qualifiers: Hypertension type: essential hypertension Qualified Code(s): I10 - Essential (primary) hypertension Plan: Continue with blood pressure medication. Decrease salt intake and exercise on losartan 25 mg once a day (2) Peripheral vascular disease: Code(s): I73.9 - Peripheral vascular disease, unspecified Category: Medical Plan: When sitting down elevate the legs, exercise, and support stockings (3) Obesity: Code(s): E66.9 - Obesity, unspecified Category: Medical Qualifiers: Body mass index: BMI 45.0-49.9 Obesity classification: adult class 3 (BMI >= 40) Obesity type: due to excess calories Serious obesity comorbidity presence: with serious comorbidity Qualified Code(s): E66.01 - Morbid (severe) obesity due to excess calories; Z68.42 - Body mass index [BMI] 45.0-49.9, adult; Z68.42 - Body mass index [BMI] 45.0-49.9, adult Plan: Diet and exercise (4) GERD (gastroesophageal reflux disease): Code(s): K21.9 - Gastro-esophageal reflux disease without esophagitis Category: Medical Qualifiers: Esophagitis presence: without esophagitis Qualified Code(s): K21.9 - Gastro-esophageal reflux disease without esophagitis Plan: Avoid the foods that causes that usually spicy foods, tomato products, juices, coffee, soda and foods that your sensitive to. After eating do not lie down, allow 3-4 hours before in lie down. And keep the head of bed above 30 degrees to avoid the acid from going up. (5) Anemia: Code(s): D64.9 - Anemia, unspecified Category: Medical Qualifiers: Anemia type: unspecified type Qualified Code(s): D64.9 - Anemia, unspecified Plan: Presently on iron and will need to follow-up on the blood count (6) Ingrown nail: Code(s): L60.0 - Ingrowing nail Category: Medical Plan: Patient has seen Orthopedics and had debridement done (7) Osteoarthritis of right knee: Code(s): M17.11 - Unilateral primary osteoarthritis, right knee Category: Medical Plan: Patient needs to lose the weight keeping well hydrated and keeping active (8) Left lateral epicondylitis: Code(s): M77.12 - Lateral epicondylitis, left elbow Category: Medical (9) Morbid obesity due to excess calories: Code(s): E66.01 - Morbid (severe) obesity due to excess calories Category: Medical Plan History of Present Illness The patient is a 59-year-old male with a past medical history significant for hypertension, GERD, asthma, cervical and lumbar degenerative disc disease, generalized anxiety disorder, and peripheral vascular disease. He has a history of tubular adenoma of the colon, and his last colonoscopy was in January 2024. The patient recently saw a furniture mechanic for an ingrown toenail with cellulitis of the right great toe and underwent debridement and avulsion. He also had a visit to the emergency room on January 21 for right knee pain, where a joint aspiration was performed. An x-ray of the knee showed arthritis consistent with pseudogout, for which he takes allopurinol. He was recently seen by a physician front office assistant for cellulitis of the scrotum and was hospitalized for this condition in July. Blood work from August 06, 2034 showed anemia with a hemoglobin of 11 and hematocrit of 33, along with microcytosis and hypokalemia. His renal function is normal. Health Maintenance - Last colonoscopy was in January 2024 for a history of tubular adenoma. - Advised diet and exercise for peripheral vascular disease. - advised to lose weight, stay well-hydrated, and remain active. Social History - Activity: Patient is advised on diet, exercise, and keeping active. Review of Systems Physical Exam Results - Labs (August 06, 2034): Blood work showed anemia (hemoglobin 11, hematocrit 33), microcytosis, hypokalemia, and normal renal function. - Imaging (January 21): An x-ray of the right knee showed arthritis consistent with pseudogout. - Procedures: The patient underwent a joint aspiration of the right knee. - Last colonoscopy was in January 2024. Plan Patient was informed and verbally consented to the use of an ambient scribe for clinic note documentation during this visit. 1. Hypertension Continue losartan 25 mg once a day. 2. Peripheral Vascular Disease Management includes diet and exercise. 3. Gastroesophageal Reflux Disease Continue current management plan. 4. Anemia The patient is presently on iron and will need to follow up on the blood count. 5. Right Knee Osteoarthritis The patient has been seen by orthopedics. He is advised to lose weight, stay well-hydrated, and remain active. Discussion Notes I reviewed the patient's multiple chronic conditions. We discussed the plan to continue his losartan for hypertension, and to manage his peripheral vascular disease with diet and exercise. We also discussed the importance of continuing iron for his anemia, with a plan for follow-up blood work. I advised the patient on the need for weight loss, adequate hydration, and continued activity to help with his knee osteoarthritis. Patient Instructions - Continue taking losartan 25 mg once a day for your blood pressure. - Continue taking your iron supplement as prescribed. - We will need to recheck your blood count at a future visit. - Follow a healthy diet and continue to exercise. - It is important to try to lose weight. - Stay active and drink plenty of water. Orders: Orders Influenza [id number] Immunization Today Z23 - Encounter for immunization Medications: New tirzepatide (weight loss) (Zepbound) for 4 weeks 2.5 mg (0.5 mL) subcut QWEEK 2 mL 1RF E66.01 - Morbid (severe) obesity due to excess calories diclofenac sodium 1% (Voltaren Arthritis Pain) apply to single knee, ankle, foot; for foot includes sole/toes/top of foot 4 grams topical QID 200 grams 3RF M17.11 - Unilateral primary osteoarthritis, right knee, M77.12 - Lateral epicondylitis, left elbow blood pressure monitor (Blood Pressure Kit) As directed 1 ea 0RF I10 - Essential (primary) hypertension
--- OUTSIDE RECORDS SUMMARY | 2025-01-28 16:41 | XMS_ITS | Continuity of Care Document ---
Author Organization [employer], [facility] Address [address] [place] [phone] Care Team Providers Care Lab Tester Name Role Phone HIM CCA OTHER Assessment Encounter Date Assessment Date Assessment LastModified by Organization Details LastModified Time 01/27/2025 01/27/2025 I have reviewed and agree with the assessment and plan as documented by the drafter patent. I provided real time medical direction for this encounter and was immediately available to provide additional phone based assistance as needed. History as noted by drafter patent. Pt with history of Hypertension, Asthma, Gout, Depression. Pt reports that he was seen in the ED on 01/21 with knee swelling and had 90ml of joint fluid removed from his knee and they injected the knee with lidocaine and steroid. He was told he had a knee effusion but was not given a diagnosis. The knee is feeling significantly improved but he has been using a cane that he holds in his L hand. Pt reports that he woke up this AM with L elbow pain indicating the medial and lateral epicondyles. He also reports mild swelling and pain with elbow ROM. No trauma to the elbow, no fevers or chills. Pt has used tylenol with significant relief of the pain. On exam, pt afebrile. Mild swelling and tenderness over the medial and lateral epicondyles with no swelling/tendern ess over the olecranon. ROM intact but painful. Mild palpable warmth, no erythema. Impression: Pt with new atraumatic L elbow pain involving the medial and lateral epicondyles that he noted this AM. He has been using a cane with his L arm since 01/21. Pt afebrile. Etiology of pt's pain is unclear, but suspect possible epicondylitis or bursitis. Gout is also a possibility given pt's history. Pt reports that he has an appointment with his primary care provider scheduled for tomorrow. Pt is medicated with toradol 30mg IM now and is instructed to continue to use the tylenol tid prn pain. Pt is also told to discuss his elbow pain with his PCP at tomorrow's appointment to see if any further evaluation is indicated. Pt instructed to seek medical attention right away in the ED with any worsening or new symptoms, which are reviewed with him. btils Not available 01/27/2025 17:35:16 Plan of Treatment Reminders Order Date Submit Date Provider Last Modified By Organization Details Last Modified Time Details Appointments None recorded. Lab None recorded. Referral None recorded. Procedures None recorded. Surgeries None recorded. Imaging None recorded. Medication Orders ketorolac 30 mg/mL injection solution 2024 025 btils Wayne Hittahem [facility], [address] [facility], [place], [address], 14:41:04 Patient TargetsNo targets recorded. Patient InstructionsNo instructions recorded. Reason for Referral None Reported. Medical Equipment None Reported. Allergies No known drug allergies Medications Name Sig Start Date Stop Date Status Note LastModified by Organization Details LastModified Time ketorolac 30 mg/mL injection solution Inject 30 mg by intravenous route. 2024 active Not Available Not Available Not Avai lable Vitals Date Recorded Respiratory rate Oxygen saturation Oxygen saturation in Arterial blood by Pulse oximetry Heart rate Body height Body weight Body temperature Systolic blood pressure Provider Name and Address Organization Details Last Updated DateTime 15 /min 99 % 99 % 52 /min 187.96 cm 170567. 92 g 98.1 [degF] 152 mm[Hg] Not Available [employer] - production 14:18:24 Social History None recorded. Functional Status None recorded. Mental Status None recorded. Family History Nothing Reported. Medical History No medical history recorded. Past Encounters Encounter ID Performer Location Encounter Start Date Encounter Closed Date Diagnosis/Indication Diagnosis SNOMED-CT Code Diagnosis ICD10 Code Diagnosis IMO Codes Diagnosis Note [id number] Manuel Mckeon MD [facility] ED Medical [facility] [address] [place] [address] 01/27/2025 14:18:17 01/27/2025 17:35:36 Pain of elbow region 54247540 M25.522 [id number] Health Concerns Section Related Observation LastModified by Organization Uriahanish ls LastModified Time None Recorded Concern Status LastModified by Organization Details LastModified Time None Recorded Payers Encounter Date Sequence Insurance Name Policy Number Policy Suarez Covered Member ID Suarez Member ID Guarantor Name 01/27/2025 1 [facility] - DOS ON OR AFTER 2022 - DUAL ELIGIBLE - LONGTERM OPTIONS AND ONE CARE (MEDICARE REPLACEMENT/ADV ANTAGE - HMO) Paulo Avis [id number] Paulo Albarran Notes Date Note Type Note Provider Name and Address Organization Details Recorded Time 01/27/2025 text/html ROS as noted in the HPI This was a supervised home visit with drafter patent Obey Natarajan. CRC Nurse Triage Notes (Radha Vasquez): Reason For Request: Patient has Elbow pain - swollen, fluid build up in elbow.Denies: Hurtado Flash, circumferential hurtado Hurtado reported with black tissue to the area Open skin area after a fall with uncontrolled bleeding Abscess/infection with streaking noted, presence of fever or without Chief Complaints: Extremity Swelling, Extremity PainPMH: Hypertension, Asthma, Gout, DepressionPMH Reviewed at 01/27/2025 - :09Allergies Reviewed at 01/27/2025:09Comments: 59 y.o male complains of Extremity Swelling, Extremity Pain Patient with fluid build up to his left elbowHe is unable to fully extend his armHe reports the elbow is swollen, warm and aches/throbs Denies any history of arthritis or bursitisDenies any overuse or repetitious movementsHe took tylenol with some reliefHe would like to be evaluated I provided information on the mobile health provider response time and advised the patient and/or caregiver to monitor reported signs and symptoms. I discussed the warning signs of when to seek emergency care. ..................... ..................... ..................... ..................... ..................... ..................... ............... Billing Control Clerk Note From Obey Natarajan: SC6 responds to the listed address for a 59 yom w/ a c/c of L elbow pain. Upon arrival on scene, pt opens the door to his small, dark, and unkempt apartment. He is fully ambulatory, speaking in full and complete sentences, and NAD. He sits on the sofa for assessment and tells MIH he woke up this morning w/ his L elbow very sore to touch, swollen, and he is unable to straighten it due to the pain. He says the inside and underneath his arm is where it hurts the most and it aches down his forearm to his wrist. He was seen in the ED on 01/21/25 and had his knee drained due to an effusion and has been using a cane since. He puts most of his weight on his L hand on the cane. He says he noticed some achiness/soreness in the L elbow yesterday, but this morning it was bad . He took Tylenol, which helped, and he has been icing the elbow w/ ice packs throughout the day, which have also helped. He tells MIH nothing new has occurred w/ the knee and he has an appointment w/ his PCP for knee follow up tomorrow afternoon. He denies any falls on his L arm or elbow, he does not do repetitive work w/ that hand, and he has no hx of any trauma or bursitis in that limb. Pt also denies kidney issues and anticoagulation. Ddx: epicondylitis, bursitis, effusion [facility] obtains pt consent. Vital signs are gathered and pt's elbow is assessed. Pt is mildly hypertensive w/ palpated blood pressure, afebrile, and not hypoxic. L elbow appears to have some trace swelling over both lateral and medial epicondyles, but the skin is not red or hot to touch. CMS is normal on the RUE, LUE is very tender to touch w/ elbow extension limited to about 150 degrees AROM/PROM, pulse is present. Supination is painful as well. [facility] attempts to take photos of the elbow for [facility] inspection, but swelling is difficult to appreciate in the photos. [facility] contacts [facility] and discusses the above. [facility] agrees pt should discuss the elbow w/ his PCP tomorrow and continue to take the Tylenol TID and ice as needed. [facility] orders 30mg toradol IM. [facility] confirms pts' allergies and anticoagulation status and administers 30mg toradol IM in R deltoid using aseptic technique. Pt is advised to seek emergency care if the pain continues to get worse or is he gets a high fever or any signs of allergic reaction. [facility] is clear. Report completed by FADIA Natarajan [id number]. ..................... ..................... ..................... ..................... ..................... ..................... ............... [facility] Consulted: Manuel Mckeon ..................... ..................... ..................... ..................... ..................... ..................... ............... Disposition: Alisha Mckeon MD [address] [facility],[address], [place], [address], [email or web address] 01/27/2025 17:35:34
--- OUTSIDE RECORDS SUMMARY | 2025-01-28 16:41 | XMS_ITS | Data Portability ---
Author Organization [employer] [facility], [facility] Address [address] [place] [phone] Care Team Providers Care Industrial Commercial Groundskeeper Name Role Phone HIM CCA OTHER Assessment Encounter Date Assessment Date Assessment LastModified by Organization Details LastModified Time 01/27/2025 01/27/2025 I have reviewed and agree with the assessment and plan as documented by the lockstitch topstitcher. I provided real time medical direction for this encounter and was immediately available to provide additional phone based assistance as needed. History as noted by lockstitch topstitcher. Pt with history of Hypertension, Asthma, Gout, [...] mg/mL injection solution 2024 025 btils Wayne Patel [facility], [address] [facility], [place], [address], 14:41:04 Patient TargetsNo targets recorded. Patient InstructionsNo [...] % 99 % 52 /min 187.96 cm 632693. 92 g 98.1 [degF] 152 mm[Hg] Not Available [employer] - production 14:18:24 Social History None recorded. Functional Status None recorded. Mental Status None recorded. Family History Nothing Reported. Medical History No medical history recorded. Past Encounters Encounter ID Performer Location Encounter Start Date Encounter Closed Date Diagnosis/Indication Diagnosis SNOMED-CT Code Diagnosis ICD10 Code Diagnosis IMO Codes Diagnosis Note [id number] Manuel Mckeon MD [facility] [address] [place] [address] 01/27/2025 14:18:17 01/27/2025 17:35:36 Pain of elbow region 61459318 M25.522 [id number] Health Concerns Section Related Observation LastModified by Organization Det[employer] ls LastModified Time None Recorded Concern Status LastModified by Organization Details LastModified Time None Recorded Advance Directives Directive None Recorded Payers Insurance Date Sequence Insurance Name Policy Number Policy Suarez Covered Member ID Suarez Member ID Guarantor Name 01/27/2025 1 [facility] - DOS ON OR AFTER 2022 - DUAL ELIGIBLE - HALFWAY OPTIONS AND ONE CARE (MEDICARE REPLACEMENT/ADV ANTAGE - HMO) Paulo Albarran [id number] Paulo Albarran Notes Date Note Type Note Provider Name and Address Organization Details Recorded Time 01/27/2025 text/html ROS as noted in the HPI This was a supervised home visit with lockstitch topstitcher Obey Natarajan. CRC Nurse Triage Notes (Radha [...] Reviewed at 01/27/2025 - :09Allergies Reviewed at 01/27/2025 - :09Comments: 59 y.o male complains of Extremity Swelling, [...] ..................... ..................... ..................... ..................... ..................... ..................... ............... Administrative Executive Note From Obey Natarajan: SC6 responds to [...] issues and anticoagulation. Ddx: epicondylitis, bursitis, effusion [facility] obtains pt consent. Vital signs are [...] is present. Supination is painful as well. [facility] attempts to take photos of the elbow for [facility] inspection, but swelling is difficult to appreciate in the photos. [facility] contacts [facility] and discusses the above. [facility] agrees pt should discuss the elbow w/ his PCP tomorrow and continue to take the Tylenol TID and ice as needed. [facility] orders 30mg toradol IM. [facility] confirms pts' allergies and anticoagulation status and administers 30mg toradol IM in R deltoid using aseptic technique. Pt is advised to seek emergency care if the pain continues to get worse or is he gets a high fever or any signs of allergic reaction. [facility] is clear. Report completed by FADIA Natarajan [id number]. ..................... ..................... ..................... ..................... ..................... ..................... ............... [facility] Consulted: Manuel Mckeon ..................... ..................... ..................... ..................... ..................... ..................... ............... Disposition: Fulfilled Manuel Mckeon MD [address] [facility],[address], [place], [address], [employer] 01/27/2025 17:35:34
== END 2025-01-28 15:58 | disposition home or self-care (01) ==
LOC: HO.HMCH 15:27
PROVIDERS: PCP Internal Medicine; Visit Provider Internal Medicine
DX: I10 Essential (primary) hypertension (principal); I73.9 Peripheral vascular disease, unspecified; E66.01 Morbid (severe) obesity due to excess calories; Z68.42 Body mass index [BMI] 45.0-49.9, adult; K21.9 Gastro-esophageal reflux disease without esophagitis; D64.9 Anemia, unspecified; L60.0 Ingrowing nail; M17.11 Unilateral primary osteoarthritis, right knee; M77.12 Lateral epicondylitis, left elbow; Z23 Encounter for immunization

== ENCOUNTER → 2025-01-28 15:26 | Outpatient (BNVA) | payer OTHER, SELFPAY | PROVIDERS: PCP Internal Medicine; Visit Provider Internal Medicine | DX: I10 Essential (primary) hypertension (principal); I73.9 Peripheral vascular disease, unspecified; E66.01 Morbid (severe) obesity due to excess calories; K21.9 Gastro-esophageal reflux disease without esophagitis; D64.9 Anemia, unspecified; L60.0 Ingrowing nail; M17.11 Unilateral primary osteoarthritis, right knee; M77.12 Lateral epicondylitis, left elbow; Z23 Encounter for immunization; Z68.42 Body mass index [BMI] 45.0-49.9, adult | CPT/HCPCS: 90471; 90656; 96127; 99212 ==

== ENCOUNTER 2025-03-06 09:32 | Outpatient (AMB) | payer OTHER, SELFPAY ==
--- NOTE | 2025-03-06 09:47 | MHC.OFFVIS ---
Vital Signs 03/06/25 10:28 Height 6 ft 2 in Weight 337 lb BMI 43.3 Intake Visit Reasons: F/U 30 min appt. for LT hallux PNA and F/U RT Intake Note: Paulo is a 59 year old male who presents to the office today for a follow up for his right hallux PNA. Pt states his toe has since improved however he is still experiencing pain on the top of the right hallux medial border. He is still experiencing pain in his left hallux as well on the lateral border. Allergies pollen extracts (POLLEN) Allergy (Mild, Verified 03/06/25 10:30) RUNNY NOSE house dust Allergy (Unknown, Verified 03/06/25 10:30) Sniffles HPI Comments Details: The patient is a 59 year old male presenting for follow-up of the right hallux and medial border partial nail avulsion with matrixectomy and pain to the left hallux lateral border with lack of adhesion to the nail bed. Patient states his PNA site has healed but he experiences mild pain to the medial border of the right hallux due to increased thickness. Patient states he adhered to the after care instructions with some relief. Approximately two weeks ago, the patient started experiencing an increased pain to his left hallux lateral border and noticed the nail becoming loose, appearing as if it could detach completely. There is no recollection of trauma or injury occurring to this toe. The patient has been informed that a fungal infection may have compromised the adhesion of the nail to the nail bed, resulting in the nail's partial detachment. He denies any other pedal concerns. [facility] Medical History Cellulitis of great toe of right foot Pes planus Nail disorder Tinea unguium Nail dystrophy Pain of right great toe Ingrowing nail, right great toe Lumbosacral spondylosis with radiculopathy Myofascial pain Anxiety and depression Chronic low back pain Sacral ulcer Degenerative disc disease Obesity Anemia GERD (gastroesophageal reflux disease) Gout Tubular adenoma of colon Folic acid deficiency Asthma Hypertension Surgical History History of colonoscopy H/O knee surgery Family History Mother Diabetes Hypertension Stroke Father Medical history unknown Sister Hypertension Diabetes Paternal Grandmother Myocardial infarction Daughter In good health Sister No problems noted. Brother No problems noted. Social History Household Members: None Housing: Apartment Do you presently have visiting nurse or other home services: Yes Alcohol intake: former Comment: 0nce a week 4 drinks Patient Tobacco Use Status: Former Tobacco user Years Smoked: quit 2004 4-5 cigarettes a day e-Cigarette/Vaping Use: Currently Using Second Hand Smoke Exposure: No Substance Use Type: Marijuana service: No Current occupational status: employed Cognitive needs: No Hearing needs: No Vision needs: No Review of Systems Const Details: - Dermatological: Reports right hallux healed PNA site to the medial nail border. Reports pain to the left hallux lateral border due to detachment of the nail. - Neurological: Reports numbness and tingling in the toes. All systems reviewed & are unremarkable except as noted in HPI and below Physical Exam Vital Signs: BMI result Body Mass Index 43.3 Extrem Other: B/L LE Focused Physical Exam: Derm: Healed PNA site to the right hallux medial border. Hyperkeratotic lesion noted to the medial nail border of the right hallux. Loose adherance of the left hallux lateral border nail to nail bed. Increased thickness, discoloration with subungual debris to nails x10. No erythema, purulence, or drainage noted. No open lesions, abrasions, or wounds noted. Xerosis of skin noted. Vasc: DP mildly palpable. PT nonpalpable. CFT < 3 secs. Temp gradient warm to warm. Pedal hair diminished. Neuro: Protective sensations grossly diminished. MSK: Mild Pain on palpation to the right hallucal nail. Pain on palpation to the left hallucal nail lateral border due to detachment of nail. No crepitus or fluctuance noted. ROM of the forefoot, hindfoot, and ankles WNL. Pes planus foot type noted. Nonantalgic gait noted. Office Procedures AMB Debridement/Avulsion Podia Details: Debrided the hyperkeratotic area to the medial border of the right hallux using a tissue nipper without incidents. Procedure:Left hallux partial nail avulsion of the lateral border Cleansed left hallux with alcohol swab and injected 10cc of 1%lidocaine plain in a hallux block fashion. Next applied a tourniquet to the left hallux and then cleansed the left hallux with Betadine. Attention was drawn to the lateral border of the left hallux and a [place] was utilized to free the offending nail border from the nail bed. Next an Zambian anvil was utilized to trim and cut the offending nail border and a hemostat was used to remove the offending nail border completely. A curette was used to ensure all spicules of the nail were removed from the nail bed. Triple antibiotic ointment a Band-Aid and Coban was then applied to the left hallux. Procedure was done with no incidents. Provided patient with aftercare instructions. 02683-Hummqxzykon of Callus (1) [id number] Partial/Total nail avulsion (1 nail) Procedure code (CPT) selection complete Office Meds lidocaine HCl 10 mg/mL (1 %) injection solution Performing Provider: Ilda Guzman DPM Performing Location: [facility] Administered by: Ilda Guzman DPM on 03/11/25 14:31 Dose Route Admin Location Dispensed Lot Number Expiration Date [facility] Senior Business Process Analyst 10 mL subcut 10 mL 72195-749-76 [employer] Total Dispensed Waste 10 mL 0 % Triple Antibiotic 3.5 mg-400 unit-5,000 unit topical ointment packet Performing Provider: Ilda Guzman DPM Performing Location: [facility] Administered by: Ilda Guzman DPM on 03/11/25 14:31 Dose Route Admin Location Dispensed Lot Number Expiration Date [facility] Senior Business Process [employer]st 1 appl topical 1 appl 47631-290-28 [employer] povidone-iodine 10 % topical swab Performing Provider: Ilda Guzman DPM Performing Location: [facility] Administered by: Ilda Guzman DPM on 03/11/25 14:31 Dose Route Admin Location Dispensed Lot Number Expiration Date [facility] Senior Business Process [employer]st 1 appl topical 1 appl 99489-381-90 [employer] [place]. ethyl chloride 100 % topical spray Performing Provider: Ilda Guzman DPM Performing Location: [facility] Administered by: Ilda Guzman DPM on 03/11/25 14:31 Dose Route Admin Location Dispensed Lot Number Expiration Date [facility] Senior Business Process [employer]st 1 appl topical 116 mL [id number] SQMOS Assessment & Plan Assessment & Plan (1) Ingrowing nail, right great toe: Code(s): L60.0 - Ingrowing nail Category: Medical (2) Pes planus: Code(s): M21.40 - Flat foot [pes planus] (acquired), unspecified foot Category: Medical Qualifiers: Laterality: bilateral Qualified Code(s): M21.41 - Flat foot [pes planus] (acquired), right foot; M21.42 - Flat foot [pes planus] (acquired), left foot (3) Nail disorder: Code(s): L60.9 - Nail disorder, unspecified Category: Medical (4) Tinea unguium: Code(s): B35.1 - Tinea unguium Category: Medical (5) Nail dystrophy: Code(s): L60.3 - Nail dystrophy Category: Medical (6) Pain of right great toe: Code(s): M79.674 - Pain in right toe(s) Category: Medical (7) Cellulitis of great toe of right foot: Code(s): L03.031 - Cellulitis of right toe Category: Medical (8) Onychomycosis: Code(s): B35.1 - Tinea unguium Category: Medical Plan Patient was informed and verbally consented to the use of an ambient scribe for clinic note documentation during this visit. I discussed with the patient the likely cause of the left great toe nail loosening as onychomycosis, emphasizing the partial detachment due to fungal infection at the nail bed. Options presented included complete nail removal versus partial nail avulsion, with an explanation that a full regrowth can take approximately one year. I recommended partial avulsion due to the intact medial side, which he accepted. Additionally, we reviewed the prior use of a chemical agent on his right foot nail for ingrown issues and decided against it for the current nail situation on the left foot. The patient was agreeable to the plan and understood that follow-up evaluations are necessary to monitor progress. - Performed a partial nail avulsion on the lateral border of the left hallux. - Debried hyperkeratotic lesion to the right hallux. - Advise post-procedural care, including warm water and Epsom salt soaks to promote healing, application of neosporin, and a bandaid. - Consider future chemical procedures if onycholysis or ingrowing persists or recurs, though not currently indicated. - Advised patient to avoid tight shoes to prevent irritation and potential recurrence of ingrown toenails. - Patient is to avoid barefoot walking and to wear supportive shoegear. - Advised routine nail care every 9 weeks. RTC in 2 weeks. Orders: Orders AMB Debridement/Avulsion Podiatry 03/06/25 B35.1 - Tinea unguium, L60.1 - Onycholysis, L60.3 - Nail dystrophy, L60.9 - Nail disorder, unspecified Coding Level of Care Code Est Pt Level 4 (36677) Diagnoses Ingrowing nail, right great toe L60.0 Pes planus of both feet M21.41; M21.42 Laterality: bilateral Nail disorder L60.9 Tinea unguium B35.1 Nail dystrophy L60.3 Pain of right great toe M79.674 Cellulitis of great toe of right foot L03.031 Onychomycosis B35.1 CPT Codes Skin Debridement - CPT: 99497-Hrfybqbfbgu of Callus (1) ([id number]) Skin Debridement - CPT: 97338 Partial/Total nail avulsion (1 nail) ([id number]) Time Spent (min) 50 Comment 20 mins for procedure
[2025-03-06 10:28] VITALS: BMI 43.3
== END 2025-03-06 10:31 | disposition home or self-care (01) ==
LOC: HO.HPODS 09:33
PROVIDERS: PCP Internal Medicine; Visit Provider Student in an Organized Health Care Education/Training Program
DX: L60.0 Ingrowing nail (principal); M21.41 Flat foot [pes planus] (acquired), right foot; M21.42 Flat foot [pes planus] (acquired), left foot; L60.9 Nail disorder, unspecified; B35.1 Tinea unguium; L60.3 Nail dystrophy; M79.674 Pain in right toe(s); L03.031 Cellulitis of right toe; L60.1 Onycholysis
CPT/HCPCS: 11055; 11730; 99214

== ENCOUNTER → 2025-03-06 | Outpatient (BNVA) | payer OTHER, SELFPAY | PROVIDERS: PCP Internal Medicine; Visit Provider Student in an Organized Health Care Education/Training Program | DX: L60.0 Ingrowing nail (principal); L60.1 Onycholysis; L60.3 Nail dystrophy; L03.031 Cellulitis of right toe; B35.1 Tinea unguium; L85.9 Epidermal thickening, unspecified; M21.41 Flat foot [pes planus] (acquired), right foot; M21.42 Flat foot [pes planus] (acquired), left foot; M47.27 Other spondylosis with radiculopathy, lumbosacral region; Z78.9 Other specified health status | CPT/HCPCS: 11055; 11730; 99212; J2003 ==

== ENCOUNTER 2025-03-14 13:51 | Outpatient (AMB) | payer OTHER, SELFPAY ==
--- NOTE | 2025-03-14 14:01 | A.OFFPC_ITS ---
Vital Signs 03/14/25 14:02 Height 6 ft 2 in Weight 334 lb 2 oz BMI 42.9 BP 100/72 Blood Pressure Location Lt brachial Position Sitting Pulse 83 Pulse Source Pulse Oximeter Temp Source Temporal Artery Scan Pulse Oximetry (%) 97 Oxygen Delivery Method Room Air Intake Visit Reasons: obesity, HTN Intake Note: Patient is here to follow up on HTN, Obesity. Electric Vehicle Electrician Required: No Post Acute Care Registered Nurse: Not Required per policy Accompanied by: Self / Same As Patient Allergies pollen extracts (POLLEN) Allergy (Mild, Verified 03/14/25 14:05) RUNNY NOSE house dust Allergy (Unknown, Verified 03/14/25 14:05) Sniffles Medication List - Last Reconciled 03/14/25 by Joey Jaimes MD acetaminophen 1,000 mg (2 x 500 mg) PO Q6H PRN albuterol sulfate 90 mcg/actuation 2 puffs PO Q4H allopurinol 300 mg PO DAILY aripiprazole (Abilify) 5 mg PO DAILY blood pressure monitor (Blood Pressure Kit) As directed bupropion HCl XL (Wellbutrin XL) 300 mg PO DAILY cyanocobalamin (vitamin B-12) (Vitamin B-12) 1,000 mcg PO DAILY diclofenac sodium 1% (Voltaren Arthritis Pain) 4 grams topical QID ferrous sulfate (Feosol) 325 mg PO DAILY loratadine 10 mg PO DAILY PRN losartan 25 mg PO DAILY 90 days pantoprazole 40 mg PO DAILY@0630 quetiapine (Seroquel) 300 mg PO BEDTIME quetiapine (Seroquel) 50 mg PO DAILY sertraline (Zoloft) 200 mg PO DAILY terbinafine HCl 250 mg PO DAILY 12 weeks tirzepatide (weight loss) (Zepbound) 2.5 mg (0.5 mL) subcut QWEEK trazodone 200 mg PO BEDTIME zinc oxide 20% 1 appl See Protocol topical TID Tobacco use date assessed: 03/14/25 Dental Screening Dental Screen Date: 03/14/25 Did you have a dental visit in the last 12 months?: No Did you have a dental problem in the last 6 months where you did not have access to dental care?: No Was dental information given to patient?: No HPI HPI Comments History of Present Illness Details History of Present Illness The patient is a 59-year-old male with a history of morbid obesity, hypertension, asthma, GERD, tubular adenoma of the colon, generalized anxiety disorder, and peripheral vascular disease, presenting for a follow-up visit. He was last seen in January 2025. He recently saw a training professional for an infection of the right foot and underwent a procedure, which he reports was a nail removal for an ingrown toenail on both feet. He states his foot is doing much better. Blood work from July 2024 revealed anemia and low potassium, while renal function was noted to be normal. His last cholesterol test was in May 2023. His last colonoscopy was in January 2024, which showed a tubular adenoma. His medications include losartan 25 mg once daily, albuterol as needed, and he was recently started on Zepbound. He is also under the care of a psychiatrist for generalized anxiety disorder. For the past few days, he has been experiencing a cough and a raspy voice, and has been feeling hot. Health Maintenance The patient was advised to get the shingles vaccine, which is a two-part shot available at the pharmacy. His tetanus, pneumonia, and flu shots are up to date. Fasting blood work has been ordered to check blood counts, cholesterol, and sugar levels. Social History - The patient lives with two cats. - He is followed by psychiatry but notes difficulty in scheduling appointments with a therapist. Results - Labs (July 2024): Anemia was present, w ith a blood count of 11 g/dL, which is below the normal of 14 for men. Potassium was low. Creatinine and renal function were normal. - Labs (May 2023): Cholesterol was denise bennie. - Procedures: A colonoscopy in January 2024 showed a tubular adenoma. [facility] Medical History (Updated 03/11/25 @ 14:30 by Ilda Guzman DPM) Onycholysis Cellulitis of great toe of right foot Pes planus Nail disorder Tinea unguium Nail dystrophy Pain of right great toe Ingrowing nail, right great toe Lumbosacral spondylosis with radiculopathy Myofascial pain Anxiety and depression Chronic low back pain Sacral ulcer Degenerative disc disease Obesity Anemia GERD (gastroesophageal reflux disease) Gout Tubular adenoma of colon Folic acid deficiency Asthma Hypertension Surgical History History of colonoscopy H/O knee surgery Family History Mother Diabetes Hypertension Stroke Father Medical history unknown Sister Hypertension Diabetes Paternal Grandmother Myocardial infarction Daughter In good health Sister No problems noted. Brother No problems noted. Social History Household Members: None Housing: Apartment Do you presently have visiting nurse or other home services: Yes Alcohol intake: former Comment: 0nce a week 4 drinks Patient Tobacco Use Status: Former Tobacco user Years Smoked: quit 2004 4-5 cigarettes a day e-Cigarette/Vaping Use: Currently Using Second Hand Smoke Exposure: Yes Substance Use Type: Marijuana service: No Current occupational status: employed Cognitive needs: No Hearing needs: No Vision needs: No Questionnaire Thrive Questionnaire Date Thrive assessed: 01/28/25 I am a: Patient What is your living situation today?: I have a steady place to live Within the past 12 months, did the food you bought not last and you didn't have the money to get more?: I choose not to answer this question Within the past 12 months, did you worry whether your food would run out before you got money to buy more?: Sometimes True Do you have trouble paying for medicines?: No Do you have trouble getting transportation to medical appointments?: Yes Do you have trouble paying your heating and electricity bill?: I choose not to answer this question Do you have trouble taking care of your child, family member or friend?: No Do you have trouble with day-to-day activities such as bathing, preparing meals, shopping, managing finances, etc.?: No Are you currently unemployed and looking for a job?: I choose not to answer this question Are you interested in more education?: I choose not to answer this question Currently or been in a relationship where the following occur: No concerns reported THRIVE Score: 2 ARNULFO-7 AMB Questionnaire ARNULFO-7 Date ARNULFO - 7 assessed: 05/17/24 Source: Developed by Drs. Gino Willard, Meli Newman, Timbo Lazcano and colleagues, with an educational camden from [employer] Review of Systems Narrative Review of Systems - General: Reports feeling hot. - Respiratory: Reports a cough for a few days and a raspy voice. - Constitutional: Denies fever. - Dermatological: Denies any rash. - Otologic: Denies ear pain. - Extremities: Reports his foot is much better. Physical exam (Primary Care) Vital Signs: Last Vital Signs Pulse 83 03/14/25 14:02 BP 100/72 03/14/25 14:02 Pulse Ox 97 03/14/25 14:02 Oxygen Delivery Method Room Air 03/14/25 14:02 BMI result Body Mass Index 42.9 Tobacco/Smoking Status: Tobacco use Status Tobacco use date assessed 03/14/25 03/14/25 14:03 Patient Tobacco Use Status Former Tobacco user 03/14/25 14:03 e-Cigarette/Vaping Use Currently Using 03/14/25 14:03 Thrive Assessment: Date of Thrive Assessment Date Thrive assessed 01/28/25 03/14/25 14:03 Currently or been in a relationship where the following occur: No concerns reported Narrative Physical Exam - HEENT: Oropharynx examined. Neck is supple with no tenderness on palpation. - Respiratory: Lungs are clear to auscultation bilaterally. No wheezing noted. - Extremities: Pedal pulses are good bilaterally. Examination of feet shows evidence of fungal infection. Post-procedural site for ingrown toenail noted without scabs. Const General: alert; No acute distress Eyes Conjunctivae: conjunctivae normal Resp Auscultation: clear to auscultation bilaterally Cardio Rate: regular rate Rhythm: regular rhythm GI Inspection: Yes normal to inspection Extrem General: Yes normal to inspection and No edema Coding Level of Care Code Est Pt Level 4 (51549) Add On Problem Visit Only Diagnoses Essential hypertension I10 Hypertension type: essential hypertension Peripheral vascular disease I73.9 Morbid obesity due to excess calories E66.01 Gastroesophageal reflux disease without esophagitis K21.9 Esophagitis presence: without esophagitis Cellulitis of great toe of right foot L03.031 Mild intermittent asthma without complication J45.20 Asthma complication type: uncomplicated Asthma persistence: intermittent Asthma severity: mild Assessment & Plan Assessment & Plan (1) Hypertension: Code(s): I10 - Essential (primary) hypertension Category: Medical Qualifiers: Hypertension type: essential hypertension Qualified Code(s): I10 - Essential (primary) hypertension Plan: Continue with blood pressure medication. Decrease salt intake and exercise patient is taking losartan 25 mg once a day (2) Peripheral vascular disease: Code(s): I73.9 - Peripheral vascular disease, unspecified Category: Medical Plan: When sitting down elevate the legs, exercise, and support stockings (3) Morbid obesity due to excess calories: Code(s): E66.01 - Morbid (severe) obesity due to excess calories Category: Medical Plan: Patient was started on Zepbound, diet and exercise (4) GERD (gastroesophageal reflux disease): Code(s): K21.9 - Gastro-esophageal reflux disease without esophagitis Category: Medical Qualifiers: Esophagitis presence: without esophagitis Qualified Code(s): K21.9 - Gastro-esophageal reflux disease without esophagitis Plan: Avoid the foods that causes that usually spicy foods, tomato products, juices, coffee, soda and foods that your sensitive to. After eating do not lie down, allow 3-4 hours before in lie down. And keep the head of bed above 30 degrees to avoid the acid from going up. (5) Cellulitis of great toe of right foot: Code(s): L03.031 - Cellulitis of right toe Category: Medical Plan: Patient was seen by Podiatry had a procedure done. (6) Asthma: Code(s): J45.909 - Unspecified asthma, uncomplicated Category: Medical Qualifiers: Asthma complication type: uncomplicated Asthma persistence: intermittent Asthma severity: mild Qualified Code(s): J45.20 - Mild intermittent asthma, uncomplicated Plan: Continuing with albuterol as needed Plan Plan Patient was informed and verbally consented to the use of an ambient scribe for clinic note documentation during this visit. 1. Anemia The patient's blood work from July showed a hemoglobin of 11 g/dL, which is low. A request for follow-up fasting blood work was provided to recheck his blood counts. 2. Hypokalemia Low potassium was noted on the July 2024 lab work. This will be re-evaluated with the upcoming fasting blood tests. 3. Hypertension The patient will continue taking losartan 25 mg once a day. A prescription for a blood pressure monitor will be sent to the pharmacy for home monitoring. 4. Morbid Obesity The patient was recently started on Zepbound. A prescription for this medication will be sent to the pharmacy. He was counseled on diet and exercise to aid in weight loss. 5. Asthma The patient will continue to use albuterol as needed for symptoms. 6. Hyperlipidemia The patient's cholesterol was last checked in May 2023. It will be rechecked as part of the ordered fasting lab work. 7. Acute Viral Laryngitis The patient reports a cough and raspy voice, which is consistent with viral laryngitis. A physical exam showed no signs of pneumonia or wheezing. He was advised to drink plenty of water and can take Tylenol for symptoms as there are no current signs of a bacterial infection. Discussion Notes We discussed the recent lab results from July, which showed anemia with a hemoglobin of 11. I provided a lab request form for him to get fasting blood work to follow up on this, as well as to check his cholesterol and sugar levels. I explained that this requires 8 hours of no food. Regarding his cough and raspy voice, I reassured him that my exam does not suggest pneumonia and this is likely a viral laryngitis. I advised him to increase hydration and that he could use Tylenol, as I see no signs of infection at this time. We discussed his weight and the importance of healthy eating. I confirmed I will send the prescription for Zepbound to his pharmacy. I also provided a prescription for a blood pressure monitor for him to use at home. Finally, I reviewed his immunizations and noted he is up to date on tetanus, pneumonia, and flu shots. I recommended he get the shingles vaccine, which is a two-part shot for life, available at the pharmacy. We agreed to follow up on the blood test results. Patient Instructions - Please go for your blood tests. You must not eat for 8 hours before the test, but you can drink water. - Continue taking your losartan 25 mg once a day for blood pressure. - The prescription for the once-a-week shot (Zepbound) will be sent to your pharmacy. - You will need a blood pressure monitor to check your blood pressure at home. A prescription for this has been sent. - For your cough, drink plenty of water. You can take Tylenol if you feel hot, as there are no signs of infection. - Continue to use your albuterol inhaler as needed for asthma. - It is recommended that you get the shingles shot. This is a two-part vaccine that you can get at the pharmacy. - Focus on eating a healthy diet to help with weight loss and reduce aches and pains. - Please let us know if you have any problems. Orders: Orders Complete Blood Count Auto Diff Today D64.9 - Anemia, unspecified Ferritin Today D64.9 - Anemia, unspecified Free T4 (Free Thyroxine) Today D64.9 - Anemia, unspecified Thyroid Stimulating Hormone Today D64.9 - Anemia, unspecified Lipid Panel Today D64.9 - Anemia, unspecified, E78.00 - Pure hypercholesterolemia, unspecified IRON PROFILE Today D64.9 - Anemia, unspecified Comprehensive Met. Panel Today D64.9 - Anemia, unspecified Vitamin B12 and Folate Today D64.9 - Anemia, unspecified Reticulocyte Count Today D64.9 - Anemia, unspecified Prostate Specific Antigen Scr Today D64.9 - Anemia, unspecified Hemoglobin A1c Today D64.9 - Anemia, unspecified UA CC w/rflx Micro + Cult Today D64.9 - Anemia, unspecified, R30.0 - Dysuria Medications: Refilled tirzepatide (weight loss) (Zepbound) for 4 weeks 2.5 mg (0.5 mL) subcut QWEEK 2 mL 1RF E66.01 - Morbid (severe) obesity due to excess calories blood pressure monitor (Blood Pressure Kit) As directed 1 ea 0RF I10 - Essential (primary) hypertension
[2025-03-14 14:02] VITALS: BP 100/72; PULSE 83; O2SAT 97; BMI 42.9
--- OUTSIDE RECORDS SUMMARY | 2025-03-14 18:06 | XMS_ITS | Continuity of Care Document ---
Author Organization [facility], [facility] Address [address] [place] [address] Care Team Providers Care Cable Weaver Name Role Phone HIM CCA OTHER JENNI MCCARTY Primary Care Provider Assessment Encounter Date Assessment Date Assessment LastModified by Organization Details LastModified Time 01/27/2025 01/27/2025 I have reviewed and agree with the assessment and plan as documented by the pharmacy operations specialist. I provided real time medical direction for this encounter and was immediately available to provide additional phone based assistance as needed. History as noted by pharmacy operations specialist. Pt with history of Hypertension, Asthma, Gout, [...] 30 mg/mL injection solution 2024 025 btils [facility], [place], [address], 14:41:04 Patient TargetsNo targets recorded. Patient InstructionsNo instructions recorded. Reason for Referral None Reported. Medical Equipment None Reported. Allergies No known drug allergies Medications Name Sig Start Date Stop Date Status Note LastModified by Organization Details LastModified Time prednisone 50 mg tablet Take 1 tablet every day by oral route with meal(s) for 5 days. 02/19 completed Not Available Not Available Not Available ketorolac 30 mg/mL injection solution Inject 30 mg by intraveno us route. 2024 active Not Available Not Available Not Avai lable potassium chloride ER 20 mEq tablet,exte nded release Take 2 tablets every day by oral route for 4 days. 02/18 completed Not Available Not Available Not Available Vitals Date Recorded Respiratory rate Oxygen saturation Heart rate Body height Body weight Body temperature Systolic blood pressure Provider Name and Address Organization Details Last Updated DateTime 15 /min 99 % 52 /min 187.96 cm 659853. 92 g 98.1 [degF] 152 mm[Hg] Not Available [facility] - production 14:18:24 Social History None recorded. Functional Status None recorded. Mental Status None recorded. Family History Nothing Reported. Medical History No medical history recorded. Past Encounters Encounter ID Performer Location Encounter Start Date Encounter Closed Date Diagnosis/Indication Diagnosis SNOMED-CT Code Diagnosis ICD10 Code Diagnosis IMO Codes Diagnosis Note [id number] Manuel Mckeon MD [facility] ED Medical [address] [phone] 01/27/2025 14:18:17 01/29/2025 15:28:35 Pain of elbow region 18218353 M25.522 [id number] Health Concerns Section Related Observation LastModified by Organization Detai ls LastModified Time None Recorded Concern Status LastModified by Organization Details LastModified Time None Recorded Payers Encounter Date Sequence Insurance Name Policy Number Policy Suarez Covered Member ID Suarez Member ID Guarantor Name 01/27/[address] [facility] - DOS ON OR AFTER 2022 - DUAL ELIGIBLE - INTERMEDIATE OPTIONS AND ONE CARE (MEDICARE REPLACEMENT/ADV ANTAGE - HMO) Paulo Albarran [id number] Paulo Albarran Notes Date Note Type Note Provider Name and Address Organization Details Recorded Time 01/27/2025 text/html ROS as noted in the HPI This was a supervised home visit with pharmacy operations specialist Obey Natarajan. [facility] Nurse Triage Notes (Radha [...] Asthma, Gout, DepressionPMH Reviewed at 01/27/2025 - 09:09Allergies Reviewed at 01/27/2025 - 09:09Comments: 59 y.o male complains of Extremity Swelling, [...] ..................... ..................... ..................... ..................... ..................... ..................... ............... Grocery Clerk Note From Obey Natarajan: [facility] responds [...] issues and anticoagulation. Ddx: epicondylitis, bursitis, effusion [facility] obtains pt consent. Vital signs [...] is present. Supination is painful as well. [facility] attempts to take photos of the elbow for [facility] inspection, but swelling is difficult to appreciate in the photos. [facility] contacts [facility] and discusses the above. [facility] agrees pt should discuss the elbow w/ his PCP tomorrow and continue to take the Tylenol TID and ice as needed. [facility] orders 30mg toradol IM. [facility] confirms pts' allergies and anticoagulation status and administers 30mg toradol IM in R deltoid using aseptic technique. Pt is advised to seek emergency care if the pain continues to get worse or is he gets a high fever or any signs of allergic reaction. [facility] is clear. Report completed by FADIA Natarajan [id number]. ..................... ..................... ..................... ..................... ..................... ..................... ............... [facility] Consulted: Manuel Mckeon ..................... ..................... ..................... ..................... ..................... ..................... ............... Disposition: Alisha Mckeon MD [address] [facility], [place], [address], IRENE - NICHOLAS, MARY 01/27/2025 17:35:34
--- OUTSIDE RECORDS SUMMARY | 2025-03-14 18:06 | XMS_ITS | Data Portability ---
Author Organization [employer] [facility], [facility] Address [address] [place] [address] Care Team Providers Care Oracle Soa Architect Name Role Phone HIM CCA OTHER JENNI MCCARTY Primary Care Provider Assessment Encounter Date Assessment Date Assessment LastModified by Organization Details LastModified Time 01/27/2025 01/27/2025 I have reviewed and agree with the assessment and plan as documented by the insurance risk surveyor. I provided real time medical direction for this encounter and was immediately available to provide additional phone based assistance as needed. History as noted by insurance risk surveyor. Pt with history of Hypertension, Asthma, Gout, [...] with him. [email or web address] Not available 01/27/2025 17:35:16 02/07/2025 02/07/2025 I provided real -time medical direction via phone for this encounter, and was available for additional phone based assistance as needed. I have reviewed and agree with the Assessment and Plan as documented by the School Principal. We discussed the diagnostic uncertainty of home visits and the risk associated with this. In this case the patient and I felt this to be an acceptable and reasonable amount of risk given the benefit of avoiding an ED visit. The patient given the opportunity to ask questions. Advised if develops CP/severe SOB/turning blue/uncontrolle d n/v/d or black/bloody emesis or stool/ AMS/ syncope/ hi fever / intolerable leg pain / hot red leg to call 911- verbalized understanding of instruction [email or web address] Not available 02/07/2025 10:41:11 Plan of Treatment Reminders Order Date Submit Date Provider Last Modified By Organization Details Last Modified Time Details Appointments None recorded. Lab BMP, serum or plasma 2024 025 [facility], [address] [place] [address], [phone] 13:09:16 BMP, serum or plasma 2024 025 [facility], [address] [place] [address], [phone] 13:09:00 Referral None recorded. Procedures None recorded. Surgeries None recorded. Imaging None recorded. Medication Orders ketorolac 30 mg/mL injection solution 2024 025 [email or web address] 0 [facility], [address] [facility], [place], [address], 10:53:05 prednisone 50 mg tablet 2024 025 AISSATOU Morse [facility], [address] [place], [address], 05:00:58 potassium chloride ER 20 mEq tablet,exte nded release 2024 025 AISSATOU [facility], [address] [place], [address], 05:01:51 potassium chloride ER 20 mEq tablet,exte nded release 2024 025 AISSATOUSHERRY [facility], [address] [place], [address], 5 05:01:51 ketorolac 30 mg/mL injection solution 2024 025 [email or web address] [facility], [address] [place], [address], 14:41:04 Patient TargetsNo targets recorded. Patient InstructionsNo instructions recorded. Reason for Referral None Reported. Results Created Date Observation Date Name Description Value Unit Range Abnormal Flag Note LastModifiedBy Organization Detail LastModifiedTime Result Notes None recorded. Medical Equipment None Reported. Allergies No known [...] /min 99 % 52 /min 187.96 cm 349783. 92 g 98.1 [degF] 152 mm[Hg] Not Available [facility] - production 14:18:24 Date Recorded Body height Heart rate Respiratory rate Oxygen saturation Body mass index (BMI) Body weight Body temperature Systolic And Diastolic Provider Name and Address Organization Details Last Updated DateTime 5 187.96 cm 52 /min 14 /min 97 % 41.7 kg/m2 825763. 52 g 98 [degF] 138/82 mm[Hg] Leonor Antonio MD [address] [place] [address],[address], [place], [address] [place] [address] ticketea 11:40:59 Social History None recorded. Functional Status None recorded. Mental Status None recorded. Family History Nothing Reported. Medical History No medical history recorded. Past Encounters Encounter ID Performer Location Encounter Start Date Encounter Closed Date Diagnosis/Indication Diagnosis SNOMED-CT Code Diagnosis ICD10 Code Diagnosis IMO Codes Diagnosis Note [id number] Manuel Mckeon MD [facility] [address] [address] 01/27/2025 14:18:17 01/29/2025 15:28:35 Pain of elbow region 11251822 M25.522 [id number] Leonor Antonio MD [address] [address] 02/07/2025 10:14:20 02/07/2025 13:59:29 Pain of right knee joint [id number] 60605 M25.561 216960 Advised we cannot tap knee in home.Hx Gout- on allopurino l/ hx anemia is on FE- no old labs- requested BMP(denies PUD/hx GI bleed or ckd) prior to NSAID- pat w/ anemia and hypokalemi a- nl renal function- requested re draw to make sure not lab error- labs very similar. Risks( incl GI bleed RAHEEM) / benefits of ketorolac discussed w/ patient- he had ketorolac on 01/27 for elbow pain w/ good relief of pain/ would like naother dose. Advised ice / wrapped in a towel alternatin g w/ gentle heat q 3-4H w/a to affected area/ continue diclofenac gel/ elevate/ f/u with pcp/ortho today. Has Tylenol 500 mg- has been taking 2 pills prn occasional lyincrease Tylenol to 1 gram 4 x per day for pain relief/ reviewed red flags as above Hypokalemia [id number] E87 .6 9791 see above- k rechecked/ 2nd bmp draw- went from 2.9 to 3.1/ still low- not on diuretics- no diarrhea? etiology - advised need for f/u w/ pcp ashleigh to recheck/ w.u cause- will provide KCL supplement ationffor short term. Advised banana daily/ consider increasing hi K vegetables - green leafy vegetables / beans/swee t potatoes Health Concerns Section Related Observation LastModified by Organization Detai ls LastModified Time None Recorded Concern Status LastModified by Organization Details LastModified Time None Recorded Advance Directives Directive None Recorded Payers Insurance Date Sequence Insurance Name Policy Number Policy Suarez Covered Member ID Suarez Member ID Guarantor Name 02/07/2025 1 [facility] - DOS ON OR AFTER 2022 - DUAL ELIGIBLE - RETIREMENT OPTIONS AND ONE CARE (MEDICARE REPLACEMENT/ADV ANTAGE - HMO) Paulo Albarran [id number] Paulo Albarran Notes Date Note Type Note Provider Name and Address Organization Details Recorded Time 01/27/2025 text/html ROS as noted in the HPI This was a supervised home visit with insurance risk surveyor Obey Natarajan. CRC Nurse Triage Notes (Radha [...] ..................... ..................... ..................... ..................... ..................... ..................... ............... School Principal Note From Obey Natarajan: SC6 responds to [...] day, which have also helped. He tells [place] nothing new has occurred w/ the knee [...] issues and anticoagulation. Ddx: epicondylitis, bursitis, effusion [place] obtains pt consent. Vital signs are gathered [...] is present. Supination is painful as well. [facility] attempts to take photos of the elbow for [facility] inspection, but swelling is difficult to appreciate in the photos. [facility] contacts [facility] and discusses the above. [facility] agrees pt should discuss the elbow w/ his PCP tomorrow and continue to take the Tylenol TID and ice as needed. [facility] orders 30mg toradol IM. [facility] confirms pts' allergies and anticoagulation status and administers 30mg toradol IM in R deltoid using aseptic technique. Pt is advised to seek emergency care if the pain continues to get worse or is he gets a high fever or any signs of allergic reaction. [facility] is clear. Report completed by FADIA Natarajan [id number]. ..................... ..................... ..................... ..................... ..................... ..................... ............... [facility] Consulted: Manuel Mckeon ..................... ..................... ..................... ..................... ..................... ..................... ............... Disposition: Alisha Manuel Mckeon MD [address] [facility],[address], [place], [address], IRENE Leach ticketea 01/27/2025 17:35:34 02/07/2025 text/html ROS as noted in the HPI CRC Nurse Triage Notes (Audelia Galvan): Reason For Request: knee pain/swellingDenies: Hurtado Flash, circumferential hurtado Hurtado reported with black tissue to the area Open skin area after a fall with uncontrolled bleeding Abscess/infection with streaking noted, presence of fever or without History of cellulitis, isolated redness noted Fever and chills noted in setting of wound Chief Complaints: Extremity SwellingPMH: Hypertension, Asthma, Gout, Depression, Chronic Back PainPMH Reviewed at 02/07/2025 - 08:45Allergies Reviewed at 02/07/2025 - 08:45Pain Assessment: Level 9 out of 10Comments: 59 y.o male complains of Extremity Swelling Self-referring. Recent recurrent swelling in R knee. Drained in ER x1 over a week ago. Reports that they did not tell him what is causing swelling. HAs XR of knee - unsure of results. Increased swelling over the past two days. Not red or warm to touch. Denies fever. History of gout - allopurinol daily. Difficult to bear weight and walk due to pain. Rating 9/10. PRN tylenol w/ minimal effect. Unsure of medications/AC use - I take a lot of medications . Denies kidney disease. I provided information on the mobile health provider response time and advised the patient and/or caregiver to monitor reported signs and symptoms. I discussed the warning signs of when to seek emergency care. School Principal Organization Information for Maury Bernstein Legal Name: [facility] Transportation Address: [address] [place] [address], [place] [address], Regional Driver: Rosalio Gramajo MD CLIA No.: [id number] School Principal POC Test Results from Maury Bernstein [facility] (10:32:24) pH: 7.410pH unitspCO2: 38.3gcLxeD1: 29.5mmHgNa: 138mmol/LK: 2.9mmol/LiCa: 1.25mmol/LCl: 103mmol/LTCO2: 23.3mEq/LHct: 31%Hb: 10.6g/dLGlu: 119mg/dLLac: 1.51mmol/LCr: 0.86mg/dLBUN: 8mg/dLAmmol/LHCO3: 24.3mmol/L epoc (10:46:18) pH: 7.406pH unitspCO2: 39.4mdGkyW7: 26.9mmHgNa: 137mmol/LK: 3.1mmol/LiCa: 1.24mmol/LCl: 104mmol/LTCO2: 24mEq/LHct: 30%Hb: 10.3g/dLGlu: 122mg/dLLac: 1.33mmol/LCr: 0.89mg/dLBUN: 9mg/dLAmmol/LHCO3: 25.1mmol/L ..................... ..................... ..................... ..................... ..................... ..................... ............... School Principal Note From Maury Bernstein: Patient alert and oriented seated on couch. Patient complains of right knee pain times one week. Patient reports having knee drained several days ago. Patient reports fluid and pain returned in 48 hours after procedure. Patient reports difficulty walking, pain makes ambulation difficult. Patient Uses a cane. Patient denies numbness or tingling, patient denies falls or other pain or complaints. Patient denies use of ibuprofen or Tylenol today. Patient reports using two tablets ibuprofen yesterday with some relief. Patient reports using ice and rest with little relief. Patient pink warm, dry negative increase work of breathing positive full sentences abdomen soft, nontender extremities unremarkable no edema noted. Right knee in pictures in documents, some extra heat, some tenderness and swelling noted. Good CSM right lower limb. Negative calf tenderness. Tests and medications administered as ordered without complication using five rights. Red flags, supportive care patient education and return instructions discussed. Patient discusses case with [facility] on speakerphone. Patient able to ask questions. Patient demonstrates understanding of care and plan. [facility] Lab Orders: BMP, serum or plasma: Performed BMP, serum or plasma: Performed [facility] Medication Orders: ketorolac 30 mg/mL injection solution: Performed potassium chloride ER 20 mEq tablet,extended release: Performed ..................... ..................... ..................... ..................... ..................... ..................... ............... [facility] Consulted: Leonor Antonio ..................... ..................... ..................... ..................... ..................... ..................... ............... Disposition: Fulfilled SEGMD: as above- patient reports knee aspiration at [facility]- states he was given no dx/ I have no old records access other than [facility] Antonio MD [address] [facility],[address], [place], [address], [employer] - ticketea 02/07/2025 12:32:54
--- OUTSIDE RECORDS SUMMARY | 2025-03-14 18:06 | XMS_ITS | Continuity of Care Document ---
Author Organization [facility] MiName [facility], [facility] Address [address] [place] [address] Care Team Providers Care Butter Liquefier Name Role Phone HIM CCA OTHER JENNI MCCARTY Primary Care Provider Assessment Encounter Date Assessment Date Assessment LastModified by Organization Details LastModified Time 02/07/2025 02/07/2025 I provided real -time medical direction via phone for this encounter, and was available for additional phone based assistance as needed. I have reviewed and agree with the Assessment and Plan as documented by the Instructor Looping. We discussed the diagnostic uncertainty of home [...] to call 911- verbalized understanding of instruction [email or web address] Not available 02/07/2025 10:41:11 Plan of Treatment Reminders Order Date Submit Date Provider Last Modified By Organization Details Last Modified Time Details Appointments None recorded. Lab BMP, serum or plasma 2024 025 [facility], [address] [place] [address], [phone] 13:09:16 BMP, serum or plasma 2024 025 [facility], [address] [place] [address], [phone] 13:09:00 Referral None recorded. Procedures None recorded. Surgeries None recorded. Imaging None recorded. Medication Orders ketorolac 30 mg/mL injection solution 2024 025 [email or web address] 0 Wayne Pat[facility], [address] [place], [address], 5 10:53:05 prednisone 50 mg tablet 2024 025 AISSATOU Morse [facility], [address] [place], [address], 5 05:00:58 potassium chloride ER 20 mEq tablet,exte nded release 2024 AISSATOU [facility], [address] [place], [address], 5 05:01:51 potassium chloride ER 20 mEq tablet,exte nded release 2024 025 AISSATOU Morse [facility], [address] [place], [address], 05:01:51 Patient TargetsNo targets recorded. Patient InstructionsNo instructions [...] Not Available Not Available Vitals Date Recorded Body height Heart rate Respiratory rate Oxygen saturation Body mass index (BMI) Body weight Body temperature Systolic And Diastolic Provider Name and Address Organization Details Last Updated DateTime 187.96 cm 52 /min 14 /min 97 % 41.7 kg/m2 714763. 52 g 98 [degF] 138/82 mm[Hg] Leonor Antonio MD [address] [place] [address],[address], [place], [address] [place], [place] - [employer] 11:40:59 Social History None recorded. Functional Status None recorded. Mental Status None recorded. Family History Nothing Reported. Medical History No medical history recorded. Past Encounters Encounter ID Performer Location Encounter Start Date Encounter Closed Date Diagnosis/Indication Diagnosis SNOMED-CT Code Diagnosis ICD10 Code Diagnosis IMO Codes Diagnosis Note [id number] Manuel Mckeon MD [facility] [address] [address] 01/27/2025 14:18:17 01/29/2025 15:28:35 Pain of elbow region 42641417 M25.522 [id number] Leonor Antonio MD [address] [address] 02/07/2025 10:14:20 02/07/2025 13:59:29 Pain of right knee joint [id number] 37693 M25.561 [id number] Advised we cannot tap knee in home.Hx [...] relief/ reviewed red flags as above Hypokalemia 16296861 E87 .6 9791 see above- k rechecked/ [...] Suarez Member ID Guarantor Name 02/07/2025 1 [facility] - DOS ON OR AFTER 2022 - DUAL ELIGIBLE - RETIREMENT OPTIONS AND ONE CARE (MEDICARE REPLACEMENT/ADV ANTAGE - HMO) Paulo Albarran [id number] Paulo Albarran Notes Date Note Type Note Provider Name and Address Organization Details Recorded Time 02/07/2025 text/html ROS as noted in the [...] signs of when to seek emergency care. Instructor Looping Organization Information for Maury Bernstein Legal Name: [facility] Address: [address] [place] [address], [place] [address], Solder Making Supervisor: Rosalio BUTLER No.: [id number] Instructor Looping POC Test Results from Maury Bernstein [facility] epoc (10:32:24) pH: 7.410pH unitspCO2: 38.3sxSkmW0: 29.5mmHgNa: 138mmol/LK: 2.9mmol/LiCa: 1.25mmol/LCl: 103mmol/LTCO2: 23.3mEq/LHct: 31%Hb: 10.6g/dLGlu: 119mg/dLLac: 1.51mmol/LCr: 0.86mg/dLBUN: 8mg/dLAmmol/LHCO3: 24.3mmol/L epoc (10:46:18) pH: 7.406pH unitspCO2: 39.0sgAtaF3: 26.9mmHgNa: 137mmol/LK: 3.1mmol/LiCa: 1.24mmol/LCl: 104mmol/LTCO2: 24mEq/LHct: 30%Hb: 10.3g/dLGlu: 122mg/dLLac: 1.33mmol/LCr: 0.89mg/dLBUN: 9mg/dLAmmol/LHCO3: 25.1mmol/L ..................... ..................... ..................... ..................... ..................... ..................... ............... Instructor Looping Note From AmandeepMaury: Patient alert and oriented seated on couch. [...] return instructions discussed. Patient discusses case with [facility] on speakerphone. Patient able to ask questions. Patient demonstrates understanding of care and plan. [facility] Lab Orders: BMP, serum or plasma: Performed BMP, serum or plasma: Performed [facility] Medication Orders: ketorolac 30 mg/mL injection solution: Performed potassium chloride ER 20 mEq tablet,extended release: Performed ..................... ..................... ..................... ..................... ..................... ..................... ............... [facility] Consulted: Leonor Antonio ..................... ..................... ..................... ..................... ..................... ..................... ............... Disposition: Fulfilled SEGMD: as above- patient reports knee aspiration at specialist's- states he was given no dx/ I have no old records access other than 1 prior instED visit Leonor Antonio MD [address] [facility],[address], [place], [address], [employer] 02/07/2025 12:32:54
== END 2025-03-14 14:43 | disposition home or self-care (01) ==
LOC: HO.HMCH 13:52
PROVIDERS: PCP Internal Medicine; Visit Provider Internal Medicine
DX: I10 Essential (primary) hypertension (principal); E66.01 Morbid (severe) obesity due to excess calories; Z68.41 Body mass index [BMI] 40.0-44.9, adult; I73.9 Peripheral vascular disease, unspecified; K21.9 Gastro-esophageal reflux disease without esophagitis; L03.031 Cellulitis of right toe; J45.20 Mild intermittent asthma, uncomplicated

== ENCOUNTER → 2025-03-14 13:51 | Outpatient (BNVA) | payer OTHER, SELFPAY | PROVIDERS: PCP Internal Medicine; Visit Provider Internal Medicine | DX: I10 Essential (primary) hypertension (principal); E66.01 Morbid (severe) obesity due to excess calories; D64.9 Anemia, unspecified; I73.9 Peripheral vascular disease, unspecified; K21.9 Gastro-esophageal reflux disease without esophagitis; L03.031 Cellulitis of right toe; J45.20 Mild intermittent asthma, uncomplicated; E87.6 Hypokalemia; E78.5 Hyperlipidemia, unspecified; J04.0 Acute laryngitis; Z68.41 Body mass index [BMI] 40.0-44.9, adult | CPT/HCPCS: 99212 ==

== ENCOUNTER 2025-03-19 06:35 | Emergency (ER) | payer OTHER, SELFPAY ==
--- NOTE | ~2025-03-19 | XR_ITS ---
EXAMINATION: XR ANKLE 1-2 VIEWS LEFT HISTORY: pain COMPARISON: Comparison is made with the prior examination dated 11/03/2023. FINDINGS: AP and lateral views of the left ankle are submitted. Osseous mineralization is normal. Again seen is a well-corticated osseous density adjacent to the tip of the medial malleolus which is likely the result of old trauma. There is no acute fracture or dislocation. There is degenerative change of the intertarsal joints. There is diffuse mild soft tissue swelling. XR/XR ankle LT 2V IMPRESSION: Diffuse soft tissue swelling. No evidence of acute fracture of the left ankle. Electronically signed by: Gino Avina MD 03/19/2025 09:19 AM EST
--- NOTE | ~2025-03-19 | US_ITS ---
EXAMINATION: US LOWER EXTREMITY VEINS LIMITED LEFT HISTORY: pain COMPARISON: There are no prior studies available for comparison. TECHNIQUE: Duplex and color Doppler sonographic examination of the deep venous system of the left lower extremity was performed. FINDINGS: The common femoral vein is patent demonstrating normal compressibility. However, the distal femoral and popliteal veins are noncompressible, consistent with thrombosis. There is also thrombosis of the posterior tibial veins. The peroneal veins are not identified. US/US venous duplex LE LT IMPRESSION: DVT involving the distal femoral and popliteal veins. Electronically signed by: Gino Avina MD 03/19/2025 10:37 AM [facility]
[2025-03-19 06:41] VITALS: BP 129/61; BP 148/88; PULSE 60; PULSE 70; RESP 18; O2SAT 90; O2SAT 97; BMI 41.1
[2025-03-19 07:31] LABS: MANUAL DIFF FLAG NO
[2025-03-19 07:32] LABS: Hematocrit 34.8 % (42.0-52.0); Hemoglobin 11.6 g/dl (14.0-18.0); Imm Gran Abs Auto 0.05 X10*3/uL (0.00-0.03); Imm Gran Pct Auto 0.5 % (0.0-0.4); Lymphocytes Absolute Auto 1.0 X10*3/uL (1.2-4.9); Mean Corpuscular HGB Conc 33.3 g/dl (31.0-36.0); Mean Corpuscular Hemoglobin 26.7 pg (27.0-33.0); Mean Corpuscular Volume 80.2 fL (80.0-98.0); NRBC Abs Auto 0.000 X10*3/uL (0.0-0.012); NRBC Pct Auto 0.0 /100WBC (0.0-0.2); Platelet Count 236 X10*3/uL (160-400); Red Blood Count 4.34 X10*6/uL (4.60-5.80); White Blood Count 10.4 X10*3/uL (4.8-10.8)
--- OUTSIDE RECORDS SUMMARY | 2025-03-19 07:35 | XMS_ITS | Continuity of Care Document ---
Author Organization [employer] [facility], [facility] Address [address] [place] [address] Care Team Providers Care Dental Treatment Coordinator Name Role Phone HIM CCA OTHER JENNI MCCARTY Primary Care Provider [phone] Assessment Encounter Date Assessment Date Assessment LastModified by Organization Details LastModified Time 01/27/2025 01/27/2025 I have reviewed and agree with the assessment and plan as documented by the assembler show motor. I provided real time medical direction for this encounter and was immediately available to provide additional phone based assistance as needed. History as noted by assembler show motor. Pt with history of Hypertension, Asthma, Gout, [...] 2024 025 [facility], [address] [facility] [place], [place], [address], 14:41:04 Patient TargetsNo targets recorded. Patient InstructionsNo [...] /min 99 % 52 /min 187.96 cm 058269. 92 g 98.1 [degF] 152 mm[Hg] Not Available [facility] - production 14:18:24 Social History None recorded. Functional Status None recorded. Mental Status None recorded. Family History Nothing Reported. Medical History No medical history recorded. Past Encounters Encounter ID Performer Location Encounter Start Date Encounter Closed Date Diagnosis/Indication Diagnosis SNOMED-CT Code Diagnosis ICD10 Code Diagnosis IMO Codes Diagnosis Note [id number] aMnuel Mckeon MD [facility] Medical [address] [address] 01/27/2025 14:18:17 01/29/2025 15:28:35 Pain of elbow region 62319909 M25.522 [id number] Health Concerns Section Related Observation LastModified by Organization Detai ls LastModified Time None Recorded Concern Status LastModified by Organization Details LastModified Time None Recorded Payers Encounter Date Sequence Insurance Name Policy Number Policy Suarez Covered Member ID Suarez Member ID Guarantor Name 01/27/2025 [address] [facility] - DOS ON OR AFTER 2022 - DUAL ELIGIBLE - USP OPTIONS AND ONE CARE (MEDICARE REPLACEMENT/ADV ANTAGE - HMO) Paulo Albarran [id number] Paulo Albarran Notes Date Note Type Note Provider Name and Address Organization Details Recorded Time 01/27/2025 text/html ROS as noted in the HPI This was a supervised home visit with assembler show motor Obey Natarajan. CRC Nurse Triage Notes (Radha [...] ..................... ..................... ..................... ..................... ..................... ..................... ............... Plug Cutter Note From Obey Natarajan: SC6 responds to [...] issues and anticoagulation. Ddx: epicondylitis, bursitis, effusion [facility] obtains pt consent. Vital signs are [...] is present. Supination is painful as well. [facility] attempts to take photos of the elbow for [facility] inspection, but swelling is difficult to appreciate in the photos. [facility] contacts [facility] and discusses the above. [facility] agrees pt should discuss the elbow w/ his PCP tomorrow and continue to take the Tylenol TID and ice as needed. [facility] orders 30mg toradol IM. [facility] confirms pts' allergies and anticoagulation status and administers 30mg toradol IM in R deltoid using aseptic technique. Pt is advised to seek emergency care if the pain continues to get worse or is he gets a high fever or any signs of allergic reaction. [facility] is clear. Report completed by FADIA Natarajan [id number]. ..................... ..................... ..................... ..................... ..................... ..................... ............... [facility] Consulted: Manuel Mckeon ..................... ..................... ..................... ..................... ..................... ..................... ............... Disposition: Alisha Mckeon MD [address] [facility],[address], [place], [address], IRENE - NICHOLAS, MARY 01/27/2025 17:35:34
--- OUTSIDE RECORDS SUMMARY | 2025-03-19 07:35 | XMS_ITS | Continuity of Care Document ---
Author Organization [facility] [employer] [facility], [facility] Address [address] [place] [id number] Care Team Providers Care Heading And Priming Operator Name Role Phone HIM CCA OTHER JENNI MCCARTY Primary Care Provider [phone] Assessment Encounter Date Assessment Date Assessment LastModified by Organization Details LastModified Time 02/07/2025 02/07/2025 I provided real -time medical direction via phone for this encounter, and was available for additional phone based assistance as needed. I have reviewed and agree with the Assessment and Plan as documented by the Business Office Representative. We discussed the diagnostic uncertainty of home [...] to call 911- verbalized understanding of instruction [email or web address] Not available 02/07/2025 10:41:11 Plan of Treatment Reminders Order Date Submit Date Provider Last Modified By Organization Details Last Modified Time Details Appointments None recorded. Lab BMP, serum or plasma 2024 025 [facility], [address] [place] [address], [id number] 13:09:16 BMP, serum or plasma 2024 025 [facility], [address] [place] [address], [phone] 13:09:00 Referral None recorded. Procedures None recorded. Surgeries None recorded. Imaging None recorded. Medication Orders ketorolac 30 mg/mL injection solution 2024 025 [email or web address] 0 Wayne Patel [facility], [address] [place], [address], 5 10:53:05 prednisone 50 mg tablet 2024 025 AISSATOU Morse [facility], [address] [place], [address], 5 05:00:58 potassium chloride ER 20 mEq tablet,exte nded release 2024 AISSATOU Morse [facility], [address] [place], [address], 5 05:01:51 potassium chloride ER 20 mEq tablet,exte nded release 2024 025 AISSATOU Morse [facility], [address] [place], [address], 05:01:51 Patient TargetsNo targets recorded. Patient InstructionsNo [...] /min 14 /min 97 % 41.7 kg/m2 689573. 52 g 98 [degF] 138/82 mm[Hg] Leonor Antonio MD [address] [place] [address],[address], [place], [address] [place], [place] - [facility] 11:40:59 Social History None recorded. Functional Status None recorded. Mental Status None recorded. Family History Nothing Reported. Medical History No medical history recorded. Past Encounters Encounter ID Performer Location Encounter Start Date Encounter Closed Date Diagnosis/Indication Diagnosis SNOMED-CT Code Diagnosis ICD10 Code Diagnosis IMO Codes Diagnosis Note [id number] Manuel Mckeon MD [facility] [address] [address] 01/27/2025 14:18:17 01/29/2025 15:28:35 Pain of elbow region 79726758 M25.522 [id number] Leonor Antonio MD [address] [address] 02/07/2025 10:14:20 02/07/2025 13:59:29 Pain of right knee joint [id number] 25334 M25.561 [id number] Advised we cannot tap knee in home.Hx [...] relief/ reviewed red flags as above Hypokalemia [id number] E87 .6 9791 see above- k rechecked/ [...] Suarez Member ID Guarantor Name 02/07/2025 1 [facility] - DOS ON OR AFTER 2022 - DUAL ELIGIBLE - CORRECTION OPTIONS AND ONE CARE (MEDICARE REPLACEMENT/ADV ANTAGE - HMO) Paulo Albarran [id number] Paulo Albarran Notes Date Note Type Note [...] signs of when to seek emergency care. Business Office Representative Organization Information for Maury Bernstein Legal Name: [facility] Address: [address] [place] [address], [place] [address], Baby Registry Sales Consultant: Rosalio BUTLER No.: [id number] Business Office Representative POC Test Results from Maury Bernstein [facility] epoc (10:32:24) pH: 7.410pH unitspCO2: 38.8qeFmvJ4: 29.5mmHgNa: 138mmol/LK: 2.9mmol/LiCa: 1.25mmol/LCl: 103mmol/LTCO2: 23.3mEq/LHct: 31%Hb: 10.6g/dLGlu: 119mg/dLLac: 1.51mmol/LCr: 0.86mg/dLBUN: 8mg/dLAmmol/LHCO3: 24.3mmol/L epoc (10:46:18) pH: 7.406pH unitspCO2: 39.1hnUgaN0: 26.9mmHgNa: 137mmol/LK: 3.1mmol/LiCa: 1.24mmol/LCl: 104mmol/LTCO2: 24mEq/LHct: 30%Hb: 10.3g/dLGlu: 122mg/dLLac: 1.33mmol/LCr: 0.89mg/dLBUN: 9mg/dLAmmol/LHCO3: 25.1mmol/L ..................... ..................... ..................... ..................... ..................... ..................... ............... Business Office Representative Note From AmandeepMaury: Patient alert and oriented [...] instructions discussed. Patient discusses case with [facility] on speakerphone. Patient able to ask questions. Patient demonstrates understanding of care and plan. [facility] Lab Orders: BMP, serum or plasma: Performed BMP, serum or plasma: Performed [facility] Medication Orders: ketorolac 30 mg/mL injection solution: Performed potassium chloride ER 20 mEq tablet,extended release: Performed ..................... ..................... ..................... ..................... ..................... ..................... ............... [facility] Consulted: Leonor Antonio ..................... ..................... ..................... ..................... ..................... ..................... ............... Disposition: Fulfilled SEGMD: as above- patient reports knee aspiration at specialist's- states he was given no dx/ I have no old records access other than 1 prior instED visit Leonor Antonio MD [address] [facility],[address], [place], [address], [email or web address] - [facility] 02/07/2025 12:32:54
--- OUTSIDE RECORDS SUMMARY | 2025-03-19 07:35 | XMS_ITS | Data Portability ---
Author Organization [facility], [facility] Address [address] [place] [address] Care Team Providers Care Bookmaker Map Name Role Phone HIM CCA OTHER JENNI MCCARTY Primary Care Provider [phone] Assessment Encounter Date Assessment Date Assessment LastModified by Organization Details LastModified Time 01/27/2025 01/27/2025 I have reviewed and agree with the assessment and plan as documented by the soubrette. I provided real time medical direction for this encounter and was immediately available to provide additional phone based assistance as needed. History as noted by soubrette. Pt with history of Hypertension, Asthma, Gout, [...] Assessment and Plan as documented by the Senior Strategy Analyst. We discussed the diagnostic uncertainty of home [...] to call 911- verbalized understanding of instruction [email or web address] Not available 02/07/2025 10:41:11 Plan of Treatment Reminders Order Date Submit Date Provider Last Modified By Organization Details Last Modified Time Details Appointments None recorded. Lab BMP, serum or plasma 2024 025 [facility], [address] [place] [address], [id number] 13:09:16 BMP, serum or plasma 2024 025 [facility], [address] [place] [address], [id number] 13:09:00 Referral None recorded. Procedures None recorded. Surgeries None recorded. Imaging None recorded. Medication Orders ketorolac 30 mg/mL injection solution 2024 025 [email or web address] 0 [facility], [address] [facility], [place], [address], 10:53:05 prednisone 50 mg tablet 2024 025 AISSATOU Morse [facility], [address] [place], [address], 05:00:58 potassium chloride ER 20 mEq tablet,exte nded release 2024 025 AISSATOU Morse [facility], [address] [place], [address], 05:01:51 potassium chloride ER 20 mEq tablet,exte nded release 2024 025 AISSATOUSHERRY Morse [facility], [address] [place], [address], 5 05:01:51 ketorolac 30 mg/mL injection solution 2024 025 abiodun Morse [facility], [address] [place], [address], 14:41:04 Patient TargetsNo targets recorded. Patient InstructionsNo [...] /min 99 % 52 /min 187.96 cm 275212. 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 52 g 98 [degF] 138/82 mm[Hg] Leonor Antonio MD [address] [place] [address],[address], [place], [address] [place] [address] [employer] 11:40:59 Social History None recorded. Functional Status None recorded. Mental Status None recorded. Family History Nothing Reported. Medical History No medical history recorded. Past Encounters Encounter ID Performer Location Encounter Start Date Encounter Closed Date Diagnosis/Indication Diagnosis SNOMED-CT Code Diagnosis ICD10 Code Diagnosis IMO Codes Diagnosis Note [id number] Manuel Mckeon MD [facility] [address] [address] 01/27/2025 14:18:17 01/29/2025 15:28:35 Pain of elbow region [id number] M25.522 [id number] Leonor Antonio MD [address] [address] 02/07/2025 10:14:20 02/07/2025 13:59:29 Pain of right knee joint [id number] 82758 M25.561 [id number] Advised we cannot tap knee in home.Hx [...] relief/ reviewed red flags as above Hypokalemia [id number] E87 .6 9791 see above- k rechecked/ [...] Suarez Member ID Guarantor Name 02/07/2025 1 [facility] - DOS ON OR AFTER 2022 - DUAL ELIGIBLE - NURSING HOME OPTIONS AND ONE CARE (MEDICARE REPLACEMENT/ADV ANTAGE - HMO) Paulo Albarran [id number] Paulo Albarran Notes Date Note Type Note Provider Name and Address Organization Details Recorded Time 01/27/2025 text/html ROS as noted in the HPI This was a supervised home visit with soubrette Obey Natarajan. [facility] Nurse Triage Notes (Radha [...] ..................... ..................... ..................... ..................... ..................... ..................... ............... Senior Strategy Analyst Note From Obey Natarajan: SC6 responds to [...] is present. Supination is painful as well. [facility] attempts to take photos of the elbow for [facility] inspection, but swelling is difficult to appreciate in the photos. [facility] contacts [facility] and discusses the above. [facility] agrees pt should discuss the elbow w/ his PCP tomorrow and continue to take the Tylenol TID and ice as needed. [facility] orders 30mg toradol IM. [facility] confirms pts' allergies and anticoagulation status and administers 30mg toradol IM in R deltoid using aseptic technique. Pt is advised to seek emergency care if the pain continues to get worse or is he gets a high fever or any signs of allergic reaction. [facility] is clear. Report completed by FADIA Natarajan [id number]. ..................... ..................... ..................... ..................... ..................... ..................... ............... [facility] Consulted: Manuel Mckeon ..................... ..................... ..................... ..................... ..................... ..................... ............... Disposition: Alisha Manuel Mckeon MD [address] [facility],[address], [place], [address], IR[place] Leach [employer] 01/27/2025 17:35:34 02/07/2025 text/html ROS as noted [...] signs of when to seek emergency care. Senior Strategy Analyst Organization Information for Maury Bernstein Legal Name: [facility] Address: [address] [place] [address], [place] [address], Rubber Goods Inspector Tester: Rosalio Gramajo MD CLIA No.: [id number] Senior Strategy Analyst POC Test Results from Maury Bernstein [facility] (10:32:24) pH: 7.410pH unitspCO2: 38.2woOmwL2: 29.5mmHgNa: 138mmol/LK: 2.9mmol/LiCa: 1.25mmol/LCl: 103mmol/LTCO2: 23.3mEq/LHct: 31%Hb: 10.6g/dLGlu: 119mg/dLLac: 1.51mmol/LCr: 0.86mg/dLBUN: 8mg/dLAmmol/LHCO3: 24.3mmol/L epoc (10:46:18) pH: 7.406pH unitspCO2: 39.9hzIgrO0: 26.9mmHgNa: 137mmol/LK: 3.1mmol/LiCa: 1.24mmol/LCl: 104mmol/LTCO2: 24mEq/LHct: 30%Hb: 10.3g/dLGlu: 122mg/dLLac: 1.33mmol/LCr: 0.89mg/dLBUN: 9mg/dLAmmol/LHCO3: 25.1mmol/L ..................... ..................... ..................... ..................... ..................... ..................... ............... Senior Strategy Analyst Note From Maury Bernstein: Patient alert and [...] return instructions discussed. Patient discusses case with [facility] on speakerphone. Patient able to ask questions. Patient demonstrates understanding of care and plan. [facility] Lab Orders: BMP, serum or plasma: Performed BMP, serum or plasma: Performed [facility] Medication Orders: ketorolac 30 mg/mL injection solution: Performed potassium chloride ER 20 mEq tablet,extended release: Performed ..................... ..................... ..................... ..................... ..................... ..................... ............... [facility] Consulted: Leonor Antonio ..................... ..................... ..................... ..................... ..................... ..................... ............... Disposition: Fulfilled SEGMD: as above- patient reports knee aspiration at [facility]- states he was given no dx/ I have no old records access [facility] [address] [facility],[address], [place], [address], [employer] 02/07/2025 12:32:54
[2025-03-19 07:50] LABS: Alanine Aminotransferase 13 U/L (0-40); Albumin Level 4.2 g/dL (3.5-5.0); Alkaline Phosphatase 88 U/L (39-117); Anion Gap 12 (12-20); Aspartate Amino Transferase 15 U/L (5-37); Blood Urea Nitrogen 10 mg/dL (9-16); Calcium 9.8 mg/dL (8.4-10.2); Carbon Dioxide 24 mmol/L (22-29); Chloride 107 mmol/L (96-108); Creatinine Clr Calc Pharmacy 155.0; Estimated Glomerular Filt Rate > 60; Potassium 3.6 mmol/L (3.3-5.1); Sodium 139 mmol/L (135-145); Total Protein 7.3 g/dL (6.5-8.0)
--- NOTE | 2025-03-19 08:37 | PC.NURSE ---
patient presents to the ED from home via EMS with left foot pain and swelling. Pain woke patient up out of a sleep this morniong. Foor noted to be mildly swollen, no redness noted on exam. Patient states he had ingrown toenail removed on that foor last week. Toe looks intact. Labs drawn. Patient with no needs at this time. VSS.
--- NOTE | 2025-03-19 08:56 | ED_ITS ---
"HPI - Extremity Injury (Lower) General Chief Complaint: Extremity Injury, Lower Stated Complaint: L FOOT SWELLING,NO INJURY,UNABLE TO WALK PER EMS Time Seen by Provider: 03/19/25 08:44 Source: patient Mode of arrival: EMS Limitations: no limitations History of Present Illness ED Provider: DR. Eng HPI Narrative: 59-year-old male brought in by ambulance for evaluation of left ankle pain started 2 days ago, also noticed swelling of the left foot and ankle, declined any injury to the ankle or, patient is unable to bear weight on the left ankle due to pain. Related Data Home Medications ?Medication ?Instructions ?Recorded ?Confirmed aripiprazole 5 mg tablet (Abilify) 5 mg PO DAILY 04/0803/19/25 bupropion HCl 300 mg 24 hr tablet, 300 mg PO DAILY 03/1703/19/25 extended release (Wellbutrin XL) loratadine 10 mg tablet 10 mg PO DAILY PRN Allergy S ymptoms 04/08/20 03/19/25 quetiapine 300 mg tablet (Seroquel) 300 mg PO BEDTIME 04/08/20 03/19/25 sertraline 100 mg tablet (Zoloft) 200 mg PO DAILY 03/2803/19/25 trazodone 100 mg tablet 200 mg PO BEDTIME 04/08/20 1 05/20/24 quetiapine 50 mg tablet (Seroquel) 50 mg PO DAILY 12/1703/19/25 albuterol sulfate 90 mcg/actuation 2 puff inhalation Q 4H PRN 03/19/25 03/19/25 aerosol inhaler Shortness Of Breath Or Wheez ing folic acid 1 mg tablet 1 mg PO DAILY 03/19/2503/19 zinc oxide 20 % topical ointment 1 appl topical TID W[place] N Rash 03/19/25 03/19/25 Previous Rx's ?Medication ?Instructions ?Recorded acetaminophen 500 mg tablet 1,000 mg (2 x 500 mg) PO Q 6H PRN 04/13/21 fever or pain #30 tabs cyanocobalamin (vitamin B-12) 1,000 mcg PO DAILY #90 t abs 11/07/24 1,000 mcg tablet (Vitamin B-12) allopurinol 300 mg tablet 300 mg PO DAILY #90 tabs 10/19 diclofenac sodium 1 % topical gel 4 g topical QID #200 grams 01/28/25 (Voltaren Arthritis Pain) ferrous sulfate 325 mg (65 mg 325 mg PO DAILY #90 tabs 01/29/25 iron) tablet (Feosol) pantoprazole 40 mg tablet,delayed 40 mg PO DAILY@0630 #30 tabs 01/29/25 release losartan 25 mg tablet 25 mg PO DAILY 90 days #90 t abs 02/27/25 terbinafine HCl 250 mg tablet 250 mg PO DAILY 12 weeks #84 tabs 03/06/25 blood pressure monitor (Blood #1 ea 03/14/25 Pressure Kit) apixaban 5 mg (74 tabs) tablets in 5 mg PO BID #74 ea 03/19/25 a dose pack (Elique|tab DVT-PE Treat 30D Start) Allergies Allergy/AdvReac Type Severity Reaction Status Date / Time pollen extracts (POLLEN) Allergy Mild RUNNY NOSE Verified 03/19/25 06:43 house dust Allergy Unknown Sniffles Verified 03/19/25 06:43 Review of Systems 2 Review of Systems: All other systems are reviewed and are negative Constitutional: Reports as per HPI and Reports no additional constitutional complaints Eyes: Reports as per HPI and Reports no additional eye complaints Reports system reviewed and no additional complaints, except as documented Cardiovascular: Reports as per HPI and Reports no additional cardiovascular complaints Respiratory: Reports as per HPI and Reports no additional respiratory complaints Gastrointestinal: Reports as per HPI and Reports no additional gastrointestinal complaints Genitourinary: Reports no additional female genitourinary complaints Musculoskeletal: Reports no additional musculoskeletal complaints Skin/Breast: Reports system reviewed and no additional complaints, except as docu Psychiatric: Reports no additional psychiatric complaints Endocrine: Reports no additional endocrine complaints Hematologic/Lymphatic: Reports no additional hematologic/lymphatic complaints Allergic/Immunologic: Reports no additional allergic/immunologic complaints Reports system reviewed and no additional complaints, except as documented and Reports Abnormal speech present [facility] Past Medical History Medical History Onycholysis Cellulitis of great toe of right foot Pes planus Nail disorder Tinea unguium Nail dystrophy Pain of right great toe Ingrowing nail, right great toe Lumbosacral spondylosis with radiculopathy Myofascial pain Anxiety and depression Chronic low back pain Sacral ulcer Degenerative disc disease Obesity Anemia GERD (gastroesophageal reflux disease) Gout Tubular adenoma of colon Folic acid deficiency Asthma Hypertension Surgical History History of colonoscopy H/O knee surgery Family History Family History Mother Diabetes Hypertension Stroke Father Medical history unknown Sister Hypertension Diabetes Paternal Grandmother Myocardial infarction Daughter In good health Sister No problems noted. Brother No problems noted. Social History Social History Household Members: None Housing: Apartment Do you presently have visiting nurse or other home services: Yes Alcohol intake: former Comment: 0nce a week 4 drinks Patient Tobacco Use Status: Former Tobacco user Years Smoked: quit 2004 4-5 cigarettes a day Smoked in Last 30 Days: No e-Cigarette/Vaping Use: Currently Using Second Hand Smoke Exposure: Yes Use of substances other than those prescribed or required for medical reasons: Yes Substance Use Type: Marijuana Advance Directives: No Advance Directives Information Provided: Yes service: No Current occupational status: employed Cognitive needs: No Hearing needs: No Vision needs: No Physical Exam 2 Vital Signs: Vital Signs: Last Vital Signs Temp 98.2 F 03/20/25 08:29 Pulse 62 03/20/25 08:29 Resp 18 03/20/25 08:29 BP 120/57 L 03/20/25 08:29 Pulse Ox 96 03/20/25 08:29 O2 Del Method Room Air 03/20/25 08:29 BMI result Body Mass Index 41.1 Vital signs have been reviewed and appear to be correct. Blood pressure elevated. Heart rate normal. Respiratory rate normal. Temperature normal. Oxygen saturation normal. Appearance: Alert. Oriented X3. No acute distress. Head: Normal external exam. Normocephalic. Atraumatic. No Augustine signs noted. No raccoon eyes noted Eyes: PERRLA. EOMI. Conjunctiva and sclera normal. Eyelids normal. ENT: TM's Normal. Pharynx normal. Uvula midline. Moist mucous membranes. No trismus noted. No drooling noted. No muffled voice noted. Neck: Normal inspection. Neck supple. FROM. No adenopathy. Thyroid Normal. No meningeal signs. No neck mass noted. CVS: Normal heart rate and rhythm. Heart sound normal. No murmurs noted. Pulses normal throughout. Respiratory: No respiratory distress. Painless inspiration. Breath sounds normal. No wheezes/rales/rhonchi noted. Chest nontender. No accessory muscle usage noted or decreased air movement noted. Abdomen: Soft and nontender. Bowel sounds normal in all 4 quadrants. No distention noted. No organomegaly noted. No visible injury noted. Back: No CVA tenderness. Full range of motion noted. Skin: Skin warm and dry. Normal skin color. Normal skin turgor. No rashes/lesions/lacerations noted. Extremities: Left lower extremity: Mild left ankle swelling and tenderness, no step-off, no deformity. Neuro: Oriented X 3. Cranial nerve exam: II-XII are grossly intact No motor deficit. No sensory deficit. Reflexes normal. Course Reevaluation(s) Reevaluation #1: 59-year-old male came in for pain and swelling of left lower extremity, patient with +DVT on the left femoral and popliteal vein will start the patient on anticoagulation Eliquhimanshu patient was instructed to follow-up with his PCP to continue prescribing the anticoagulation. Patient received 1 dose of steroid patient's pain is believed to be secondary to gout. Otherwise stable vital signs, no tachypnea, no tachycardia, no CP, no SOB, O2 sat is 97% making pulmonary embolism is extremely unlikely. Time: 11:12 Reevaluation #2: patient is unable to get out of bed and ambulate due to severe pain which is felt to be due to a combination of gout and DVT, patient do not meet criteria for inpatient pain control and anticoagulation, will get PT eval and case management for placement. Time: 12:15 Reevaluation #3: 03/20/2025 0855 Vandana Hope PA-C --> Observation continues. Case management continues to follow. 03/20/2025 1700 Vandana Hope PA-C---> Observation care revealed the the patient does not meet medical necessity for hospitalization. Final disposition if discharge to [facility] discussed with the patient. Patient completed observation care at 1700 on 03/20/2025. Medications Administered Generic Name Dose Route Start Last Admin Trade Name Freq PRN Reason Stop Dose Admin Allopurinol 300 mg 03/19/25 15:45 03/20/25 09:11 Allopurinol 300 Mg Tablet PO 300 mg DAILY DONALDO Administration Apixaban 10 mg 03/19/25 21:00 03/20/25 08:25 Apixaban 5 Mg Tablet PO 03/26/25 20:59 10 mg BID DONALDO Administration Aripiprazole 5 mg 03/19/25 15:45 03/20/25 08:24 Aripiprazole 5 Mg Tablet PO 5 mg DAILY DONALDO Administration Bupropion HCl 300 mg 03/19/25 15:45 03/20/25 08:25 Bupropion Hcl Xl 300 Mg Tab.Er.24h PO 300 mg DAILY DONALDO Administration Cyanocobalamin (Vitamin B12) 1,000 mcg 03/19/25 15:45 03/20/25 08:25 Cyanocobalamin (Vitamin B-12) 1,000 Mcg Tablet PO 1,000 mcg DAILY DONALDO Administration Ferrous Sulfate 324 mg 03/20/25 09:00 03/20/25 08:24 Ferrous Sulfate 324 Mg Tablet. PO 324 mg DAILY DONALDO Administration Folic Acid 1 mg 03/19/25 15:45 03/20/25 08:25 Folic Acid 1 Mg Tablet PO 1 mg DAILY DONALDO Administration Losartan Potassium 25 mg 03/19/25 15:45 03/20/25 08:25 Losartan Potassium 25 Mg Tablet PO 25 mg DAILY DONALDO Administration Protocol Omeprazole 20 mg 03/20/25 06:30 03/20/25 06:32 Omeprazole 20 Mg Capsule. PO 20 mg DAILY@0630 DONALDO Administration Quetiapine Fumarate 50 mg 03/19/25 15:45 03/20/25 08:25 Quetiapine Fumarate 50 Mg Tablet PO 50 mg DAILY DONALDO Administration Quetiapine Fumarate 300 mg 03/19/25 21:00 03/19/25 21:12 Quetiapine Fumarate 300 Mg Tablet PO 300 mg BEDTIME DONALDO Administration Sertraline HCl 200 mg 03/19/25 15:45 03/20/25 08:25 Sertraline Hcl 100 Mg Tablet PO 200 mg DAILY DONALDO Administration Trazodone HCl 200 mg 03/19/25 21:00 03/19/25 21:12 Trazodone Hcl 100 Mg Tablet PO 200 mg BEDTIME DONALDO Administration Discontinued Medications Generic Name Dose Route Start Last Admin Trade Name Freq PRN Reason Stop Dose Admin Apixaban 10 mg 03/19/25 11:01 03/19/25 11:54 Apixaban 5 Mg Tablet PO 03/19/25 11:02 10 mg ONCE ONE Administration Ibuprofen 800 mg 03/19/25 08:50 03/19/25 09:14 Ibuprofen 800 Mg Tablet PO 03/19/25 08:51 800 mg ONCE ONE Administration Prednisone 60 mg 03/19/25 10:18 03/19/25 10:33 Prednisone 20 Mg Tablet PO 03/19/25 10:19 60 mg ONCE ONE Administration Medical Decision Making Differential Diagnosis Differential Diagnoses: The differential diagnosis associated with the presentation includes ( DVT, fracture, sprain.) Admission/Observation Consideration of admission/observation: Escalation of care including admission/observation considered Lab Data MDM Lab Attestation statement: I reviewed the patient's lab results. 03/19/25 07:27 03/19/25 07:27 Labs: Lab Results 03/19/25 03/19/25 Range/Units 07:27 13:11 WBC 10.4 (4.8-10.8) X10*3/uL RBC 4.34 L (4.60-5.80) X10*6/uL Hgb 11.6 L (14.0-18.0) g/dl Hct 34.8 L (42.0-52.0) % MCV 80.2 (80.0-98.0) fL MCH 26.7 L (27.0-33.0) pg MCHC 33.3 (31.0-36.0) g/dl RDW 15.0 (11.0-16.0) % Plt Count 236 (160-400) X10*3/uL MPV 8.9 L (9.4-12.4) fL Immature Gran % (Auto) 0.5 H (0.0-0.4) % Neut % (Auto) 81.5 H (45-73) % Lymph % (Auto) 9.3 L (20-40) % [place] % (Auto) 8.2 (2-11) % Eos % (Auto) 0.2 (0-4) % Baso % (Auto) 0.3 (0-2) % Lymph # (Auto) 1.0 L (1.2-4.9) X10*3/uL [place] # (Auto) 0.9 (0.1-1.2) X10*3/uL Eos # (Auto) 0.0 (0.0-0.4) X10*3/uL Baso # (Auto) 0.0 (0.0-0.2) X10*3/uL Abs Immat Gran (auto) 0.05 H (0.00-0.03) X10*3/uL Absolute Neuts (auto) 8.5 H (2.0-8.3) x10*3/uL Absolute Nucleated RBC 0.000 (0.0-0.012) X10*3/uL Nucleated RBC % (auto) 0.0 (0.0-0.2) /100WBC Sodium 139 (135-145) mmol/L Potassium 3.6 (3.3-5.1) mmol/L Chloride 107 (96-108) mmol/L Carbon Dioxide 24 (22-29) mmol/L Anion Gap 12 (12-20) BUN 10 (9-16) mg/dL Creatinine 0.76 (0.5-1.4) mg/dL Estim Creat Clear Calc 155.0 Estimated GFR > 60 Random Glucose 120 H (60-115) mg/dL Calcium 9.8 D (8.4-10.2) mg/dL Total Bilirubin 0.5 (0.0-1.0) mg/dL AST 15 (5-37) U/L ALT 13 (0-40) U/L Alkaline Phosphatase 88 (39-117) U/L Total Protein 7.3 (6.5-8.0) g/dL Albumin 4.2 (3.5-5.0) g/dL Influenza Type A (PCR) NEGATIVE (Negative) Influenza Type B (PCR) NEGATIVE (Negative) RSV RNA Qual (PCR) NEGATIVE (Negative) SARS-CoV-2 RNA (RT-PCR) NEGATIVE (Negative) Independent Interpretation I performed an independent interpretation of an: Plain X-Ray ( Left ankle x- ray: Diffuse soft tissue swelling, no evidence of acute fracture of left ankle.) and Ultrasound ( DVT of left femur and popliteal vein.) Radiology Impression Discussion of test interpretation with radiology: I have reviewed the radiologist's reading. Discharge Plan Discharge Clinical Impression: DVT (deep venous thrombosis), Unable to ambulate Patient Disposition: Xfer [facility] Instructions: Deep Vein Thrombosis (ED) Prescriptions: New Eliquis DVT-PE Treat 30D Start 5 mg (74 tabs) tablets,dose pack 5 mg PO BID Qty: 74 0RF Rx Instructions: take total of 2 pills every 12 hours (10 mg) for the 1st 7 days then take 1 pill (5 mg) every 12 hours. This prescription will be enough for 1 month you need to contact your primary doctor to refill the prescription and continue the anticoagulation. You need to be on this medicine for at least 6 months until your primary doctor decide No Action cyanocobalamin (vitamin B-12) [Vitamin B-12] 1,000 mcg tablet 1,000 mcg PO DAILY Qty: 90 1RF allopurinol 300 mg tablet 300 mg PO DAILY Qty: 90 0RF ferrous sulfate [Feosol] 325 mg (65 mg iron) tablet 325 mg PO DAILY Qty: 90 0RF pantoprazole 40 mg tablet,delayed release (DR/EC) 40 mg PO DAILY@0630 Qty: 30 0RF losartan 25 mg tablet 25 mg PO DAILY 90 Days Qty: 90 1RF terbinafine HCl 250 mg tablet 250 mg PO DAILY 84 Days Qty: 84 0RF acetaminophen 500 mg tablet 1,000 mg PO Q6H PRN (Reason: fever or pain) Qty: 30 0RF folic acid 1 mg tablet 1 mg PO DAILY zinc oxide 20 % ointment 1 appl topical TID PRN (Reason: Rash) Protocol: Apply to: Apply to: perirectal area albuterol sulfate 90 mcg/actuation HFA aerosol inhaler 2 puff inhalation Q4H PRN (Reason: Shortness Of Breath Or Wheezing) loratadine 10 mg tablet 10 mg PO DAILY PRN (Reason: Allergy Symptoms) aripiprazole [Abilify] 5 mg tablet 5 mg PO DAILY trazodone 100 mg tablet 200 mg PO BEDTIME quetiapine [Seroquel] 300 mg tablet 300 mg PO BEDTIME sertraline [Zoloft] 100 mg tablet 200 mg PO DAILY bupropion HCl [Wellbutrin XL] 300 mg tablet extended release 24 hr 300 mg PO DAILY quetiapine [Seroquel] 50 mg tablet 50 mg PO DAILY diclofenac sodium [Voltaren Arthritis Pain] 1 % gel 4 g topical QID Qty: 200 3RF Rx Instructions: apply to single knee, ankle, foot; for foot includes sole/toes/top of foot (DME) blood pressure monitor [Blood Pressure Kit] Kit See Rx Instructions .ROUTE .MEDSUPPLY Qty: 1 0RF Rx Instructions: As directed Referrals: Joey Jaimes MD [Primary Care Provider, Internal Medicine] Print Language: American"
--- NOTE | 2025-03-19 11:42 | PC.NURSE ---
attempted to get patient oob and dressed for dc, hospital van called for ride to patients apartment. patient unable to stand a bare weight on left leg/foot due to pain. ED provider notified that patient may benefit from case management.
--- NOTE | 2025-03-19 13:13 | MHC.CM.ED ---
Received case management consult from Dr Eng. Patient came to the ER due to leg pain/swelling. Found to have gout issues and +DVT. Patient started on Eliquis. Per hospitalist, hospital admission not needed at this time. Physical therapy eval ordered and pending. Met with patient in regards to discharge planning. Patient lives alone, ambulates with a cane and is active with [facility]. PCP verified to be on file. Patient does not believe he ever completed a HCP because he wasn't sure who he would appoint as his proxy. Patient has never been to [facility] but is agreeable at this time. Referral will be broadcasted in [employer]. Bed offers will be discussed with patient. Reached out to [facility] to see if they have a HCP on file. Waiting for response. Continue to monitor for d/c needs.
--- NOTE | 2025-03-19 13:47 | PHA.MEDREC ---
Addendum entered by Cinda Brown PharmD 03/19/25 15:27: [facility] reviewed Original Note: Pharmacy Consult ? Medication Reconciliation Pharmacy has completed the medication reconciliation. Spoke with pt and he confirmed his medications.
[2025-03-19 13:52] LABS: Resp Syncy Virus RNA Qual PCR NEGATIVE (Negative); SARS COV2 PCR INHOUSE NEGATIVE (Negative)
--- NOTE | 2025-03-19 14:19 | MHC.CM.ED ---
Addendum entered by Jaye Albert 03/19/25 14:36: Due to anxiety and seeing an outpatient psychiatrist, patient will need [facility] PASRR Level 2. Level 1 submitted. Original Note: Physical therapy eval completed. Short term rehab is recommended. [facility], [facility], and [facility] are able to offer a bed. [facility], [facility], and [facility] still reviewing. Bed availability discussed with patient. Patient accepts bed at [facility]. [facility] made aware and asked to obtain ins auth. Expect patient will remain in ER overnight. Continue to monitor for d/c needs.
[2025-03-19 15:33] VITALS: BP 153/72; PULSE 57; RESP 16; TEMP 36.6; O2SAT 97
[2025-03-19 16:45] VITALS: BP 153/72
[2025-03-19] MEDS: buPROPion HCl XL 300 MG TAB.ER.24H PO (16:46)
[2025-03-19 18:35] VITALS: BP 142/62; PULSE 51; RESP 18; TEMP 36.7; O2SAT 97
[2025-03-20 00:42] VITALS: BP 122/56; PULSE 57; RESP 16; TEMP 36.9; O2SAT 97
[2025-03-20 06:15] VITALS: BP 110/53; PULSE 61; RESP 14; TEMP 36.6; O2SAT 96
[2025-03-20] MEDS: Ferrous Sulfate 324 MG TABLET.DR PO (08:24)
--- NOTE | 2025-03-20 08:24 | MHC.CM.PN ---
Addendum entered by Angela Ma RN 03/20/25 15:20: [facility] has obtained auth. S transport booked for 5:15. Patient, RN and PA aware. Patient completed HCP naming his brother, Doron Albarran, as HCA. Addendum entered by Angela Ma RN 03/20/25 11:52: Per [facility], auth still pending. Original Note: PASRR level 2 complete. Awaiting CCA auth for STR at [facility].
[2025-03-20 08:25] VITALS: BP 120/57
[2025-03-20] MEDS: buPROPion HCl XL 300 MG TAB.ER.24H PO (08:25)
[2025-03-20 08:29] VITALS: BP 120/57; PULSE 62; RESP 18; TEMP 36.8; O2SAT 96
[2025-03-20 17:50] VITALS: BP 136/67; PULSE 72; RESP 18; TEMP 36.8; O2SAT 97
[2025-03-20 17:51] VITALS: BP 136/67; PULSE 72; RESP 18; TEMP 36.8; O2SAT 97
== END 2025-03-20 17:51 | disposition skilled nursing facility (03) ==
PROVIDERS: Emergency Provider Emergency Medicine; PCP Internal Medicine
DX: I82.412 Acute embolism and thrombosis of left femoral vein (principal); I82.432 Acute embolism and thrombosis of left popliteal vein; I10 Essential (primary) hypertension; J45.909 Unspecified asthma, uncomplicated; G89.29 Other chronic pain; Z79.899 Other long term (current) drug therapy; Z03.818 Encounter for observation for suspected exposure to other biological agents ruled out
CPT/HCPCS: 36415; 73600; 80053; 85025; 87637; 93971; 97162; 99284

== ENCOUNTER → 2025-03-19 08:49 | Outpatient (BNV) | payer OTHER, SELFPAY | PROVIDERS: Emergency Provider Emergency Medicine; PCP Internal Medicine; Visit Provider Radiology Diagnostic Radiology | DX: I82.412 Acute embolism and thrombosis of left femoral vein (principal); R22.42 Localized swelling, mass and lump, left lower limb | CPT/HCPCS: 73600; 93971 ==